=== PATIENT | male | born 1960 | race Caucasian/White ===

== ENCOUNTER 2016-07-20 13:49 | Inpatient (IN) ==
--- NOTE | 2016-07-20 15:31 | Emergency Department Note ---
Disposition Clinical Impression: Elevated INR, Bleeding from wound Surgical wound infection Qualifiers: Encounter type: initial encounter Qualified Code(s): T81.4XXA - Infection following a procedure, initial encounter Cellulitis Qualifiers: Site of cellulitis of trunk: abdominal wall Disposition: Admitted As Inpatient Condition: Fair Referrals: NO,PCP [Non-Partnered Physician] - Forms: ED Satisfaction Letter Time of Disposition: 20:09 Wound/Laceration HPI - General Chief Complaint: ED Wound/Laceration Stated Complaint: Wound bleeding Time Seen by Provider: 07/20/16 14:25 Source: patient Limitations: no limitations - History of Present Illness HPI Narrative: Patient is 55-year-old male with past medical history significant for CAD, CHF, renal disease, aortic valve replacement, mitral valve replacement who presents with bleeding from a surgical wound. Patient had bowel resection on 07/09/16 [facility] in [place]. He states that he sat down in his chair, leaning forward, and began bleeding from his midline abdominal surgical wound. He states that bleeding soaked one washcloth. Upon presentation to hospital, patient states the bleeding had resolved. Patient also admits to some erythema surrounding his midline surgical wound. He states that this is been present since he was discharged following his surgery. Patient admits to cough productive of white sputum. Patient denies fever, chills, chest pain, shortness of breath, abdominal pain. - Related Data Home Medications Medication Instructions Recorded Confirmed Doxercalciferol [Hectorol] 2.5 mcg PO 2XW 12/14/14 07/20/16 Sotalol HCl [Sotalol] 120 mg PO BID 12/14/14 07/20/16 Allopurinol [Zyloprim 100 MG] 100 mg PO DAILY 07/20/16 07/20/16 Ferrous Sulfate 325 mg PO TIDWM 07/20/16 07/20/16 Furosemide [Lasix] 40 mg PO BID 07/20/16 07/20/16 Guaifenesin [Mucinex] 600 mg PO BID 07/20/16 07/20/16 Magnesium Hydroxide [Milk of 2,400 mg PO DAILY 07/20/16 07/20/16 Magnesia] Magnesium Oxide [Mag-Ox] 400 mg PO DAILY 07/20/16 07/20/16 OxyCODONE Immed Rel [Roxicodone 5 5 mg PO Q4H PRN 07/20/16 07/20/16 MG] Sennosides/Docusate Sodium [Senna 1 each PO BID 07/20/16 07/20/16 Plus] Sodium Bicarbonate 1,300 mg PO DAILY 07/20/16 07/20/16 Warfarin Sodium [Coumadin] 6 mg PO QPM 07/20/16 07/20/16 Allergies Allergy/AdvReac Type Severity Reaction Status Date / Time No Known Allergies Allergy Verified 07/20/16 13:57 All systems ED: reviewed and negative except as stated. Constitutional: Reports: as per HPI Eyes: Reports: as per HPI ENT ED: Reports: as per HPI Cardiovascular: Reports: as per HPI Respiratory: Reports: as per HPI Gastrointestinal: Reports: as per HPI Genitourinary: Reports: as per HPI Musculoskeletal: Reports: as per HPI Integumentary: Reports: as per HPI Neurological: Reports: as per HPI Psychiatric: Reports: as per HPI Endocrine: Reports: as per HPI Hematological/Lymphatic: Reports: as per HPI Allergic/Immunologic: Reports: as per HPI Past Medical History - Past Medical History Medical history: Reports: CHF, coronary artery disease, renal disease, other Surgical history: Reports: other (s/p mechanical aortic and mechanical mitral valve replacement - on coumadin) Psychiatric history: Reports: no psych history - Social History Smoking Status: Never smoker Smokeless Tobacco Status: Yes Alcohol use: Reports: none Drug use: Reports: none Physical Exam - General Limitations: no limitations General appearance: alert, in no apparent distress - Head Head exam: atraumatic, normocephalic - Eye Eye exam: Present: normal appearance, EOMI - ENT ENT exam: normal exam - Neck Neck exam: Present: normal inspection, full ROM, trachea midline - Chest Chest inspection: Present: normal inspection, symmetric chest wall rise. Absent : tenderness - Respiratory Respiratory exam: Present: wheezes (Diffuse wheezing to all lung osman). Absent: respiratory distress, stridor, accessory muscle use - Cardiovascular Cardiovascular exam: Present: regular rate, normal rhythm, systolic murmur ( Harsh click of aortic valve), diastolic murmur (Click of mitral valve) - Abdominal Exam Abdominal exam: Present: soft, normal bowel sounds, scar (Midline abdomen with jimmy in place. Erythema and warmth to approximately 6 cm on either side of the spine surgical wound.). Absent: tenderness, distention (Morbidly obese abdomen), guarding, rebound, rigidity - Extremities Exam Extremities exam: Present: normal inspection, full ROM, pedal edema (1+ pitting edema) - Back Exam Back exam: Present: normal inspection, full ROM - Neurological Exam Neurological exam: Present: alert, oriented X3 - Psychiatric Psychiatric exam: Present: normal affect, normal mood - Skin Skin exam: Present: rash, erythema (Erythema and warmth to midline abdomen surrounding surgical wound) Course - Reevaluation(s) Reevaluation #1: Patient's INR is elevated at 5.2. Patient takes Coumadin for mechanical aortic and mitral valves. Also, patient does have a hemoglobin of 9.6, which is decreased from 07/06/2016 when hemoglobin was 10.3. Patient's lactate is normal and he does not have leukocytosis. However, we will treat the abdominal cellulitis with Unasyn 3g IV. I discussed admission with the patient. Patient is in agreement given that we will need to closely monitor his INR and treat the abdominal wall cellulitis. Time: 18:00 Vital Signs Temperature 98.2 F 07/20/16 13:58 Pulse Rate 103 07/20/16 13:58 Respiratory Rate 18 07/20/16 13:58 Blood Pressure 118/74 07/20/16 13:58 O2 Sat by Pulse Oximetry 97 07/20/16 13:58 Temperature 98.2 F 07/20/16 13:58 Pulse Rate 103 07/20/16 18:22 Respiratory Rate 16 07/20/16 18:22 Blood Pressure 101/83 07/20/16 18:22 O2 Sat by Pulse Oximetry 97 07/20/16 18:22 Oxygen Delivery Oxygen Delivery Room Air Wound/Laceration - [facility] Narrative Medical decision making narrative: She presents with acute onset bleeding from his midline surgical wound. Also, I am concerned for erythema and warmth surrounding the surgical wound which appears to be cellulitis. I will obtain a CBC, lactate, INR/PTT. These studies are pending at this time. - Lab Data Result diagrams: 07/20/16 16:23 Lab Results 07/20/16 07/20/16 07/20/16 Range/Units 16:23 16:25 16:25 WBC 8.0 (4.3-11.1) K/mcL RBC 3.46 L (4.19-5.50) M/mcL Hgb 9.6 L (12.9-16.9) g/dL Hct 30.9 L (37.5-50.1) % MCV 89.3 (83.0-100.0) fL MCH 27.7 L (28.0-33.3) pg MCHC 31.1 L (31.6-35.5) g/dL RDW 16.0 H (11.5-14.5) % Plt Count 167 (140-400) K/mcL MPV 11.4 (9.4-12.4) fL PT 59.5 H* (9.4-12.1) Seconds INR 5.2 H* Lactic Acid 1.1 (0.5-2.2) mmol/L
--- NOTE | 2016-07-20 16:24 | Emergency Department Note ---
START Narrative - START START: I examined this patient and my medical decision-making was reviewed with the MACHINE ADJUSTER LEADER CASE TRIM/PA/Advanced Practice Nurse/Resident Physician. I agree with the documented findings, disposition and treatment plan as described except to the extent set forth below. The patient did have surgery 10 days ago for what was diagnosed on his discharge papers as a: Twisted bowel and he presents today with erythema around his surgical incision with jimmy intact and a lot of blood seeping between the wound. The patient does have labs ordered pending including CBC, lactate and INR. He is nontoxic in appearance. Care will be coordinated with his surgeon and [place] [id number]
[2016-07-20 16:36] LABS: Hematocrit 30.9 % (37.5-50.1); Hemoglobin 9.6 g/dL (12.9-16.9); Mean Corpuscular HGB Conc 31.1 g/dL (31.6-35.5); Mean Corpuscular Hemoglobin 27.7 pg (28.0-33.3); Mean Corpuscular Volume 89.3 fL (83.0-100.0); Mean Platelet Volume 11.4 fL (9.4-12.4); Platelet Count 167 K/mcL (140-400); Red Blood Count 3.46 M/mcL (4.19-5.50)
[2016-07-20 16:45] LABS: Prothrombin Time 59.5 Seconds (9.4-12.1)
[2016-07-20 16:46] LABS: INR 5.2
[2016-07-20] MEDS ORDERED: Ampicillin/Sulbactam 3,000 MG in 0.9 % Sodium Chloride Mini Bag 100 ML IVPB ONE (17:33)
[2016-07-20] MEDS ORDERED: Naloxone 0.4 MG/ML INJ IVP PRN (22:52)
[2016-07-20] MEDS ORDERED: Ondansetron 4 MG/2 ML VIAL IVP PRN (22:52)
[2016-07-20 23:22] LABS: Basophils % 0.3 %; Eosinophils # 0.2 K/mcL (0.0-0.6); Eosinophils % 2.7 %; Hematocrit 27.6 % (37.5-50.1); Hemoglobin 8.7 g/dL (12.9-16.9); Immature Granulocytes % 0.6 % (0-4); Lymphocytes # 0.7 K/mcL (0.6-4.6); Lymphocytes % 10.6 %; Mean Corpuscular HGB Conc 31.5 g/dL (31.6-35.5); Mean Corpuscular Hemoglobin 28.2 pg (28.0-33.3); Mean Corpuscular Volume 89.6 fL (83.0-100.0); Mean Platelet Volume 11.7 fL (9.4-12.4); Monocytes # 0.7 K/mcL (0.0-1.3); Monocytes % 10.9 %; Neutrophils # 4.7 K/mcL (1.6-8.9); Platelet Count 162 K/mcL (140-400); Red Blood Count 3.08 M/mcL (4.19-5.50); Red Cell Distribution Width 15.9 % (11.5-14.5); Segmented Neutrophils % 74.9 %
[2016-07-20 23:29] LABS: INR 5.4
[2016-07-20 23:35] LABS: Calcium 8.3 mg/dL (8.6-10.8); Magnesium 2.1 mg/dL (1.6-2.6); Potassium 4.2 mEq/L (3.5-4.5)
--- NOTE | 2016-07-21 00:05 | Internal Med History&Physical ---
<Jerson Galindo Maura - Last Filed: 07/21/16 00:00> Date of Encounter: 07/21/16 Time of Encounter: 00:00 Assessment and Plan (1) Bleeding from wound Current visit: Yes Status: Acute Patient reports bleeding from the surgical site wound. None observed on exam but the nursing staff did state that the patient did have an episode of spurting blood. Hemoglobin 9.6 on presentation, recheck is 8.7. Hemodynamically stable and asymptomatic. We will continue to monitor. (2) Elevated INR Current visit: Yes Status: Acute INR 5.2 on presentation. Patient has 2 mechanical valves so his goal is 2.5- 3.5. Patient does have some bleeding as discussed above but is otherwise stable. Given the high risk nature of the mechanical valves will not attempt to reverse the patient's elevated INR at this time. If he continues to have significant bleeding or becomes hemodynamically unstable due to acute blood loss we will treat with FFP. In the meantime we will hold Coumadin and monitor the patient's INR (3) Acute renal failure (ARF) Current visit: No Status: Acute On chronic. Likely the setting of hypovolemia. Since baseline creatinine appears to be 2.8-3, creatinine 4.99 today. We will gently hydrate and monitor serum creatinine and urine output. Qualifiers: Acute renal failure type: unspecified Qualified Code(s): N17.9 - Acute kidney failure, unspecified (4) H/O mechanical aortic valve replacement Current visit: No Status: Acute Click present. INR target should be 2.5-3.5 as discussed above. Patient is high risk so we will not reverse Coumadin with vitamin K, if bleeding becomes severe we may use FFP but we will just clinically monitor at this time. (5) History of mitral valve replacement with mechanical valve Current visit: No Status: Acute (6) Gout Current visit: No Status: Acute Stable. No evidence of acute flare. Continue allopurinol. Qualifiers: Gout site: foot Gout etiology: unspecified cause Laterality: left Chronicity: acute Qualified Code(s): M10.9 - Gout, unspecified (7) DVT prophylaxis Current visit: Yes Status: Acute Patient is supratherapeutic on INR as discussed above is no indication for DVT prophylaxis at this time. Internal Medicine - H&P: HPI Chief complaint: Wound bleeding Admitted From: Emergency Dept Plans for Post Hospital Care: Home History of present illness: Mr. Driscoll is a 55 year old male with history of aortic valve and mitral valve replacement with mechanical valve presents with surgical site bleeding. Patient had surgery on 07/09/2016 at [place] to fix what he calls a "twist in his bowel." Patient then states that today he went to sit up and noticed bleeding from his surgical site. He started shortly thereafter he noticed spurting blood from her surgical site. Patient then presented to the emergency department. Patient was also noted by the nursing staff to have an episode of spurting blood from his surgical site once arriving on the floor after getting up and walking to the bathroom. Patient denies dizziness, syncope, fever, chills, chest pain, shortness of breath, nausea, vomiting, diarrhea, lower extremity swelling. Patient takes Coumadin for mechanical aortic and mitral valves. He states he had his INR checked 2 days prior to this admission but does not remember what it was. Past Med Surg Social Fam HX - Past Medical History Medical history: CHF, coronary artery disease, renal disease, other Psychiatric history: no psych history - Past Surgical History Surgical History: other - Social History Smoking Status: Former smoker Smokeless Tobacco Status: Yes Alcohol use: none Drug use: none - Family History Father Living Status: Internal Medicine - H&P: Meds Allopurinol [Zyloprim 100 MG] 100 mg PO DAILY 07/20/16 [History] Ferrous Sulfate 325 mg PO QAM 07/20/16 [History] Furosemide [Lasix] 40 mg PO BID 07/20/16 [History] Guaifenesin [Mucinex] 600 mg PO BID 07/20/16 [History] Magnesium Hydroxide [Milk of Magnesia] 2,400 mg PO DAILY 07/20/16 [History] OxyCODONE Immed Rel [Roxicodone 5 MG] 5 mg PO Q4H PRN 07/20/16 [History] Sennosides/Docusate Sodium [Senna Plus] 1 each PO BID 07/20/16 [History] Sodium Bicarbonate 1,300 mg PO DAILY 07/20/16 [History] Allergies No Known Allergies Allergy (Verified 07/20/16 13:57) All Systems PM: A 10-system review of systems was performed and is negative for pertinent findings except as documented above in the HPI. - Constitutional Vitals: Temp Pulse Resp BP Pulse Ox 97.9 F 95 18 116/74 94 07/20/16 23:03 07/20/16 23:03 07/20/16 23:03 07/20/16 23:03 07/20/16 23:03 General appearance: Present: A&O X 3, pleasant, no acute distress - Head Head exam: Present: atraumatic, normal inspection, normocephalic - Eye Eye exam: Present: EOMI, PERRL - ENT ENT exam: Present: mucous membranes moist - Respiratory Respiratory exam: Present: CTAB (Coarse breath sounds throughout). Absent: rales, rhonchi, wheezes - Cardiovascular Cardiovascular exam: Present: clicks, RRR, systolic murmur (2/6). Absent: gallop, rubs, tachycardia - GI/Abdominal GI/Abdominal exam: Present: normal bowel sounds, soft. Absent: distended, tenderness - Extremities Exam Extremities exam: Present: warm. Absent: pedal edema, tenderness - Incison Incision: Present: clean and dry, intact, erythema (Mild) Comments: No bleeding or drainage noted at the time my exam. Tyler are present. Mild erythema surrounding the surgical site but no induration, tenderness. - Neurological Exam Neurological exam: Present: alert, CN II-XII intact, oriented X3, no focal deficits - Skin Skin exam: Present: dry, intact, warm Internal Med - H&P Results - Labs CBC & Chem 7: 07/20/16 23:11 07/20/16 23:11 Labs: Short CBC 07/20/16 Range/Units 23:11 WBC 6.3 (4.3-11.1) K/mcL Hgb 8.7 L (12.9-16.9) g/dL Hct 27.6 L (37.5-50.1) % Plt Count 162 (140-400) K/mcL Neutrophils # 4.7 (1.6-8.9) K/mcL BMP 07/20/16 23:11 Sodium 137 Potassium 4.2 Chloride 97 L Carbon Dioxide 29 BUN 63 H Creatinine 4.99 H Glucose 100 H Calcium 8.3 L - VTE Reasons for not Prescribing Prophylaxis: Not indicated-Anticoagulated or INR therapeutic <Narendra Sue - Last Filed: 07/21/16 11:17> Date of Encounter: 07/21/16 Internal Medicine - H&P: HPI History of present illness: Mr. Driscoll is a 55 year old male All Systems PM: A 10-system review of systems was performed and is negative for pertinent findings except as documented above in the HPI. - Constitutional Vitals: Temp Pulse Resp BP Pulse Ox 98.2 F 89 18 122/41 99 07/21/16 10:25 07/21/16 10:25 07/21/16 10:25 07/21/16 10:25 07/21/16 09:17 Internal Med - H&P Results - Labs CBC & Chem 7: 07/21/16 04:12 07/21/16 04:12 - Attending Attestation I performed history and physical examination of the patient and discussed management with the Resident. I reviewed the Residents note and agree with documented findings and plan of care 55 Y/M with h/o AVR and MVR and is on warfarin for anticoagulation. He had laparotomy was done on 07/09/16 at [facility]. Pt presented to the ER at [facility], with h/o spurting blood from the laparotomy incision site. He was evaluated in the ER and was noted to have INR of 5.4, Hgb : 9.6. ER physician thought that the pt has abdominal wall cellulitis and given unasyn to the pt and admitted to the hospitalist service for further management. O/E: Pt lying comfortable. Midline abdominal incision with jimmy in place. No clinical signs of cellulitis noted. No obvious bleeding hematoma noted. Bowel sound present. No abdominal tenderness present. Prosthetic 1st and 2nd heart sounds present. Labs reviewed. A/P: Suspected cellulitis of the anterior abdominal wall: On my personal evaluation, no obvious e/o cellulitis no antibiotics at this time. Bleeding from the abdominal wall incision site: Likely related to elevated INR. No active signs of bleeding at my evaluation and residents evaluation. Monitor INR and H&H. Ideally pt should have been transferred to [facility], for post surgical complications. If the pt has any signs of further bleeding from the incision site will discuss with local surgeon or transfer to [facility].
[2016-07-21] MEDS ORDERED: *HR* OxyCODONE Immed Rel 5 MG TABLET PO PRN (00:09)
[2016-07-21] MEDS ORDERED: 0.9 % Sodium Chloride 1,000 ML IVC SCH (00:15)
[2016-07-21 04:28] LABS: Basophils % 0.4 %; Eosinophils # 0.2 K/mcL (0.0-0.6); Eosinophils % 4.1 %; Hemoglobin 8.2 g/dL (12.9-16.9); Immature Granulocytes % 0.6 % (0-4); Lymphocytes # 0.8 K/mcL (0.6-4.6); Lymphocytes % 13.8 %; Mean Corpuscular HGB Conc 31.5 g/dL (31.6-35.5); Mean Corpuscular Hemoglobin 28.3 pg (28.0-33.3); Mean Corpuscular Volume 89.7 fL (83.0-100.0); Mean Platelet Volume 11.4 fL (9.4-12.4); Monocytes # 0.6 K/mcL (0.0-1.3); Monocytes % 11.8 %; Neutrophils # 3.8 K/mcL (1.6-8.9); Platelet Count 160 K/mcL (140-400); Red Cell Distribution Width 15.9 % (11.5-14.5); Segmented Neutrophils % 69.3 %
[2016-07-21 04:34] LABS: INR 5.3; Prothrombin Time 60.2 Seconds (9.4-12.1)
[2016-07-21 04:39] LABS: Calcium 8.1 mg/dL (8.6-10.8)
[2016-07-21] MEDS ORDERED: Pantoprazole 40 MG VIAL IVP SCH (06:30)
[2016-07-21] MEDS ORDERED: Furosemide 40 MG TABLET PO SCH (08:00)
--- NOTE | 2016-07-21 08:28 | Internal Med Progress Note ---
Date of Encounter: 07/21/16 Time of Encounter: 07:45 - Assessment and plan (1) H/O colectomy Current Visit: Yes Status: Acute Assessment and plan: I have reviewed the patient's records from [facility]. On 07/07/16, patient presented to the emergency department with a chief complaint right flank pain 2 days. A retroperitoneal spontaneous bleed was found and thought to be secondary to polycystic kidney disease with retroperitoneal hemorrhage from right kidney noted on CTA he was transfused with 3 units of packed red blood cells at that time and remained anemic with a hemoglobin 7.7 after transfusion. He was also noted to be in acute renal failure with an initial creatinine clearance of 14. He had an right renal artery embolization on 07/07/16. After this procedure, patient began to experience increasing abdominal pain and distention. 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 His cecum at that time was severely dilated measuring 17.5 cm. GI was initially brought on board for colonoscopic decompression however patient began having bright red bloody stools and the decision was made to proceed with surgical management. Surgery then proceeded with exploratory laparotomy with right colectomy for volvulus on 07/09/16 with postoperative diagnosis of the cecal bascule- surgery per Dr Murdock. An HD catheter was placed but it does not appear as if the patient was started on HD. Patient's admission was complicated with encephalopathy, CO2 retention, AKA on CKD, respiratory acidosis and he was transferred to the ICU at that time. He was stabilized and later discharged on 07/19/16. Patient has been transferred to the ICU, sign out has been given to Dr. Ochoa. Spoke to [facility] transfer center, and they are attempting to secure transfer at this time. Spoke to transfer center at 0820. Patient is currently alert and oriented 3 and currently denies pain. Abdomen is distended but soft and nontender. Hypoactive bowel sounds. Per nursing report, whenever the patient moves, blood "squirts out of his incision". Also viewed bedside commode which contained a large amount of dark red blood with clots noted. (2) Bleeding from wound Current Visit: Yes Status: Acute Assessment and plan: FFP and packed red blood cells ordered. Spoke to [facility], plan is to transfer soon as possible. Transferring to the intensive care unit in the meantime. Abdominal CT without contrast pending. Sign out to Dr. Ochoa. (3) Acute renal failure (ARF) Current Visit: No Status: Acute Assessment and plan: In review of his chart, he has chronic kidney disease stage IV however current renal functioning is lower than his baseline. Current creatinine 4.9, GFR 12. When he was admitted to [facility], he had an HD catheter placed but it does not appear as if he received dialysis. Transferring to the ICU Qualifiers: Acute renal failure type: unspecified Qualified Code(s): N17.9 - Acute kidney failure, unspecified (4) Cellulitis Current Visit: Yes Status: Acute Assessment and plan: On examination, I am not overly convinced that the patient's incision is infected. No leukocytosis. On examination, mild erythema noted around incision site. Abdominal CT pending, main concern at this time is his active bleeding. Transferring down to the intensive care unit. (5) Surgical wound infection Current Visit: Yes Status: Acute Assessment and plan: See prior note for cellulitis (6) H/O mechanical aortic valve replacement Current Visit: No Status: Chronic Assessment and plan: Holding Coumadin. INR supratherapeutic with active bleeding. Getting FFP at this time, 6 units. Transferred to [facility] as soon as possible. (7) History of mitral valve replacement with mechanical valve Current Visit: No Status: Chronic (8) Elevated INR Current Visit: Yes Status: Acute Assessment and plan: Transfusing FFP (9) DVT prophylaxis Current Visit: Yes Status: Acute Assessment and plan: Contraindicated, active bleeding. INR supratherapeutic (10) Acute blood loss anemia Current Visit: Yes Status: Acute - Time Spent With Patient Greater than 35 minutes - Subjective Interval history: Patient seen and examined. On examination, patient resting supine in bed. Patient is alert and oriented 3 but appears groggy. He denies pain at this time. He states that his incision to his abdomen continues to "squirt blood" when he stands up. He also states that he is still passing dark red blood with clots in his stool. - Constitutional Vitals: Temp Pulse Resp BP Pulse Ox 97.9 F 94 18 106/70 96 07/21/16 03:00 07/21/16 03:00 07/21/16 03:00 07/21/16 03:00 07/21/16 03:00 General appearance: Present: A&O X 3, pleasant, no acute distress, obese, answers questions appropriately - Head Head exam: Present: atraumatic, normocephalic - Eye Eye exam: Present: PERRL, conjuntiva pink, sclera anicteric Pupils: Present: PERRL - Neck Neck exam general surgery: Present: supple, trachea midline. Absent: lymphadenopathy - Respiratory Respiratory exam: Present: decreased breath sounds, rhonchi. Absent: accessory muscle use, CTAB, rales, respiratory distress, wheezes - Cardiovascular Cardiovascular exam: Present: irregular rhythm, +S1, +S2, systolic murmur. Absent: diastolic murmur, gallop, rubs - GI/Abdominal GI/Abdominal exam: Present: distended, hypoactive bowel sounds, soft. Absent: tenderness - Extremities Exam Extremities exam: Present: warm, radial pulses palpable and symetrical. Absent : calf tenderness, cyanotic, pedal edema - Neurological Exam Neurological exam: Present: alert, CN II-XII intact, oriented X3, no focal deficits, strengths equal and symetr throughout. Absent: pronater drift, facial droop, speech deficit - Skin Skin exam: Present: dry, intact, pallor, warm Internal Medicine: Result - Labs CBC & Chem 7: 07/21/16 04:12 07/21/16 04:12 Labs: Short CBC 07/20/16 07/21/16 Range/Units 23:11 04:12 WBC 6.3 5.4 (4.3-11.1) K/mcL Hgb 8.7 L 8.2 L (12.9-16.9) g/dL Hct 27.6 L 26.0 L (37.5-50.1) % Plt Count 162 160 (140-400) K/mcL Neutrophils # 4.7 3.8 (1.6-8.9) K/mcL BMP 07/20/16 07/21/16 23:11 04:12 Sodium 137 139 Potassium 4.2 4.0 Chloride 97 L 99 Carbon Dioxide 29 29 BUN 63 H 64 H Creatinine 4.99 H 4.91 H Glucose 100 H 131 H Calcium 8.3 L 8.1 L - ABG Interpretation ABG results: PT/INR, D-dimer PT 60.2 Seconds (9.4-12.1) H* 07/21/16 04:12 - VTE Reasons for not Prescribing Prophylaxis: Not indicated-Anticoagulated or INR therapeutic Consult Discharge Plan - Plan Referrals: Dieter Herrera DO [Primary Care Provider] -
--- NOTE | 2016-07-21 09:49 | Pulmonology Consult Note ---
<PatrickhuyBarb godoy M - Last Filed: 07/21/16 12:54> Date of Encounter: 07/21/16 Medications and Allergies Allopurinol [Zyloprim 100 MG] 100 mg PO DAILY 07/20/16 [History] Ferrous Sulfate 325 mg PO QAM 07/20/16 [History] Furosemide [Lasix] 40 mg PO BID 07/20/16 [History] Guaifenesin [Mucinex] 600 mg PO BID 07/20/16 [History] Magnesium Hydroxide [Milk of Magnesia] 2,400 mg PO DAILY 07/20/16 [History] OxyCODONE Immed Rel [Roxicodone 5 MG] 5 mg PO Q4H PRN 07/20/16 [History] Sennosides/Docusate Sodium [Senna Plus] 1 each PO BID 07/20/16 [History] Sodium Bicarbonate 1,300 mg PO DAILY 07/20/16 [History] Allergies No Known Allergies Allergy (Verified 07/20/16 13:57) All Systems: A 10-system review of systems was performed and is negative for pertinent findings except as documented above in the HPI. Physical Examination Vital Signs: Vital Signs, Last 4 Hours Temp Pulse Resp BP 07/21/16 10:25 98.2 F 89 18 122/41 07/21/16 10:10 98.3 F 87 15 118/73 Results - Laboratory Findings CBC and BMP: 07/21/16 04:12 07/21/16 04:12 PT/INR, D-dimer PT 60.2 Seconds (9.4-12.1) H* 07/21/16 04:12 Abnormal lab findings: Abnormal lab results RBC 2.90 M/mcL (4.19-5.50) L 07/21/16 04:12 Hgb 8.2 g/dL (12.9-16.9) L 07/21/16 04:12 Hct 26.0 % (37.5-50.1) L 07/21/16 04:12 MCHC 31.5 g/dL (31.6-35.5) L 07/21/16 04:12 RDW 15.9 % (11.5-14.5) H 07/21/16 04:12 PT 60.2 Seconds (9.4-12.1) H* 07/21/16 04:12 INR 5.3 H* 07/21/16 04:12 BUN 64 mg/dL (8-26) H 07/21/16 04:12 Creatinine 4.91 mg/dL (0.72-1.25) H 07/21/16 04:12 Est GFR ( Amer) 15 (> 60) L 07/21/16 04:12 Est GFR (Non-Af Amer) 12 (> 60) L 07/21/16 04:12 Glucose 131 mg/dL (70-99) H 07/21/16 04:12 POC Glucose 102 (58-89) H 07/21/16 09:07 Calculated Osmolality 308 (280-300) H 07/21/16 04:12 Calcium 8.1 mg/dL (8.6-10.8) L 07/21/16 04:12 - Clinical Findings Intake & Output: Intake & Output 07/20/16 07/21/16 07/21/16 23:59 07:59 15:59 Intake Total 600 / 600 Balance 600 / 600 Consult Discharge Plan - Plan Instructions: Anemia (GEN) Additional Instructions: sent to [facility] Referrals: Dieter Herrera DO [Primary Care Provider] - - Attending Attestation I examined this patient and my medical decision-making was reviewed with the INSTANT POTATO PROCESSOR/PA/Advanced Practice Nurse/Resident Physician. I agree with the documented findings, disposition and treatment plan as described except to the extent set forth below. Patient seen and examined with the resident after nurse practitioner called for a consult and transfer patient to ICU because of the bleeding and coagulopathy. ICU team including myself and residents when to 3B to assess patient and then he was assessed when he was in ICU. Labs, radiology, chart personally reviewed. Agree with resident's history and physical, assessment, plan with following comments: AGRICULTURAL TECHNICAL OFFICER: Patient follows commands, Pulmonary: Acceptable oxygenation and ventilation Cardiovascular: stable GI: Patient had recent surgery at [facility] and His midline incision which is erythematous but no evidence of active bleeding. Heme: DVT prophylaxis per routine. Patient is coagulopathic and blood and blood product transfusion recommended Renal; urine out put and renal funtion reviewed Endorcine: blood glucose is monitored Lines: all lines checked and no evidence of infections Skin: skin care to prevent pressure ulcers per nursing routine care Since patient had his surgery at [facility] and due to his complicated cardiac history with need of anticoagulation, was recommended to be transferred to [facility] to be taking care of all surgery team contacted surgery originally. This was discussed with primary team and thank you very much for consultation. <Paras Mi - Last Filed: 07/21/16 13:37> Date of Encounter: 07/21/16 Time of Encounter: 09:47 Assessment and Plan (1) Bleeding from wound Status: Acute Patient had noticeable bleeding from his surgical site scar while in the ICU he received 2 units of FFP and was transferred to [facility] with 2 units of blood. Goal INR will be between 2.5 to 3.5 because he does have a history of aortic and mitral mechanical valve replacement. Continue to monitor. (2) H/O colectomy Status: Acute (3) Elevated INR Status: Acute plan as #1 above. (4) Acute kidney injury superimposed on chronic kidney disease Status: Acute Patients creatinine today was 4.91 baseline creatinine is about 3.1 patient received IV fluids continue to monitor (5) H/O mechanical aortic valve replacement Status: Chronic (6) History of mitral valve replacement with mechanical valve Status: Chronic (7) Gout Status: Acute no signs of acute flare-up. continue with allopurinol. Qualifiers: Gout site: foot Gout etiology: unspecified cause Laterality: left Chronicity: acute Qualified Code(s): M10.9 - Gout, unspecified (8) DVT prophylaxis Status: Acute will hold DVT prophylaxis at this time in setting of supratherapeutic INR. History of Present Illness Consult date: 07/21/16 Requesting physician: Jess Sen Chief complaint: bleeding from surgical site History of present illness: Mr. Driscoll is a 55-year-old male with past medical history of CHF, CAD, CKD, aortic and mitral valve replacement (on Coumadin). He presented to the ED on 07/21/16 with chief complaint of bleeding from his midline abdominal surgical site. Patient is a very poor historian and records from [facility] had to be obtained for more information regarding his recent surgery. On 07/07/16, patient presented to the emergency department at [facility] with chief complaint of right flank pain for 2 days. A retroperitoneal spontaneous bleeding was found and thought to be secondary to polycystic kidney disease with retroperitoneal hemorrhage from the right kidney. Patient had right renal artery embolization done at [facility]. After this procedure, he began to have increasing abdominal pain with distention. 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 The surgery was done by Dr. Yan at [facility]. He was stabilized and discharged from [facility] on 07/19/16. After admission to observation at [facility] on 07/21/16, patient continued to have bleeding from his abdominal surgical sight. His INR was 5.3 during admission. Patient was subsequently transferred to ICU for closer monitoring. He received packed red blood cells and FFP in the ICU and then was transferred to [facility] shortly afterwards since that was where he had his initial surgery. Past Med Surg Social Fam HX - Past Medical History Medical history: CHF, coronary artery disease, renal disease, other Psychiatric history: no psych history - Past Surgical History Surgical History: other - Social History Smoking Status: Former smoker Smokeless Tobacco Status: Yes Alcohol use: none Drug use: none - Family History Father Living Status: All Systems: A 10-system review of systems was performed and is negative for pertinent findings except as documented above in the HPI. - Constitutional Constitutional: no anorexia, no chills, no fatigue, no fever(s), no headache(s) - EENT Nose, mouth and throat: no abnormal hearing, no headache(s) - Cardiovascular Cardiovascular: no chest pain, no diaphoresis Physical Examination Vital Signs: Vital Signs, Last 4 Hours Temp Pulse Resp BP Pulse Ox 07/21/16 09:17 98.2 F 88 12 121/93 99 07/21/16 08:10 97.8 F 90 16 102/69 95 General appearance: no acute distress, alert Eyes: nonicteric ENT: oropharynx moist Neck: supple, no lymphadenopathy Effort: normal Auscultation: bilateral: diminished breath sounds Cardiovascular: irregular rhythm, murmur noted Gastrointestinal: hypoactive bowel sounds, soft, other (surgical jimmy present on midline of abdomen that occasionally ooze with blood. ) Integumentary: normal Extremities: no cyanosis, no edema mood appropriate Results - Laboratory Findings CBC and BMP: 07/21/16 04:12 07/21/16 04:12 PT/INR, D-dimer PT 60.2 Seconds (9.4-12.1) H* 07/21/16 04:12 Abnormal lab findings: Abnormal lab results RBC 2.90 M/mcL (4.19-5.50) L 07/21/16 04:12 Hgb 8.2 g/dL (12.9-16.9) L 07/21/16 04:12 Hct 26.0 % (37.5-50.1) L 07/21/16 04:12 MCHC 31.5 g/dL (31.6-35.5) L 07/21/16 04:12 RDW 15.9 % (11.5-14.5) H 07/21/16 04:12 PT 60.2 Seconds (9.4-12.1) H* 07/21/16 04:12 INR 5.3 H* 07/21/16 04:12 BUN 64 mg/dL (8-26) H 07/21/16 04:12 Creatinine 4.91 mg/dL (0.72-1.25) H 07/21/16 04:12 Est GFR ( Amer) 15 (> 60) L 07/21/16 04:12 Est GFR (Non-Af Amer) 12 (> 60) L 07/21/16 04:12 Glucose 131 mg/dL (70-99) H 07/21/16 04:12 POC Glucose 102 (58-89) H 07/21/16 09:07 Calculated Osmolality 308 (280-300) H 07/21/16 04:12 Calcium 8.1 mg/dL (8.6-10.8) L 07/21/16 04:12 - Clinical Findings Intake & Output: Intake & Output 07/20/16 07/21/16 07/21/16 23:59 07:59 15:59 Weight 116.029 kg 117.1 kg 119 kg
[2016-07-21] MEDS ORDERED: 0.9 % Sodium Chloride 500 ML ONE (09:52)
[2016-07-21] MEDS ORDERED: 0.9 % Sodium Chloride 250 ML ONE (10:20)
[2016-07-21 10:32] VITALS: BP 122/41
--- NOTE | 2016-07-21 10:51 | Discharge Summary ---
Date of Encounter: 07/21/16 Time of Encounter: 08:15 (and 0830) - Discharge Diagnosis (1) H/O colectomy Priority: Primary Status: Acute Comments: Patient transferred to ICU. Blood and FFP infusing. Sending to [facility] now. I have reviewed the patient's records from [facility]. On 07/07/16, patient presented to the emergency department with a chief complaint right flank pain 2 days. A retroperitoneal spontaneous bleed was found and thought to be secondary to polycystic kidney disease with retroperitoneal hemorrhage from right kidney noted on CTA he was transfused with 3 units of packed red blood cells at that time and remained anemic with a hemoglobin 7.7 after transfusion. He was also noted to be in acute renal failure with an initial creatinine clearance of 14. He had an right renal artery embolization on 07/07/16. After this procedure, patient began to experience increasing abdominal pain and distention. 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 His cecum at that time was severely dilated measuring 17.5 cm. GI was initially brought on board for colonoscopic decompression however patient began having bright red bloody stools and the decision was made to proceed with surgical management. Surgery then proceeded with exploratory laparotomy with right colectomy for volvulus on 07/09/16 with postoperative diagnosis of the cecal bascule- surgery per Dr Murdock. An HD catheter was placed but it does not appear as if the patient was started on HD. Patient's admission was complicated with encephalopathy, CO2 retention, AKA on CKD, respiratory acidosis and he was transferred to the ICU at that time. He was stabilized and later discharged on 07/19/16. Patient has been transferred to the ICU, sign out has been given to Dr. Ochoa. Spoke to [facility] transfer center, and they are attempting to secure transfer at this time. Spoke to transfer center at 0820. Patient is currently alert and oriented 3 and currently denies pain. Abdomen is distended but soft and nontender. Hypoactive bowel sounds. Per nursing report, whenever the patient moves, blood "squirts out of his incision". Also viewed bedside commode which contained a large amount of dark red blood with clots noted. (2) Bleeding from wound Priority: Primary Status: Acute (3) Acute renal failure (ARF) Priority: Primary Status: Acute Qualifiers: Acute renal failure type: unspecified Qualified Code(s): N17.9 - Acute kidney failure, unspecified (4) Cellulitis Priority: Primary Status: Inactive Comments: On examination, I am not overly convinced that the patient's incision is infected. No leukocytosis. On examination, mild erythema noted around incision site but no fluctuance or induration. Abdominal CT pending, main concern at this time is his active bleeding. Transferring down to the intensive care unit then [facility]. Qualifiers: Site of cellulitis: unspecified site Qualified Code(s): L03.90 - Cellulitis , unspecified (5) Surgical wound infection Priority: Primary Status: Inactive Qualifiers: Encounter type: initial encounter Qualified Code(s): T81.4XXA - Infection following a procedure, initial encounter (6) H/O mechanical aortic valve replacement Priority: Secondary Status: Chronic Comments: Holding Coumadin. INR supratherapeutic with active bleeding. Getting FFP at this time, 6 units. Transferring to [facility] (7) History of mitral valve replacement with mechanical valve Priority: Secondary Status: Chronic (8) Elevated INR Priority: Primary Status: Acute (9) DVT prophylaxis Priority: Primary Status: Acute Comments: contraindicated (10) Acute blood loss anemia Priority: Primary Status: Acute (11) Diastolic heart failure Priority: Secondary Status: Chronic Comments: Does not appear to be in acute exacerbation. Per report from [facility], ejection fraction 60-65%. He is on furosemide at home. Holding furosemide at this time secondary to RITA on chronic kidney disease stage IV. - Discharge Medications Home Medications: Allopurinol [Zyloprim 100 MG] 100 mg PO DAILY 07/20/16 [History] Ferrous Sulfate 325 mg PO QAM 07/20/16 [History] Furosemide [Lasix] 40 mg PO BID 07/20/16 [History] Guaifenesin [Mucinex] 600 mg PO BID 07/20/16 [History] Magnesium Hydroxide [Milk of Magnesia] 2,400 mg PO DAILY 07/20/16 [History] OxyCODONE Immed Rel [Roxicodone 5 MG] 5 mg PO Q4H PRN 07/20/16 [History] Sennosides/Docusate Sodium [Senna Plus] 1 each PO BID 07/20/16 [History] Sodium Bicarbonate 1,300 mg PO DAILY 07/20/16 [History] Allergies/Adverse Reactions: Allergies No Known Allergies Allergy (Verified 07/20/16 13:57) Date of admission: 07/21/16 09:23 Primary care physician: Dieter Herrera Consults: 07/21/16 08:08 Consult to Invasive Line Access Team [CONS] Stat Reason for Consult: actively bleeding; needs transfused amanda Line Type: Midline 07/21/16 10:49 Consult to Critical Care [CONS] Stat Consulting Provider: [facility] Reason for Consult: unstable; elevated INR, recent colectomy at [facility] . bleeding from jimmy and rectum Time Notified: 08:00 Call Completed: Yes Discharging clinician: Jess Sen Anticipated date of discharge: 07/21/16 (sending to [facility]) - Patient Status Disposition: Transfer Short-Term Hosp Condition: Critical Functional capacity at discharge: bed bound Overall status at discharge: patient is not back to baseline - Discharge Instructions Follow Up With: Dieter Herrera, [Primary Care Provider] - Additional Instructions: sent to [facility] - Diet and Activity Activity: return to work once cleared by your PCP/specialist Diet: other (npo; sent to [facility]) Hospital course: Mr. Driscoll is a 55 year old male with past medical history of diastolic heart failure, CAD, chronic kidney disease stage IV, aortic and mitral mechanical valve replacement on Coumadin, recent colectomy. Patient was just discharged from [facility] on 07/19/16. He presented to [facility] on 07/07/16 with a chief complaint of right flank pain 2 days. He was noted to have a retroperitoneal spontaneous bleed that was unresponsive to blood transfusion and at that time renal artery embolization was completed on 07/07/16. After this procedure, patient began to experience increasing abdominal pain and distention. 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 His cecum at that time was severely dilated measuring 17.5 cm. GI was initially brought on board for colonoscopic decompression however patient began having bright red bloody stools and the decision was made to proceed with surgical management. Surgery then proceeded with exploratory laparotomy with right colectomy for volvulus on 07/09/16 with postoperative diagnosis of the cecal bascule- surgery per Dr Murdock. An HD catheter was placed but it does not appear as if the patient was started on HD. Patient's admission was complicated with encephalopathy, CO2 retention, RITA on CKD, respiratory acidosis and he was transferred to the ICU at that time. He was discharged on 07/19/16. This visit, he presented to [facility] emergency Department the following day on 07/20/16 with a chief complaint of bleeding from his surgical wound. He was at home and when he went to sit up, he noticed bleeding from his surgical site and shortly thereafter he noticed spurting blood from his surgical site. Chest x-ray was performed in the emergency department which was unremarkable for acute processes. Patient was then admitted to the hospitalist service for further evaluation and management. Immediately after transfer to the observation unit, patient was appropriately transferred to the intensive care unit. Acute renal failure noted with creat of 4.9 and gfr 12. His INR supratherapeutic over 5 and he still had active bleeding from his surgical site with movement and he also had large amounts of dark blood with clots noted from his rectum. Hemoglobin was trending down and the patient was given FFP and packed red blood cells and immediately transferred. Abdominal CT unremarkable for acute processes however given his instability, he was transferred to the ICU, then to [facility]. There was initial a concern for cellulitis around his surgical site, however there was no leukocytosis, induration or signs of infection around his jimmy. He was transferred to [facility] in critical but stable condition with FFP and PRBC's infusing. ITS Impressions Chest X-Ray 07/20/16 15:31 IMPRESSION: Cardiomegaly without overt pulmonary edema. No acute focal process. D/ / Brandyn Bolaños MD / Brandyn Bolaños MD Interpreting Provider: Brandyn Bolaños MD Abdomen/Pelvis CT 07/21/16 08:04 IMPRESSION: Very small amount of perihepatic ascites compatible with recent surgery. No evident acute intra-abdominal hematoma or hemorrhage. Normal appearance of the anterior midline surgical incision with expected amount of postoperative fluid in the incision. Resolving large right renal hematoma. Gallstones and bilateral adrenal myelolipomas again noted. Moderate sigmoid diverticulosis D/ / Olu Hernández MD / Olu Hernández MD Interpreting Provider: Olu Hernández MD - Time Spent with Patient Total time spent providing and/or coordinating discharge services: - Constitutional Vitals: Temp Pulse Resp BP Pulse Ox 98.2 F 89 18 122/41 99 07/21/16 10:07/21/16 10:07/21/16 10:07/21/16 10:07/21/16 09:17 General appearance: Present: A&O X 3, pleasant, no acute distress, obese, answers questions appropriately - Head Head exam: Present: atraumatic, normocephalic - Eye Eye exam: Present: EOMI, PERRL, conjuntiva pink, sclera anicteric Pupils: Present: PERRL - Neck Neck exam general surgery: Present: supple, trachea midline. Absent: lymphadenopathy - Respiratory Respiratory exam: Present: decreased breath sounds, rhonchi. Absent: accessory muscle use, rales, respiratory distress, wheezes - Cardiovascular Cardiovascular exam: Present: irregular rhythm, +S1, +S2, systolic murmur. Absent: diastolic murmur, gallop, rubs - GI/Abdominal GI/Abdominal exam: Present: distended, hypoactive bowel sounds, soft. Absent: tenderness Additional comments: surgical incision with jimmy - Extremities Exam Extremities exam: Present: warm, radial pulses palpable and symetrical. Absent : calf tenderness, cyanotic - Neurological Exam Neurological exam: Present: alert, CN II-XII intact, oriented X3, no focal deficits, strengths equal and symetr throughout. Absent: pronater drift, facial droop, speech deficit - Skin Skin exam: Present: cyanosis, dry, intact, pallor, warm - VTE Reasons for not Prescribing Prophylaxis: Not indicated-Anticoagulated or INR therapeutic
== END 2016-07-21 10:59 | disposition short-term general hospital (02) | DRG 813 ==
LOC: 3BNU 13:49 → EMEROO 13:49 → 3BNU 20:56 → ICNU 07-21 09:22
PROVIDERS: ADMIT Nurse Practitioner Family; ATTEND Nurse Practitioner Family

== ENCOUNTER 2016-12-26 15:09 | Inpatient (IN) ==
[2016-12-26] MEDS ORDERED: 0.9 % Sodium Chloride 1,000 ML IV SCH (15:30)
--- NOTE | 2016-12-26 15:38 | Emergency Department Note ---
Disposition Clinical Impression: Hematochezia, Supratherapeutic INR, GI bleed, Diverticulitis, Hypotension, CKD (chronic kidney disease), Hypokalemia, C. difficile colitis Disposition: Admitted As Inpatient Condition: Fair Referrals: Dieter Herrera DO [Primary Care Provider] - Forms: ED Satisfaction Letter Time of Disposition: 17:56 GI Bleed HPI - General Chief complaint: ED GI Bleed Stated complaint: blood in stool/c-diff Time Seen by Provider: 12/26/16 15:36 Source: patient, EMS Mode of arrival: EMS Limitations: no limitations Nursing Notes Reviewed: Yes Vital Signs Reviewed: Yes - History of Present Illness HPI Narrative: This is a 56-year-old male who presents with complaints of abdominal cramping and bloody stools per rectum. Patient states he has had 3 rounds of C. difficile and just finished Flagyl last week. Patient states he is still having diarrhea and the diarrhea shows grossly bloody stools. Patient states his only cramping occurs with bowel movements. Patient states some nausea but not vomiting. Patient denies any fevers. Patient states he had one previous surgery for his bowels being twisted. Patient states he has seen a GI doctor regarding this. Pt Subjective Complaint: gross bloody stools - Related Data Home Medications Medication Instructions Recorded Confirmed Ferrous Sulfate 325 mg PO QAM 07/20/16 10/07/16 Sodium Bicarbonate 650 mg PO BID 07/20/16 10/07/16 Oxycodone HCl/Acetaminophen 1 tab PO BID PRN 10/07/16 10/07/16 [Percocet 5-325 mg Tablet] Previous Rx's Medication Instructions Recorded metroNIDAZOLE [Metronidazole] 500 mg PO TID #52 tablet 11/28/16 Allergies Allergy/AdvReac Type Severity Reaction Status Date / Time aspirin AdvReac See Verified 11/28/16 17:29 Comments All systems ED: reviewed and negative except as stated. Constitutional: Denies: fever, chills, weakness, weight change Eyes: Denies: eye pain, eye discharge, vision change ENT ED: Denies: ear pain, throat pain, dental pain, hearing loss, epistaxis, congestion, dysphagia Cardiovascular: Denies: chest pain, palpitations, dyspnea on exertion, edema, syncope Respiratory: Denies: cough, dyspnea, wheezes, hemoptysis, stridor Gastrointestinal: Reports: nausea, diarrhea, hematochezia, other (cramping with bowel movements). Denies: abdominal pain, vomiting, constipation, hematemesis, melena Genitourinary: Denies: urgency, dysuria, frequency, hematuria Musculoskeletal: Denies: back pain, neck pain, arthralgia, myalgia Integumentary: Denies: rash, abrasion, lesions Neurological: Denies: headache, weakness, numbness, paresthesias, confusion, abnormal gait, vertigo Psychiatric: Denies: anxiety, depression, suicidal thoughts, homicidal thoughts , auditory hallucinations, visual hallucinations Endocrine: Denies: fatigue Hematological/Lymphatic: Denies: easy bleeding, easy bruising Allergic/Immunologic: Denies: facial swelling, urticaria Past Medical History - Past Medical History Attestation: Yes The following information was validated with the patient. Source: patient Medical history: Reports: CHF, coronary artery disease, renal disease, other Surgical history: Reports: other Psychiatric history: Reports: no psych history - Social History Smoking Status: Former smoker Smokeless Tobacco Status: Yes Alcohol use: Reports: none Drug use: Reports: none Physical Exam - General Limitations: no limitations General appearance: alert, in no apparent distress - Head Head exam: atraumatic, normocephalic, normal inspection - Eye Eye exam: Present: normal appearance, PERRL, EOMI - ENT ENT exam: normal exam, normal oropharynx, mucous membranes moist - Expanded ENT Exam External ear exam: Present: normal external inspection Mouth exam: Present: normal external inspection Teeth exam: Present: normal inspection Throat exam: Present: normal inspection - Neck Neck exam: Present: normal inspection, full ROM, trachea midline - Chest Chest inspection: Present: normal inspection, symmetric chest wall rise - Respiratory Respiratory exam: Present: normal lung sounds bilaterally - Cardiovascular Cardiovascular exam: Present: normal rhythm, tachycardia, normal heart sounds - Abdominal Exam Abdominal exam: Present: soft, Non-Tender, scar (midline previous sx scar). Absent: tenderness, distention, guarding, rebound, rigidity - Extremities Exam Extremities exam: Present: normal inspection, full ROM. Absent: tenderness, pedal edema - Expanded Upper Extremity Exam Shoulder exam: Present: normal inspection, full ROM Arm exam: Present: normal inspection, full ROM Elbow exam: Present: normal inspection, full ROM Forearm/Wrist exam: Present: normal inspection, full ROM Hand exam: Present: normal inspection, full ROM Vascular exam: Normal: capillary refill, radial pulse - Expanded Lower Extremity Exam Hip/Pelvis exam: Present: normal inspection, full ROM Upper leg exam: Present: normal inspection, full ROM Knee exam: Present: normal inspection, full ROM Lower leg exam: Present: normal inspection, full ROM Ankle exam: Present: normal inspection, full ROM Foot/toe exam: Present: normal inspection, full ROM Neurovascular/Tendon exam: Absent: motor deficit, sensory deficit, tendon deficit - Back Exam Back exam: Present: normal inspection, full ROM. Absent: tenderness - Neurological Exam Neurological exam: Present: alert, oriented X3 - Expanded Neurological Exam Patient oriented to: Present: person, place, time Speech: Present: fluid speech Coma Scale Eye Opening: Spontaneous Coma Scale Motor Response: Obeys Commands Coma Scale Verbal Response: Oriented Coma Scale Total: 15 - Psychiatric Psychiatric exam: Present: normal affect, normal mood - Skin Skin exam: Present: warm, dry, intact, pallor Course - Consultations Consultation #1: I spoke with Dr. Abdulkadir boyd to consult. 17:20 Consultation #2: I spoke with Dr. Nicole boyd to admit to ICU. 17:53. Vital Signs Temperature 98.4 F 12/26/16 15:12 Pulse Rate 80 12/26/16 15:12 Respiratory Rate 18 12/26/16 15:12 Blood Pressure 95/63 12/26/16 15:12 O2 Sat by Pulse Oximetry 99 12/26/16 15:12 Temperature 98.4 F 12/26/16 15:12 Pulse Rate 80 12/26/16 15:12 Respiratory Rate 18 12/26/16 15:12 Blood Pressure 95/63 12/26/16 15:12 O2 Sat by Pulse Oximetry 99 12/26/16 15:12 Oxygen Delivery Oxygen Delivery Room Air GI Bleed - Medical Records Medical records reviewed: Yes I reviewed the patient's medical records. - Lab Data Lab results reviewed: Yes I reviewed the patient's lab results. Result diagrams: 12/26/16 15:36 12/26/16 15:36 Lab Results 12/26/16 12/26/16 12/26/16 Range/Units 15:36 15:36 15:36 WBC 11.0 (4.3-11.1) K/mcL RBC 4.51 (4.19-5.50) M/mcL Hgb 12.0 L (12.9-16.9) g/dL Hct 38.2 (37.5-50.1) % MCV 84.7 (83.0-100.0) fL MCH 26.6 L (28.0-33.3) pg MCHC 31.4 L (31.6-35.5) g/dL RDW 15.3 H (11.5-14.5) % Plt Count 287 (140-400) K/mcL MPV 12.3 (9.4-12.4) fL Immature Gran % 0.5 (0-4) % Seg Neutrophils % 85.8 % Lymphocytes % 6.8 % Monocytes % 6.3 % Eosinophils % 0.2 % Basophils % 0.4 % Neutrophils # 9.4 H (1.6-8.9) K/mcL Lymphocytes # 0.8 (0.6-4.6) K/mcL Monocytes # 0.7 (0.0-1.3) K/mcL Eosinophils # 0.0 (0.0-0.6) K/mcL Basophils # 0.0 (0.0-0.2) K/mcL PT (9.4-12.1) Seconds INR APTT (26.0-36.0) Seconds Sodium 140 (136-145) mEq/L Potassium 2.7 L (3.5-4.5) mEq/L Chloride 104 (98-109) mEq/L Carbon Dioxide 22 (19-29) mEq/L BUN 52 H (8-26) mg/dL Creatinine 4.70 H (0.72-1.25) mg/dL Est GFR ( Amer) 16 L (> 60) Est GFR (Non-Af Amer) 13 L (> 60) BUN/Creatinine Ratio 11 (6-26) Glucose 128 H (70-99) mg/dL Calculated Osmolality 306 H (280-300) Lactic Acid (0.5-2.2) mmol/L Calcium 8.2 L (8.6-10.8) mg/dL Total Bilirubin 0.4 (0.2-1.2) mg/dL AST 10 (5-34) Units/L ALT 6 (0-55) Units/L Alkaline Phosphatase 64 (38-126) Units/L Troponin I 0.02 (0-0.03) ng/mL Serum Total Protein 6.1 (6.0-8.3) g/dL Albumin 2.3 L (3.5-5.0) g/dL Globulin 3.8 H (2.4-3.5) g/dL Albumin/Globulin Ratio 0.6 L (1.1-2.2) Lipase 12 (8-78) Units/L 12/26/16 12/26/16 Range/Units 15:36 15:36 WBC (4.3-11.1) K/mcL RBC (4.19-5.50) M/mcL Hgb (12.9-16.9) g/dL Hct (37.5-50.1) % MCV (83.0-100.0) fL MCH (28.0-33.3) pg MCHC (31.6-35.5) g/dL RDW (11.5-14.5) % Plt Count (140-400) K/mcL MPV (9.4-12.4) fL Immature Gran % (0-4) % Seg Neutrophils % % Lymphocytes % % Monocytes % % Eosinophils % % Basophils % % Neutrophils # (1.6-8.9) K/mcL Lymphocytes # (0.6-4.6) K/mcL Monocytes # (0.0-1.3) K/mcL Eosinophils # (0.0-0.6) K/mcL Basophils # (0.0-0.2) K/mcL PT 87.8 H* (9.4-12.1) Seconds INR 7.8 H* APTT 56.0 H (26.0-36.0) Seconds Sodium (136-145) mEq/L Potassium (3.5-4.5) mEq/L Chloride (98-109) mEq/L Carbon Dioxide (19-29) mEq/L BUN (8-26) mg/dL Creatinine (0.72-1.25) mg/dL Est GFR ( Amer) (> 60) Est GFR (Non-Af Amer) (> 60) BUN/Creatinine Ratio (6-26) Glucose (70-99) mg/dL Calculated Osmolality (280-300) Lactic Acid 1.8 (0.5-2.2) mmol/L Calcium (8.6-10.8) mg/dL Total Bilirubin (0.2-1.2) mg/dL AST (5-34) Units/L ALT (0-55) Units/L Alkaline Phosphatase (38-126) Units/L Troponin I (0-0.03) ng/mL Serum Total Protein (6.0-8.3) g/dL Albumin (3.5-5.0) g/dL Globulin (2.4-3.5) g/dL Albumin/Globulin Ratio (1.1-2.2) Lipase (8-78) Units/L - Radiology Data Radiology results reviewed: Yes I reviewed the patient's radiology results. - EKG Data EKG attestation: Yes I reviewed and interpreted this EKG. EKG shows normal: sinus rhythm Rate: tachycardia Rhythm: NSR Kitz[place]/QRS: left axis deviation, RBBB Heart block present: 1st Degree Interpretation: nonspecific ST-T wave changes
[2016-12-26 15:42] LABS: Basophils % 0.4 %; Eosinophils % 0.2 %; Hematocrit 38.2 % (37.5-50.1); Immature Granulocytes % 0.5 % (0-4); Lymphocytes # 0.8 K/mcL (0.6-4.6); Lymphocytes % 6.8 %; Mean Corpuscular HGB Conc 31.4 g/dL (31.6-35.5); Mean Corpuscular Hemoglobin 26.6 pg (28.0-33.3); Mean Corpuscular Volume 84.7 fL (83.0-100.0); Mean Platelet Volume 12.3 fL (9.4-12.4); Monocytes # 0.7 K/mcL (0.0-1.3); Monocytes % 6.3 %; Neutrophils # 9.4 K/mcL (1.6-8.9); Platelet Count 287 K/mcL (140-400); Red Blood Count 4.51 M/mcL (4.19-5.50); Red Cell Distribution Width 15.3 % (11.5-14.5); Segmented Neutrophils % 85.8 %
[2016-12-26 16:01] LABS: Albumin 2.3 g/dL (3.5-5.0); Albumin/Globulin Ratio 0.6 (1.1-2.2); Bilirubin,Total 0.4 mg/dL (0.2-1.2); Calcium 8.2 mg/dL (8.6-10.8); Globulin 3.8 g/dL (2.4-3.5); Potassium 2.7 mEq/L (3.5-4.5); Total Protein 6.1 g/dL (6.0-8.3)
[2016-12-26] MEDS ORDERED: Pantoprazole 80 MG in Water for inj. (sterile) 10 ML IVP ONE ×2 (17:21→21:00)
[2016-12-26 17:23] LABS: INR 7.8; Prothrombin Time 87.8 Seconds (9.4-12.1)
[2016-12-26] MEDS ORDERED: Pantoprazole 40 MG in 0.9 % Sodium Chloride Mini Bag 100 ML IVC SCH (17:30)
[2016-12-26] MEDS ORDERED: 0.9 % Sodium Chloride 1,000 ML IVC ONE (19:26)
[2016-12-26] MEDS ORDERED: *HR* Phytonadione 5 MG TABLET PO ONE (20:49)
[2016-12-26] MEDS: 0.9 % Sodium Chloride 1,000 ML IVC SCH (20:59)
[2016-12-26] MEDS: 0.9 % Sodium Chloride 500 ML IVC ONE (20:59)
--- NOTE | 2016-12-26 22:25 | Internal Med History&Physical ---
Date of Encounter: 12/26/16 Time of Encounter: 22:00 Assessment and Plan (1) GI bleed Current visit: Yes Status: Acute -Patient hypotensive with a hemoglobin of 12; management of hypotension as below. -Will continue IV Protonix -Continue to monitor H&H. -GI consulted and appreciate recommendations Qualifiers: GI bleed type/associated pathology: unspecified gastrointestinal hemorrhage type Qualified Code(s): K92.2 - Gastrointestinal hemorrhage, unspecified (2) Supratherapeutic INR Current visit: Yes Status: Acute -INR of 7.8. -Fresh frozen plasma was given in the ER and will give oral vitamin K -Will recheck INR in the morning (3) Hypotension Current visit: Yes Status: Acute -Secondary to GI bleeding above; hemoglobin 12 -Monitoring H&H as above -Will give fluid bolus and continue maintenance IV fluids Qualifiers: Hypotension type: other hypotension type Qualified Code(s): I95.89 - Other hypotension (4) Hypokalemia Current visit: Yes Status: Acute -Potassium of 2.7 on admission. -K rider given; continue to monitor (5) Diverticulitis Current visit: Yes Status: Acute -CT of the abdomen showed acute uncomplicated mild sigmoid diverticulitis. -Continue IV Cipro/Flagyl started in the ER (6) C. difficile colitis Current visit: Yes Status: Acute -We will continue oral Flagyl (7) CKD (chronic kidney disease) Current visit: Yes Status: Acute -Creatinine at baseline; continue to monitor Qualifiers: Chronic kidney disease stage: stage 3 (moderate) Qualified Code(s): N18.3 - Chronic kidney disease, stage 3 (moderate) (8) H/O mechanical aortic valve replacement Current visit: No Status: Chronic -Patient with supratherapeutic INR as above. -Will hold Coumadin to reverse INR to therapeutic levels (9) DVT prophylaxis Current visit: Yes Status: Acute SCDs Internal Medicine - H&P: HPI Chief complaint: Bloody diarrhea Admitted From: Home Plans for Post Hospital Care: Home History of present illness: Patient is a 56-year-old male with past medical history significant for aortic valve and mitral valve replacements (on Coumadin) and polycystic kidney disease (left nephrectomy), who presented to the ER on 12/26/16 with bloody diarrhea. Patient reports of having diarrhea for the last 3 days prior to this admission with bloody stools the day of admission; he denied any abdominal pain except with bowel movements. Patient reports recently finishing a course of antibiotics for C. difficile. He called EMS for transport to the hospital. In the ER, patient was found to have acute on chronic anemia with a hemoglobin of 12 (baseline), supratherapeutic INR (7.8) and hypokalemic (K+ 2.7). In addition patient was also found to be hypotensive. CT of the abdomen showed acute uncomplicated mild sigmoid diverticulitis. Patient will be admitted to the ICU for acute on chronic anemia secondary to lower GI bleed with hypotension and supratherapeutic INR. Past Med Surg Social Fam HX - Past Medical History Medical history: CHF, coronary artery disease, renal disease, other Psychiatric history: no psych history - Past Surgical History Surgical History: other - Social History Smoking Status: Former smoker Smokeless Tobacco Status: Yes Alcohol use: none Drug use: none - Family History Mother Living Status: Still Living Hx Family Cardiac Disorders: No Hx Family Respiratory Disorders: No Hx Family Cancer: Yes Hx Family GI Disorders: No Hx Family Endocrine Disorder: Yes (DM) Hx Family Neuromuscular Disorders: No Hx Family Neurologic Disorders: No Hx Family HEENT Disorders: No Hx Family Autoimmune Disorders: No Father Living Status: Hx Family Cardiac Disorders: Yes (Heart problem) Hx Family Respiratory Disorders: No Hx Family Cancer: Yes Hx Family GI Disorders: No Hx Family Endocrine Disorder: Yes Hx Family Neuromuscular Disorders: No Hx Family Neurologic Disorders: No Hx Family HEENT Disorders: No Hx Family Autoimmune Disorders: No Internal Medicine - H&P: Meds Ferrous Sulfate 325 mg PO QAM 07/20/16 [History] Sodium Bicarbonate 650 mg PO BID 07/20/16 [History] Oxycodone HCl/Acetaminophen [Percocet 5-325 mg Tablet] 1 tab PO BID PRN [History] Allopurinol [Zyloprim 100 MG] 200 mg PO DAILY 12/26/16 [History] Furosemide [Lasix] 20 mg PO BID 12/26/16 [History] Warfarin [Coumadin] 3.5 mg PO DAILY 12/26/16 [History] 3 Allergy/AdvReac Type Severity Reaction Status Date / Time aspirin AdvReac See Verified 11/28/16 17:29 Comments All Systems PM: A 10-system review of systems was performed and is negative for pertinent findings except as documented above in the HPI. - Constitutional Vitals: Temp Pulse Resp BP Pulse Ox 97.8 F 98 20 82/48 99 12/26/16 19:43 12/26/16 21:00 12/26/16 21:00 12/26/16 21:00 12/26/16 21:00 - Head Head exam: Present: normocephalic - Eye Eye exam: Present: normal appearance - ENT ENT exam: Present: mucous membranes dry - Respiratory Respiratory exam: Present: CTAB. Absent: accessory muscle use, rales, rhonchi, wheezes - Cardiovascular Cardiovascular exam: Present: clicks, RRR - GI/Abdominal GI/Abdominal exam: Present: normal bowel sounds, soft, no peritoneal signs. Absent: distended, tenderness - Extremities Exam Extremities exam: Present: warm. Absent: cyanotic, pedal edema - Neurological Exam Neurological exam: Present: oriented X3, no focal deficits - Psychiatric Psychiatric exam: Present: normal mood - Skin Skin exam: Present: dry, intact, pallor Internal Med - H&P Results - Labs CBC & Chem 7: 12/26/16 15:36 12/26/16 15:36
[2016-12-26] MEDS ORDERED: Naloxone 0.4 MG/ML INJ IVP PRN ×2 (23:07→23:24)
[2016-12-26] MEDS ORDERED: Acetaminophen 325 MG TABLET PO PRN (23:24)
[2016-12-27] MEDS ORDERED: 0.9 % Sodium Chloride 500 ML ONE ×3 (00:27→09:24)
[2016-12-27 01:04] LABS: Basophils # 0.1 K/mcL (0.0-0.2); Basophils % 0.5 %; Eosinophils % 0.1 %; Hematocrit 25.8 % (37.5-50.1); Immature Granulocytes % 0.6 % (0-4); Lymphocytes # 1.4 K/mcL (0.6-4.6); Lymphocytes % 11.1 %; Mean Corpuscular Hemoglobin 27.2 pg (28.0-33.3); Mean Corpuscular Volume 87.8 fL (83.0-100.0); Mean Platelet Volume 12.3 fL (9.4-12.4); Monocytes # 0.8 K/mcL (0.0-1.3); Monocytes % 6.4 %; Neutrophils # 10.1 K/mcL (1.6-8.9); Platelet Count 270 K/mcL (140-400); Red Blood Count 2.94 M/mcL (4.19-5.50); Red Cell Distribution Width 15.5 % (11.5-14.5); Segmented Neutrophils % 81.3 %
[2016-12-27] MEDS: MetroNIDAZOLE 500 MG/100 ML 500 MG/100 ML BAG IVPB SCH ×4 (02:31→23:33)
[2016-12-27] MEDS ORDERED: Octreotide 400 MCG in 0.9 % Sodium Chloride 100 ML IVC SCH (02:45)
--- NOTE | 2016-12-27 02:58 | Event Note ---
Date of Encounter: 12/27/16 Time of Encounter: 01:00 -Notified by nursing staff that patient has been persistently hypotensive and not responding to IV fluids. -In addition, patient has become more malaise and weak. -CBC was ordered and hemoglobin found to be 8 from 12 on admission. -A femoral central line was placed by hospitalist colleague. -Patient will be started on IV Levophed in addition to transfusion of 2 units of packed red blood cells. -Continue to monitor in the ICU A total of greater than 35 minutes of critical care time was spent with patient , excluding procedures, due to hemorrhagic shock secondary to acute on chronic anemia from GI bleed
[2016-12-27] MEDS: Norepinephrine 4 MG in D5% in Water 250 ML IVC SCH (03:34)
[2016-12-27] MEDS: 0.9 % Sodium Chloride 1,000 ML IVC SCH (03:42)
[2016-12-27 04:55] LABS: INR 3.3; Prothrombin Time 36.9 Seconds (9.4-12.1)
[2016-12-27 05:00] LABS: Potassium 3.3 mEq/L (3.5-4.5)
[2016-12-27 05:04] LABS: Calcium 6.3 mg/dL (8.6-10.8)
[2016-12-27 05:10] LABS: Basophils % 0.1 %; Eosinophils % 0.1 %; Red Cell Distribution Width 15.6 % (11.5-14.5)
[2016-12-27 05:11] LABS: Hematocrit 16.9 % (37.5-50.1); Immature Granulocytes % 0.7 % (0-4); Lymphocytes # 1.1 K/mcL (0.6-4.6); Lymphocytes % 12.1 %; Mean Corpuscular HGB Conc 30.8 g/dL (31.6-35.5); Mean Corpuscular Hemoglobin 26.9 pg (28.0-33.3); Mean Corpuscular Volume 87.6 fL (83.0-100.0); Mean Platelet Volume 12.2 fL (9.4-12.4); Monocytes # 0.8 K/mcL (0.0-1.3); Monocytes % 9.1 %; Neutrophils # 6.9 K/mcL (1.6-8.9); Platelet Count 191 K/mcL (140-400); Red Blood Count 1.93 M/mcL (4.19-5.50); Segmented Neutrophils % 77.9 %
[2016-12-27 05:16] LABS: Hemoglobin 5.2 g/dL (12.9-16.9)
[2016-12-27 06:02] LABS: Anisocytosis 1+ (Not Present)
[2016-12-27] MEDS: Pantoprazole 40 MG VIAL IVP SCH ×2 (06:17→16:13)
--- NOTE | 2016-12-27 06:48 | General Surgery Consult Note ---
Date of Encounter: 12/27/16 Time of Encounter: 06:44 Assessment and Plan (1) C. difficile colitis Current Visit: Yes Status: Acute I explained to the patient that I personally reviewed the CT scan images and his previous history. I think that the CT scan findings concerning for sigmoid diverticulitis is in reality related to the patient's C. difficile colitis. I think he is having was related to cysts C. difficile colitis from the rectum up towards the sigmoid colon. I think it will be prudent to add vancomycin (oral an enema) to his regimen to help combat the inflammation/infection and to help decrease his rectal bleeding. (2) Hematochezia Current Visit: Yes Status: Acute Rectal bleeding with the INR of 3.3 and a hemoglobin level of 5.2. INR upon presentation was 7.8. I think that his elevated INR related to his treatment of C. difficile colitis with metronidazole and interaction with Coumadin. Agree with FFP and vitamin K to help decrease the level of INR and I think that would be appropriate to bring down his INR even further to the 2-2.5 range to help decrease to rectal bleeding so that he can recover and be further resuscitated. Additionally agree with continue blood transfusion. Would not recommend a colonoscopy or endoscopy procedure at this time due to the rectal wall thickening and sigmoid inflammation all likely related to C. difficile colitis. Will follow closely with you. History of Present Illness Consult date: 12/27/16 Reason for consult: other (rectal bleeding) Requesting physician: Evaristo Angel History of present illness: The is a 56-year-old male with a past medical history significant for polycystic kidney disease, end-stage renal disease, history of valvular disease status post aortic valve and mitral valve replacement, and recent history of C. difficile colitis presents to [facility] secondary to multiple episodes of rectal bleeding. He states that he has been treated twice with oral antibiotics for seedless the cecal colitis. He states that he had been treated for over 3 weeks with oral antibiotics (metronidazole) and has never had any abdominal pain symptoms with relation to his C. difficile colitis. His main symptoms had been diarrhea that started in the early part of November. He denies having any previous episodes of rectal bleeding. He states that 2-3 days ago started having rectal bleeding and because of his persistent symptoms he presents to the [facility] for further evaluation. He denies any abdominal pain and denies any nausea or vomiting. Past Med Surg Social Fam HX - Past Medical History Medical history: CHF, coronary artery disease, renal disease, other Psychiatric history: no psych history - Past Surgical History Surgical History: heart valve replacement, other (Nephrectomy, Exploration with bowel resection (2 months ago-[place]), Aortic and mitral valve replacement) - Social History Smoking Status: Former smoker Smokeless Tobacco Status: Yes Alcohol use: none Drug use: none - Family History Mother Living Status: Still Living Hx Family Cardiac Disorders: No Hx Family Respiratory Disorders: No Hx Family Cancer: Yes Hx Family GI Disorders: No Hx Family Endocrine Disorder: Yes (DM) Hx Family Neuromuscular Disorders: No Hx Family Neurologic Disorders: No Hx Family HEENT Disorders: No Hx Family Autoimmune Disorders: No Father Living Status: Hx Family Cardiac Disorders: Yes (Heart problem) Hx Family Respiratory Disorders: No Hx Family Cancer: Yes Hx Family GI Disorders: No Hx Family Endocrine Disorder: Yes Hx Family Neuromuscular Disorders: No Hx Family Neurologic Disorders: No Hx Family HEENT Disorders: No Hx Family Autoimmune Disorders: No Medications and Allergies Ferrous Sulfate 325 mg PO QAM 07/20/16 [History] Sodium Bicarbonate 650 mg PO BID 07/20/16 [History] Oxycodone HCl/Acetaminophen [Percocet 5-325 mg Tablet] 1 tab PO BID PRN [History] Allopurinol [Zyloprim 100 MG] 200 mg PO DAILY 12/26/16 [History] Furosemide [Lasix] 20 mg PO BID 12/26/16 [History] Warfarin [Coumadin] 3.5 mg PO DAILY 12/26/16 [History] 3 Allergy/AdvReac Type Severity Reaction Status Date / Time aspirin AdvReac See Verified 11/28/16 17:29 Comments Review of Systems All systems PM: reviewed and no additional remarkable complaints except as stated All systems PM: A 10-system review of systems was performed and is negative for pertinent findings except as documented above in the HPI. General Surgery Exam Initial Vital Signs Temp Pulse Resp BP Pulse Ox 98.4 F 80 18 95/63 99 12/26/16 15:12 12/26/16 15:12 12/26/16 15:12 12/26/16 15:12 12/26/16 15:12 - General physical appearance well developed, well nourished, no distress - Eyes PERRL, normal ocular movement - Respiratory normal expansion, normal respiratory effort, clear to auscultation - Cardiovascular Cardiovascular exam: Present: RRR, clicks - Abdomen Abdomen general surgery: Present: bowel sounds present, soft (obese, mild RUQ pain to palpation. No masses. Noted midline incision well healed. No hernias noted.) - Integumentary Integumentary general surgery: Present: warm and dry - Neurologic Present: CN 2-12 grossly intact - Musculoskeletal Present: other (No clubbing cyanosis, or edema) Exam Initial Vital Signs Temp Pulse Resp BP Pulse Ox 98.4 F 80 18 95/63 99 12/26/16 15:12 12/26/16 15:12 12/26/16 15:12 12/26/16 15:12 12/26/16 15:12 Results - Labs 12/28/16 03:30 12/28/16 03:30 Abnormal lab results RBC 1.93 M/mcL (4.19-5.50) L 12/27/16 04:30 Hgb 5.2 g/dL (12.9-16.9) L* D 12/27/16 04:30 Hct 16.9 % (37.5-50.1) L 12/27/16 04:30 MCH 26.9 pg (28.0-33.3) L 12/27/16 04:30 MCHC 30.8 g/dL (31.6-35.5) L 12/27/16 04:30 RDW 15.6 % (11.5-14.5) H 12/27/16 04:30 Anisocytosis 1+ (Not Present) A 12/27/16 04:30 PT 36.9 Seconds (9.4-12.1) H D 12/27/16 04:30 APTT 56.0 Seconds (26.0-36.0) H 12/26/16 15:36 Potassium 3.3 mEq/L (3.5-4.5) L 12/27/16 04:30 Chloride 114 mEq/L (98-109) H 12/27/16 04:30 Carbon Dioxide 18 mEq/L (19-29) L 12/27/16 04:30 BUN 46 mg/dL (8-26) H 12/27/16 04:30 Creatinine 4.19 mg/dL (0.72-1.25) H 12/27/16 04:30 Est GFR ( Amer) 18 (> 60) L 12/27/16 04:30 Est GFR (Non-Af Amer) 15 (> 60) L 12/27/16 04:30 Glucose 115 mg/dL (70-99) H 12/27/16 04:30 POC Glucose 149 (58-89) H 12/27/16 00:10 Calculated Osmolality 303 (280-300) H 12/27/16 04:30 Calcium 6.3 mg/dL (8.6-10.8) L D 12/27/16 04:30 Albumin 2.3 g/dL (3.5-5.0) L 12/26/16 15:36 Globulin 3.8 g/dL (2.4-3.5) H 12/26/16 15:36 Albumin/Globulin Ratio 0.6 (1.1-2.2) L 12/26/16 15:36 Diabetes panel 12/27/16 Range/Units 04:30 Sodium 140 (136-145) mEq/L Potassium 3.3 L (3.5-4.5) mEq/L Chloride 114 H (98-109) mEq/L Carbon Dioxide 18 L (19-29) mEq/L BUN 46 H (8-26) mg/dL Creatinine 4.19 H (0.72-1.25) mg/dL Glucose 115 H (70-99) mg/dL Calcium 6.3 L D (8.6-10.8) mg/dL Calcium panel 12/27/16 Range/Units 04:30 Calcium 6.3 L D (8.6-10.8) mg/dL Pituitary panel 12/27/16 Range/Units 04:30 Sodium 140 (136-145) mEq/L Potassium 3.3 L (3.5-4.5) mEq/L Chloride 114 H (98-109) mEq/L Carbon Dioxide 18 L (19-29) mEq/L BUN 46 H (8-26) mg/dL Creatinine 4.19 H (0.72-1.25) mg/dL Glucose 115 H (70-99) mg/dL Calcium 6.3 L D (8.6-10.8) mg/dL Adrenal panel 12/27/16 Range/Units 04:30 Sodium 140 (136-145) mEq/L Potassium 3.3 L (3.5-4.5) mEq/L Chloride 114 H (98-109) mEq/L Carbon Dioxide 18 L (19-29) mEq/L BUN 46 H (8-26) mg/dL Creatinine 4.19 H (0.72-1.25) mg/dL Glucose 115 H (70-99) mg/dL Calcium 6.3 L D (8.6-10.8) mg/dL All other labs normal. - Imaging CT scan - abdomen: report reviewed, image reviewed (CT scan shows evidence of possible moderate sigmoid diverticular colitis. Visualization shows possible significant rectal thickening likely related to proctitis related to the patient 's C. difficile colitis.) Consult Discharge Plan - Plan Referrals: Dieter Herrera DO [Primary Care Provider] -
[2016-12-27] MEDS ORDERED: Potassium Phosphate 44 MEQ in 0.9 % Sodium Chloride 250 ML IVPB PRN (06:52)
[2016-12-27] MEDS: 0.9 % Sodium Chloride 500 ML IVC ONE (08:00)
[2016-12-27] MEDS: Ringers Solution, Lactated 1,000 ML IVC ONE ×2 (08:01→10:23)
[2016-12-27 08:53] LABS: Magnesium 1.1 mg/dL (1.6-2.6); Phosphorous 4.2 mg/dL (2.3-4.7)
--- NOTE | 2016-12-27 08:55 | Procedure Note ---
<Jerson Galindo - Last Filed: 12/27/16 08:49> Date of procedure: 12/27/16 Pre-op diagnosis: Hemorrhagic shock Post-op diagnosis: same Procedure: Introducer catheter placement: Verbal consent was obtained from the patient, the procedure was considered emergent. Timeout was performed prior to the procedure. The left neck was surveyed using ultrasound and deemed to be a suitable target. The patient was cleaned and draped in usual sterile fashion. Under ultrasound guidance the needle was advanced into the left internal jugular vein. Dark red, nonpulsatile blood flow was returned, the guidewire was advanced through the needle into the vein without resistance. The guidewire placement was confirmed to be within the vein using ultrasound. The dilator within the catheter was advanced over the guidewire and the skin and soft tissues were dilated and the catheter was advanced over the dilator into the vein. At that point I attempted to aspirate blood from the catheter and no blood was able to be aspirated. Using ultrasound catheter was visualized within the vein. After another attempt to aspirate was unsuccessful the catheter was withdrawn and pressure was held for 10 minutes. A another attempt was then made. Under ultrasound guidance the needle was advanced into the left internal jugular vein. Dark red, nonpulsatile blood flow was returned. The guidewire advanced through the needle without resistance. The guidewire was visualized within the vein using ultrasound. The dilator within the catheter was then advanced over the guidewire, the skin and soft tissues were dilated, and the catheter was advanced over the dilator and into the vein. The catheter was then tested and shown to draw blood and flushed easily. The catheter was then sutured in place. Biopatch and sterile dressing were applied by nursing staff. Post procedure chest x-ray has been ordered. The patient tolerated the procedure well, there are no immediate complications. The attending physician, Dr. Gurrola, was present for the entire procedure. Anesthesia: local (1% lidocaine - 10cc) Surgeon: Jerson Galindo Estimated blood loss (cc): 20 IV fluids (cc): 10 Pathology: none sent Condition: critical Disposition: ICU <Abrahan Gurrola - Last Filed: 12/27/16 17:22> - Attending Attestation I am attending physician I was present for the entire procedure as documented by Dr. Coffey
--- NOTE | 2016-12-27 08:59 | Pulmonology Consult Note ---
<Abrahan Gurrola W - Last Filed: 12/27/16 15:11> Date of Encounter: 12/27/16 Medications and Allergies Ferrous Sulfate 325 mg PO QAM 07/20/16 [History] Sodium Bicarbonate 650 mg PO BID 07/20/16 [History] Oxycodone HCl/Acetaminophen [Percocet 5-325 mg Tablet] 1 tab PO BID PRN [History] Allopurinol [Zyloprim 100 MG] 200 mg PO DAILY 12/26/16 [History] Furosemide [Lasix] 20 mg PO BID 12/26/16 [History] Warfarin [Coumadin] 3.5 mg PO DAILY 12/26/16 [History] 3 Allergy/AdvReac Type Severity Reaction Status Date / Time aspirin AdvReac See Verified 11/28/16 17:29 Comments All Systems: A 10-system review of systems was performed and is negative for pertinent findings except as documented above in the HPI. Physical Examination Vital Signs: Vital Signs, Last 4 Hours Temp Pulse Resp BP Pulse Ox 12/27/16 13:00 75 18 89/56 97 12/27/16 12:00 81 16 100/64 97 12/27/16 11:46 97.9 F Results - Laboratory Findings CBC and BMP: 12/27/16 14:15 12/27/16 04:30 PT/INR, D-dimer PT 29.2 Seconds (9.4-12.1) H 12/27/16 11:18 Abnormal lab findings: Abnormal lab results RBC 1.93 M/mcL (4.19-5.50) L 12/27/16 04:30 Hgb 9.8 g/dL (12.9-16.9) L D 12/27/16 14:15 Hct 29.4 % (37.5-50.1) L 12/27/16 14:15 MCH 26.9 pg (28.0-33.3) L 12/27/16 04:30 MCHC 30.8 g/dL (31.6-35.5) L 12/27/16 04:30 RDW 15.6 % (11.5-14.5) H 12/27/16 04:30 Anisocytosis 1+ (Not Present) A 12/27/16 04:30 PT 29.2 Seconds (9.4-12.1) H 12/27/16 11:18 APTT 39.5 Seconds (26.0-36.0) H 12/27/16 11:18 Potassium 3.3 mEq/L (3.5-4.5) L 12/27/16 04:30 Chloride 114 mEq/L (98-109) H 12/27/16 04:30 Carbon Dioxide 18 mEq/L (19-29) L 12/27/16 04:30 BUN 46 mg/dL (8-26) H 12/27/16 04:30 Creatinine 4.19 mg/dL (0.72-1.25) H 12/27/16 04:30 Est GFR ( Amer) 18 (> 60) L 12/27/16 04:30 Est GFR (Non-Af Amer) 15 (> 60) L 12/27/16 04:30 Glucose 115 mg/dL (70-99) H 12/27/16 04:30 POC Glucose 149 (58-89) H 12/27/16 00:10 Calculated Osmolality 303 (280-300) H 12/27/16 04:30 Calcium 6.3 mg/dL (8.6-10.8) L D 12/27/16 04:30 Magnesium 1.1 mg/dL (1.6-2.6) L 12/27/16 04:30 Albumin 2.3 g/dL (3.5-5.0) L 12/26/16 15:36 Globulin 3.8 g/dL (2.4-3.5) H 12/26/16 15:36 Albumin/Globulin Ratio 0.6 (1.1-2.2) L 12/26/16 15:36 PTH Intact 284.2 pg/ml (8.5-72.5) H 12/27/16 14:15 Urine Bilirubin Small (Negative) H 12/27/16 10:25 Urine Microscopic RBC 3-5 per hpf (0-3) H 12/27/16 10:25 Ur Squamous Epith Cells Many per lpf (None-Few) H 12/27/16 10:25 - Clinical Findings Intake & Output: Intake & Output 12/26/16 12/27/16 12/27/16 23:59 07:59 15:59 Intake Total 2900 / 2900 3352 / 3352 3140 / 3140 Output Total 200 / 200 300 / 300 150 / 150 Balance 2700 / 2700 3052 / 3052 2990 / 2990 Weight 87.9 kg 88.5 kg Consult Discharge Plan - Plan Referrals: Dieter Herrera DO [Primary Care Provider] - - Attending Attestation I examined this patient and my medical decision-making was reviewed with the Resident Physician. I agree with the documented findings, disposition and treatment plan as described except to the extent set forth below. We independently had [id number] contact with the patient I spent 40min of Critical Care time with this patient. It involved decision making of high complexity to assess, manipulate, and support vital organ system failure and/or to prevent further life threatening deterioration of the patient' s condition. The time involved in the performance of separately reportable procedures was not counted toward critical care time. Patient seen and examined at bedside Labs, radiology, chart personally reviewed. Management was reviewed during multidisciplinary critical care rounds. 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 No evidence of myocardial ischemia at this time. Patient does have a history of diastolic dysfunction however despite significant volume administration respiratory status remains stable we will continue to monitor this closely FEN-GI: Lower gastrointestinal hemorrhage which is acute this is secondary to diverticulitis/colitis from Clostridium difficile he evaluated by surgery no plan for acute surgical intervention we will continue to monitor closely. Renal: Acute on chronic kidney injury with decreased urine output history of polycystic kidney disease Howe catheter placed continue to monitor serum creatinine twice daily and electrolytes replaced per protocol nephrology consulted ID: Acute colitis secondary to Clostridium difficile he likely diverticulitis on appropriate antimicrobials lactate within normal limits cultures pending Heme/Onc: Acute gastrointestinal hemorrhage complicated by supratherapeutic INR related to long-term anticoagulation with warfarin patient has been reversed with FFP and vitamin K. Continue to monitor H&H every 6 hours and appears clinically that bleeding has subsided and patient has been adequately volume resuscitated at this time Endo: Glucose Monitored Integ/MSK: Skin Care per routine ICU Nursing Protocol to prevent ulcers. Lines: All lines examined without evidence of infection : Dispo: Remains in the ICU for critical illness CODE: Code <Jerson Galindo - Last Filed: 12/27/16 15:59> Date of Encounter: 12/27/16 Time of Encounter: 08:57 Assessment and Plan (1) Hemorrhagic shock Current Visit: Yes Status: Acute Patient had massive lower GI bleed was an acute drop in his hemoglobin from 12 on admission to 5.7 within 8 hours. Patient was hypotensive and placed on vasopressors overnight. Patient was adequately fluid resuscitated with crystalloid fluid as well as blood products and we have been able to discontinue pressors. Bleeding appears to have stopped. (2) GI bleed Current Visit: Yes Status: Acute Likely lower GI bleed in the setting of C. difficile colitis and diverticulitis with a supratherapeutic INR. Patient was adequately fluid resuscitated and his bowel movements have returned from mora blood to brown. Active bleeding appears to stop. Hemoglobin was 12 on admission, overnight dropped as low as 5.7, after 6 units of packed red blood cells his hemoglobin stabilized at 9.8. Patient was seen by surgery and they do not recommend intervention at this time. Qualifiers: GI bleed type/associated pathology: unspecified gastrointestinal hemorrhage type Qualified Code(s): K92.2 - Gastrointestinal hemorrhage, unspecified (3) C. difficile colitis Current Visit: Yes Status: Acute Recently diagnosed with C. difficile colitis, likely contributing to his GI bleed as discussed above. Patient is on IV Flagyl 500 mg every 8 hours, we have instituted oral vancomycin as well as vancomycin enemas. We will continue to monitor. (4) History of mitral valve replacement with mechanical valve Current Visit: Yes Status: Chronic Patient has a mechanical mitral valve that was placed as a child. He is on Coumadin at home. Patient presented with an acutely elevated INR with massive GI bleed. Given the life threatening bleed the patient was given 5 mg of by mouth vitamin K as well as 2 units of FFP. This recent INR is down to 2.7. Patient is extremely high-risk for stroke or bowel thrombosis given his mechanical valve so we will hold Coumadin and start the patient on therapeutic heparin infusion with close monitoring of active bleeding. Echocardiogram is pending. Cardiology has been consulted and we appreciate their recommendations. (5) Acute kidney injury superimposed on chronic kidney disease Current Visit: No Status: Acute Patient appears to be at chronic kidney disease stage V as he states his kidney doctor told him his kidney function is at "15." Patient has had minimal urine output. Electrolytes are currently within normal limits. No indication for acute dialysis at this time but we will closely monitor the patient. Nephrology has been consulted (6) Elevated INR Current Visit: No Status: Acute Patient presented with an INR of 7.8, likely related to antibiotic use on Coumadin. Patient had a life-threatening bleed therefore is given 5 mg of by mouth vitamin K as well as 2 units of fresh frozen plasma. INR has returned at 2.7. We will hold off on any further reversal at this time given the patient's high risk mechanical mitral valve as discussed above. Hold Coumadin and continue heparin infusion. (7) Diastolic heart failure Current Visit: No Status: Chronic Patient was adequately fluid resuscitated. Records reveal a reported history of diastolic dysfunction however we do not have an echocardiogram in our system. Echo pending. Qualifiers: Heart failure chronicity: chronic Qualified Code(s): I50.32 - Chronic diastolic (congestive) heart failure History of Present Illness Consult date: 12/27/16 Requesting physician: Evaristo Angel Reason for consult: other (GI bleed) Chief complaint: GI bleed History of present illness: Patient is a 56-year-old male with history of mechanical mitral valve, porcine aortic valve presents with bright red blood per rectum. Patient reports having diarrhea for the last 3 days and today his stools became bloody. He does report mild abdominal pain with bowel movements. He was recently treated for C. difficile. He reports being on Coumadin for mechanical valve. Patient had a hemoglobin of 12 on admission, recheck this morning shows a hemoglobin of 5. Patient at this time is awake and alert and in no acute distress. He has no complaints at this time. He is continuing to have bloody bowel movements approximately every hour. Past Med Surg Social Fam HX - Past Medical History Medical history: CHF, coronary artery disease, renal disease, other Psychiatric history: no psych history - Past Surgical History Surgical History: heart valve replacement, other (Nephrectomy, Exploration with bowel resection (2 months ago-[place]), Aortic and mitral valve replacement) - Social History Smoking Status: Former smoker Smokeless Tobacco Status: Yes Alcohol use: none Drug use: none - Family History Mother Living Status: Still Living Hx Family Cardiac Disorders: No Hx Family Respiratory Disorders: No Hx Family Cancer: Yes Hx Family GI Disorders: No Hx Family Endocrine Disorder: Yes (DM) Hx Family Neuromuscular Disorders: No Hx Family Neurologic Disorders: No Hx Family HEENT Disorders: No Hx Family Autoimmune Disorders: No Father Living Status: Hx Family Cardiac Disorders: Yes (Heart problem) Hx Family Respiratory Disorders: No Hx Family Cancer: Yes Hx Family GI Disorders: No Hx Family Endocrine Disorder: Yes Hx Family Neuromuscular Disorders: No Hx Family Neurologic Disorders: No Hx Family HEENT Disorders: No Hx Family Autoimmune Disorders: No All Systems: A 10-system review of systems was performed and is negative for pertinent findings except as documented above in the HPI. - Constitutional Constitutional: no chills, no fever(s) - EENT Nose, mouth and throat: no sore throat, no throat swelling - Cardiovascular Cardiovascular: dyspnea, no chest pain - Respiratory Respiratory: no cough, no dyspnea - Gastrointestinal Gastrointestinal: abdominal pain, diarrhea, hematochezia, nausea, no vomiting Physical Examination Vital Signs: Vital Signs, Last 4 Hours Temp Pulse Resp BP Pulse Ox 12/27/16 08:00 88 16 85/50 97 12/27/16 07:43 89 12/27/16 07:00 97.6 F 89 16 101/66 98 12/27/16 06:43 98.0 F 90 14 117/76 98 12/27/16 06:00 89 12 88/53 98 12/27/16 05:45 98.0 F 96 15 52 97 12/27/16 05:39 98.0 F 96 15 52 97 12/27/16 05:38 98.0 F 96 15 52 97 12/27/16 05:00 96 15 52 97 General appearance: no acute distress ENT: oropharynx moist Effort: normal Inspection: normal Auscultation: bilateral: clear Cardiovascular: regular rate and rhythm Gastrointestinal: normoactive bowel sounds, soft, tender (Mild, diffuse), non- distended Extremities: no cyanosis, no edema, no clubbing normal mental status, non-focal exam Results - Laboratory Findings CBC and BMP: 12/27/16 14:15 12/27/16 04:30 PT/INR, D-dimer PT 36.9 Seconds (9.4-12.1) H D 12/27/16 04:30 Abnormal lab findings: Abnormal lab results RBC 1.93 M/mcL (4.19-5.50) L 12/27/16 04:30 Hgb 5.2 g/dL (12.9-16.9) L* D 12/27/16 04:30 Hct 16.9 % (37.5-50.1) L 12/27/16 04:30 MCH 26.9 pg (28.0-33.3) L 12/27/16 04:30 MCHC 30.8 g/dL (31.6-35.5) L 12/27/16 04:30 RDW 15.6 % (11.5-14.5) H 12/27/16 04:30 Anisocytosis 1+ (Not Present) A 12/27/16 04:30 PT 36.9 Seconds (9.4-12.1) H D 12/27/16 04:30 APTT 56.0 Seconds (26.0-36.0) H 12/26/16 15:36 Potassium 3.3 mEq/L (3.5-4.5) L 12/27/16 04:30 Chloride 114 mEq/L (98-109) H 12/27/16 04:30 Carbon Dioxide 18 mEq/L (19-29) L 12/27/16 04:30 BUN 46 mg/dL (8-26) H 12/27/16 04:30 Creatinine 4.19 mg/dL (0.72-1.25) H 12/27/16 04:30 Est GFR ( Amer) 18 (> 60) L 12/27/16 04:30 Est GFR (Non-Af Amer) 15 (> 60) L 12/27/16 04:30 Glucose 115 mg/dL (70-99) H 12/27/16 04:30 POC Glucose 149 (58-89) H 12/27/16 00:10 Calculated Osmolality 303 (280-300) H 12/27/16 04:30 Calcium 6.3 mg/dL (8.6-10.8) L D 12/27/16 04:30 Magnesium 1.1 mg/dL (1.6-2.6) L 12/27/16 04:30 Albumin 2.3 g/dL (3.5-5.0) L 12/26/16 15:36 Globulin 3.8 g/dL (2.4-3.5) H 12/26/16 15:36 Albumin/Globulin Ratio 0.6 (1.1-2.2) L 12/26/16 15:36 - Clinical Findings Intake & Output: Intake & Output 12/26/16 12/27/16 12/27/16 23:59 07:59 15:59 Intake Total 2900 / 2900 3152 / 3152 Output Total 200 / 200 300 / 300 Balance 2700 / 2700 2852 / 2852 Weight 87.9 kg
[2016-12-27] MEDS ORDERED: Ringers Solution, Lactated 1,000 ML ONE (09:30)
[2016-12-27] MEDS: Vancomycin Oral Soln 250 MG/5 ML UDC PO SCH ×4 (09:45→20:44)
[2016-12-27 10:37] LABS: Bilirubin,Urine Small (Negative); Blood,Urine Negative (Negative); Clarity,Urine Clear (Clear); Color,Urine Yellow (Yellow); Glucose,Urine (UA) Normal (Normal); Ketones,Urine Negative (Negative); Leukocyte Esterase,Urine Negative (Negative); Nitrite,Urine Negative (Negative); PH,Urine 5.5 pH Units (5.0-8.0); Protein,Urine Trace mg/dL (Neg-Trace); Specific Gravity,Urine 1.016 (1.010-1.025); Urobilinogen,Urine Normal (Normal)
[2016-12-27 10:39] LABS: Bacteria,Urine None Seen per hpf (None-Few); Hyaline Casts,Urine None Seen per lpf (None-Few); Squamous Epithelial Cell,Urine Many per lpf (None-Few); WBC,Urine 0-3 per hpf (0-3)
[2016-12-27 11:35] LABS: INR 2.7; Prothrombin Time 29.2 Seconds (9.4-12.1)
[2016-12-27] MEDS: Vancomycin 500 MG, Sodium Chloride IRRigation 250 ML RC SCH ×4 (12:49→20:44)
--- NOTE | 2016-12-27 12:54 | Cardiology Consult Note ---
Date of Encounter: 12/27/16 Time of Encounter: 12:49 Assessment and Plan (1) History of mitral valve replacement with mechanical valve Current Visit: Yes Status: Chronic Hx of mechanical mitral valve and porcine aortic secondary to rheumatic fever as a child. Per pt, he thinks aortic valve was replaced at age 19 and the mitral valve appoximately 10 years ago. Anticoagulated on Coumadin for mechanical mitral valve. INR on presentation 7.8 , GI bleed, HGB dropped from 12.0 to 5.2. Pt has been given blood, FFP, vitamin K. Most recent INR 2.7. Bloody bowel movements have improved over recent hours. Audible click still noted on exam. Pt unsure of last EF. Reports last echo at least a year ago. Check echo to evaluate EF and valves. Recommend resuming Coumadin to prevent valve thrombosis. Dosing per pharmacy. Goal INR is 2.5-3.5. If INR falls <2.5, recommend bridging with heparin gtt. Will continue to follow. (2) Hx of aortic valve replacement Current Visit: Yes Status: Acute As above. Porcine aortic valve. (3) GI bleed Current Visit: Yes Status: Acute General surgery following. No plan for invasive evaluation at this time. Bloody bowel movements have reportedly improved. HGB dropped from 12.0 to 5.2-- transfusions ordered. Management per primary/surgery teams. Need to resume Coumadin as above. Qualifiers: GI bleed type/associated pathology: unspecified gastrointestinal hemorrhage type Qualified Code(s): K92.2 - Gastrointestinal hemorrhage, unspecified (4) Hypotension Current Visit: Yes Status: Acute BP 80s systolic in setting of GI bleed. Avoid antihypertensives. Pt appears stable at current time. Qualifiers: Hypotension type: other hypotension type Qualified Code(s): I95.89 - Other hypotension (5) Supratherapeutic INR Current Visit: Yes Status: Acute INR 7.2 on presentation with GI bleed. Elevated INR likely due to medications for treatment of CDiff--reversed with vitamin K and FFP--INR now 2.7. Bleeding improved. Discussion w patient/family: The assessment and plan as outlined above was discussed with the patient and/or family members who expressed understanding and agreement. All questions were answered. Thank you for involving us in the care of your patient. Please call with any questions. I will discuss all the above with Dr. Lu and make changes as necessary. History of Present Illness Consult date: 12/27/16 Requesting physician: Jerson Galindo Consult reason: GI bleed, mechanical mitral valve Chief complaint: bloody stool History of present illness: Mr. Driscoll is a 56 year old male with hx of rheumatic fever as a child and subsequently mechanical mitral valve replacement and porcine aortic valve replacement, CKD (uncertain stage) with polycystic kidney disease s/p left nephrectomy, s/p colon resection and recurrent CDiff that presented with bright red blood per rectum. Patient reports having diarrhea for the last 3 days and today his stools became bloody. He does report mild abdominal pain with bowel movements. He was recently treated for C. difficile. He reports being on Coumadin for mechanical valve. Patient had a hemoglobin of 12 on admission, recheck this morning shows a hemoglobin of 5. Patient at this time is awake and alert and in no acute distress. He has no complaints at this time. Pt was having bloody bowel movements approximately every hour, now improved. FFP and Vitamin K were given, as INR was 7.8, now improved to 2.7. Cardiology consulted for further recommendations. Pt denies hx of coronary disease. He is unsure of his EF. 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 No prior cardiac testing in our system. Pelvic/ABD CT shows Acute uncomplicated mild sigmoid diverticulitis. Follow-up recommended as malignancy can have a similar appearance. Past Med Surg Social Fam HX - Past Medical History Medical history: renal disease, valvular heart disease, other Psychiatric history: no psych history - Past Surgical History Surgical History: heart valve replacement, other (Nephrectomy, Exploration with bowel resection (2 months ago-[place]), Aortic and mitral valve replacement) - Social History Smoking Status: Former smoker Smokeless Tobacco Status: Yes Alcohol use: none Drug use: none - Family History Mother Living Status: Still Living Hx Family Cardiac Disorders: No Hx Family Respiratory Disorders: No Hx Family Cancer: Yes Hx Family GI Disorders: No Hx Family Endocrine Disorder: Yes (DM) Hx Family Neuromuscular Disorders: No Hx Family Neurologic Disorders: No Hx Family HEENT Disorders: No Hx Family Autoimmune Disorders: No Father Living Status: Hx Family Cardiac Disorders: Yes (Heart problem) Hx Family Respiratory Disorders: No Hx Family Cancer: Yes Hx Family GI Disorders: No Hx Family Endocrine Disorder: Yes Hx Family Neuromuscular Disorders: No Hx Family Neurologic Disorders: No Hx Family HEENT Disorders: No Hx Family Autoimmune Disorders: No Medications and Allergies Ferrous Sulfate 325 mg PO QAM 07/20/16 [History] Sodium Bicarbonate 650 mg PO BID 07/20/16 [History] Oxycodone HCl/Acetaminophen [Percocet 5-325 mg Tablet] 1 tab PO BID PRN [History] Allopurinol [Zyloprim 100 MG] 200 mg PO DAILY 12/26/16 [History] Furosemide [Lasix] 20 mg PO BID 12/26/16 [History] Warfarin [Coumadin] 3.5 mg PO DAILY 12/26/16 [History] 3 Allergy/AdvReac Type Severity Reaction Status Date / Time aspirin AdvReac See Verified 11/28/16 17:29 Comments All Systems Review: A 10-system review of systems was performed and is negative for pertinent findings except as documented above in the HPI. - Gastrointestinal Gastrointestinal: abdominal pain, hematochezia Physical Examination Vital Signs, Last 4 Hours Temp Pulse Resp BP Pulse Ox 12/27/16 12:00 81 16 100/64 97 12/27/16 11:46 97.9 F 12/27/16 11:02 80 12/27/16 11:00 80 16 89/55 96 12/27/16 10:00 81 18 90/54 97 12/27/16 09:00 89 18 95/64 97 Vital Signs Temp Pulse Resp BP Pulse Ox 12/27/16 12:00 81 16 100/64 97 12/27/16 11:46 97.9 F 12/27/16 11:02 80 12/27/16 11:00 80 16 89/55 96 12/27/16 10:00 81 18 90/54 97 12/27/16 09:00 89 18 95/64 97 12/27/16 08:00 88 16 85/50 97 12/27/16 07:43 89 12/27/16 07:00 97.6 F 89 16 101/66 98 12/27/16 06:43 98.0 F 90 14 117/76 98 12/27/16 06:00 89 12 88/53 98 12/27/16 05:45 98.0 F 96 15 87/52 97 12/27/16 05:39 98.0 F 96 15 87/52 97 12/27/16 05:38 98.0 F 96 15 87/52 97 12/27/16 05:00 96 15 87/52 97 12/27/16 04:45 98.0 F 92 18 82/50 98 12/27/16 04:30 98.0 F 93 16 82/50 99 12/27/16 04:08 98.2 F 12/27/16 04:00 93 18 83/48 97 12/27/16 03:59 111 12/27/16 03:54 97.9 F 93 13 87/52 97 12/27/16 03:00 98 F 107 14 78/56 100 12/27/16 02:45 98 F 99 16 84/46 12/27/16 02:00 93 18 77/47 99 12/27/16 01:30 98 F 101 18 87/59 99 12/27/16 01:00 97 18 67/50 98 12/27/16 00:45 98 F 95 17 73/38 98 12/27/16 00:30 97.9 F 97 16 65/42 97 12/27/16 00:00 97.9 F 111 17 98/60 98 12/26/16 23:00 100 16 78/51 97 12/26/16 22:00 100 20 63/47 98 12/26/16 21:00 98 20 82/48 99 12/26/16 20:00 96 20 86/56 100 12/26/16 19:43 97.8 F 119 20 77/63 100 12/26/16 19:30 18 95/45 12/26/16 18:36 102 18 86/70 100 12/26/16 17:30 102 18 75/50 95 12/26/16 15:12 98.4 F 80 18 95/63 99 Intake and Output 12/26/16 12/27/16 12/27/16 23:59 07:59 15:59 Intake Total 2900 / 2900 3352 / 3352 3140 / 3140 Output Total 200 / 200 300 / 300 150 / 150 Balance 2700 / 2700 3052 / 3052 2990 / 2990 Intake: IV Fluids 2900 / 2900 1551 / 1551 2238 / 2238 0.9 % Sodium Chloride 1,000 ML 1000 / 1000 @ As Directed IV CONT [facility] Rx#: [id number] 0.9 % Sodium Chloride 1,000 ML 1000 / 1000 1000 / 1000 1000 / 1000 @ 100 mls/hr IVC .Q10H [facility] Rx#: [id number] 0.9 % Sodium Chloride 500 ML @ 500 / 500 1875 mls/hr IVC .Q16M ONE Rx#: [id number] Levophed 4 MG In Dextrose 5% 51 / 51 88 / 88 250 ML @ 0.5 MCG/MIN 1.9 mls/hr IVC CONT [facility] Rx#:[id number] Lactated Ringers 1,000 ML @ 1000 / 1000 3750 mls/hr IVC .Q16M ONE Rx#: [id number] Cipro Premix 400 MG/200 ML 400 200 / 200 200 / 200 mg In 200 ml @ 200 mls/hr IVPB Q12HR [facility] Rx#:[id number] Magnesium Sulfate Premix 2gm/ 50 / 50 50mL 2 gm In 50 ml @ 50 mls/hr IVPB Q6H PRN Rx#:[id number] Flagyl Premix 500 MG/100 ML 500 100 / 100 100 / 100 mg In 100 ml @ 100 mls/hr IVPB Q8HR [facility] Rx#:[id number] Potassium Chloride 10 mEq/100mL 200 / 200 200 / 200 10 meq In 100 ml @ 100 mls/hr IVPB Q1H [facility] Rx#:[id number] Blood Product 1801 / 1801 902 / 902 Plasma Unit [id number] 301 / 301 Plasma Unit [id number] 597 / 597 Rbcs Leuko Poor As-1 Unit 301 / 301 [id number] Rbcs Leuko Poor As-1 Unit 301 / 301 [id number] Rbcs Leuko Poor As-1 Unit / 300 / 300 [id number] Rbcs Leuko Poor As-1 Unit 300 / 300 [id number] Rbcs Leuko Poor As-3 2nd Unit 301 / 301 [id number] Rbcs Leuko Poor As-3 Ph Unit 301 / 301 [id number] Output: Urine 0 / 0 Stool 200 / 200 300 / 300 Catheter 150 / 150 Other: Stool Size Large Small Stool Consistency liquid liquid Stool Characteristics Mucoid Stool Color Bright Red Blood Dark Red Blood Brown Blood Tinged # Bowel Movements 1 2 # Bowel Movement Diapers 1 Weight 87.9 kg 88.5 kg Blood Glucose* 113 149 Patient Weight 12/27/16 23:59 Weight 88.5 kg General: Conversant, No Apparent Distress HEENT: Atraumatic, Normocephaly, Mucus Membranes Moist Neck: No JVD, Normal carotid pulses Cardiac: Reg Rate and Rhythm, Normal S1 and S2, Other (click from valve noted) Lungs: Normal Breath Sounds, No Wheeze, Rales, Rhonchi Neuro: Alert and responsive, No focal deficits noted Abdomen: Soft Skin: No rashes noted on visualized skin Musculoskeletal: No Chest Wall Tenderness Extremities: No Clubbing, No Cyanosis, No Edema, Normal Pulses Results 12/27/16 04:30 12/27/16 04:30 Lab Results 12/27/16 12/27/16 12/27/16 00:27 04:30 04:30 WBC 12.4 H 8.8 Hgb 8.0 L D 5.2 L* D Hct 25.8 L 16.9 L Plt Count 270 191 INR 3.3 D APTT Sodium Potassium Chloride Carbon Dioxide BUN Creatinine Glucose Calcium Magnesium Troponin I 12/27/16 12/27/16 12/27/16 04:30 09:26 11:18 WBC Hgb Hct Plt Count INR 2.7 APTT Sodium 140 Potassium 3.3 L Chloride 114 H Carbon Dioxide 18 L BUN 46 H Creatinine 4.19 H Glucose 115 H Calcium 6.3 L D Magnesium 1.1 L Troponin I 0.02 12/27/16 11:18 WBC Hgb Hct Plt Count INR APTT 39.5 H Sodium Potassium Chloride Carbon Dioxide BUN Creatinine Glucose Calcium Magnesium Troponin I Short CBC 12/27/16 12/27/16 12/26/16 Range/Units 04:30 00:27 15:36 WBC 8.8 12.4 H 11.0 (4.3-11.1) K/mcL Hgb 5.2 L* D 8.0 L D 12.0 L (12.9-16.9) g/dL Hct 16.9 L 25.8 L 38.2 (37.5-50.1) % Plt Count 191 270 287 (140-400) K/mcL Neutrophils # 6.9 10.1 H 9.4 H (1.6-8.9) K/mcL BMP 12/27/16 12/26/16 Range/Units 04:30 15:36 Sodium 140 140 (136-145) mEq/L Potassium 3.3 L 2.7 L (3.5-4.5) mEq/L Chloride 114 H 104 (98-109) mEq/L Carbon Dioxide 18 L 22 (19-29) mEq/L BUN 46 H 52 H (8-26) mg/dL Creatinine 4.19 H 4.70 H (0.72-1.25) mg/dL Glucose 115 H 128 H (70-99) mg/dL Calcium 6.3 L D 8.2 L (8.6-10.8) mg/dL Cardiac Enzymes 12/27/16 12/26/16 Range/Units 09:26 15:36 Troponin I 0.02 0.02 (0-0.03) ng/mL Liver Function 12/26/16 Range/Units 15:36 Total Bilirubin 0.4 (0.2-1.2) mg/dL AST 10 (5-34) Units/L ALT 6 (0-55) Units/L Alkaline Phosphatase 64 (38-126) Units/L Albumin 2.3 L (3.5-5.0) g/dL Urine 12/27/16 Range/Units 10:25 Urine Color Yellow (Yellow) Urine Clarity Clear (Clear) Urine pH 5.5 (5.0-8.0) pH Units Ur Specific [place] 1.016 (1.010-1.025) Urine Protein Trace (Neg-Trace) mg/dL Urine Glucose (UA) Normal (Normal) mg/dL Impressions Abdomen/Pelvis CT 12/26/16 15:22 IMPRESSION: Acute uncomplicated mild sigmoid diverticulitis. Follow-up recommended as malignancy can have a similar appearance. Severe polycystic kidney disease is again seen. The previously seen large right renal hematoma in perinephric hemorrhage has resolved. D/ / Erlinda Crane MD / Erlinda Crane MD Interpreting Provider: Erlinda Crane MD Chest X-Ray 12/27/16 08:34 IMPRESSION: 1. The left IJ central line distal tip is in the central left internal jugular vein. Consider advancement. 2. No acute cardiopulmonary disease. No pneumothorax. D/ / Rod Hood MD / Rod Hood MD Interpreting Provider: Rod Hood MD Active Medications Acetaminophen (Tylenol) 650 mg PO Q6HR PRN PRN Reason: fever GREATER than 101.2 F Stop: 06/27/17 23:25 Vancomycin HCl 500 mg/ Sodium (Chloride 250 ml) 0 mg RC QID [facility] Stop: 06/28/17 09:01 Last Admin: 12/27/16 12:49 Dose: Not Given Ciprofloxacin Lactate (Cipro Premix 400 Mg/200 Ml) 400 mg in 200 mls @ 200 mls/ hr IVPB Q12HR [facility] Stop: 06/27/17 18:01 Last Infusion: 12/27/16 07:15 Dose: Infused Metronidazole (Flagyl Premix 500 Mg/100 Ml) 500 mg in 100 mls @ 100 mls/hr IVPB Q8HR [facility] Stop: 06/28/17 00:01 Last Infusion: 12/27/16 10:20 Dose: Infused Norepinephrine Bitartrate 4 mg (/ Dextrose) 254 mls @ 1.9 mls/hr IVC CONT [facility]; 0.5 MCG/MIN PRN Reason: Protocol Stop: 06/28/17 02:31 Last Titration: 12/27/16 10:24 Dose: 1 mcg/min, 3.81 mls/hr Calcium Gluconate 1,000 mg/ (Sodium Chloride) 60 mls @ 111 mls/hr IVPB Q6HR PRN PRN Reason: Hypocalcemia Stop: 06/28/17 06:53 Magnesium Sulfate (Magnesium Sulfate Premix 2gm/50ml) 2 gm in 50 mls @ 50 mls/ hr IVPB Q6H PRN PRN Reason: Hypomagnesemia Stop: 06/28/17 06:53 Last Infusion: 12/27/16 09:20 Dose: Infused Potassium Chloride (Potassium Chloride 20 Meq/100 Ml) 40 meq in 200 mls @ 100 mls/hr IVPB Q1H PRN PRN Reason: Potassium less than 4 Stop: 06/28/17 06:53 Potassium Phosphate 44 meq/ (Sodium Chloride) 260 mls @ 40 mls/hr IVPB Q10H PRN PRN Reason: Phosphate less than 3 Stop: 06/28/17 06:53 Naloxone HCl (Narcan) 0.4 mg IVP Q2MIN PRN PRN Reason: Opioid Reversal Stop: 06/27/17 23:25 Ondansetron HCl (Zofran) 4 mg IVP Q6HR PRN; Protocol PRN Reason: Nausea And Vomiting Stop: 06/27/17 23:25 Pantoprazole Sodium (Protonix) 40 mg IVP Q12HR [facility] Stop: 06/28/17 06:01 Last Admin: 12/27/16 06:17 Dose: 40 mg Vancomycin HCl (Vancocin) 250 mg PO QID [facility] Stop: 06/28/17 09:01 Last Admin: 12/27/16 09:45 Dose: 250 mg - EKG Interpretation EKG results cardiology: personally reviewed (Sinus tach rate 125, unchanged appearance from prior) Consult Discharge Plan - Plan Referrals: Dieter Herrera DO [Primary Care Provider] -
--- NOTE | 2016-12-27 13:27 | Nephrology Consult Note ---
Date of Encounter: 12/27/16 Time of Encounter: 13:22 Assessment and Plan (1) CKD (chronic kidney disease) stage 4, GFR 15-29 ml/min Current Visit: Yes Status: Acute Patient is currently at baseline GFR of 15 (was 13) Scr improved to 4.19 (was 4.70) Continue current I/Os Will need renal diet when diet advanced Phos 6.3-will watch closely; no binder listed on home meds; should improve with renal diet Avoid nephrotoxins if possible No urgent need for [employer] at this time (2) GI bleed Current Visit: Yes Status: Acute per primary team Qualifiers: GI bleed type/associated pathology: unspecified gastrointestinal hemorrhage type Qualified Code(s): K92.2 - Gastrointestinal hemorrhage, unspecified (3) Hypokalemia Current Visit: Yes Status: Acute Improving-now 3.3 (4) Hypotension Current Visit: Yes Status: Acute B/P better-100/64 per primary team Qualifiers: Hypotension type: other hypotension type Qualified Code(s): I95.89 - Other hypotension History of Present Illness - Reason for Consult Consult date: 12/27/16 - Chief Complaint GI bleed, CKD stage 5 - History of Present Illness Mr Driscoll is a 56-year-old male with PMH significant for aortic valve and mitral valve replacements (on Coumadin), polycystic kidney disease (left nephrectomy), and CKD stage 4 who presented to the ER on 12/26/16 with bloody diarrhea. Patient reports recently finishing a course of antibiotics for C. difficile. In the ER, patient was found to have acute on chronic anemia with a hemoglobin of 12 (baseline), supratherapeutic INR (7.8) and hypokalemic (K+ 2.7) . In addition patient was also found to be hypotensive. Patient follows with Dr Reyna, city supervisor in [place], and states he had a left nephrectomy approximately 4 months ago. Patient states at that time Dr Reyna told him his kidney function was at "15" and if it went down to 10 he would need to start dialysis. Nephrology has been consulted to manage his CKD stage 5 while hospitalized. Past Med Surg Social Fam HX - Past Medical History Medical history: renal disease, valvular heart disease, other Psychiatric history: no psych history - Past Surgical History Surgical History: heart valve replacement, other (Nephrectomy, Exploration with bowel resection (2 months ago-[place]), Aortic and mitral valve replacement) - Social History Smoking Status: Former smoker Smokeless Tobacco Status: Yes Alcohol use: none Drug use: none - Family History Mother Living Status: Still Living Hx Family Cardiac Disorders: No Hx Family Respiratory Disorders: No Hx Family Cancer: Yes Hx Family GI Disorders: No Hx Family Endocrine Disorder: Yes (DM) Hx Family Neuromuscular Disorders: No Hx Family Neurologic Disorders: No Hx Family HEENT Disorders: No Hx Family Autoimmune Disorders: No Father Living Status: Hx Family Cardiac Disorders: Yes (Heart problem) Hx Family Respiratory Disorders: No Hx Family Cancer: Yes Hx Family GI Disorders: No Hx Family Endocrine Disorder: Yes Hx Family Neuromuscular Disorders: No Hx Family Neurologic Disorders: No Hx Family HEENT Disorders: No Hx Family Autoimmune Disorders: No Medications and Allergies Ferrous Sulfate 325 mg PO QAM 07/20/16 [History] Sodium Bicarbonate 650 mg PO BID 07/20/16 [History] Oxycodone HCl/Acetaminophen [Percocet 5-325 mg Tablet] 1 tab PO BID PRN [History] Allopurinol [Zyloprim 100 MG] 200 mg PO DAILY 12/26/16 [History] Furosemide [Lasix] 20 mg PO BID 12/26/16 [History] Warfarin [Coumadin] 3.5 mg PO DAILY 12/26/16 [History] 3 Allergy/AdvReac Type Severity Reaction Status Date / Time aspirin AdvReac See Verified 11/28/16 17:29 Comments Review of Systems All Systems: reviewed and no additional remarkable complaints except as stated Constitutional: no chills, no fever(s) Cardiovascular: no chest pain, no dyspnea Gastrointestinal: diarrhea, hematochezia Neurological: no behavioral changes Exam - Vital Signs Vital signs: Initial Vital Signs Temp Pulse Resp BP Pulse Ox 98.4 F 80 18 95/63 99 12/26/16 15:12 12/26/16 15:12 12/26/16 15:12 12/26/16 15:12 12/26/16 15:12 Vital Signs - Last 8 Hours Temp Pulse Resp BP Pulse Ox 12/27/16 12:00 81 16 100/64 97 12/27/16 11:46 97.9 F 12/27/16 11:02 80 12/27/16 11:00 80 16 89/55 96 12/27/16 10:00 81 18 90/54 97 12/27/16 09:00 89 18 95/64 97 12/27/16 08:00 88 16 85/50 97 12/27/16 07:43 89 12/27/16 07:00 97.6 F 89 16 101/66 98 12/27/16 06:43 98.0 F 90 14 117/76 98 12/27/16 06:00 89 12 88/53 98 12/27/16 05:45 98.0 F 96 15 87/52 97 12/27/16 05:39 98.0 F 96 15 87/52 97 12/27/16 05:38 98.0 F 96 15 8752 97 Intake and Output 12/26/16 12/27/16 12/27/16 23:59 07:59 15:59 Intake Total 2900 / 2900 3352 / 3352 3140 / 3140 Output Total 200 / 200 300 / 300 150 / 150 Balance 2700 / 2700 3052 / 3052 2990 / 2990 Intake: IV Fluids 2900 / 2900 1551 / 1551 2238 / 2238 0.9 % Sodium Chloride 1,000 ML 1000 / 1000 @ As Directed IV CONT [facility] Rx#: [id number] 0.9 % Sodium Chloride 1,000 ML 1000 / 1000 1000 / 1000 1000 / 1000 @ 100 mls/hr IVC .Q10H [facility] Rx#: [id number] 0.9 % Sodium Chloride 500 ML @ 500 / 500 1875 mls/hr IVC .Q16M [facility] Rx#: [id number] Levophed 4 MG In Dextrose 5% 51 / 51 88 / 88 250 ML @ 0.5 MCG/MIN 1.9 mls/hr IVC CONT [facility] Rx#:[id number] Lactated Ringers 1,000 ML @ 1000 / 1000 3750 mls/hr IVC .Q16M [facility] Rx#: [id number] Cipro Premix 400 MG/200 ML 400 200 / 200 200 / 200 mg In 200 ml @ 200 mls/hr IVPB Q12HR [facility] Rx#:[id number] Magnesium Sulfate Premix 2gm/ 50 / 50 50mL 2 gm In 50 ml @ 50 mls/hr IVPB Q6H PRN Rx#:[id number] Flagyl Premix 500 MG/100 ML 500 100 / 100 100 / 100 mg In 100 ml @ 100 mls/hr IVPB Q8HR [facility] Rx#:[id number] Potassium Chloride 10 mEq/100mL 200 / 200 200 / 200 10 meq In 100 ml @ 100 mls/hr IVPB Q1H [facility] Rx#:[id number] Blood Product 1801 / 1801 902 / 902 Plasma Unit [id number] 301 / 301 Plasma Unit [id number] 597 / 597 Rbcs Leuko Poor As-1 Unit 301 / 301 [id number] Rbcs Leuko Poor As-1 Unit 301 / 301 [id number] Rbcs Leuko Poor As-1 Unit 1 / 1 300 / 300 [id number] Rbcs Leuko Poor As-1 Unit 300 / 300 [id number] Rbcs Leuko Poor As-3 2nd Unit 301 / 301 [id number] Rbcs Leuko Poor As-3 Ph Unit 301 / 301 [id number] Output: Urine 0 / 0 Stool 200 / 200 300 / 300 Catheter 150 / 150 Other: Stool Size Large Small Stool Consistency liquid liquid Stool Characteristics Mucoid Stool Color Bright Red Blood Dark Red Blood Brown Blood Tinged # Bowel Movements 1 2 # Bowel Movement Diapers 1 Weight 87.9 kg 88.5 kg Blood Glucose* 113 149 Patient Weight 12/27/16 23:59 Weight 88.5 kg - General Appearance General appearance: well-developed, well-nourished EENT: ATNC, mucous membranes moist, hearing intact, vision intact Neck: supple Respiratory: clear Cardiology: no edema, normal S1, normal S2 Gastrointestinal: no tenderness, no guarding Integumentary: warm and dry Neurologic: alert and oriented x3 Psychiatric: mood/affect appropriate, cooperative Results - Lab Results 12/27/16 04:30 12/27/16 04:30 Most recent lab results Calcium 6.3 mg/dL (8.6-10.8) L D 12/27/16 04:30 Phosphorus 4.2 mg/dL (2.3-4.7) 12/27/16 04:30 Magnesium 1.1 mg/dL (1.6-2.6) L 12/27/16 04:30 Consult Discharge Plan - Plan Referrals: Dieter Herrera DO [Primary Care Provider] -
[2016-12-27] MEDS ORDERED: *HR* Heparin 5,000 UNIT/ML VIAL IVP PRN ×2 (14:16)
[2016-12-27] MEDS ORDERED: Heparin 25,000 UNIT/500 ML D5W 25,000 UNIT/500 ML MLS IVC SCH (14:30)
[2016-12-27 14:41] LABS: Hematocrit 29.4 % (37.5-50.1)
[2016-12-27 14:48] LABS: Hemoglobin 9.8 g/dL (12.9-16.9)
[2016-12-27] MEDS: Potassium Chloride 40 MEQ/200 ML BAG IVPB PRN (16:37)
[2016-12-27] MEDS ORDERED: Warfarin perPT PO PRN (18:00)
[2016-12-27] MEDS ORDERED: *HR* Warfarin 2 MG TABLET PO ONE (18:00)
[2016-12-27] MEDS ORDERED: Ringers Solution, Lactated 1,000 ML IVC ONE (18:20)
[2016-12-27 21:11] LABS: Hematocrit 27.8 % (37.5-50.1); Hemoglobin 9.2 g/dL (12.9-16.9); Mean Corpuscular HGB Conc 33.1 g/dL (31.6-35.5); Mean Corpuscular Hemoglobin 28.8 pg (28.0-33.3); Mean Corpuscular Volume 86.9 fL (83.0-100.0); Mean Platelet Volume 11.4 fL (9.4-12.4); Platelet Count 114 K/mcL (140-400); Red Cell Distribution Width 15.6 % (11.5-14.5)
[2016-12-27 23:15] LABS: INR 3.3; Prothrombin Time 36.4 Seconds (9.4-12.1)
[2016-12-28] MEDS: Norepinephrine 4 MG in D5% in Water 250 ML IVC SCH (04:18)
[2016-12-28 04:20] LABS: Basophils % 0.2 %; Eosinophils # 0.1 K/mcL (0.0-0.6); Eosinophils % 1.3 %; Hematocrit 26.5 % (37.5-50.1); Hemoglobin 8.8 g/dL (12.9-16.9); Lymphocytes % 19.5 %; Mean Corpuscular HGB Conc 33.2 g/dL (31.6-35.5); Mean Corpuscular Hemoglobin 28.8 pg (28.0-33.3); Mean Corpuscular Volume 86.6 fL (83.0-100.0); Mean Platelet Volume 11.5 fL (9.4-12.4); Monocytes # 0.4 K/mcL (0.0-1.3); Monocytes % 8.5 %; Neutrophils # 3.6 K/mcL (1.6-8.9); Platelet Count 111 K/mcL (140-400); Red Blood Count 3.06 M/mcL (4.19-5.50); Red Cell Distribution Width 15.9 % (11.5-14.5); Segmented Neutrophils % 69.5 %
[2016-12-28 04:26] LABS: INR 3.5; Prothrombin Time 38.4 Seconds (9.4-12.1)
[2016-12-28 04:34] LABS: Albumin/Globulin Ratio 0.8 (1.1-2.2); Alkaline Phosphatase 39 Units/L (38-126); Aspartate Amino Transferase 7 Units/L (5-34); BUN/Creatinine Ratio 10 (6-26); Bilirubin,Direct 0.2 mg/dL (0.0-0.5); Bilirubin,Indirect 0.1 mg/dL (0.0-1.2); Bilirubin,Total 0.3 mg/dL (0.2-1.2); Blood Urea Nitrogen 40 mg/dL (8-26); Calcium 6.5 mg/dL (8.6-10.8); Carbon Dioxide 18 mEq/L (19-29); Chloride 116 mEq/L (98-109); Glucose 84 mg/dL (70-99); Magnesium 1.8 mg/dL (1.6-2.6); Osmolality,Calculated 301 (280-300); Potassium 3.4 mEq/L (3.5-4.5); Sodium 141 mEq/L (136-145); eGFR For African Americans 18 (> 60); eGFR For Non-African Americans 15 (> 60)
[2016-12-28 04:35] LABS: Alanine Aminotransferase < 6 Units/L (0-55); Albumin 1.5 g/dL (3.5-5.0); Total Protein 3.5 g/dL (6.0-8.3)
[2016-12-28] MEDS: Pantoprazole 40 MG VIAL IVP SCH ×2 (06:25→17:38)
[2016-12-28] MEDS: Potassium Chloride 40 MEQ/200 ML BAG IVPB PRN ×3 (06:25→19:16)
[2016-12-28] MEDS: MetroNIDAZOLE 500 MG/100 ML 500 MG/100 ML BAG IVPB SCH ×2 (09:03→17:37)
[2016-12-28] MEDS: Vancomycin Oral Soln 250 MG/5 ML UDC PO SCH ×4 (09:04→20:34)
--- NOTE | 2016-12-28 09:06 | Pulmonology Progress Note ---
Addendum entered and electronically signed by Jerson Galindo DO 12/28/16 11:43: Patient is noted to have severe protein calorie malnutrition. Nutrition is consulted and we will supplement with ensure clear at this time. Original Note: <Jerson Galindo - Last Filed: 12/28/16 09:01> Date of Encounter: 12/28/16 Time of Encounter: 09:01 Assessment and Plan (1) Hemorrhagic shock Current Visit: Yes Status: Resolved Resolved. Secondary to lower GI bleed. Vital signs have been stable overnight. Hemoglobin is also stable, no indications for further transfusions (2) GI bleed Current Visit: Yes Status: Acute Secondary to C. difficile colitis and diverticulitis in the setting of elevated INR. Bleeding appears to have stopped. Surgery was consulted and recommended no intervention at this time. Qualifiers: GI bleed type/associated pathology: unspecified gastrointestinal hemorrhage type Qualified Code(s): K92.2 - Gastrointestinal hemorrhage, unspecified (3) C. difficile colitis Current Visit: Yes Status: Acute Amount of bowel movements of decreased. No leukocytosis, or fever. Continue metronidazole IV and oral vancomycin. (4) History of mitral valve replacement with mechanical valve Current Visit: Yes Status: Chronic Given the patient's life-threatening GI hemorrhage as discussed above patient was given vitamin K and FFP to bring down his INR. INR was 7.8 on admission, 3.5 today. We will hold off on any further reversal of anticoagulation given that his bleeding has appeared to stop. We will continue to hold Coumadin at this time and will start heparin if INR drops below 2.5. Echo is pending. Cardiology is following. (5) Acute kidney injury superimposed on chronic kidney disease Current Visit: No Status: Acute Renal function stable today. Urine output has been minimal. Electrodes are stable, no indication for acute dialysis at this time but will continue to monitor. Nephrology is following. (6) Elevated INR Current Visit: No Status: Acute Likely related to Coumadin toxicity in the setting of antibiotic use. INR is down to 3.5 which is at goal given his mechanical mitral valve. Given his high risk for valve thrombosis and stroke we will not reverse his INR any further as the bleeding is appeared to stop. Monitor. Check PT/INR at 3 PM today. (7) Diastolic heart failure Current Visit: No Status: Chronic Patient takes Lasix at home for fluid overload. Patient received a large amount of fluid given his hemorrhagic shock yesterday however he does not appear edematous at this time. We will continue to monitor. If patient's other signs of fluid overload will diuresis. Echo pending. Qualifiers: Heart failure chronicity: chronic Qualified Code(s): I50.32 - Chronic diastolic (congestive) heart failure Subjective Principal diagnosis: GI bleed Interval history: Patient seen and examined at bedside. Patient has no complaints at this time. He states he has had a couple bowel movements overnight with some flecks of blood but no large bloody bowel movements. Denies chest pain, shortness of breath, abdominal pain, nausea, vomiting, diarrhea. Objective PUL Vital signs: Last Vital Signs Temp 97.8 F 12/28/16 08:07 Pulse 71 12/28/16 08:00 Resp 16 12/28/16 08:00 BP 91/56 12/28/16 08:00 Pulse Ox 97 12/28/16 08:00 General appearance: no acute distress ENT: oropharynx moist Auscultation: bilateral: clear Cardiovascular: regular rate and rhythm Gastrointestinal: hypoactive bowel sounds, soft, non-tender, non-distended Extremities: no cyanosis, no edema, no clubbing normal mental status, non-focal exam Results - Laboratory Findings CBC and BMP: 12/28/16 03:30 12/28/16 03:30 PT/INR, D-dimer PT 38.4 Seconds (9.4-12.1) H 12/28/16 03:30 Abnormal lab findings: Abnormal lab results RBC 3.06 M/mcL (4.19-5.50) L 12/28/16 03:30 Hgb 8.8 g/dL (12.9-16.9) L 12/28/16 03:30 Hct 26.5 % (37.5-50.1) L 12/28/16 03:30 RDW 15.9 % (11.5-14.5) H 12/28/16 03:30 Plt Count 111 K/mcL (140-400) L 12/28/16 03:30 Anisocytosis 1+ (Not Present) A 12/27/16 04:30 PT 38.4 Seconds (9.4-12.1) H 12/28/16 03:30 APTT 39.5 Seconds (26.0-36.0) H 12/27/16 11:18 Potassium 3.4 mEq/L (3.5-4.5) L 12/28/16 03:30 Chloride 116 mEq/L (98-109) H 12/28/16 03:30 Carbon Dioxide 18 mEq/L (19-29) L 12/28/16 03:30 BUN 40 mg/dL (8-26) H 12/28/16 03:30 Creatinine 4.19 mg/dL (0.72-1.25) H 12/28/16 03:30 Est GFR ( Amer) 18 (> 60) L 12/28/16 03:30 Est GFR (Non-Af Amer) 15 (> 60) L 12/28/16 03:30 POC Glucose 149 (58-89) H 12/27/16 00:10 Calculated Osmolality 301 (280-300) H 12/28/16 03:30 Calcium 6.5 mg/dL (8.6-10.8) L 12/28/16 03:30 Ionized Calcium 1.06 mmol/L (1.15-1.35) L 12/28/16 06:55 Serum Total Protein 3.5 g/dL (6.0-8.3) L D 12/28/16 03:30 Albumin 1.5 g/dL (3.5-5.0) L D 12/28/16 03:30 Globulin 2.0 g/dL (2.4-3.5) L 12/28/16 03:30 Albumin/Globulin Ratio 0.8 (1.1-2.2) L 12/28/16 03:30 PTH Intact 284.2 pg/ml (8.5-72.5) H 12/27/16 14:15 Urine Bilirubin Small (Negative) H 12/27/16 10:25 Urine Microscopic RBC 3-5 per hpf (0-3) H 12/27/16 10:25 Ur Squamous Epith Cells Many per lpf (None-Few) H 12/27/16 10:25 - Clinical Findings Intake & Output: Intake & Output 12/27/16 12/28/16 12/28/16 23:59 07:59 15:59 Intake Total 350 / 350 150 / 150 Output Total 50 / 50 120 / 120 0 / 0 Balance 300 / 300 30 / 30 0 / 0 Weight 97.9 kg 98.4 kg Consult Discharge Plan - Plan Referrals: Dieter Herrera DO [Primary Care Provider] - <Santiago Rashid - Last Filed: 12/28/16 22:29> Date of Encounter: 12/28/16 Objective PUL Vital signs: Last Vital Signs Temp 97.7 F 12/28/16 12:45 Pulse 70 12/28/16 17:00 Resp 16 12/28/16 17:00 BP 88/57 12/28/16 17:00 Pulse Ox 95 12/28/16 17:00 Results - Laboratory Findings CBC and BMP: 12/28/16 15:25 12/28/16 15:25 PT/INR, D-dimer PT 38.4 Seconds (9.4-12.1) H 12/28/16 03:30 Abnormal lab findings: Abnormal lab results WBC 4.0 K/mcL (4.3-11.1) L 12/28/16 15:25 RBC 2.89 M/mcL (4.19-5.50) L 12/28/16 15:25 Hgb 8.3 g/dL (12.9-16.9) L 12/28/16 15:25 Hct 25.3 % (37.5-50.1) L 12/28/16 15:25 RDW 16.0 % (11.5-14.5) H 12/28/16 15:25 Plt Count 105 K/mcL (140-400) L 12/28/16 15:25 Anisocytosis 1+ (Not Present) A 12/27/16 04:30 PT 38.4 Seconds (9.4-12.1) H 12/28/16 03:30 APTT 39.5 Seconds (26.0-36.0) H 12/27/16 11:18 Potassium 3.3 mEq/L (3.5-4.5) L 12/28/16 15:25 Chloride 116 mEq/L (98-109) H 12/28/16 03:30 Carbon Dioxide 18 mEq/L (19-29) L 12/28/16 03:30 BUN 40 mg/dL (8-26) H 12/28/16 03:30 Creatinine 4.19 mg/dL (0.72-1.25) H 12/28/16 03:30 Est GFR ( Amer) 18 (> 60) L 12/28/16 03:30 Est GFR (Non-Af Amer) 15 (> 60) L 12/28/16 03:30 POC Glucose 149 (58-89) H 12/27/16 00:10 Calculated Osmolality 301 (280-300) H 12/28/16 03:30 Calcium 6.5 mg/dL (8.6-10.8) L 12/28/16 03:30 Ionized Calcium 1.02 mmol/L (1.15-1.35) L 12/28/16 15:25 Serum Total Protein 3.5 g/dL (6.0-8.3) L D 12/28/16 03:30 Albumin 1.5 g/dL (3.5-5.0) L D 12/28/16 03:30 Globulin 2.0 g/dL (2.4-3.5) L 12/28/16 03:30 Albumin/Globulin Ratio 0.8 (1.1-2.2) L 12/28/16 03:30 PTH Intact 284.2 pg/ml (8.5-72.5) H 12/27/16 14:15 Urine Bilirubin Small (Negative) H 12/27/16 10:25 Urine Microscopic RBC 3-5 per hpf (0-3) H 12/27/16 10:25 Ur Squamous Epith Cells Many per lpf (None-Few) H 12/27/16 10:25 - Clinical Findings Intake & Output: Intake & Output 12/28/16 12/28/16 12/28/16 07:59 15:59 23:59 Intake Total 150 / 150 750 / 750 Output Total 120 / 120 0 / 0 Balance 30 750 / 750 Weight 97.9 kg 99.6 kg - Attending Attestation I saw the patient with the resident agree with History and Physical exam findings. Labs and Radiology were reviewed Ventilator data were reviewed NURSERY WORKER: Patient is conscious oriented x3 following commands NECK : No JVD appreciated Pulmonary : Patient had adequate gas exchange Cardiac : Hemodynamically stable , patient has mechanical Mitral Valve and Porcine Aortic Valve will need to start Heparin if INR is below 3 Nutrition/GI: Patient GI bleed is due to cdiff colitis and diverticular bleed , decreased bowel movements with some blood tinged stools will trend HB Renal : RITA on Chronic Kidney disease renal following he is back to baseline UOP according to Nephrlology Heme onc : Patient has thrombocytopenia , Hb stable , most likely the thrombocytopenia due to massive transfusion will closely follow it ID ; Treating diverticulits and C diff colitis Musculo skeletal / skin issues : No acute issues Disposition : Remain Critical still high chance of bleeding Code status: Full Code
[2016-12-28] MEDS: Vancomycin 500 MG, Sodium Chloride IRRigation 250 ML RC SCH (09:13)
--- NOTE | 2016-12-28 09:53 | Cardiology Progress Note ---
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 Per pt, he thinks aortic valve was replaced at age 19 and the mitral valve appoximately 10 years ago. Anticoagulated on Coumadin for mechanical mitral valve. INR on presentation 7.8 , GI bleed, HGB dropped from 12.0 to 5.2. Pt has been given blood, FFP, vitamin K. HGB today 8.8, INR 3.5. Echo resulted--LVEF 60-65%, Mechanical mitral valve is well seated with normal function. Biologic aortic valve is suboptimally visualized. By Doppler, there may be prosthetic stenosis (PV 3.1m/s, MG 21 mmHg, DVI 0.3). Discussed with Dr. Lu, no DARYL or further work-up warranted at this time as inpt. Since INR is 3.5, will continue to hold Coumadin. Goal INR is 2.5-3.5. When INR falls <2.5, will challenge with heparin gtt and if he tolerates heparin gtt, will then resume Coumadin. Will continue to follow. (2) Hx of aortic valve replacement Current Visit: Yes Status: Acute As above. Porcine aortic valve. On echo biologic aortic valve is suboptimally visualized. By Doppler, there may be prosthetic stenosis (PV 3.1m/s, MG 21 mmHg , DVI 0.3). No further work-up warranted as inpt. (3) GI bleed Current Visit: Yes Status: Acute General surgery following. No plan for invasive evaluation at this time. Bloody bowel movements have reportedly improved. HGB dropped from 12.0 to 5.2-- transfusions ordered. HGB today 8.8. Management per primary/surgery teams. Qualifiers: GI bleed type/associated pathology: unspecified gastrointestinal hemorrhage type Qualified Code(s): K92.2 - Gastrointestinal hemorrhage, unspecified (4) Hypotension Current Visit: Yes Status: Acute BP 90s systolic in setting of GI bleed. Avoid antihypertensives. Pt appears stable at current time. Qualifiers: Hypotension type: other hypotension type Qualified Code(s): I95.89 - Other hypotension (5) Supratherapeutic INR Current Visit: Yes Status: Acute INR 7.2 on presentation with GI bleed. Elevated INR likely due to medications for treatment of CDiff--reversed with vitamin K and FFP--INR 3.5 today. Discussion w patient/family: The assessment and plan as outlined above was discussed with the patient and/or family members who expressed understanding and agreement. All questions were answered. Thank you for involving us in the care of your patient. Please call with any questions. I will discuss all the above with Dr. Lu and make changes as necessary. Subjective Principal diagnosis: GI bleed Interval history: INR 3.5 today. Coumadin remains on hold and heparin did not have to be started. Pt denies any acute cardiac complaints this AM. HGB 8.8 today after multiple transfusions yesterday. Echo resulted--LVEF 60-65%, Mechanical mitral valve is well seated with normal function. Biologic aortic valve is suboptimally visualized. By Doppler, there may be prosthetic stenosis (PV 3.1m/s, MG 21 mmHg , DVI 0.3). Recommend correlating clinically and considering DARYL if appropriate. Dilated ascending aorta, 3.6cm. Objective Vital Signs, Last 4 Hours Temp Pulse Resp BP Pulse Ox 12/28/16 09:00 77 18 94/53 99 12/28/16 08:07 97.8 F 12/28 08:00 71 16 91/56 97 12/28/16 07:49 75 12/28/16 07:00 75 16 93/55 98 12/28/16 06:00 77 15 85/55 96 General: Conversant, No Apparent Distress HEENT: Atraumatic, Normocephaly, Mucus Membranes Moist Neck: No JVD, Normal carotid pulses Cardiac: Reg Rate and Rhythm, Normal S1 and S2, Other (valve click noted) Lungs: Normal Breath Sounds Neuro: Alert and responsive, No focal deficits noted Abdomen: Soft, Non-Tender Skin: No rashes noted on visualized skin Musculoskeletal: No Chest Wall Tenderness Extremities: No Clubbing, No Cyanosis, No Edema, Normal Pulses Results 12/28/16 03:30 12/28/16 03:30 Lab Results 12/27/16 12/27/16 12/27/16 09:26 11:18 11:18 WBC Hgb Hct Plt Count INR 2.7 APTT 39.5 H Sodium Potassium Chloride Carbon Dioxide BUN Creatinine Glucose Calcium Magnesium Total Bilirubin AST ALT Alkaline Phosphatase Troponin I 0.02 12/27/16 12/27/16 12/27/16 14:15 21:08 23:00 WBC 6.2 Hgb 9.8 L D 9.2 L Hct 29.4 L 27.8 L Plt Count 114 L INR 3.3 APTT Sodium Potassium Chloride Carbon Dioxide BUN Creatinine Glucose Calcium Magnesium Total Bilirubin AST ALT Alkaline Phosphatase Troponin I 12/28/16 12/28/16 12/28/16 03:30 03:30 03:30 WBC 5.2 Hgb 8.8 L Hct 26.5 L Plt Count 111 L INR 3.5 APTT Sodium 141 Potassium 3.4 L Chloride 116 H Carbon Dioxide 18 L BUN 40 H Creatinine 4.19 H Glucose 84 Calcium 6.5 L Magnesium 1.8 Total Bilirubin 0.3 AST 7 ALT < 6 Alkaline Phosphatase 39 Troponin I Short CBC 12/28/16 12/27/16 12/27/16 Range/Units 03:30 21:08 14:15 WBC 5.2 6.2 (4.3-11.1) K/mcL Hgb 8.8 L 9.2 L 9.8 L D (12.9-16.9) g/dL Hct 26.5 L 27.8 L 29.4 L (37.5-50.1) % Plt Count 111 L 114 L (140-400) K/mcL Neutrophils # 3.6 (1.6-8.9) K/mcL BMP 12/28/16 Range/Units 03:30 Sodium 141 (136-145) mEq/L Potassium 3.4 L (3.5-4.5) mEq/L Chloride 116 H (98-109) mEq/L Carbon Dioxide 18 L (19-29) mEq/L BUN 40 H (8-26) mg/dL Creatinine 4.19 H (0.72-1.25) mg/dL Glucose 84 (70-99) mg/dL Calcium 6.5 L (8.6-10.8) mg/dL Cardiac Enzymes 12/27/16 Range/Units 09:26 Troponin I 0.02 (0-0.03) ng/mL Liver Function 12/28/16 Range/Units 03:30 Total Bilirubin 0.3 (0.2-1.2) mg/dL Direct Bilirubin 0.2 (0.0-0.5) mg/dL AST 7 (5-34) Units/L ALT < 6 (0-55) Units/L Alkaline Phosphatase 39 (38-126) Units/L Albumin 1.5 L D (3.5-5.0) g/dL Urine 12/27/16 Range/Units 10:25 Urine Color Yellow (Yellow) Urine Clarity Clear (Clear) Urine pH 5.5 (5.0-8.0) pH Units Ur Specific [place] 1.016 (1.010-1.025) Urine Protein Trace (Neg-Trace) mg/dL Urine Glucose (UA) Normal (Normal) mg/dL Impressions Echocardiogram 12/27/16 13:10 Impressions: LVEF 60-65%. Atypical septal motion consistent with post-operative status. Indeterminate diastolic function. Normal right ventricular structure and function. Mechanical mitral valve is well seated with normal function. Biologic aortic valve is suboptimally visualized. By Doppler, there may be prosthetic stenosis (PV 3.1m/s, MG 21 mmHg, DVI 0.3). Recommend correlating clinically and considering DARYL if appropriate. No pulmonary hypertension. Dilated ascending aorta, 3.6cm. Left Ventricular Wall Motion: Rest Echo Findings All wall segments showed normal motion. Findings: Study Quality * Technically adequate exam. ECG Findings * Normal sinus rhythm. Left Ventricle * LVEF 60-65%. * Normal LV chamber size, wall thickness and function. * Atypical septal motion consistent with post-operative status. * Indeterminate diastolic function. Right Ventricle * Normal right ventricular structure and function. Left Atrium * Left atrium is not well visualized. Right Atrium * Normal right atrial size. Aortic Valve * No aortic regurgitation. * Biologic aortic valve not well visualized. * There may be prosthetic stenosis by Doppler interrogation. Mitral Valve * No mitral regurgitation. * No mitral stenosis. *Mechanical prosthesis appears well seated with normal function. Tricuspid Valve * Trace tricuspid regurgitation. * Normal tricuspid valve structure. * Estimated RA pressure is 3 mmHg. * Estimated RVSP is 23 mmHg. * No pulmonary hypertension. Pulmonic Valve * Pulmonic valve is not well visualized. * No pulmonic stenosis. * No pulmonic regurgitation. Pulmonary Artery * Pulmonary artery not well visualized. Aorta * Normally sized aortic root. * Dilated ascending aorta, 3.6cm Interatrial Septum * Interatrial septum not well evaluated. Pericardium * There is no pericardial effusion present. IVC * The IVC is not dilated. Active Medications Vancomycin HCl 500 mg/ Sodium (Chloride 250 ml) 0 mg RC QID LARISSA Stop: 06/28/17 09:01 Last Admin: 12/28/16 09:13 Dose: Not Given Metronidazole (Flagyl Premix 500 Mg/100 Ml) 500 mg in 100 mls @ 100 mls/hr IVPB Q8HR LARISSA Stop: 06/28/17 00:01 Last Admin: 12/28/16 09:03 Dose: 100 mls/hr Norepinephrine Bitartrate 4 mg (/ Dextrose) 254 mls @ 1.9 mls/hr IVC CONT LARISSA; 0.5 MCG/MIN PRN Reason: Protocol Stop: 06/28/17 02:31 Last Admin: 12/28/16 04:18 Dose: Not Given Calcium Gluconate 1,000 mg/ (Sodium Chloride) 60 mls @ 111 mls/hr IVPB Q6HR PRN PRN Reason: Hypocalcemia Stop: 06/28/17 06:53 Magnesium Sulfate (Magnesium Sulfate Premix 2gm/50ml) 2 gm in 50 mls @ 50 mls/ hr IVPB Q6H PRN PRN Reason: Hypomagnesemia Stop: 06/28/17 06:53 Last Infusion: 12/28/16 07:45 Dose: Infused Potassium Chloride (Potassium Chloride 20 Meq/100 Ml) 40 meq in 200 mls @ 100 mls/hr IVPB Q1H PRN PRN Reason: Potassium less than 4 Stop: 06/28/17 06:53 Last Admin: 12/28/16 06:25 Dose: 100 mls/hr Potassium Phosphate 44 meq/ (Sodium Chloride) 260 mls @ 40 mls/hr IVPB Q10H PRN PRN Reason: Phosphate less than 3 Stop: 06/28/17 06:53 Ciprofloxacin Lactate (Cipro Premix 400 Mg/200 Ml) 400 mg in 200 mls @ 200 mls/ hr IVPB Q24H LARISSA Stop: 06/27/17 18:01 Last Admin: 12/28/16 09:04 Dose: 200 mls/hr Naloxone HCl (Narcan) 0.4 mg IVP Q2MIN PRN PRN Reason: Opioid Reversal Stop: 06/27/17 23:25 Ondansetron HCl (Zofran) 4 mg IVP Q6HR PRN; Protocol PRN Reason: Nausea And Vomiting Stop: 06/27/17 23:25 Oxycodone/Acetaminophen (Percocet 5/325) 1 each PO Q8HR PRN PRN Reason: Pain Stop: 06/29/17 09:08 Pantoprazole Sodium (Protonix) 40 mg IVP Q12HR LARISSA Stop: 06/28/17 06:01 Last Admin: 12/28/16 06:25 Dose: 40 mg Vancomycin HCl (Vancocin) 250 mg PO QID LARISSA Stop: 06/28/17 09:01 Last Admin: 12/28/16 09:04 Dose: 250 mg - Imaging and Cardiology Echo: report reviewed - EKG Interpretation EKG results cardiology: other (12 hr tele AVG HR 76, SR, 10 beat idioventricular run) Consult Discharge Plan - Plan Referrals: Dieter Herrera DO [Primary Care Provider] -
--- NOTE | 2016-12-28 10:41 | Nephrology Progress Note ---
Date of Encounter: 12/28/16 Time of Encounter: 10:38 - Assessment and Plan (1) CKD (chronic kidney disease) stage 4, GFR 15-29 ml/min Current Visit: Yes Status: Acute Kidney function stable-remains at his baseline Avoid nephrotoxins if possible Will continue to watch closely for any need of [employer] UOP slowly improving-225 ml yesterday; already has close to 200ml out today (2) GI bleed Current Visit: Yes Status: Acute per primary team Qualifiers: GI bleed type/associated pathology: gastrointestinal hemorrhage with hematemesis Qualified Code(s): K92.0 - Hematemesis (3) Hypokalemia Current Visit: Yes Status: Acute K+ 3.4 improving (4) Hypotension Current Visit: Yes Status: Acute B/P remains low 91/56 per primary team Qualifiers: Hypotension type: other hypotension type Qualified Code(s): I95.89 - Other hypotension Subjective Principal diagnosis: GI bleed Interval history: Patient seen and examined. States he is feeling better and has started to take fluids by mouth. Objective - Vital Signs Vital signs: Vital Signs Temp Pulse Resp BP Pulse Ox 12/28/16 10:00 77 20 91/56 98 12/28/16 09:00 77 18 94/53 99 12/28/16 08:07 97.8 F 12/28/16 08:00 71 16 91/56 97 12/28/16 07:49 75 12/28/16 07:00 75 16 93/55 98 12/28/16 06:00 77 15 85/55 96 12/28/16 05:00 72 11 82/52 97 12/28/16 04:10 98.0 F 12/28/16 04:00 76 12 86/50 97 12/28/16 03:00 74 16 91/55 96 12/28/16 02:00 78 13 92/59 96 12/28/16 01:00 75 17 88/50 96 12/28/16 00:48 98.1 F 12/28/16 00:00 75 15 86/50 96 12/27/16 23:00 75 15 83/52 96 12/27/16 22:00 82 14 85/54 96 12/27/16 21:00 73 12 92/59 96 12/27/16 20:00 72 12 83/46 96 12/27/16 19:55 97.7 F 12/27/16 19:00 78 16 89/49 97 12/27/16 18:00 80 16 93/47 95 12/27/16 17:00 79 16 85/47 92 12/27/16 16:00 84 16 90/53 96 12/27/16 15:54 98.6 F 12/27/16 15:46 76 12/27/16 15:00 82 18 85/53 98 12/27/16 14:00 86 18 119/68 96 12/27/16 13:00 75 18 89/56 97 12/27/16 12:00 81 16 100/64 97 12/27/16 11:46 97.9 F 12/27/16 11:02 80 12/27/16 11:00 80 16 89/55 96 Intake and Output 12/27/16 12/28/16 12/28/16 23:59 07:59 15:59 Intake Total 350 / 350 150 / 150 500 / 500 Output Total 50 / 50 120 / 120 0 / 0 Balance 300 / 300 30 / 30 500 / 500 Intake: IV Fluids 350 / 350 150 / 150 500 / 500 Cipro Premix 400 MG/200 ML 400 200 / 200 mg In 200 ml @ 200 mls/hr IVPB Q24H LARISSA Rx#:[id number] Magnesium Sulfate Premix 2gm/ 50 / 50 50 / 50 50mL 2 gm In 50 ml @ 50 mls/hr IVPB Q6H PRN Rx#:[id number] Flagyl Premix 500 MG/100 ML 500 100 / 100 100 / 100 100 / 100 mg In 100 ml @ 100 mls/hr IVPB Q8HR LARISSA Rx#:[id number] Potassium Chloride 20 mEq/100 200 / 200 200 / 200 mL 40 meq In 200 ml @ 100 mls/ hr IVPB Q1H PRN Rx#:[id number] Output: Catheter 50 / 50 120 / 120 0 / 0 Other: Stool Size Small Small Stool Consistency loose liquid Stool Characteristics Foamy Mucoid Mucoid Stool Color Brown Blood Tinged Bright Red Blood # Bowel Movements 1 Weight 97.9 kg 99.6 kg Patient Weight 12/28/16 23:59 Weight 99.6 kg - General Appearance General appearance: Present: well-developed, well-nourished EENT: Present: ATNC, mucous membranes moist, hearing intact, vision intact Neck: Present: supple Respiratory: Present: clear Cardiology: Present: no edema, normal S1, normal S2 Gastrointestinal: Present: no tenderness, no guarding Integumentary: Present: warm and dry Neurologic: Present: alert and oriented x3 Psychiatric: Present: mood/affect appropriate, cooperative - Lab 12/28/16 03:30 12/28/16 03:30 Most recent lab results Calcium 6.5 mg/dL (8.6-10.8) L 12/28/16 03:30 Phosphorus 4.2 mg/dL (2.3-4.7) 12/27/16 04:30 Magnesium 1.8 mg/dL (1.6-2.6) 12/28/16 03:30 Consult Discharge Plan - Plan Referrals: Dieter Herrera DO [Primary Care Provider] -
--- NOTE | 2016-12-28 12:54 | General Surgery Progress Note ---
Date of Encounter: 12/28/16 Time of Encounter: 12:52 - Assessment and Plan (1) C. difficile colitis Current Visit: Yes Status: Acute Patient is no longer on IV pressors. Hemoglobin level is 8.8. He is been having bowel its proximal every 70-80 minutes and is more mucus and quality. Significant improvement in the amount of diarrhea and the volume of blood within the stool. Abdominal pain. Continue with oral Glenda (Vanco enemas have been held vianey and watery stools). Continue to follow. (2) Hematochezia Current Visit: Yes Status: Acute The amount of rectal bleeding has significantly decreased. Continue with oral vancomycin. Continue to watch frequency of bowel movements and amount of blood within the stool. Continue to follow CBC. Subjective Patient reports: feels better (Still having diarrhea. Blood tinged mucous stool. No abdominal pain.) Objective Vital Signs - Last 8 Hours Temp Pulse Resp BP Pulse Ox 12/28/16 12:45 97.7 F 12/28/16 12:00 71 18 89/55 98 12/28/16 11:13 71 12/28/16 11:10 71 18 80/51 97 12/28/16 10:00 77 20 91/56 98 12/28/16 09:00 77 18 94/53 99 12/28/16 08:07 97.8 F 12/28/16 08:00 71 16 91/56 97 12/28/16 07:49 75 12/28/16 07:00 75 16 93/55 98 12/28/16 06:00 77 15 85/55 96 12/28/16 05:00 72 11 82/52 97 Intake and Output 12/27/16 12/28/16 12/28/16 23:59 07:59 15:59 Intake Total 350 / 350 150 / 150 750 / 750 Output Total 50 / 50 120 / 120 0 / 0 Balance 300 / 300 30 / 30 750 / 750 Intake: IV Fluids 350 / 350 150 / 150 500 / 500 Cipro Premix 400 MG/200 ML 400 200 / 200 mg In 200 ml @ 200 mls/hr IVPB Q24H LARISSA Rx#:[id number] Magnesium Sulfate Premix 2gm/ 50 / 50 50 / 50 50mL 2 gm In 50 ml @ 50 mls/hr IVPB Q6H PRN Rx#:[id number] Flagyl Premix 500 MG/100 ML 500 100 / 100 100 / 100 100 / 100 mg In 100 ml @ 100 mls/hr IVPB Q8HR LARISSA Rx#:[id number] Potassium Chloride 20 mEq/100 200 / 200 200 / 200 mL 40 meq In 200 ml @ 100 mls/ hr IVPB Q1H PRN Rx#:[id number] Oral 250 / 250 Output: Catheter 50 / 50 120 / 120 0 / 0 Other: Stool Size Small Small Stool Consistency loose liquid Stool Characteristics Foamy Mucoid Mucoid Stool Color Brown Blood Tinged Bright Red Blood # Bowel Movements 1 Weight 97.9 kg 99.6 kg Patient Weight 12/28/16 23:59 Weight 99.6 kg - General physical appearance well nourished, no distress - Abdomen Abdomen: Present: soft, non tender - Labs 12/28/16 03:30 12/28/16 03:30 Diabetes panel 12/28/16 Range/Units 03:30 Sodium 141 (136-145) mEq/L Potassium 3.4 L (3.5-4.5) mEq/L Chloride 116 H (98-109) mEq/L Carbon Dioxide 18 L (19-29) mEq/L BUN 40 H (8-26) mg/dL Creatinine 4.19 H (0.72-1.25) mg/dL Glucose 84 (70-99) mg/dL Calcium 6.5 L (8.6-10.8) mg/dL AST 7 (5-34) Units/L ALT < 6 (0-55) Units/L Alkaline Phosphatase 39 (38-126) Units/L Albumin 1.5 L D (3.5-5.0) g/dL Calcium panel 12/28/16 Range/Units 03:30 Calcium 6.5 L (8.6-10.8) mg/dL Albumin 1.5 L D (3.5-5.0) g/dL Pituitary panel 12/28/16 Range/Units 03:30 Sodium 141 (136-145) mEq/L Potassium 3.4 L (3.5-4.5) mEq/L Chloride 116 H (98-109) mEq/L Carbon Dioxide 18 L (19-29) mEq/L BUN 40 H (8-26) mg/dL Creatinine 4.19 H (0.72-1.25) mg/dL Glucose 84 (70-99) mg/dL Calcium 6.5 L (8.6-10.8) mg/dL Adrenal panel 12/28/16 Range/Units 03:30 Sodium 141 (136-145) mEq/L Potassium 3.4 L (3.5-4.5) mEq/L Chloride 116 H (98-109) mEq/L Carbon Dioxide 18 L (19-29) mEq/L BUN 40 H (8-26) mg/dL Creatinine 4.19 H (0.72-1.25) mg/dL Glucose 84 (70-99) mg/dL Calcium 6.5 L (8.6-10.8) mg/dL Total Bilirubin 0.3 (0.2-1.2) mg/dL AST 7 (5-34) Units/L ALT < 6 (0-55) Units/L Alkaline Phosphatase 39 (38-126) Units/L Albumin 1.5 L D (3.5-5.0) g/dL Consult Discharge Plan - Plan Referrals: Dieter Herrera DO [Primary Care Provider] -
[2016-12-28 15:46] LABS: Hematocrit 25.3 % (37.5-50.1); Hemoglobin 8.3 g/dL (12.9-16.9); Mean Corpuscular HGB Conc 32.8 g/dL (31.6-35.5); Mean Corpuscular Hemoglobin 28.7 pg (28.0-33.3); Mean Corpuscular Volume 87.5 fL (83.0-100.0); Mean Platelet Volume 11.9 fL (9.4-12.4); Platelet Count 105 K/mcL (140-400); Red Blood Count 2.89 M/mcL (4.19-5.50)
[2016-12-28 16:03] LABS: Ionized Calcium 1.02 mmol/L (1.15-1.35)
--- NOTE | 2016-12-28 16:03 | Event Note ---
Date of Encounter: 12/28/16 Time of Encounter: 16:00 - Cardiology Event Note Discussed with Dr. Lu, will sign off, re-consult PRN-- see previous Cardiology recs for anticoagulation. Briefly: Hx of mechanical mitral valve and porcine aortic secondary to rheumatic fever as a child. Per pt, he thinks aortic valve was replaced at age 19 and the mitral valve appoximately 10 years ago. S/p GI Bleed and supratherapeutic INR. Patient will need to continue anticoagulation d/t mechanical mitral valve-- cannot be stopped from a cardiology standpoint.
[2016-12-28 16:25] LABS: Potassium 3.3 mEq/L (3.5-4.5)
--- NOTE | 2016-12-28 18:21 | Electrocardiograph Report ---
[address] [place] [address] Test Date: 2016-12-26 Pat Name: Man Driscoll Department: 102 Room: 10 Gender: Delivery Consultant: Stew : 1960 Requested By: Rajiv Romano Order Number: [id number] Reading MD: Laina Mccoy Measurements Intervals Gallina Rate: 125 P: 10 AK: 228 QRS: -71 QRSD: 141 T: 19 QT: 356 QTc: 430 Interpretive Statements SINUS TACHYCARDIA WITH FIRST DEGREE AV BLOCK WITH OCCASIONAL SUPRAVENTRICULAR PREMATURE COMPLEXES MARKED LEFT AXIS DEVIATION [QRS AXIS < -30] RIGHT BUNDLE BRANCH BLOCK [120+ ms QRS DURATION, UPRIGHT V1, 40+ ms S IN I/aVL/V4/V5/V6] ANTEROLATERAL MYOCARDIAL INFARCTION [40+ ms Q WAVE IN I/aVL/V3-V6], OF INDETERMINATE AGE V2 not suitable for interpretation Electronically Signed On 12-28-2016 18:19:53 EST by Laina Mccoy
[2016-12-28 18:36] LABS: INR 4.8
[2016-12-28 18:37] LABS: Prothrombin Time 53.6 Seconds (9.4-12.1)
[2016-12-28] MEDS ORDERED: 0.9 % Sodium Chloride 250 ML ONE (20:19)
[2016-12-29] MEDS: MetroNIDAZOLE 500 MG/100 ML 500 MG/100 ML BAG IVPB SCH ×3 (00:14→15:25)
[2016-12-29 00:29] LABS: Ionized Calcium 1.06 mmol/L (1.15-1.35)
[2016-12-29 00:31] LABS: Potassium 3.7 mEq/L (3.5-4.5)
[2016-12-29] MEDS: Potassium Chloride 40 MEQ/200 ML BAG IVPB PRN (02:02)
[2016-12-29] MEDS: Norepinephrine 4 MG in D5% in Water 250 ML IVC SCH (04:11)
[2016-12-29 06:06] LABS: Lymphocytes % 24.9 %; Red Cell Distribution Width 15.9 % (11.5-14.5)
[2016-12-29 06:09] LABS: Eosinophils # 0.1 K/mcL (0.0-0.6); Eosinophils % 3.2 %; Hematocrit 25.5 % (37.5-50.1); Hemoglobin 8.5 g/dL (12.9-16.9); Immature Granulocytes % 1.6 % (0-4); Immature Platelets 2.9 % (1.1-6.1); Lymphocytes # 0.6 K/mcL (0.6-4.6); Mean Corpuscular HGB Conc 33.3 g/dL (31.6-35.5); Mean Corpuscular Hemoglobin 28.9 pg (28.0-33.3); Mean Corpuscular Volume 86.7 fL (83.0-100.0); Mean Platelet Volume 11.3 fL (9.4-12.4); Monocytes # 0.3 K/mcL (0.0-1.3); Monocytes % 10.4 %; Neutrophils # 1.5 K/mcL (1.6-8.9); Red Blood Count 2.94 M/mcL (4.19-5.50); Segmented Neutrophils % 59.9 %
[2016-12-29 06:11] LABS: Platelet Count 92 K/mcL (140-400)
[2016-12-29] MEDS: Pantoprazole 40 MG VIAL IVP SCH ×2 (06:13→16:48)
[2016-12-29 06:15] LABS: Prothrombin Time 33.5 Seconds (9.4-12.1)
[2016-12-29 06:31] LABS: Albumin/Globulin Ratio 0.9 (1.1-2.2); Alkaline Phosphatase 41 Units/L (38-126); Aspartate Amino Transferase 9 Units/L (5-34); BUN/Creatinine Ratio 9 (6-26); Bilirubin,Direct 0.2 mg/dL (0.0-0.5); Bilirubin,Indirect 0.1 mg/dL (0.0-1.2); Bilirubin,Total 0.3 mg/dL (0.2-1.2); Blood Urea Nitrogen 36 mg/dL (8-26); Carbon Dioxide 18 mEq/L (19-29); Chloride 115 mEq/L (98-109); Glucose 85 mg/dL (70-99); Magnesium 2.1 mg/dL (1.6-2.6); Osmolality,Calculated 298 (280-300); Sodium 140 mEq/L (136-145); Total Protein 3.8 g/dL (6.0-8.3); eGFR For African Americans 18 (> 60); eGFR For Non-African Americans 15 (> 60)
[2016-12-29 06:32] LABS: Alanine Aminotransferase < 6 Units/L (0-55); Albumin 1.8 g/dL (3.5-5.0)
[2016-12-29] MEDS: Vancomycin Oral Soln 250 MG/5 ML UDC PO SCH ×4 (08:06→22:06)
[2016-12-29] MEDS: *HR* OxyCODONE/APAP 5/325 TABLET PO PRN ×2 (08:33→16:57)
--- NOTE | 2016-12-29 08:41 | Nephrology Progress Note ---
Date of Encounter: 12/29/16 Time of Encounter: 08:40 - Assessment and Plan (1) CKD (chronic kidney disease) stage 4, GFR 15-29 ml/min Current Visit: Yes Status: Acute RITA on CKD stage 4. sees outside voucher clerk Dr. Reyna. Etiology likely pre renal secondary to hemorrhagic shock. Currently, his kidney function appears to be back to baseline. Urine output remains poor: 245ml yesterday. this may improve once he is re started on his home lasix, as he is not on lasix currently. Plan: no need for dialysis at this time. his kidney function appears back to baseline. re started patient's home dose of sodium bicarb. will consider re starting his home dose of lasix tomorrow depending on how his blood pressure is. continue to monitor kidney function. BREANA, complement, vitamin D levels pending. (2) Hemorrhagic shock Current Visit: Yes Status: Resolved per primary (3) GI bleed Current Visit: Yes Status: Acute per primary and surgery Qualifiers: GI bleed type/associated pathology: gastrointestinal hemorrhage with hematemesis Qualified Code(s): K92.0 - Hematemesis (4) Hypokalemia Current Visit: Yes Status: Acute resolved. continue to monitor. (5) Hypotension Current Visit: Yes Status: Acute resolved. patient is currently off vasopressors. Plan: will consider starting home dose of lasix tomorrow. Qualifiers: Hypotension type: other hypotension type Qualified Code(s): I95.89 - Other hypotension Subjective Principal diagnosis: GI bleed Interval history: 56 year old male evalated at bedside. patient was sitting up in bed and watching TV. he denies nausea, vomiting, diarrhea, fever, chills, chest pain, shortness of breath. he denies any further problems today. Objective - Vital Signs Vital signs: Vital Signs Temp Pulse Resp BP Pulse Ox 12/29/16 07:37 97.8 F 12/29/16 06:00 80 16 95/58 99 12/29/16 05:11 97.9 F 12/29/16 04:08 97.7 F 68 14 94/63 97 12/29/16 04:00 67 14 94/63 97 12/29/16 03:00 68 14 92/60 96 12/29/16 02:42 97.7 F 72 14 92/58 96 12/29/16 02:00 71 14 94/59 96 12/29/16 01:00 71 14 94/61 96 12/29/16 00:52 97.7 F 73 14 95/62 97 12/29/16 00:21 98.8 F 12/29/16 00:00 71 14 96/55 96 12/28/16 23:00 73 14 89/55 96 12/28/16 22:47 97.7 F 73 14 89/55 96 12/28/16 22:00 76 14 90/59 97 12/28/16 21:46 97.8 F 74 14 93/57 12/28/16 21:00 77 14 105/77 97 12/28/16 20:53 97.6 F 75 14 105/77 97 12/28/16 20:01 98.2 F 12/28/16 20:00 73 14 91/64 97 12/28/16 19:00 73 14 95/60 99 12/28/16 18:00 75 14 96/65 97 12/28/16 17:00 70 16 88/57 95 12/28/16 16:00 68 18 81/50 96 12/28/16 15:15 75 12/28/16 15:00 70 18 82/54 98 12/28/16 14:00 78 16 97/38 96 12/28/16 13:00 70 16 79/50 97 12/28/16 12:45 97.7 F 12/28/16 12:00 71 18 89/55 98 12/28/16 11:13 71 12/28/16 11:10 71 18 80/51 97 12/28/16 10:00 77 20 91/56 98 12/28/16 09:00 77 18 94/53 99 Intake and Output 12/28/16 12/29/16 12/29/16 23:59 07:59 15:59 Intake Total 610 / 610 960 / 960 Output Total 125 / 125 270 / 270 Balance 485 / 485 690 / 690 Intake: IV Fluids 360 / 360 360 / 360 Calcium Gluconate 1,000 MG In 0 60 / 60 60 / 60 .9 % Sodium Chloride 50 ML @ 111 mls/hr IVPB Q6HR PRN Rx#: [id number] Flagyl Premix 500 MG/100 ML 500 100 / 100 100 / 100 mg In 100 ml @ 100 mls/hr IVPB Q8HR LARISSA Rx#:[id number] Potassium Chloride 20 mEq/100 200 / 200 200 / 200 mL 40 meq In 200 ml @ 100 mls/ hr IVPB Q1H PRN Rx#:[id number] Blood Product 250 / 250 600 / 600 Plasma Unit [id number] 250 / 250 Plasma Unit [id number] 250 / 250 Rbcs Leuko Poor As-1 Unit 0 / 0 350 / 350 [id number] Output: Catheter 125 / 125 270 / 270 Other: # Bowel Movement Diapers 1 Weight 100.1 kg Patient Weight 12/29/16 23:59 Weight 100.1 kg - General Appearance General appearance: Present: well-developed, well-nourished, appears started age , obese Neck: Present: no JVD Cardiology: Present: no edema Additional Comments: occasional premature beats, systolic click noted. Gastrointestinal: Present: normoactive bowel sounds, no tenderness, no guarding , no organomegaly, no masses Integumentary: Present: no rash, warm and dry Neurologic: Present: alert and oriented x3, strength 5/5, CN 3-12 intact Musculoskeletal: Present: no deformities, no erythema, no cyanosis Psychiatric: Present: mood/affect appropriate - Lab 12/29/16 05:56 12/29/16 05:56 Most recent lab results Calcium 7.0 mg/dL (8.6-10.8) L 12/29/16 05:56 Phosphorus 3.0 mg/dL (2.3-4.7) 12/28/16 15:25 Magnesium 2.1 mg/dL (1.6-2.6) 12/29/16 05:56 Consult Discharge Plan - Plan Referrals: Dieter Herrera DO [Primary Care Provider] -
--- NOTE | 2016-12-29 08:51 | Pulmonology Progress Note ---
<Jerson Galindo - Last Filed: 12/29/16 08:45> Date of Encounter: 12/29/16 Time of Encounter: 08:46 Assessment and Plan (1) Hemorrhagic shock Current Visit: Yes Status: Resolved Resolved. Secondary to lower GI bleed. Vital signs have been stable overnight. Hemoglobin is also stable, no indications for further transfusions (2) GI bleed Current Visit: Yes Status: Acute Secondary to C. difficile colitis and diverticulitis in the setting of elevated INR. Bleeding appears to have stopped. Surgery was consulted and recommended no intervention at this time. Qualifiers: GI bleed type/associated pathology: gastrointestinal hemorrhage with hematemesis Qualified Code(s): K92.0 - Hematemesis (3) C. difficile colitis Current Visit: Yes Status: Acute Amount of bowel movements of decreased. No leukocytosis, or fever. Continue metronidazole IV and oral vancomycin. (4) History of mitral valve replacement with mechanical valve Current Visit: Yes Status: Chronic Given the patient's life-threatening GI hemorrhage as discussed above patient was given vitamin K and FFP to bring down his INR. INR was 7.8 on admission, 3.5 today. We will hold off on any further reversal of anticoagulation given that his bleeding has appeared to stop. We will continue to hold Coumadin at this time and will start heparin if INR drops below 2.5. Echo is pending. Cardiology is following. (5) Acute kidney injury superimposed on chronic kidney disease Current Visit: No Status: Acute Renal function stable today. Urine output has been minimal. Electrodes are stable, no indication for acute dialysis at this time but will continue to monitor. Nephrology is following. (6) Elevated INR Current Visit: No Status: Acute Likely related to Coumadin toxicity in the setting of antibiotic use. INR is down to 3.5 which is at goal given his mechanical mitral valve. Given his high risk for valve thrombosis and stroke we will not reverse his INR any further as the bleeding is appeared to stop. Monitor. Check PT/INR at 3 PM today. (7) Diastolic heart failure Current Visit: No Status: Chronic Patient takes Lasix at home for fluid overload. Patient received a large amount of fluid given his hemorrhagic shock yesterday however he does not appear edematous at this time. We will continue to monitor. If patient's other signs of fluid overload will diuresis. Echo pending. Qualifiers: Heart failure chronicity: chronic Qualified Code(s): I50.32 - Chronic diastolic (congestive) heart failure Subjective Principal diagnosis: GI bleed Interval history: Patient seen and examined at bedside. Patient has no complaints at this time. He states he has had a couple bowel movements overnight with some streaks of blood but no large bloody bowel movements. Denies chest pain, shortness of breath, abdominal pain, nausea, vomiting, diarrhea. Objective PUL Vital signs: Last Vital Signs Temp 97.8 F 12/29/16 07:37 Pulse 80 12/29/16 06:00 Resp 16 12/29/16 06:00 BP 95/58 12/29/16 06:00 Pulse Ox 99 12/29/16 06:00 General appearance: no acute distress Results - Laboratory Findings CBC and BMP: 12/29/16 05:56 12/29/16 05:56 PT/INR, D-dimer PT 33.5 Seconds (9.4-12.1) H 12/29/16 05:56 Abnormal lab findings: Abnormal lab results WBC 2.5 K/mcL (4.3-11.1) L 12/29/16 05:56 RBC 2.94 M/mcL (4.19-5.50) L 12/29/16 05:56 Hgb 8.5 g/dL (12.9-16.9) L 12/29/16 05:56 Hct 25.5 % (37.5-50.1) L 12/29/16 05:56 RDW 15.9 % (11.5-14.5) H 12/29/16 05:56 Plt Count 92 K/mcL (140-400) L 12/29/16 05:56 Neutrophils # 1.5 K/mcL (1.6-8.9) L 12/29/16 05:56 Anisocytosis 1+ (Not Present) A 12/27/16 04:30 PT 33.5 Seconds (9.4-12.1) H 12/29/16 05:56 APTT 39.5 Seconds (26.0-36.0) H 12/27/16 11:18 Chloride 115 mEq/L (98-109) H 12/29/16 05:56 Carbon Dioxide 18 mEq/L (19-29) L 12/29/16 05:56 BUN 36 mg/dL (8-26) H 12/29/16 05:56 Creatinine 4.18 mg/dL (0.72-1.25) H 12/29/16 05:56 Est GFR ( Amer) 18 (> 60) L 12/29/16 05:56 Est GFR (Non-Af Amer) 15 (> 60) L 12/29/16 05:56 POC Glucose 149 (58-89) H 12/27/16 00:10 Calcium 7.0 mg/dL (8.6-10.8) L 12/29/16 05:56 Ionized Calcium 1.10 mmol/L (1.15-1.35) L 12/29/16 05:56 Serum Total Protein 3.8 g/dL (6.0-8.3) L 12/29/16 05:56 Albumin 1.8 g/dL (3.5-5.0) L 12/29/16 05:56 Globulin 2.0 g/dL (2.4-3.5) L 12/29/16 05:56 Albumin/Globulin Ratio 0.9 (1.1-2.2) L 12/29/16 05:56 PTH Intact 284.2 pg/ml (8.5-72.5) H 12/27/16 14:15 Urine Bilirubin Small (Negative) H 12/27/16 10:25 Urine Microscopic RBC 3-5 per hpf (0-3) H 12/27/16 10:25 Ur Squamous Epith Cells Many per lpf (None-Few) H 12/27/16 10:25 - Clinical Findings Intake & Output: Intake & Output 12/28/16 12/29/16 12/29/16 23:59 07:59 15:59 Intake Total 610 / 610 960 / 960 Output Total 125 / 125 270 / 270 Balance 485 / 485 690 / 690 Weight 100.1 kg Consult Discharge Plan - Plan Referrals: Dieter Herrera DO [Primary Care Provider] - <Santiago Rashid - Last Filed: 01/01/17 11:17> Date of Encounter: 01/01/17 Objective PUL Vital signs: Last Vital Signs Temp 98.1 F 01/01/17 08:00 Pulse 87 01/01/17 10:00 Resp 16 01/01/17 10:00 BP 90/65 01/01/17 10:00 Pulse Ox 95 01/01/17 10:00 Results - Laboratory Findings CBC and BMP: 01/01/17 04:55 01/01/17 04:55 PT/INR, D-dimer PT 21.5 Seconds (9.4-12.1) H 01/01/17 04:55 D-Dimer 864 ng/mLFEU (0-500) H 12/29/16 08:10 Abnormal lab findings: Abnormal lab results WBC 3.5 K/mcL (4.3-11.1) L D 01/01/17 04:55 RBC 3.18 M/mcL (4.19-5.50) L 01/01/17 04:55 Hgb 9.2 g/dL (12.9-16.9) L 01/01/17 04:55 Hct 28.2 % (37.5-50.1) L 01/01/17 04:55 RDW 16.5 % (11.5-14.5) H 01/01/17 04:55 Plt Count 115 K/mcL (140-400) L 01/01/17 04:55 Lymphocytes # 0.5 K/mcL (0.6-4.6) L 01/01/17 04:55 Anisocytosis 1+ (Not Present) A 12/27/16 04:30 PT 21.5 Seconds (9.4-12.1) H 01/01/17 04:55 APTT 43.6 Seconds (26.0-36.0) H D 01/01/17 04:55 D-Dimer 864 ng/mLFEU (0-500) H 12/29/16 08:10 Chloride 113 mEq/L (98-109) H 01/01/17 04:55 Carbon Dioxide 18 mEq/L (19-29) L 01/01/17 04:55 BUN 30 mg/dL (8-26) H 01/01/17 04:55 Creatinine 4.00 mg/dL (0.72-1.25) H 01/01/17 04:55 Est GFR ( Amer) 19 (> 60) L 01/01/17 04:55 Est GFR (Non-Af Amer) 16 (> 60) L 01/01/17 04:55 POC Glucose 149 (58-89) H 12/27/16 00:10 Calcium 7.1 mg/dL (8.6-10.8) L 01/01/17 04:55 Ionized Calcium 1.08 mmol/L (1.15-1.35) L 01/01/17 04:55 Total Bilirubin < 0.2 mg/dL (0.2-1.2) L 01/01/17 04:55 Lactate Dehydrogenase 157 Units/L (159-327) L 12/29/16 08:10 Serum Total Protein 4.2 g/dL (6.0-8.3) L 01/01/17 04:55 Albumin 1.9 g/dL (3.5-5.0) L 01/01/17 04:55 Globulin 2.3 g/dL (2.4-3.5) L 01/01/17 04:55 Albumin/Globulin Ratio 0.8 (1.1-2.2) L 01/01/17 04:55 25-OH Vitamin D Total 18 ng/mL (30-80) L 12/27/16 14:15 PTH Intact 284.2 pg/ml (8.5-72.5) H 12/27/16 14:15 Urine Bilirubin Small (Negative) H 12/27/16 10:25 Urine Microscopic RBC 3-5 per hpf (0-3) H 12/27/16 10:25 Ur Squamous Epith Cells Many per lpf (None-Few) H 12/27/16 10:25 U Free Lorton Light Ch 35.10 mg/dL (0.14-2.42) H 12/27/16 14:15 U Free Lambda Light Ch 1.71 mg/dL (0.02-0.67) H 12/27/16 14:15 U Free Lorton/Lambda 20.53 ratio (2.04-10.37) H 12/27/16 14:15 Complement C3 53 mg/dL (88-201) L 12/27/16 14:15 - Clinical Findings Intake & Output: Intake & Output 12/31/16 01/01/17 01/01/17 23:59 07:59 15:59 Intake Total 130 / 130 540 / 540 Output Total 545 / 545 200 / 200 300 / 300 Balance -545 / -545 -70 / -70 240 / 240 - Attending Attestation I saw the patient with the resident agree with History and Physical exam findings. Labs and Radiology were reviewed Ventilator data were reviewed SADDLE LINING STITCHER: Patient is conscious oriented x3 following commands NECK : No JVD appreciated Pulmonary : Patient had adequate gas exchange will closely monitor. Cardiac : Hemodynamically stable , patient has mechanical Mitral Valve and Porcine Aortic Valve will need to start Heparin if INR is below 3 , today INR is high wondering he has baseline vitamin K deficiency due to chronic diarrhea with malabsorption of fat soluble vitamins patient anticoagulation is managed by his family doctor as he is high risk candidate he needs to gets established Kathy anticoagulation . Nutrition/GI: Patient GI bleed is due to cdiff colitis and diverticular bleed , decreased bowel movements with some blood tinged stools will trend HB , patient has recurrent C diff needs Prolonged vanc taper will need home health to help him to be compliant with the medication so he wont come back to the hospital. Renal : RITA on Chronic Kidney disease renal following he is back to baseline UOP according to Nephrlology Heme onc : Patient has thrombocytopenia , Hb stable , most likely the thrombocytopenia due to massive transfusion will closely follow it send hemolysis lab no active evidence of hemolysis ID ; Treating diverticulits and C diff colitis will stop ciprofloxacin Musculo skeletal / skin issues : No acute issues Disposition : Remain Critical still high chance of bleeding Code status: Full Code
[2016-12-29 09:05] LABS: Fibrinogen 218 mg/dL (169-393)
[2016-12-29 09:10] LABS: D-Dimer 864 ng/mLFEU (0-500)
--- NOTE | 2016-12-29 10:32 | General Surgery Progress Note ---
<Laina Long Mishel - Last Filed: 12/29/16 10:33> Date of Encounter: 12/29/16 Time of Encounter: 10:00 - Assessment and Plan (1) C. difficile colitis Current Visit: Yes Status: Acute Patient advanced to a regular diet per the critical care team and is tolerating well Continue antibiotics- Flagyl and oral vancomycin Supportive care Serial abdominal exams Repeat am labs The patient has significantly improved with conservative measures No indication for surgical intervention at this time Surgery will continue to follow and assess progress (2) Hematochezia Current Visit: Yes Status: Acute No evidence of any recurrent or ongoing hematochezia Hemoglobin is stable 8.3>8.5 Continue to monitor (3) Supratherapeutic INR Current Visit: Yes Status: Acute INR 7.8 on admission and is now 3.0 Management per critical care team (4) History of mitral valve replacement with mechanical valve Current Visit: Yes Status: Chronic (5) Acute kidney injury superimposed on chronic kidney disease Current Visit: No Status: Acute Stable Cr- 4.19>4.18 IV fluids Avoid nephrotoxic medications Management per critical care team Subjective Patient reports: no new complaints, feels better, pain is less, tolerating a regular diet, flatus, bowel movement, diarrhea (improved and no obvious blood in stool at this time), afebrile Objective Vital Signs - Last 8 Hours Temp Pulse Resp BP Pulse Ox 12/29/16 10:00 74 16 76/51 97 12/29/16 09:00 73 16 96/62 98 12/29/16 08:15 69 12/29/16 08:00 67 14 92/63 99 12/29/16 07:37 97.8 F 12/29/16 07:00 69 14 84/56 99 12/29/16 06:00 80 16 95/58 99 12/29/16 05:11 97.9 F 12/29/16 04:08 97.7 F 68 14 94/63 97 12/29/16 04:00 67 14 94/63 97 12/29/16 03:00 68 14 92/60 96 12/29/16 02:42 97.7 F 72 14 92/58 96 Intake and Output 12/28/16 12/29/16 12/29/16 23:59 07:59 15:59 Intake Total 610 / 610 960 / 960 300 / 300 Output Total 125 / 125 270 / 270 Balance 485 / 485 690 / 690 300 / 300 Intake: IV Fluids 360 / 360 360 / 360 300 / 300 Calcium Gluconate 1,000 MG In 0 60 / 60 60 / 60 .9 % Sodium Chloride 50 ML @ 111 mls/hr IVPB Q6HR PRN Rx#: [id number] Cipro Premix 400 MG/200 ML 400 200 / 200 mg In 200 ml @ 200 mls/hr IVPB Q24H [facility] Rx#:[id number] Flagyl Premix 500 MG/100 ML 500 100 / 100 100 / 100 100 / 100 mg In 100 ml @ 100 mls/hr IVPB Q8HR [facility] Rx#:[id number] Potassium Chloride 20 mEq/100 200 / 200 200 / 200 mL 40 meq In 200 ml @ 100 mls/ hr IVPB Q1H PRN Rx#:[id number] Blood Product 250 / 250 600 / 600 Plasma Unit [id number] 250 / 250 Plasma Unit [id number] 250 / 250 Rbcs Leuko Poor As-1 Unit 0 / 0 350 / 350 [id number] Output: Catheter 125 / 125 270 / 270 Other: Stool Consistency liquid soft Stool Characteristics Mucoid Stool Color Brown Green # Bowel Movement Diapers 1 Weight 100.1 kg Patient Weight 12/29/16 23:59 Weight 100.1 kg - General physical appearance well developed, well nourished, no distress, chronically ill - Eyes normal ocular movement - ENT normal mucosa, atraumatic, normocephalic - Neck Neck exam: trachea midline - Respiratory normal respiratory effort, clear to auscultation - Cardiovascular Cardiovascular exam: Present: RRR - Abdomen Abdomen: Present: bowel sounds present, soft, non tender - Genitourinary other (Howe catheter to straight drain with clear, yellow urine) - Neurologic CN 2-12 grossly intact - Psychiatric oriented to time, oriented to person, oriented to place, speech is normal, memory intact - Labs 12/29/16 05:56 12/29/16 05:56 Diabetes panel 12/28/16 12/29/16 12/29/16 Range/Units 15:25 00:16 05:56 Sodium 140 (136-145) mEq/L Potassium 3.3 L 3.7 4.0 (3.5-4.5) mEq/L Chloride 115 H (98-109) mEq/L Carbon Dioxide 18 L (19-29) mEq/L BUN 36 H (8-26) mg/dL Creatinine 4.18 H (0.72-1.25) mg/dL Glucose 85 (70-99) mg/dL Calcium 7.0 L (8.6-10.8) mg/dL AST 9 (5-34) Units/L ALT < 6 (0-55) Units/L Alkaline Phosphatase 41 (38-126) Units/L Albumin 1.8 L (3.5-5.0) g/dL Calcium panel 12/27/16 12/28/16 12/29/16 Range/Units 14:15 15:25 05:56 Calcium 7.0 L (8.6-10.8) mg/dL Phosphorus 3.0 (2.3-4.7) mg/dL Albumin 1.8 L (3.5-5.0) g/dL 25-OH Vitamin D Total 18 L (30-80) ng/mL Pituitary panel 12/28/16 12/29/16 12/29/16 Range/Units 15:25 00:16 05:56 Sodium 140 (136-145) mEq/L Potassium 3.3 L 3.7 4.0 (3.5-4.5) mEq/L Chloride 115 H (98-109) mEq/L Carbon Dioxide 18 L (19-29) mEq/L BUN 36 H (8-26) mg/dL Creatinine 4.18 H (0.72-1.25) mg/dL Glucose 85 (70-99) mg/dL Calcium 7.0 L (8.6-10.8) mg/dL Adrenal panel 12/28/16 12/29/16 12/29/16 Range/Units 15:25 00:16 05:56 Sodium 140 (136-145) mEq/L Potassium 3.3 L 3.7 4.0 (3.5-4.5) mEq/L Chloride 115 H (98-109) mEq/L Carbon Dioxide 18 L (19-29) mEq/L BUN 36 H (8-26) mg/dL Creatinine 4.18 H (0.72-1.25) mg/dL Glucose 85 (70-99) mg/dL Calcium 7.0 L (8.6-10.8) mg/dL Total Bilirubin 0.3 (0.2-1.2) mg/dL AST 9 (5-34) Units/L ALT < 6 (0-55) Units/L Alkaline Phosphatase 41 (38-126) Units/L Albumin 1.8 L (3.5-5.0) g/dL Consult Discharge Plan - Plan Referrals: Dieter Herrera DO [Primary Care Provider] - - Attending Attestation For this encounter, I have reviewed the [employer]PERVISOR or PA documentation, treatment plan, and medical decision making; and I have had face to face time with this patient. <Yunior Panchal - Last Filed: 12/29/16 18:35> Date of Encounter: 12/29/16 - Assessment and Plan (1) C. difficile colitis Current Visit: Yes Status: Acute (2) Hematochezia Current Visit: Yes Status: Acute Objective Vital Signs - Last 8 Hours Temp Pulse Resp BP Pulse Ox 12/29/16 18:00 85 16 95/83 100 12/29/16 17:00 75 14 90/60 100 12/29/16 16:00 72 16 89/62 100 12/29/16 15:00 77 14 79/52 97 12/29/16 14:00 82 14 91/65 99 12/29/16 13:00 85 16 80/46 99 12/29/16 12:00 97.7 F 79 16 87/49 98 12/29/16 11:53 85 12/29/16 11:00 77 16 86/58 96 Intake and Output 12/29/16 12/29/16 12/29/16 07:59 15:59 23:59 Intake Total 960 / 960 300 / 300 600 / 600 Output Total 270 / 270 175 / 175 Balance 690 / 690 125 / 125 600 / 600 Intake: IV Fluids 360 / 360 300 / 300 600 / 600 Lactated Ringers 500 ML @ 1000 500 / 500 mls/hr IVC .Q30M ONE Rx#: [id number] Calcium Gluconate 1,000 MG In 0 60 / 60 .9 % Sodium Chloride 50 ML @ 111 mls/hr IVPB Q6HR PRN Rx#: [id number] Cipro Premix 400 MG/200 ML 400 200 / 200 mg In 200 ml @ 200 mls/hr IVPB Q24H [facility] Rx#:[id number] Flagyl Premix 500 MG/100 ML 500 100 / 100 100 / 100 100 / 100 mg In 100 ml @ 100 mls/hr IVPB Q8HR [facility] Rx#:[id number] Potassium Chloride 20 mEq/100 200 / 200 mL 40 meq In 200 ml @ 100 mls/ hr IVPB Q1H PRN Rx#:[id number] Blood Product 600 / 600 Plasma Unit [id number] 250 / 250 Rbcs Leuko Poor As-1 Unit 350 / 350 [id number] Output: Catheter 270 / 270 175 / 175 Other: Stool Size Large Stool Consistency liquid liquid Stool Characteristics Mucoid Stool Color Brown Brown Green # Bowel Movements 2 1 Weight 100.1 kg Patient Weight 12/29/16 23:59 Weight 100.1 kg - Labs 12/29/16 12:15 12/29/16 12:15 Diabetes panel 12/29/16 12/29/16 12/29/16 Range/Units 00:16 05:56 12:15 Sodium 140 139 (136-145) mEq/L Potassium 3.7 4.0 3.9 (3.5-4.5) mEq/L Chloride 115 H 115 H (98-109) mEq/L Carbon Dioxide 18 L 19 (19-29) mEq/L BUN 36 H 35 H (8-26) mg/dL Creatinine 4.18 H 4.17 H (0.72-1.25) mg/dL Glucose 85 121 H (70-99) mg/dL Calcium 7.0 L 6.9 L (8.6-10.8) mg/dL AST 9 (5-34) Units/L ALT < 6 (0-55) Units/L Alkaline Phosphatase 41 (38-126) Units/L Albumin 1.8 L (3.5-5.0) g/dL Calcium panel 12/27/16 12/29/16 12/29/16 Range/Units 14:15 05:56 12:15 Calcium 7.0 L 6.9 L (8.6-10.8) mg/dL Albumin 1.8 L (3.5-5.0) g/dL 25-OH Vitamin D Total 18 L (30-80) ng/mL Pituitary panel 12/29/16 12/29/16 12/29/16 Range/Units 00:16 05:56 12:15 Sodium 140 139 (136-145) mEq/L Potassium 3.7 4.0 3.9 (3.5-4.5) mEq/L Chloride 115 H 115 H (98-109) mEq/L Carbon Dioxide 18 L 19 (19-29) mEq/L BUN 36 H 35 H (8-26) mg/dL Creatinine 4.18 H 4.17 H (0.72-1.25) mg/dL Glucose 85 121 H (70-99) mg/dL Calcium 7.0 L 6.9 L (8.6-10.8) mg/dL Adrenal panel 12/29/16 12/29/16 12/29/16 Range/Units 00:16 05:56 12:15 Sodium 140 139 (136-145) mEq/L Potassium 3.7 4.0 3.9 (3.5-4.5) mEq/L Chloride 115 H 115 H (98-109) mEq/L Carbon Dioxide 18 L 19 (19-29) mEq/L BUN 36 H 35 H (8-26) mg/dL Creatinine 4.18 H 4.17 H (0.72-1.25) mg/dL Glucose 85 121 H (70-99) mg/dL Calcium 7.0 L 6.9 L (8.6-10.8) mg/dL Total Bilirubin 0.3 (0.2-1.2) mg/dL AST 9 (5-34) Units/L ALT < 6 (0-55) Units/L Alkaline Phosphatase 41 (38-126) Units/L Albumin 1.8 L (3.5-5.0) g/dL - Attending Attestation Review the above assessment and evaluation and agree with the above plan. Patient's hemoglobin has slowly started to increase. No evidence of rectal bleeding during his current bowel movements. Vancomycin enemas have been started today in addition to oral vancomycin. No abdominal pain symptoms and patient tolerating regular diet. Continue to follow.
[2016-12-29] MEDS ORDERED: Ringers Solution, Lactated 500 ML IVC ONE (12:04)
[2016-12-29 12:27] LABS: Basophils % 0.3 %; Eosinophils # 0.1 K/mcL (0.0-0.6); Eosinophils % 3.2 %; Hematocrit 27.6 % (37.5-50.1); Hemoglobin 9.2 g/dL (12.9-16.9); Lymphocytes # 0.7 K/mcL (0.6-4.6); Lymphocytes % 21.7 %; Mean Corpuscular HGB Conc 33.3 g/dL (31.6-35.5); Mean Corpuscular Hemoglobin 28.8 pg (28.0-33.3); Mean Corpuscular Volume 86.3 fL (83.0-100.0); Mean Platelet Volume 10.4 fL (9.4-12.4); Monocytes # 0.3 K/mcL (0.0-1.3); Monocytes % 9.1 %; Platelet Count 108 K/mcL (140-400); Red Cell Distribution Width 15.9 % (11.5-14.5); Segmented Neutrophils % 64.7 %
[2016-12-29 12:33] LABS: INR 3.3; Prothrombin Time 36.8 Seconds (9.4-12.1)
[2016-12-29 12:38] LABS: Calcium 6.9 mg/dL (8.6-10.8); Potassium 3.9 mEq/L (3.5-4.5)
--- NOTE | 2016-12-29 12:55 | Pulmonology Progress Note ---
<Jerson Galindo - Last Filed: 12/29/16 12:53> Date of Encounter: 12/29/16 Time of Encounter: 12:53 Assessment and Plan (1) Hemorrhagic shock Current Visit: Yes Status: Resolved Resolved. Secondary to lower GI bleed. Vital signs have been stable overnight. Patient's hemoglobin slowly trended down overnight and given his increase in INR we did transfuse one unit and the patient responded properly. No evidence of active bleeding. (2) GI bleed Current Visit: Yes Status: Acute Secondary to C. difficile colitis and diverticulitis in the setting of elevated INR. Bleeding appears to have stopped. Surgery was consulted and recommended no intervention at this time. Qualifiers: GI bleed type/associated pathology: gastrointestinal hemorrhage with hematemesis Qualified Code(s): K92.0 - Hematemesis (3) C. difficile colitis Current Visit: Yes Status: Acute Amount of bowel movements of decreased. No leukocytosis, or fever. Continue metronidazole IV and oral vancomycin. Now that the patient's diarrhea has resolved we will institute rectal vancomycin as well. (4) History of mitral valve replacement with mechanical valve Current Visit: Yes Status: Chronic Given the patient's life-threatening GI hemorrhage as discussed above patient was given vitamin K and FFP to bring down his INR. INR was 7.8 on admission, 3.0 today. We will hold off on any further reversal of anticoagulation given that his bleeding has appeared to stop. We will continue to hold Coumadin at this time and will start heparin if INR drops below 2.5. Echo is unremarkable. Cardiology has signed off. (5) Acute kidney injury superimposed on chronic kidney disease Current Visit: No Status: Acute Renal function stable today. Urine output has been minimal. Electrolytes are stable, no indication for acute dialysis at this time but will continue to monitor. Nephrology is following. (6) Elevated INR Current Visit: No Status: Acute Likely related to Coumadin toxicity in the setting of antibiotic use. INR is down to 3.0 which is at goal given his mechanical mitral valve. Last night the patient's INR did trend up to 4.8, 2 units of FFP were given and his INR had returned to goal. Check PT/INR at twice a day, and if any indication of bleeding or instability. (7) Diastolic heart failure Current Visit: No Status: Chronic Patient takes Lasix at home for fluid overload. Patient received a large amount of fluid given his hemorrhagic shock yesterday however he does not appear edematous at this time. We will continue to monitor. If patient's other signs of fluid overload will diuresis. Echo pending. Qualifiers: Heart failure chronicity: chronic Qualified Code(s): I50.32 - Chronic diastolic (congestive) heart failure Subjective Principal diagnosis: GI bleed Interval history: Patient seen and examined at bedside. Patient has no complaints at this time. He states he has had a couple bowel movements overnight with some streaks of blood but no large bloody bowel movements. Denies chest pain, shortness of breath, abdominal pain, nausea, vomiting, diarrhea. Objective PUL Vital signs: Last Vital Signs Temp 97.7 F 12/29/16 12:00 Pulse 85 12/29/16 11:53 Resp 16 12/29/16 12:00 BP 87/49 12/29/16 12:00 Pulse Ox 98 12/29/16 12:00 General appearance: no acute distress ENT: oropharynx moist Effort: normal Auscultation: bilateral: clear Cardiovascular: regular rate and rhythm Gastrointestinal: normoactive bowel sounds, soft, non-tender Extremities: no cyanosis, no edema, no clubbing normal mental status, non-focal exam Results - Laboratory Findings CBC and BMP: 12/29/16 12:15 12/29/16 12:15 PT/INR, D-dimer PT 36.8 Seconds (9.4-12.1) H 12/29/16 12:15 D-Dimer 864 ng/mLFEU (0-500) H 12/29/16 08:10 Abnormal lab findings: Abnormal lab results WBC 3.1 K/mcL (4.3-11.1) L 12/29/16 12:15 RBC 3.20 M/mcL (4.19-5.50) L 12/29/16 12:15 Hgb 9.2 g/dL (12.9-16.9) L 12/29/16 12:15 Hct 27.6 % (37.5-50.1) L 12/29/16 12:15 RDW 15.9 % (11.5-14.5) H 12/29/16 12:15 Plt Count 108 K/mcL (140-400) L 12/29/16 12:15 Anisocytosis 1+ (Not Present) A 12/27/16 04:30 PT 36.8 Seconds (9.4-12.1) H 12/29/16 12:15 APTT 39.5 Seconds (26.0-36.0) H 12/27/16 11:18 D-Dimer 864 ng/mLFEU (0-500) H 12/29/16 08:10 Chloride 115 mEq/L (98-109) H 12/29/16 12:15 BUN 35 mg/dL (8-26) H 12/29/16 12:15 Creatinine 4.17 mg/dL (0.72-1.25) H 12/29/16 12:15 Est GFR ( Amer) 18 (> 60) L 12/29/16 12:15 Est GFR (Non-Af Amer) 15 (> 60) L 12/29/16 12:15 Glucose 121 mg/dL (70-99) H 12/29/16 12:15 POC Glucose 149 (58-89) H 12/27/16 00:10 Calcium 6.9 mg/dL (8.6-10.8) L 12/29/16 12:15 Ionized Calcium 1.10 mmol/L (1.15-1.35) L 12/29/16 05:56 Lactate Dehydrogenase 157 Units/L (159-327) L 12/29/16 08:10 Serum Total Protein 3.8 g/dL (6.0-8.3) L 12/29/16 05:56 Albumin 1.8 g/dL (3.5-5.0) L 12/29/16 05:56 Globulin 2.0 g/dL (2.4-3.5) L 12/29/16 05:56 Albumin/Globulin Ratio 0.9 (1.1-2.2) L 12/29/16 05:56 25-OH Vitamin D Total 18 ng/mL (30-80) L 12/27/16 14:15 PTH Intact 284.2 pg/ml (8.5-72.5) H 12/27/16 14:15 Urine Bilirubin Small (Negative) H 12/27/16 10:25 Urine Microscopic RBC 3-5 per hpf (0-3) H 12/27/16 10:25 Ur Squamous Epith Cells Many per lpf (None-Few) H 12/27/16 10:25 - Clinical Findings Intake & Output: Intake & Output 12/28/16 12/29/16 12/29/16 23:59 07:59 15:59 Intake Total 610 / 610 960 / 960 300 / 300 Output Total 125 / 125 270 / 270 175 / 175 Balance 485 / 485 690 / 690 125 / 125 Weight 100.1 kg Consult Discharge Plan - Plan Referrals: Dieter Herrera DO [Primary Care Provider] - <Santiago Rashid - Last Filed: 12/29/16 21:20> Date of Encounter: 12/29/16 Objective PUL Vital signs: Last Vital Signs Temp 98.1 F 12/29/16 20:54 Pulse 85 12/29/16 18:00 Resp 16 12/29/16 18:00 BP 95/83 12/29/16 18:00 Pulse Ox 100 12/29/16 18:00 Results - Laboratory Findings CBC and BMP: 12/29/16 12:15 12/29/16 12:15 PT/INR, D-dimer PT 36.8 Seconds (9.4-12.1) H 12/29/16 12:15 D-Dimer 864 ng/mLFEU (0-500) H 12/29/16 08:10 Abnormal lab findings: Abnormal lab results WBC 3.1 K/mcL (4.3-11.1) L 12/29/16 12:15 RBC 3.20 M/mcL (4.19-5.50) L 12/29/16 12:15 Hgb 9.2 g/dL (12.9-16.9) L 12/29/16 12:15 Hct 27.6 % (37.5-50.1) L 12/29/16 12:15 RDW 15.9 % (11.5-14.5) H 12/29/16 12:15 Plt Count 108 K/mcL (140-400) L 12/29/16 12:15 Anisocytosis 1+ (Not Present) A 12/27/16 04:30 PT 36.8 Seconds (9.4-12.1) H 12/29/16 12:15 APTT 39.5 Seconds (26.0-36.0) H 12/27/16 11:18 D-Dimer 864 ng/mLFEU (0-500) H 12/29/16 08:10 Chloride 115 mEq/L (98-109) H 12/29/16 12:15 BUN 35 mg/dL (8-26) H 12/29/16 12:15 Creatinine 4.17 mg/dL (0.72-1.25) H 12/29/16 12:15 Est GFR ( Amer) 18 (> 60) L 12/29/16 12:15 Est GFR (Non-Af Amer) 15 (> 60) L 12/29/16 12:15 Glucose 121 mg/dL (70-99) H 12/29/16 12:15 POC Glucose 149 (58-89) H 12/27/16 00:10 Calcium 6.9 mg/dL (8.6-10.8) L 12/29/16 12:15 Ionized Calcium 1.10 mmol/L (1.15-1.35) L 12/29/16 05:56 Lactate Dehydrogenase 157 Units/L (159-327) L 12/29/16 08:10 Serum Total Protein 3.8 g/dL (6.0-8.3) L 12/29/16 05:56 Albumin 1.8 g/dL (3.5-5.0) L 12/29/16 05:56 Globulin 2.0 g/dL (2.4-3.5) L 12/29/16 05:56 Albumin/Globulin Ratio 0.9 (1.1-2.2) L 12/29/16 05:56 25-OH Vitamin D Total 18 ng/mL (30-80) L 12/27/16 14:15 PTH Intact 284.2 pg/ml (8.5-72.5) H 12/27/16 14:15 Urine Bilirubin Small (Negative) H 12/27/16 10:25 Urine Microscopic RBC 3-5 per hpf (0-3) H 12/27/16 10:25 Ur Squamous Epith Cells Many per lpf (None-Few) H 12/27/16 10:25 - Clinical Findings Intake & Output: Intake & Output 12/29/16 12/29/16 12/29/16 07:59 15:59 23:59 Intake Total 960 / 960 300 / 300 600 / 600 Output Total 270 / 270 175 / 175 300 / 300 Balance 690 / 690 125 / 125 300 / 300 Weight 100.1 kg - Attending Attestation I saw the patient with the resident agree with History and Physical exam findings. Labs and Radiology were reviewed Ventilator data were reviewed CAN STACKER: Patient is conscious oriented x3 following commands NECK : No JVD appreciated Pulmonary : Patient had adequate gas exchange will closely monitor. Cardiac : Hemodynamically stable , patient has mechanical Mitral Valve and Porcine Aortic Valve will need to start Heparin if INR is below 3 , today INR is high wondering he has baseline vitamin K deficiency due to chronic diarrhea with malabsorption of fat soluble vitamins patient anticoagulation is managed by his family doctor as he is high risk candidate he needs to gets established [place] anticoagulation . Nutrition/GI: Patient GI bleed is due to cdiff colitis and diverticular bleed , decreased bowel movements with some blood tinged stools will trend HB , patient has recurrent C diff needs Prolonged vanc taper will need home health to help him to be compliant with the medication so he wont come back to the hospital. Renal : RITA on Chronic Kidney disease renal following he is back to baseline UOP according to Nephrlology Heme onc : Patient has thrombocytopenia , Hb stable , most likely the thrombocytopenia due to massive transfusion will closely follow it send hemolysis lab no active evidence of hemolysis ID ; Treating diverticulits and C diff colitis will stop ciprofloxacin Musculo skeletal / skin issues : No acute issues Disposition : Remain Critical still high chance of bleeding Code status: Full Code
[2016-12-29] MEDS: Vancomycin 500 MG, Sodium Chloride IRRigation 250 ML RC SCH ×3 (13:41→22:21)
[2016-12-30] MEDS: MetroNIDAZOLE 500 MG/100 ML 500 MG/100 ML BAG IVPB SCH ×3 (01:07→16:03)
[2016-12-30] MEDS: Norepinephrine 4 MG in D5% in Water 250 ML IVC SCH (02:09)
[2016-12-30 03:53] LABS: Ionized Calcium 1.07 mmol/L (1.15-1.35)
[2016-12-30 03:53] LABS: Basophils % 0.4 %; Eosinophils # 0.1 K/mcL (0.0-0.6); Eosinophils % 3.7 %; Hematocrit 26.6 % (37.5-50.1); Hemoglobin 8.8 g/dL (12.9-16.9); INR 2.1; Immature Granulocytes % 1.2 % (0-4); Lymphocytes # 0.7 K/mcL (0.6-4.6); Lymphocytes % 27.9 %; Mean Corpuscular HGB Conc 33.1 g/dL (31.6-35.5); Mean Corpuscular Volume 87.8 fL (83.0-100.0); Mean Platelet Volume 10.9 fL (9.4-12.4); Monocytes # 0.3 K/mcL (0.0-1.3); Monocytes % 10.2 %; Neutrophils # 1.4 K/mcL (1.6-8.9); Platelet Count 111 K/mcL (140-400); Prothrombin Time 23.2 Seconds (9.4-12.1); Red Blood Count 3.03 M/mcL (4.19-5.50); Red Cell Distribution Width 15.9 % (11.5-14.5); Segmented Neutrophils % 56.6 %
[2016-12-30 03:59] LABS: Albumin/Globulin Ratio 0.9 (1.1-2.2); Alkaline Phosphatase 40 Units/L (38-126); Aspartate Amino Transferase 8 Units/L (5-34); BUN/Creatinine Ratio 8 (6-26); Bilirubin,Direct 0.2 mg/dL (0.0-0.5); Bilirubin,Indirect 0.2 mg/dL (0.0-1.2); Bilirubin,Total 0.4 mg/dL (0.2-1.2); Blood Urea Nitrogen 33 mg/dL (8-26); Calcium 6.7 mg/dL (8.6-10.8); Carbon Dioxide 17 mEq/L (19-29); Chloride 117 mEq/L (98-109); Glucose 86 mg/dL (70-99); Magnesium 1.7 mg/dL (1.6-2.6); Osmolality,Calculated 297 (280-300); Potassium 4.2 mEq/L (3.5-4.5); Sodium 140 mEq/L (136-145); Total Protein 3.8 g/dL (6.0-8.3); eGFR For African Americans 19 (> 60); eGFR For Non-African Americans 16 (> 60)
[2016-12-30 04:00] LABS: Alanine Aminotransferase < 6 Units/L (0-55); Albumin 1.8 g/dL (3.5-5.0)
[2016-12-30 04:03] LABS: Phosphorous 2.8 mg/dL (2.3-4.7)
[2016-12-30] MEDS: Pantoprazole 40 MG VIAL IVP SCH ×2 (05:49→16:02)
[2016-12-30] MEDS ORDERED: Heparin 25,000 UNIT/500 ML D5W 25,000 UNIT/500 ML MLS IVC SCH (07:30)
[2016-12-30] MEDS ORDERED: *HR* Heparin 5,000 UNIT/ML VIAL IVP PRN ×2 (07:38)
[2016-12-30] MEDS ORDERED: *HR* Heparin 5,000 UNIT/ML VIAL IVP ONE (07:38)
[2016-12-30] MEDS: Vancomycin Oral Soln 250 MG/5 ML UDC PO SCH ×4 (08:23→21:42)
[2016-12-30] MEDS: Furosemide 20 MG TABLET PO SCH ×2 (09:29→21:42)
[2016-12-30] MEDS: *HR* OxyCODONE/APAP 5/325 TABLET PO PRN ×2 (09:31→18:18)
[2016-12-30] MEDS: Heparin 25,000 UNIT/500 ML D5W 25,000 UNIT/500 ML MLS IVC SCH (09:45)
--- NOTE | 2016-12-30 10:18 | Pulmonology Progress Note ---
<Madai Robertson - Last Filed: 12/30/16 13:36> Date of Encounter: 12/30/16 Time of Encounter: 10:18 Assessment and Plan (1) Hemorrhagic shock Current Visit: Yes Status: Resolved -Resolved; patient has been hemodynamically stable -Hgb 8.8 and Hct 26.6% -BMs no longer bloody (2) GI bleed Current Visit: Yes Status: Acute -GIB d/t C. difficile colitis and diverticulitis in the setting of elevated INR -no continued bleeding observed -no need for intervention at this time -continue to monitor BMs Qualifiers: GI bleed type/associated pathology: gastrointestinal hemorrhage with hematemesis Qualified Code(s): K92.0 - Hematemesis (3) C. difficile colitis Current Visit: Yes Status: Acute -overall number of BMs decreased, afebrile, no leukocytosis -IV metronidazole, oral vancomycin, and rectal vancomycin (4) History of mitral valve replacement with mechanical valve Current Visit: Yes Status: Chronic -INR 2.1 today, subtherapeutic for mechanical heart valve, heparin drip started with next PTT check @ 16:00 -goal for 24 to 48 hours without bleeds before bridging to coumadin -continue to monitor for bleeds -cardiology signed off (5) Acute kidney injury superimposed on chronic kidney disease Current Visit: Yes Status: Acute -nephrology following, recommendations appreciated -renal function stable, Cr 4.05 -continues to have poor UOP -electrolytes are stable, on electrolyte protocol -HD not indicated at this time per nephrology (6) Diastolic heart failure Current Visit: Yes Status: Chronic -started home dose lasix (20mg PO BID), as per nephrology, for management of his fluid overload -BUN 33 and Cr 4.05 today; eGFR 16 -cumulative I's/O's: 1.59 L in, 1.9 L out, +13.9 L balance Qualifiers: Heart failure chronicity: chronic Qualified Code(s): I50.32 - Chronic diastolic (congestive) heart failure (7) Elevated INR Current Visit: Yes Status: Acute -INR 2.1 today, subtherapeutic for a mechanical heart valve, heparin drip ordered -continue carefully monitoring for signs of active bleeding Subjective Principal diagnosis: GI bleed Interval history: Patient seen and examined at bedside today. Patient sitting up in bed watching TV, he is feeling well today. He denies chest pain, difficulty breathing, coughing, wheezing, fever, chills; reports he doesn't have "much of an appetite " and didn't finish his lunch. Patient has no complaints at this time. Objective PUL Vital signs: Last Vital Signs Temp 97.9 F 12/30/16 08:01 Pulse 78 12/30/16 10:00 Resp 18 12/30/16 10:00 BP 88/56 12/30/16 10:00 Pulse Ox 98 12/30/16 10:00 General appearance: no acute distress, alert Eyes: nonicteric ENT: oropharynx moist Neck: supple Effort: normal Auscultation: bilateral: clear Cardiovascular: regular rate and rhythm Gastrointestinal: normoactive bowel sounds, soft, non-tender Extremities: pulses normal, edema (+3 pitting edema b/l lower extremities) normal mental status, non-focal exam Results - Laboratory Findings CBC and BMP: 12/30/16 03:37 12/30/16 03:37 PT/INR, D-dimer PT 23.2 Seconds (9.4-12.1) H 12/30/16 03:37 D-Dimer 864 ng/mLFEU (0-500) H 12/29/16 08:10 Abnormal lab findings: Abnormal lab results WBC 2.4 K/mcL (4.3-11.1) L 12/30/16 03:37 RBC 3.03 M/mcL (4.19-5.50) L 12/30/16 03:37 Hgb 8.8 g/dL (12.9-16.9) L 12/30/16 03:37 Hct 26.6 % (37.5-50.1) L 12/30/16 03:37 RDW 15.9 % (11.5-14.5) H 12/30/16 03:37 Plt Count 111 K/mcL (140-400) L 12/30/16 03:37 Neutrophils # 1.4 K/mcL (1.6-8.9) L 12/30/16 03:37 Anisocytosis 1+ (Not Present) A 12/27/16 04:30 PT 23.2 Seconds (9.4-12.1) H 12/30/16 03:37 APTT 39.5 Seconds (26.0-36.0) H 12/27/16 11:18 D-Dimer 864 ng/mLFEU (0-500) H 12/29/16 08:10 Chloride 117 mEq/L (98-109) H 12/30/16 03:37 Carbon Dioxide 17 mEq/L (19-29) L 12/30/16 03:37 BUN 33 mg/dL (8-26) H 12/30/16 03:37 Creatinine 4.05 mg/dL (0.72-1.25) H 12/30/16 03:37 Est GFR ( Amer) 19 (> 60) L 12/30/16 03:37 Est GFR (Non-Af Amer) 16 (> 60) L 12/30/16 03:37 POC Glucose 149 (58-89) H 12/27/16 00:10 Calcium 6.7 mg/dL (8.6-10.8) L 12/30/16 03:37 Ionized Calcium 1.07 mmol/L (1.15-1.35) L 12/30/16 03:18 Lactate Dehydrogenase 157 Units/L (159-327) L 12/29/16 08:10 Serum Total Protein 3.8 g/dL (6.0-8.3) L 12/30/16 03:37 Albumin 1.8 g/dL (3.5-5.0) L 12/30/16 03:37 Globulin 2.0 g/dL (2.4-3.5) L 12/30/16 03:37 Albumin/Globulin Ratio 0.9 (1.1-2.2) L 12/30/16 03:37 25-OH Vitamin D Total 18 ng/mL (30-80) L 12/27/16 14:15 PTH Intact 284.2 pg/ml (8.5-72.5) H 12/27/16 14:15 Urine Bilirubin Small (Negative) H 12/27/16 10:25 Urine Microscopic RBC 3-5 per hpf (0-3) H 12/27/16 10:25 Ur Squamous Epith Cells Many per lpf (None-Few) H 12/27/16 10:25 - Clinical Findings Intake & Output: Intake & Output 12/29/16 12/30/16 12/30/16 23:59 07:59 15:59 Intake Total 600 / 600 160 / 160 540 / 540 Output Total 300 / 300 250 / 250 Balance 300 / 300 -90 / -90 540 / 540 Weight 101.9 kg Consult Discharge Plan - Plan Referrals: Dieter Herrera DO [Primary Care Provider] - <Santiago Rashid - Last Filed: 12/30/16 23:43> Date of Encounter: 12/30/16 Objective PUL Vital signs: Last Vital Signs Temp 97.5 F L 12/30/16 20:16 Pulse 77 12/30/16 22:00 Resp 20 12/30/16 22:00 BP 85/59 12/30/16 22:00 Pulse Ox 98 12/30/16 22:00 Results - Laboratory Findings CBC and BMP: 12/30/16 03:37 12/30/16 14:30 PT/INR, D-dimer PT 22.0 Seconds (9.4-12.1) H 12/30/16 15:35 D-Dimer 864 ng/mLFEU (0-500) H 12/29/16 08:10 Abnormal lab findings: Abnormal lab results WBC 2.4 K/mcL (4.3-11.1) L 12/30/16 03:37 RBC 3.03 M/mcL (4.19-5.50) L 12/30/16 03:37 Hgb 8.8 g/dL (12.9-16.9) L 12/30/16 03:37 Hct 26.6 % (37.5-50.1) L 12/30/16 03:37 RDW 15.9 % (11.5-14.5) H 12/30/16 03:37 Plt Count 111 K/mcL (140-400) L 12/30/16 03:37 Neutrophils # 1.4 K/mcL (1.6-8.9) L 12/30/16 03:37 Anisocytosis 1+ (Not Present) A 12/27/16 04:30 PT 22.0 Seconds (9.4-12.1) H 12/30/16 15:35 APTT 36.7 Seconds (26.0-36.0) H D 12/30/16 22:40 D-Dimer 864 ng/mLFEU (0-500) H 12/29/16 08:10 Chloride 117 mEq/L (98-109) H 12/30/16 03:37 Carbon Dioxide 17 mEq/L (19-29) L 12/30/16 03:37 BUN 33 mg/dL (8-26) H 12/30/16 03:37 Creatinine 4.05 mg/dL (0.72-1.25) H 12/30/16 03:37 Est GFR ( Amer) 19 (> 60) L 12/30/16 03:37 Est GFR (Non-Af Amer) 16 (> 60) L 12/30/16 03:37 POC Glucose 149 (58-89) H 12/27/16 00:10 Calcium 6.7 mg/dL (8.6-10.8) L 12/30/16 03:37 Ionized Calcium 1.07 mmol/L (1.15-1.35) L 12/30/16 03:18 Lactate Dehydrogenase 157 Units/L (159-327) L 12/29/16 08:10 Serum Total Protein 3.8 g/dL (6.0-8.3) L 12/30/16 03:37 Albumin 1.8 g/dL (3.5-5.0) L 12/30/16 03:37 Globulin 2.0 g/dL (2.4-3.5) L 12/30/16 03:37 Albumin/Globulin Ratio 0.9 (1.1-2.2) L 12/30/16 03:37 25-OH Vitamin D Total 18 ng/mL (30-80) L 12/27/16 14:15 PTH Intact 284.2 pg/ml (8.5-72.5) H 12/27/16 14:15 Urine Bilirubin Small (Negative) H 12/27/16 10:25 Urine Microscopic RBC 3-5 per hpf (0-3) H 12/27/16 10:25 Ur Squamous Epith Cells Many per lpf (None-Few) H 12/27/16 10:25 - Clinical Findings Intake & Output: Intake & Output 12/30/16 12/30/16 12/30/16 07:59 15:59 23:59 Intake Total 210 / 210 940 / 940 428 / 428 Output Total 250 / 250 400 / 400 Balance -40 / -40 940 / 940 28 / 28 Weight 101.9 kg - Attending Attestation I saw the patient with the resident agree with History and Physical exam findings. Labs and Radiology were reviewed MEDICAL DIRECTOR OF HOSPICE: Patient is conscious oriented x3 following commands NECK : No JVD appreciated Pulmonary : Patient had adequate gas exchange will closely monitor. Cardiac : Hemodynamically stable , patient has mechanical Mitral Valve and Porcine Aortic Valve will need to start Heparin as INR is subtherapeutic started on heparin drip high intensity Nutrition/GI: Patient GI bleed is due to cdiff colitis and diverticular bleed , decreased bowel movements with some blood tinged stools will trend HB , patient has recurrent C diff needs Prolonged vanc taper will need home health to help him to be compliant with the medication so he wont come back to the hospital. Renal : RITA on Chronic Kidney disease renal following he is back to baseline UOP according to Nephrlology , Non gap acidosis home bicarb tablets started Heme onc : Patient has thrombocytopenia stable , Hb Stable ID ; Treating diverticulits and C diff colitis to continue oral vanc and flagyl Musculo skeletal / skin issues : No acute issues Disposition : Remain Critical still high chance of bleeding Code status: Full Code
--- NOTE | 2016-12-30 10:20 | Nephrology Progress Note ---
Date of Encounter: 12/30/16 Time of Encounter: 08:45 - Assessment and Plan (1) CKD (chronic kidney disease) stage 4, GFR 15-29 ml/min Current Visit: Yes Status: Chronic Chronic CKD stage IV. He is nearly at stage V, but without overt uremic symptoms or acute indications (AEIOU) for starting HD at this time. Volume status/HTN: I recommend restarting his routine oral Lasix today at 20mg po bid. BPs are lower limits of normal, so would not be able to tolerate an MANUEL or ARB at this time Hx of chronic NAGMA: restarted NaBicarb yesterday, and would recommend titrating in the next several days to achieve a goal serum CO2 of > 21 Dialysis access/planning: would recommend as an outpatient that he have a [facility]; will defer to his outside [employer] CKD-MBD: consistent with SHPT, see below. Continue to follow a renal protective and conservative strategy: dose Rx by GFR and avoid nephrotoxins as able. Will follow with you. Thank you. (2) Metabolic acidosis Current Visit: Yes Status: Chronic (3) Secondary hyperparathyroidism (of renal origin) Current Visit: Yes Status: Chronic The pt reported that he was previously treated with Ergocalciferol. I see that his iPTH is in the upper 200s and 25-OH vit D was low. I concur with Ergo 50k po weekly. Once his 25-OH Vit is replete, if the iPTH were not to goal for CKD stage IV, then he may need an activated vit D agent. Plus starting Ergo may help raise his mild hypocalcemia; consistent with SHPT. (4) Anemia in chronic kidney disease Current Visit: Yes Status: Chronic Goal Hgb in CKD is 10-11. Will monitor for now, but he may need IV iron and/or SUSHMA at some point. Qualifiers: Chronic kidney disease stage: stage 4 (severe) Qualified Code(s): N18.4 - Chronic kidney disease, stage 4 (severe); D63.1 - Anemia in chronic kidney disease; D63.1 - Anemia in chronic kidney disease (5) C. difficile colitis Current Visit: Yes Status: Acute As per primary. (6) Hx of aortic valve replacement Current Visit: Yes Status: Chronic As per primary Subjective Principal diagnosis: GI bleed Interval history: Pt was s/e earlier today. He did not affirm diminished appetite, persistent N/V , confusion or any other uremic symptom. We discussed restarting Lasix. 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 Objective - Vital Signs Vital signs: Vital Signs Temp Pulse Resp BP Pulse Ox 12/30/16 10:00 78 18 88/56 98 12/30/16 09:00 79 16 91/57 98 12/30/16 08:01 97.9 F 12/30/16 08:00 82 12/30/16 06:00 77 14 96/66 96 12/30/16 05:00 80 12 96/63 96 12/30/16 04:30 80 16 98/62 95 12/30/16 03:00 98.3 F 83 14 92/62 97 12/30/16 02:00 81 20 93/58 97 12/30/16 01:00 86 18 85/56 97 12/30/16 00:22 98 F 12/30/16 00:00 80 16 96/64 97 12/29/16 23:00 80 14 94/66 96 12/29/16 22:30 78 16 104/93 98 12/29/16 21:00 77 18 91/61 98 12/29/16 20:54 98.1 F 12/29/16 20:30 77 20 90/60 98 12/29/16 19:00 61 20 122/56 100 12/29/16 18:00 85 16 95/83 100 12/29/16 17:00 75 14 90/60 100 12/29/16 16:00 97.7 F 72 16 89/62 100 12/29/16 15:00 77 14 79/52 97 12/29/16 14:00 82 14 91/65 99 12/29/16 13:00 85 16 80/46 99 12/29/16 12:00 97.7 F 79 16 87/49 98 12/29/16 11:53 85 12/29/16 11:00 77 16 86/58 96 Intake and Output 12/29/16 12/30/16 12/30/16 23:59 07:59 15:59 Intake Total 600 / 600 160 / 160 540 / 540 Output Total 300 / 300 250 / 250 Balance 300 / 300 -90 / -90 540 / 540 Intake: IV Fluids 600 / 600 160 / 160 300 / 300 Levophed 4 MG In Dextrose 5% 0 / 0 250 ML @ 0.5 MCG/MIN 1.9 mls/hr IVC CONT [facility] Rx#:[id number] Lactated Ringers 500 ML @ 1000 500 / 500 mls/hr IVC .Q30M ONE Rx#: [id number] Calcium Gluconate 1,000 MG In 0 60 / 60 .9 % Sodium Chloride 50 ML @ 111 mls/hr IVPB Q6HR PRN Rx#: [id number] Cipro Premix 400 MG/200 ML 400 200 / 200 mg In 200 ml @ 200 mls/hr IVPB Q24H [facility] Rx#:[id number] Flagyl Premix 500 MG/100 ML 500 100 / 100 100 / 100 100 / 100 mg In 100 ml @ 100 mls/hr IVPB Q8HR [facility] Rx#:[id number] Oral 240 / 240 Output: Catheter 300 / 300 250 / 250 Other: Meal Breakfast Percent of Meal Consumed 85% Stool Size Moderate Small Moderate Stool Consistency liquid loose loose Stool Color Green Brown # Bowel Movements 1 1 Weight 101.9 kg Patient Weight 12/30/16 23:59 Weight 101.9 kg - General Appearance General appearance: Present: well-developed, well-nourished, appears started age EENT: Present: ATNC, PERRL, mucous membranes moist Neck: Present: supple Respiratory: Present: clear Cardiology: Present: edema (trace hand edema and barely any trace pretibial nonpitting edema b/l), regular rate, regular rhythm, normal S1, normal S2 Additional Comments: Mechanical click Gastrointestinal: Present: normoactive bowel sounds, no tenderness, no guarding Integumentary: Present: warm and dry Neurologic: Present: no focal deficit, no asterixis, alert and oriented x3 Musculoskeletal: Present: no deformities, no erythema, no cyanosis Psychiatric: Present: mood/affect appropriate, cooperative - Lab 12/30/16 03:37 12/30/16 03:37 Most recent lab results Calcium 6.7 mg/dL (8.6-10.8) L 12/30/16 03:37 Phosphorus 2.8 mg/dL (2.3-4.7) 12/30/16 03:18 Magnesium 1.7 mg/dL (1.6-2.6) 12/30/16 03:37 Consult Discharge Plan - Plan Referrals: Dieter Herrera DO [Primary Care Provider] -
[2016-12-30] MEDS: Vancomycin 500 MG, Sodium Chloride IRRigation 250 ML RC SCH ×4 (10:24→22:27)
--- NOTE | 2016-12-30 12:24 | General Surgery Progress Note ---
Date of Encounter: 12/30/16 Time of Encounter: 12:22 - Assessment and Plan (1) C. difficile colitis Current Visit: Yes Status: Acute Hgb stable and rising. No rectal bleeding. On IV flagyl and PO vanco (and Vanco enemas). Recommend at least 2-3 more days of vanco enema and continue with oral vanco. Follow BMs. Patient may require GI consultation if diarrhea persists despite flagyl and oral vanco treatment. Will follow from a distance. Subjective Patient reports: no new complaints, feels better, other (Noted decrease in bowel movements. Patient states he has had two today. No abdominal pain.) Objective Vital Signs - Last 8 Hours Temp Pulse Resp BP Pulse Ox 12/30/16 11:00 75 16 99/68 98 12/30/16 10:00 78 18 88/56 98 12/30/16 09:00 79 16 91/57 98 12/30/16 08:01 97.9 F 12/30/16 08:00 82 12/30/16 06:00 77 14 96/66 96 12/30/16 05:00 80 12 96/63 96 12/30/16 04:30 80 16 98/62 95 Intake and Output 12/29/16 12/30/16 12/30/16 23:59 07:59 15:59 Intake Total 600 / 600 160 / 160 540 / 540 Output Total 300 / 300 250 / 250 Balance 300 / 300 -90 / -90 540 / 540 Intake: IV Fluids 600 / 600 160 / 160 300 / 300 Levophed 4 MG In Dextrose 5% 0 / 0 250 ML @ 0.5 MCG/MIN 1.9 mls/hr IVC CONT [facility] Rx#:[id number] Lactated Ringers 500 ML @ 1000 500 / 500 mls/hr IVC .Q30M ONE Rx#: [id number] Calcium Gluconate 1,000 MG In 0 60 / 60 .9 % Sodium Chloride 50 ML @ 111 mls/hr IVPB Q6HR PRN Rx#: [id number] Cipro Premix 400 MG/200 ML 400 200 / 200 mg In 200 ml @ 200 mls/hr IVPB Q24H [facility] Rx#:[id number] Flagyl Premix 500 MG/100 ML 500 100 / 100 100 / 100 100 / 100 mg In 100 ml @ 100 mls/hr IVPB Q8HR [facility] Rx#:[id number] Oral 240 / 240 Output: Catheter 300 / 300 250 / 250 Other: Meal Breakfast Percent of Meal Consumed 85% Stool Size Moderate Small Moderate Stool Consistency liquid loose liquid Stool Color Green Brown # Bowel Movements 1 1 Weight 101.9 kg Patient Weight 12/30/16 23:59 Weight 101.9 kg - General physical appearance well nourished, no distress - Abdomen Abdomen: Present: bowel sounds present, soft, non tender - Labs 12/30/16 03:37 12/30/16 03:37 Diabetes panel 12/29/16 12/30/16 Range/Units 12:15 03:37 Sodium 139 140 (136-145) mEq/L Potassium 3.9 4.2 (3.5-4.5) mEq/L Chloride 115 H 117 H (98-109) mEq/L Carbon Dioxide 19 17 L (19-29) mEq/L BUN 35 H 33 H (8-26) mg/dL Creatinine 4.17 H 4.05 H (0.72-1.25) mg/dL Glucose 121 H 86 (70-99) mg/dL Calcium 6.9 L 6.7 L (8.6-10.8) mg/dL AST 8 (5-34) Units/L ALT < 6 (0-55) Units/L Alkaline Phosphatase 40 (38-126) Units/L Albumin 1.8 L (3.5-5.0) g/dL Calcium panel 12/29/16 12/30/16 12/30/16 Range/Units 12:15 03:18 03:37 Calcium 6.9 L 6.7 L (8.6-10.8) mg/dL Phosphorus 2.8 (2.3-4.7) mg/dL Albumin 1.8 L (3.5-5.0) g/dL Pituitary panel 12/29/16 12/30/16 Range/Units 12:15 03:37 Sodium 139 140 (136-145) mEq/L Potassium 3.9 4.2 (3.5-4.5) mEq/L Chloride 115 H 117 H (98-109) mEq/L Carbon Dioxide 19 17 L (19-29) mEq/L BUN 35 H 33 H (8-26) mg/dL Creatinine 4.17 H 4.05 H (0.72-1.25) mg/dL Glucose 121 H 86 (70-99) mg/dL Calcium 6.9 L 6.7 L (8.6-10.8) mg/dL Adrenal panel 12/29/16 12/30/16 Range/Units 12:15 03:37 Sodium 139 140 (136-145) mEq/L Potassium 3.9 4.2 (3.5-4.5) mEq/L Chloride 115 H 117 H (98-109) mEq/L Carbon Dioxide 19 17 L (19-29) mEq/L BUN 35 H 33 H (8-26) mg/dL Creatinine 4.17 H 4.05 H (0.72-1.25) mg/dL Glucose 121 H 86 (70-99) mg/dL Calcium 6.9 L 6.7 L (8.6-10.8) mg/dL Total Bilirubin 0.4 (0.2-1.2) mg/dL AST 8 (5-34) Units/L ALT < 6 (0-55) Units/L Alkaline Phosphatase 40 (38-126) Units/L Albumin 1.8 L (3.5-5.0) g/dL Consult Discharge Plan - Plan Referrals: Dieter Herrera DO [Primary Care Provider] -
[2016-12-30 15:00] LABS: Magnesium 2.2 mg/dL (1.6-2.6)
[2016-12-30 15:52] LABS: Urine Collection Duration RANDOM hr; Urine Collection Volume RANDOM mL
[2016-12-30 16:30] LABS: Activated Partial Thrombo Time 221.5 Seconds (26.0-36.0)
[2016-12-30 16:57] LABS: Heparin anti-factor XA UFH 0.65 IU/mL (0.30-0.70)
[2016-12-31] MEDS: MetroNIDAZOLE 500 MG/100 ML 500 MG/100 ML BAG IVPB SCH ×4 (00:01→23:58)
[2016-12-31] MEDS: Norepinephrine 4 MG in D5% in Water 250 ML IVC SCH (03:46)
[2016-12-31 04:39] LABS: Basophils % 0.4 %; Eosinophils # 0.1 K/mcL (0.0-0.6); Eosinophils % 4.7 %; Hematocrit 26.8 % (37.5-50.1); Hemoglobin 8.7 g/dL (12.9-16.9); Immature Granulocytes % 0.9 % (0-4); Lymphocytes # 0.6 K/mcL (0.6-4.6); Lymphocytes % 27.6 %; Mean Corpuscular HGB Conc 32.5 g/dL (31.6-35.5); Mean Corpuscular Hemoglobin 28.6 pg (28.0-33.3); Mean Corpuscular Volume 88.2 fL (83.0-100.0); Mean Platelet Volume 10.9 fL (9.4-12.4); Monocytes # 0.2 K/mcL (0.0-1.3); Monocytes % 9.1 %; Neutrophils # 1.3 K/mcL (1.6-8.9); Platelet Count 102 K/mcL (140-400); Red Blood Count 3.04 M/mcL (4.19-5.50); Red Cell Distribution Width 16.1 % (11.5-14.5); Segmented Neutrophils % 57.3 %
[2016-12-31 04:51] LABS: Albumin/Globulin Ratio 0.8 (1.1-2.2); Alkaline Phosphatase 41 Units/L (38-126); Aspartate Amino Transferase 9 Units/L (5-34); BUN/Creatinine Ratio 8 (6-26); Bilirubin,Direct 0.2 mg/dL (0.0-0.5); Bilirubin,Indirect 0.1 mg/dL (0.0-1.2); Bilirubin,Total 0.3 mg/dL (0.2-1.2); Blood Urea Nitrogen 33 mg/dL (8-26); Calcium 6.8 mg/dL (8.6-10.8); Carbon Dioxide 18 mEq/L (19-29); Chloride 116 mEq/L (98-109); Globulin 2.2 g/dL (2.4-3.5); Glucose 95 mg/dL (70-99); Magnesium 1.1 mg/dL (1.6-2.6); Osmolality,Calculated 297 (280-300); Sodium 140 mEq/L (136-145); Total Protein 3.9 g/dL (6.0-8.3); eGFR For African Americans 19 (> 60); eGFR For Non-African Americans 16 (> 60)
[2016-12-31 04:53] LABS: Alanine Aminotransferase < 6 Units/L (0-55); Albumin 1.7 g/dL (3.5-5.0)
[2016-12-31] MEDS: Pantoprazole 40 MG VIAL IVP SCH ×2 (05:38→16:08)
[2016-12-31 06:16] LABS: INR 1.9; Prothrombin Time 20.6 Seconds (9.4-12.1)
[2016-12-31 07:09] LABS: Activated Partial Thrombo Time > 360.0 Seconds (26.0-36.0)
--- NOTE | 2016-12-31 07:34 | Pulmonology Progress Note ---
Addendum entered and electronically signed by Monse Tavarez MD 12/31/16 11:15: - Severe protein calorie malnutrition. Nutrition has been consulted, continue to supplement with Ensure clear at this time. Original Note: <Monse Tavarez - Last Filed: 12/31/16 10:30> Date of Encounter: 12/31/16 Time of Encounter: 07:33 Assessment and Plan (1) Hemorrhagic shock Current Visit: Yes Status: Resolved Vital signs stable. Hemorrhagic shock likely 2/2 to GI bleed. Monitoring hemoglobin. (2) GI bleed Current Visit: Yes Status: Acute RN reported 1st bloody bowel Movement this AM. Will follow today. Initially planned to initiate renal dosing of lovenox given mechanical valve, but will need to hold for now. Pt made by attending aware and pt agreed with plan. Plan to discuss with attending Qualifiers: GI bleed type/associated pathology: gastrointestinal hemorrhage with hematemesis Qualified Code(s): K92.0 - Hematemesis (3) Acute kidney injury superimposed on chronic kidney disease Current Visit: Yes Status: Acute Chronic CKD stage IV, Hx of chronic NAGMA Continue oral Lasix today at 20mg po bid, however not be able to tolerate an MANUEL or ARB at this time with Nephrology on consult, greatly appreciate recs Hx of chronic NAGMA: continue NaBicarb with goal, per nephro, achieve a goal serum CO2 of > 21 Nephrology recommends outpatient care with [facility] Agree to Continue to follow a renal protective and conservative strategy: will renally dose medications and avoid nephrotoxins, if possible (4) C. difficile colitis Current Visit: Yes Status: Acute Hgb stable this AM. Bloody bowel movement this AM. Surgery on consult, appreciate recs. Will continue patient On IV flagyl and PO vanco (and Vanco enemas), for at least 2-3 more days of vanco enema and continue with oral vanco. (5) Diastolic heart failure Current Visit: Yes Status: Chronic Continue management. Qualifiers: Heart failure chronicity: chronic Qualified Code(s): I50.32 - Chronic diastolic (congestive) heart failure (6) History of mitral valve replacement with mechanical valve Current Visit: Yes Status: Chronic Hx of mechanical Mitral Valve and Porcine Aortic Valve. Anticoagulation proving difficulty, with patient's coag levels fluctuating (7) Partial thromboplastin time (PTT) > 40 seconds Current Visit: Yes Status: Acute PTT of 360s seconds. Discussed with pharmacy, recommend renal dose of lovenox and subequent re-initation of coumadin. However, RN reported bloody BM this morning. Will hold for now. (8) Cough Current Visit: Yes Status: Acute Pt began coughing this morning. STAT CXR ordered: No consolidation,pleural effusion or pneumothorax. Some hesitancy to prescribe antibiotics with no radiographic evidence of infection, given pt's concurrent C. difficile infection. Supportive care, throat lozenges ordered. (9) DVT prophylaxis Current Visit: Yes Status: Acute SCDS Subjective Principal diagnosis: GI bleed Interval history: RN reported 1st bloody bowel movement at approx 9 AM. Pt also coughing white- colored material, appears as if doing so forcefully. Patient states he feels like he has "sinus congestion", denies any mucus or difficulty swallowing. Objective PUL Vital signs: Last Vital Signs Temp 98.0 F 12/31/16 04:09 Pulse 73 12/31/16 06:00 Resp 16 12/31/16 06:00 BP 94/66 12/31/16 06:00 Pulse Ox 96 12/31/16 06:00 General appearance: no acute distress Eyes: nonicteric Effort: normal, other (open-mouthed breathing) Auscultation: bilateral: clear Cardiovascular: regular rate and rhythm Gastrointestinal: normoactive bowel sounds, soft, non-tender, other Extremities: edema (b/l pedal ) pupils equal and round depressed Results - Laboratory Findings CBC and BMP: 12/31/16 04:26 12/31/16 04:26 PT/INR, D-dimer PT 20.6 Seconds (9.4-12.1) H 12/31/16 06:00 D-Dimer 864 ng/mLFEU (0-500) H 12/29/16 08:10 Abnormal lab findings: Abnormal lab results WBC 2.3 K/mcL (4.3-11.1) L 12/31/16 04:26 RBC 3.04 M/mcL (4.19-5.50) L 12/31/16 04:26 Hgb 8.7 g/dL (12.9-16.9) L 12/31/16 04:26 Hct 26.8 % (37.5-50.1) L 12/31/16 04:26 RDW 16.1 % (11.5-14.5) H 12/31/16 04:26 Plt Count 102 K/mcL (140-400) L 12/31/16 04:26 Neutrophils # 1.3 K/mcL (1.6-8.9) L 12/31/16 04:26 Anisocytosis 1+ (Not Present) A 12/27/16 04:30 PT 20.6 Seconds (9.4-12.1) H 12/31/16 06:00 APTT > 360.0 Seconds (26.0-36.0) H* D 12/31/16 06:00 D-Dimer 864 ng/mLFEU (0-500) H 12/29/16 08:10 Chloride 116 mEq/L (98-109) H 12/31/16 04:26 Carbon Dioxide 18 mEq/L (19-29) L 12/31/16 04:26 BUN 33 mg/dL (8-26) H 12/31/16 04:26 Creatinine 3.95 mg/dL (0.72-1.25) H 12/31/16 04:26 Est GFR ( Amer) 19 (> 60) L 12/31/16 04:26 Est GFR (Non-Af Amer) 16 (> 60) L 12/31/16 04:26 POC Glucose 149 (58-89) H 12/27/16 00:10 Calcium 6.8 mg/dL (8.6-10.8) L 12/31/16 04:26 Ionized Calcium 1.04 mmol/L (1.15-1.35) L 12/31/16 06:00 Magnesium 1.1 mg/dL (1.6-2.6) L 12/31/16 04:26 Lactate Dehydrogenase 157 Units/L (159-327) L 12/29/16 08:10 Serum Total Protein 3.9 g/dL (6.0-8.3) L 12/31/16 04:26 Albumin 1.7 g/dL (3.5-5.0) L 12/31/16 04:26 Globulin 2.2 g/dL (2.4-3.5) L 12/31/16 04:26 Albumin/Globulin Ratio 0.8 (1.1-2.2) L 12/31/16 04:26 25-OH Vitamin D Total 18 ng/mL (30-80) L 12/27/16 14:15 PTH Intact 284.2 pg/ml (8.5-72.5) H 12/27/16 14:15 Urine Bilirubin Small (Negative) H 12/27/16 10:25 Urine Microscopic RBC 3-5 per hpf (0-3) H 12/27/16 10:25 Ur Squamous Epith Cells Many per lpf (None-Few) H 12/27/16 10:25 - Clinical Findings Intake & Output: Intake & Output 12/30/16 12/30/16 12/31/16 15:59 23:59 07:59 Intake Total 940 / 940 528 / 528 280 / 280 Output Total 700 / 700 750 / 750 Balance 940 / 940 -172 / -172 -470 / -470 Weight 101 kg Consult Discharge Plan - Plan Referrals: Dieter Herrera DO [Primary Care Provider] - <Santiago Rashid - Last Filed: 12/31/16 14:55> Date of Encounter: 12/31/16 Objective PUL Vital signs: Last Vital Signs Temp 97.5 F L 12/31/16 11:55 Pulse 85 12/31/16 14:00 Resp 18 12/31/16 14:00 BP 86/56 12/31/16 14:00 Pulse Ox 98 12/31/16 14:00 Results - Laboratory Findings CBC and BMP: 12/31/16 13:55 12/31/16 04:26 PT/INR, D-dimer PT 20.6 Seconds (9.4-12.1) H 12/31/16 06:00 D-Dimer 864 ng/mLFEU (0-500) H 12/29/16 08:10 Abnormal lab findings: Abnormal lab results WBC 2.3 K/mcL (4.3-11.1) L 12/31/16 04:26 RBC 3.04 M/mcL (4.19-5.50) L 12/31/16 04:26 Hgb 10.2 g/dL (12.9-16.9) L D 12/31/16 13:55 Hct 30.8 % (37.5-50.1) L 12/31/16 13:55 RDW 16.1 % (11.5-14.5) H 12/31/16 04:26 Plt Count 102 K/mcL (140-400) L 12/31/16 04:26 Neutrophils # 1.3 K/mcL (1.6-8.9) L 12/31/16 04:26 Anisocytosis 1+ (Not Present) A 12/27/16 04:30 PT 20.6 Seconds (9.4-12.1) H 12/31/16 06:00 APTT > 360.0 Seconds (26.0-36.0) H* D 12/31/16 06:00 D-Dimer 864 ng/mLFEU (0-500) H 12/29/16 08:10 Chloride 116 mEq/L (98-109) H 12/31/16 04:26 Carbon Dioxide 18 mEq/L (19-29) L 12/31/16 04:26 BUN 33 mg/dL (8-26) H 12/31/16 04:26 Creatinine 3.95 mg/dL (0.72-1.25) H 12/31/16 04:26 Est GFR ( Amer) 19 (> 60) L 12/31/16 04:26 Est GFR (Non-Af Amer) 16 (> 60) L 12/31/16 04:26 POC Glucose 149 (58-89) H 12/27/16 00:10 Calcium 6.8 mg/dL (8.6-10.8) L 12/31/16 04:26 Ionized Calcium 1.04 mmol/L (1.15-1.35) L 12/31/16 06:00 Magnesium 1.1 mg/dL (1.6-2.6) L 12/31/16 04:26 Lactate Dehydrogenase 157 Units/L (159-327) L 12/29/16 08:10 Serum Total Protein 3.9 g/dL (6.0-8.3) L 12/31/16 04:26 Albumin 1.7 g/dL (3.5-5.0) L 12/31/16 04:26 Globulin 2.2 g/dL (2.4-3.5) L 12/31/16 04:26 Albumin/Globulin Ratio 0.8 (1.1-2.2) L 12/31/16 04:26 25-OH Vitamin D Total 18 ng/mL (30-80) L 12/27/16 14:15 PTH Intact 284.2 pg/ml (8.5-72.5) H 12/27/16 14:15 Urine Bilirubin Small (Negative) H 12/27/16 10:25 Urine Microscopic RBC 3-5 per hpf (0-3) H 12/27/16 10:25 Ur Squamous Epith Cells Many per lpf (None-Few) H 12/27/16 10:25 - Clinical Findings Intake & Output: Intake & Output 12/30/16 12/31/16 12/31/16 23:59 07:59 15:59 Intake Total 528 / 528 330 / 330 340 / 340 Output Total 700 / 700 750 / 750 950 / 950 Balance -172 / -172 -420 / -420 -610 / -610 Weight 101 kg - Attending Attestation I saw the patient with the resident agree with History and Physical exam findings. Labs and Radiology were reviewed PORTABLE SAWYER: Patient is conscious oriented x3 following commands. NECK : No JVD appreciated Pulmonary : Patient had adequate gas exchange will closely monitor. Cardiac : Hemodynamically stable , patient has mechanical Mitral Valve and Porcine Aortic Valve will need to start Heparin as INR is subtherapeutic started on heparin drip high intensity had erratic aPTT with high values around 200-300 and patient started to bleed from IV insertion site we stopped the IV heparin , spoke with pharmacy will renally dose lovenox eventually will need to bridged to coumadin Nutrition/GI: Patient GI bleed is due to cdiff colitis and diverticular bleed , decreased bowel movements with some blood tinged stools will trend HB will hold off bridging for now , patient has recurrent C diff needs Prolonged vanc taper will need home health to help him to be compliant with the medication so he wont come back to the hospital. Renal : RITA on Chronic Kidney disease renal following he is back to baseline UOP according to Nephrlology , Non gap acidosis on home bicarb tablets Heme onc : Patient has thrombocytopenia stable , Hb Stable the latest was 10.2 ID ; Treating diverticulits and C diff colitis to continue oral vanc and flagyl Musculo skeletal / skin issues : No acute issues Disposition : Remain Critical still high chance of bleeding Code status: Full Code
[2016-12-31] MEDS: Vancomycin Oral Soln 250 MG/5 ML UDC PO SCH ×4 (07:53→20:48)
[2016-12-31] MEDS: Furosemide 20 MG TABLET PO SCH ×2 (07:53→20:49)
[2016-12-31] MEDS: Vancomycin 500 MG, Sodium Chloride IRRigation 250 ML RC SCH ×4 (08:41→20:49)
[2016-12-31] MEDS ORDERED: *HR* Enoxaparin 100 MG/ML SYRINGE SQ SCH (09:00)
[2016-12-31] MEDS: Heparin 25,000 UNIT/500 ML D5W 25,000 UNIT/500 ML MLS IVC SCH (09:13)
[2016-12-31] MEDS ORDERED: Menthol 9.1 MG LOZENGE PO PRN (10:11)
[2016-12-31] MEDS: Ondansetron 4 MG/2 ML VIAL IVP PRN ×2 (10:14→18:26)
[2016-12-31 14:01] LABS: Hematocrit 30.8 % (37.5-50.1); Hemoglobin 10.2 g/dL (12.9-16.9)
[2016-12-31] MEDS: *HR* Enoxaparin 100 MG/ML SYRINGE SQ SCH (14:58)
[2016-12-31] MEDS ORDERED: Warfarin perPT PO PRN (18:00)
[2016-12-31] MEDS ORDERED: *HR* Warfarin 3 MG TABLET PO SCH (18:00)
[2017-01-01] MEDS: Norepinephrine 4 MG in D5% in Water 250 ML IVC SCH (01:27)
[2017-01-01] MEDS: Pantoprazole 40 MG VIAL IVP SCH ×2 (04:37→17:29)
[2017-01-01 05:14] LABS: Basophils % 0.3 %; Eosinophils # 0.1 K/mcL (0.0-0.6); Eosinophils % 2.9 %; Hematocrit 28.2 % (37.5-50.1); Hemoglobin 9.2 g/dL (12.9-16.9); Immature Granulocytes % 1.2 % (0-4); Lymphocytes # 0.5 K/mcL (0.6-4.6); Mean Corpuscular HGB Conc 32.6 g/dL (31.6-35.5); Mean Corpuscular Hemoglobin 28.9 pg (28.0-33.3); Mean Corpuscular Volume 88.7 fL (83.0-100.0); Mean Platelet Volume 11.3 fL (9.4-12.4); Monocytes # 0.3 K/mcL (0.0-1.3); Monocytes % 8.6 %; Neutrophils # 2.5 K/mcL (1.6-8.9); Platelet Count 115 K/mcL (140-400); Red Blood Count 3.18 M/mcL (4.19-5.50); Red Cell Distribution Width 16.5 % (11.5-14.5)
[2017-01-01 05:20] LABS: Ionized Calcium 1.08 mmol/L (1.15-1.35)
[2017-01-01 05:23] LABS: Prothrombin Time 21.5 Seconds (9.4-12.1)
[2017-01-01 05:25] LABS: Activated Partial Thrombo Time 43.6 Seconds (26.0-36.0)
[2017-01-01 05:26] LABS: Phosphorous 3.3 mg/dL (2.3-4.7)
[2017-01-01 05:27] LABS: Albumin/Globulin Ratio 0.8 (1.1-2.2); Alkaline Phosphatase 42 Units/L (38-126); Aspartate Amino Transferase 10 Units/L (5-34); BUN/Creatinine Ratio 8 (6-26); Bilirubin,Direct 0.2 mg/dL (0.0-0.5); Blood Urea Nitrogen 30 mg/dL (8-26); Calcium 7.1 mg/dL (8.6-10.8); Carbon Dioxide 18 mEq/L (19-29); Chloride 113 mEq/L (98-109); Globulin 2.3 g/dL (2.4-3.5); Glucose 87 mg/dL (70-99); Magnesium 2.1 mg/dL (1.6-2.6); Osmolality,Calculated 292 (280-300); Potassium 4.3 mEq/L (3.5-4.5); Sodium 138 mEq/L (136-145); Total Protein 4.2 g/dL (6.0-8.3); eGFR For African Americans 19 (> 60); eGFR For Non-African Americans 16 (> 60)
[2017-01-01 05:29] LABS: Alanine Aminotransferase < 6 Units/L (0-55); Albumin 1.9 g/dL (3.5-5.0); Bilirubin,Total < 0.2 mg/dL (0.2-1.2)
[2017-01-01 08:32] LABS: ANA IgG by ELISA NONE DETECTED (None Detected); Complement Component 3 53 mg/dL (88-201); Complement Component 4 13 mg/dL (10-40)
[2017-01-01] MEDS: MetroNIDAZOLE 500 MG/100 ML 500 MG/100 ML BAG IVPB SCH (09:16)
[2017-01-01] MEDS: Vancomycin Oral Soln 250 MG/5 ML UDC PO SCH ×4 (09:18→21:22)
--- NOTE | 2017-01-01 09:22 | Pulmonology Progress Note ---
<GalileoAbrahan W - Last Filed: 01/01/17 13:26> Date of Encounter: 01/01/17 Objective PUL Vital signs: Last Vital Signs Temp 98.5 F 12/31/16 20:31 Pulse 88 01/01/17 06:00 Resp 16 01/01/17 06:00 BP 88/59 01/01/17 06:00 Pulse Ox 96 01/01/17 06:00 Results - Laboratory Findings CBC and BMP: 01/01/17 04:55 01/01/17 04:55 PT/INR, D-dimer PT 21.5 Seconds (9.4-12.1) H 01/01/17 04:55 D-Dimer 864 ng/mLFEU (0-500) H 12/29/16 08:10 Abnormal lab findings: Abnormal lab results WBC 3.5 K/mcL (4.3-11.1) L D 01/01/17 04:55 RBC 3.18 M/mcL (4.19-5.50) L 01/01/17 04:55 Hgb 9.2 g/dL (12.9-16.9) L 01/01/17 04:55 Hct 28.2 % (37.5-50.1) L 01/01/17 04:55 RDW 16.5 % (11.5-14.5) H 01/01/17 04:55 Plt Count 115 K/mcL (140-400) L 01/01/17 04:55 Lymphocytes # 0.5 K/mcL (0.6-4.6) L 01/01/17 04:55 Anisocytosis 1+ (Not Present) A 12/27/16 04:30 PT 21.5 Seconds (9.4-12.1) H 01/01/17 04:55 APTT 43.6 Seconds (26.0-36.0) H D 01/01/17 04:55 D-Dimer 864 ng/mLFEU (0-500) H 12/29/16 08:10 Chloride 113 mEq/L (98-109) H 01/01/17 04:55 Carbon Dioxide 18 mEq/L (19-29) L 01/01/17 04:55 BUN 30 mg/dL (8-26) H 01/01/17 04:55 Creatinine 4.00 mg/dL (0.72-1.25) H 01/01/17 04:55 Est GFR ( Amer) 19 (> 60) L 01/01/17 04:55 Est GFR (Non-Af Amer) 16 (> 60) L 01/01/17 04:55 POC Glucose 149 (58-89) H 12/27/16 00:10 Calcium 7.1 mg/dL (8.6-10.8) L 01/01/17 04:55 Ionized Calcium 1.08 mmol/L (1.15-1.35) L 01/01/17 04:55 Total Bilirubin < 0.2 mg/dL (0.2-1.2) L 01/01/17 04:55 Lactate Dehydrogenase 157 Units/L (159-327) L 12/29/16 08:10 Serum Total Protein 4.2 g/dL (6.0-8.3) L 01/01/17 04:55 Albumin 1.9 g/dL (3.5-5.0) L 01/01/17 04:55 Globulin 2.3 g/dL (2.4-3.5) L 01/01/17 04:55 Albumin/Globulin Ratio 0.8 (1.1-2.2) L 01/01/17 04:55 25-OH Vitamin D Total 18 ng/mL (30-80) L 12/27/16 14:15 PTH Intact 284.2 pg/ml (8.5-72.5) H 12/27/16 14:15 Urine Bilirubin Small (Negative) H 12/27/16 10:25 Urine Microscopic RBC 3-5 per hpf (0-3) H 12/27/16 10:25 Ur Squamous Epith Cells Many per lpf (None-Few) H 12/27/16 10:25 U Free [place] Light Ch 35.10 mg/dL (0.14-2.42) H 12/27/16 14:15 U Free Lambda Light Ch 1.71 mg/dL (0.02-0.67) H 12/27/16 14:15 U Free [place]/Lambda 20.53 ratio (2.04-10.37) H 12/27/16 14:15 Complement C3 53 mg/dL (88-201) L 12/27/16 14:15 - Clinical Findings Intake & Output: Intake & Output 12/31/16 01/01/17 01/01/17 23:59 07:59 15:59 Intake Total 130 / 130 180 / 180 Output Total 545 / 545 200 / 200 Balance -545 / -545 -70 / -70 180 / 180 Consult Discharge Plan - Plan Referrals: Dieter Herrera DO [Primary Care Provider] - - Attending Attestation I examined this patient and my medical decision-making was reviewed with the Resident Physician. I agree with the documented findings, disposition and treatment plan as described except to the extent set forth below. We independently had [id number] contact with the patient Patient seen and examined at bedside Labs, radiology, chart personally reviewed. Management was reviewed during multidisciplinary critical care rounds. BOARD LINING MACHINE OPERATOR: No Deficits cont to monitor Pulm: Acceptable Oxygenation Cards: History of HFpEF and Mechanical MItral Valve. Cont LTA. Plan for net negative volume status FEN-GI:Acute Diverticular Bleed complicated by C Diff. bleeding has resolved over last 24 hours Renal: CKD. with history of PCKD. Renal function stable. Nephro following ID: Cont ABx for C Diff. Stop IV Flagyl COnt Vancomycin. Heme/Onc: acute lifethreatening hemorrhag complicated by anticoagulation. Cont Lovenox (renally dosed) cont warfarin bridge INR 2.0 today suggest underlying coagulopathy. Hematology Consult. Endo: Glucose Monitored Integ/MSK: Skin Care per routine ICU Nursing Protocol to prevent ulcers. Lines: All lines examined without evidence of infection : Dispo: Remain in ICU for possible hemorrhage CODE: Full Code. <Monse Tavarez - Last Filed: 01/01/17 13:32> Date of Encounter: 01/01/17 Time of Encounter: 09:22 Assessment and Plan (1) Hemorrhagic shock Current Visit: Yes Status: Resolved Vital signs stable. Hemorrhagic shock likely 2/2 to GI bleed. Remain on tele. (2) GI bleed Current Visit: Yes Status: Acute Hgb 9.2, down from 10.2. RN reported 1st bloody bowel Movement yesterday. Pt had 1 regular BM today, per RN. Continue timed CBCs. Qualifiers: GI bleed type/associated pathology: gastrointestinal hemorrhage with hematemesis Qualified Code(s): K92.0 - Hematemesis (3) Acute kidney injury superimposed on chronic kidney disease Current Visit: Yes Status: Acute Chronic CKD stage IV, Hx of chronic NAGMA Nephrology on consult, greatly appreciate recs: IV Lasix 20mg IV BID Increase sodium bicarb to TID, titrate as needed to reach serum bicarb above 21. Recommend outpatient dialysis access setup with his outside concrete journeyman. Continue to monitor kidney function and follow renal protective strategy. Agree to Continue to follow a renal protective and conservative strategy: will renally dose medications and avoid nephrotoxins, if possible (4) C. difficile colitis Current Visit: Yes Status: Acute Hgb stable this AM. NON-Bloody bowel movement this AM. PO vanco and Vanco enemas. WBC no longer qualifies for severe C. difficile, will d/c Flagyl. (5) Diastolic heart failure Current Visit: Yes Status: Chronic Plan for net negative volume status, continue diuresis. Qualifiers: Heart failure chronicity: chronic Qualified Code(s): I50.32 - Chronic diastolic (congestive) heart failure (6) History of mitral valve replacement with mechanical valve Current Visit: Yes Status: Chronic Hx of mechanical Mitral Valve and Porcine Aortic Valve. Anticoagulation proving difficulty, with patient's coag levels fluctuating. Renally dosing lovenox at this time, per recommendation of pharm. Zhao on consult. (7) Partial thromboplastin time (PTT) > 40 seconds Current Visit: Yes Status: Acute PTT of 360s seconds yesterday. Today improved, however remains out of target range. LalitoOnc on consult, appreciate recs. (8) Cough Current Visit: Yes Status: Acute Pt's cough improved. No chest pain. 12/31/16 STAT CXR ordered: No consolidation,pleural effusion or pneumothorax. Continued hesitancy to prescribe antibiotics with no radiographic evidence of infection, given pt's concurrent C. difficile infection.Continue monitoring pt' s clinical status. Continue Supportive care. (9) DVT prophylaxis Current Visit: Yes Status: Acute SCDS Subjective Principal diagnosis: GI bleed Interval history: Pt's cough improved. No complaints. No chest pain. States BM this morning did NOT have water-like consistency. Objective PUL Vital signs: Last Vital Signs Temp 98.5 F 12/31/16 20:31 Pulse 88 01/01/17 06:00 Resp 16 01/01/17 06:00 BP 88/59 01/01/17 06:00 Pulse Ox 96 01/01/17 06:00 General appearance: no acute distress Neck: supple Effort: normal Auscultation: bilateral: clear (anterior lung osman ) Cardiovascular: regular rate and rhythm, other (valve click) Gastrointestinal: normoactive bowel sounds, soft, non-tender, non-distended Integumentary: other Extremities: edema normal mental status, pupils equal and round Results - Laboratory Findings CBC and BMP: 01/01/17 04:55 01/01/17 04:55 PT/INR, D-dimer PT 21.5 Seconds (9.4-12.1) H 01/01/17 04:55 D-Dimer 864 ng/mLFEU (0-500) H 12/29/16 08:10 Abnormal lab findings: Abnormal lab results WBC 3.5 K/mcL (4.3-11.1) L D 01/01/17 04:55 RBC 3.18 M/mcL (4.19-5.50) L 01/01/17 04:55 Hgb 9.2 g/dL (12.9-16.9) L 01/01/17 04:55 Hct 28.2 % (37.5-50.1) L 01/01/17 04:55 RDW 16.5 % (11.5-14.5) H 01/01/17 04:55 Plt Count 115 K/mcL (140-400) L 01/01/17 04:55 Lymphocytes # 0.5 K/mcL (0.6-4.6) L 01/01/17 04:55 Anisocytosis 1+ (Not Present) A 12/27/16 04:30 PT 21.5 Seconds (9.4-12.1) H 01/01/17 04:55 APTT 43.6 Seconds (26.0-36.0) H D 01/01/17 04:55 D-Dimer 864 ng/mLFEU (0-500) H 12/29/16 08:10 Chloride 113 mEq/L (98-109) H 01/01/17 04:55 Carbon Dioxide 18 mEq/L (19-29) L 01/01/17 04:55 BUN 30 mg/dL (8-26) H 01/01/17 04:55 Creatinine 4.00 mg/dL (0.72-1.25) H 01/01/17 04:55 Est GFR ( Amer) 19 (> 60) L 01/01/17 04:55 Est GFR (Non-Af Amer) 16 (> 60) L 01/01/17 04:55 POC Glucose 149 (58-89) H 12/27/16 00:10 Calcium 7.1 mg/dL (8.6-10.8) L 01/01/17 04:55 Ionized Calcium 1.08 mmol/L (1.15-1.35) L 01/01/17 04:55 Total Bilirubin < 0.2 mg/dL (0.2-1.2) L 01/01/17 04:55 Lactate Dehydrogenase 157 Units/L (159-327) L 12/29/16 08:10 Serum Total Protein 4.2 g/dL (6.0-8.3) L 01/01/17 04:55 Albumin 1.9 g/dL (3.5-5.0) L 01/01/17 04:55 Globulin 2.3 g/dL (2.4-3.5) L 01/01/17 04:55 Albumin/Globulin Ratio 0.8 (1.1-2.2) L 01/01/17 04:55 25-OH Vitamin D Total 18 ng/mL (30-80) L 12/27/16 14:15 PTH Intact 284.2 pg/ml (8.5-72.5) H 12/27/16 14:15 Urine Bilirubin Small (Negative) H 12/27/16 10:25 Urine Microscopic RBC 3-5 per hpf (0-3) H 12/27/16 10:25 Ur Squamous Epith Cells Many per lpf (None-Few) H 12/27/16 10:25 U Free [place] Ch 35.10 mg/dL (0.14-2.42) H 12/27/16 14:15 U Free Lambda Light Ch 1.71 mg/dL (0.02-0.67) H 12/27/16 14:15 U Free [place]/Lambda 20.53 ratio (2.04-10.37) H 12/27/16 14:15 Complement C3 53 mg/dL (88-201) L 12/27/16 14:15 - Clinical Findings Intake & Output: Intake & Output 1101/01/17 01/01/17 23:59 07:59 15:59 Intake Total 130 / 130 180 / 180 Output Total 545 / 545 200 / 200 Balance -545 / -545 -70 / -70 180 / 180
[2017-01-01] MEDS ORDERED: Furosemide 20 MG/2 ML VIAL IVP SCH (09:45)
--- NOTE | 2017-01-01 10:28 | Nephrology Progress Note ---
Date of Encounter: 01/01/17 Time of Encounter: 10:26 - Assessment and Plan (1) CKD (chronic kidney disease) stage 4, GFR 15-29 ml/min Current Visit: Yes Status: Chronic RITA on CKD stage 4. sees outside motor inspection mechanic Dr. Reyna. Etiology likely pre renal secondary to hemorrhagic shock. Currently, his kidney function appears to be back to baseline. urine output improved significantly. no uremic symptoms at this time. Plan: no need for dialysis at this time. his kidney function appears back to baseline. increase sodium bicarb to TID, titrate as needed to reach serum bicarb above 21. recommend outpatient dialysis access setup with his outside motor inspection mechanic. continue to monitor kidney function and follow renal protective strategy. changed lasix to 20mg IV BID to help with better absorption in setting of hypoalbuminemia. recommend cautious use of lovenox and discontinuing as soon as possible (2) Metabolic acidosis Current Visit: Yes Status: Chronic chronic non anion gap metabolic acidosis secondary to CKD Plan: increased sodium bicarb to TID (3) Secondary hyperparathyroidism (of renal origin) Current Visit: Yes Status: Chronic continue with ergocalciferol at current dose. vitamin D will need to be re checked outpatient, and dose adjustments will need to be made at that time. if PTH not at goal at that time, may need activated vitamin D. (4) Anemia in chronic kidney disease Current Visit: Yes Status: Chronic goal Hg 10-11. plan: continue to monitor for how, may need iron supplementing agent or erythropoetin stimulating agent in future. Qualifiers: Chronic kidney disease stage: stage 4 (severe) Qualified Code(s): N18.4 - Chronic kidney disease, stage 4 (severe); D63.1 - Anemia in chronic kidney disease; D63.1 - Anemia in chronic kidney disease (5) Hemorrhagic shock Current Visit: Yes Status: Resolved per primary (6) GI bleed Current Visit: Yes Status: Acute per primary and surgery Qualifiers: GI bleed type/associated pathology: gastrointestinal hemorrhage with hematemesis Qualified Code(s): K92.0 - Hematemesis (7) Hypokalemia Current Visit: Yes Status: Acute resolved. continue to monitor. (8) Hypotension Current Visit: Yes Status: Acute resolved. patient is currently off vasopressors. Plan: cautiously continue diuresis with lasix. Qualifiers: Hypotension type: other hypotension type Qualified Code(s): I95.89 - Other hypotension (9) C. difficile colitis Current Visit: Yes Status: Acute per primary (10) H/O mechanical aortic valve replacement Current Visit: No Status: Chronic per primary Subjective Principal diagnosis: GI bleed Interval history: 56 year old male evalated at bedside. patient was sitting up in bed and watching TV. he denies nausea, vomiting, diarrhea, fever, chills, chest pain, shortness of breath. he does report some cough Objective - Vital Signs Vital signs: Vital Signs Temp Pulse Resp BP Pulse Ox 01/01/17 10:00 87 16 90/65 95 01/01/17 09:00 92 16 94/59 99 01/01/17 08:00 98.1 F 88 16 96/70 96 01/01/17 07:00 86 16 98/65 96 01/01/17 06:00 88 16 88/59 96 01/01/17 05:00 86 18 100/62 97 01/01/17 04:00 89 14 104/63 91 01/01/17 03:00 86 14 95/40 92 01/01/17 02:00 86 16 107/73 96 01/01/17 01:00 86 18 100/72 95 01/01/17 00:00 88 22 98/55 94 12/31/16 23:00 90 20 99/67 94 12/31/16 22:00 88 18 95/68 91 12/31/16 21:30 93 22 85/59 96 12/31/16 20:59 93 18 93/59 97 12/31/16 20:31 98.5 F 12/31/16 19:53 84 20 94/65 96 12/31/16 19:45 86 12/31/16 18:00 84 18 94/70 98 12/31/16 17:00 82 20 86/58 98 12/31/16 15:24 98.0 F 12/31/16 15:00 84 18 99/68 100 12/31/16 14:00 85 18 86/56 98 12/31/16 13:00 87 18 85/44 98 12/31/16 12:00 84 18 103/67 95 12/31/16 11:55 97.5 F L 12/31/16 11:00 76 18 91/60 98 Intake and Output 12/31/16 01/01/17 01/01/17 23:59 07:59 15:59 Intake Total 130 / 130 540 / 540 Output Total 545 / 545 200 / 200 300 / 300 Balance -545 / -545 -70 / -70 240 / 240 Intake: IV Fluids 100 / 100 Flagyl Premix 500 MG/100 ML 500 100 / 100 mg In 100 ml @ 100 mls/hr IVPB Q8HR LARISSA Rx#:[id number] Oral 30 / 30 540 / 540 Output: Urine 545 / 545 200 / 200 300 / 300 Other: Meal Breakfast Percent of Meal Consumed 60% Stool Size Moderate Smear Small Stool Consistency loose loose soft Stool Characteristics Normal for Patient Normal for Patient Stool Color Brown Brown Brown Blood Tinged # Bowel Movements 1 1 1 - General Appearance General appearance: Present: well-developed, well-nourished, appears started age Neck: Present: no JVD Respiratory: Present: course breath sounds (more on right than left) Cardiology: Present: no murmurs, no rub, no gallops Additional Comments: +2 bilateral pitting edema going up to mid phillips. Gastrointestinal: Present: normoactive bowel sounds, no tenderness, no guarding , no organomegaly, no masses Integumentary: Present: no rash, warm and dry Neurologic: Present: alert and oriented x3, strength 5/5 Musculoskeletal: Present: no deformities - Lab 01/01/17 04:55 01/01/17 04:55 Most recent lab results Calcium 7.1 mg/dL (8.6-10.8) L 01/01/17 04:55 Phosphorus 3.3 mg/dL (2.3-4.7) 01/01/17 04:55 Magnesium 2.1 mg/dL (1.6-2.6) 01/01/17 04:55 Urine Total Protein SEE NOTE mg/d (10-140) 12/27/16 14:15 Consult Discharge Plan - Plan Referrals: Dieter Herrera DO [Primary Care Provider] -
[2017-01-01] MEDS: Vancomycin 500 MG, Sodium Chloride IRRigation 250 ML RC SCH ×4 (10:53→21:22)
[2017-01-01] MEDS: *HR* OxyCODONE/APAP 5/325 TABLET PO PRN ×2 (11:37→18:34)
[2017-01-01] MEDS: *HR* Enoxaparin 100 MG/ML SYRINGE SQ SCH (14:13)
--- NOTE | 2017-01-01 14:54 | Oncology Inp Consult Note ---
Date of Encounter: 01/01/17 Time of Encounter: 17:00 Assessment and Plan (1) Elevated INR Status: Acute Assessment and plan: Supratherapeutic INR, GI bleeding secondary to that, hx C. difficile colitis recently treated, flagyl (for last 3 months), increased INR bleeding a month ago seen at [facility]. On vancomycin for C diff currently Prolonged PTT and difficulty wit heparin use, hx CKD recommended lovenox be held PTT today around 40s, restart heparin and monitor with aPTT and factor Xa levels. Clinically no symptoms of coagulopathy with bleeding now and requires coumadin for mechanical heart valve. 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 Patient understands the risks of bleeding associated with restarting oral anticoagulation. - Data of Consult Requesting Physician: Evaristo Angel Primary Care Provider: Dieter Herrera - Consult Narrative Reason for consult: supratherapeutic INR bleeding, mechanical valve, question on anticoag?? History of present illness: Mr. Driscoll is a 56 year old male with medical history significant for history of rheumatic fever, mechanical mitral valve Osvaldo replacement and porcine aortic valve replacement, on anticoagulation with Coumadin, hospitalized with hemoglobin of 5, supratherapeutic INR. He also has history of chronic kidney disease with worsening due to hgic shock, and was noted to be hypotensive. He had received FFP, vitamin K, INR today is at 2 improved from 7.8. Hematology consulted for long-term anticoagulation in this patient with the mechanical mitral valve needing to be on Coumadin. with hx GI bleed, C diff colitis, mild cytopenia with anemia--stabilized. Patient reports that for the past 3 months he has been on treatment with Flagyl. He also follows up with his PCP for Coumadin and this reminded on the same dose with INR monitored monthly. He was hospitalized a month ago with GI bleed. He was transferred to [facility]. Patient reports that prior to that episode he has no problems with bleeding issues. Patient has been on Coumadin for about 30 years. He denies any active bleeding currently. He has dark formed stool. He denies any abdominal pain. Past Med Surg Social Fam HX - Past Medical History Medical history: CHF, coronary artery disease, renal disease, other Psychiatric history: no psych history - Past Surgical History Surgical History: heart valve replacement, other (Nephrectomy, Exploration with bowel resection (2 months ago-[place]), Aortic and mitral valve replacement) - Social History Smoking Status: Former smoker Smokeless Tobacco Status: Yes Alcohol use: none Drug use: none - Family History Mother Living Status: Still Living Hx Family Cardiac Disorders: No Hx Family Respiratory Disorders: No Hx Family Cancer: Yes Hx Family GI Disorders: No Hx Family Endocrine Disorder: Yes (DM) Hx Family Neuromuscular Disorders: No Hx Family Neurologic Disorders: No Hx Family HEENT Disorders: No Hx Family Autoimmune Disorders: No Father Living Status: Hx Family Cardiac Disorders: Yes (Heart problem) Hx Family Respiratory Disorders: No Hx Family Cancer: Yes Hx Family GI Disorders: No Hx Family Endocrine Disorder: Yes Hx Family Neuromuscular Disorders: No Hx Family Neurologic Disorders: No Hx Family HEENT Disorders: No Hx Family Autoimmune Disorders: No Medications and Allergies Ferrous Sulfate 325 mg PO QAM 07/20/16 [History] Sodium Bicarbonate 650 mg PO BID 07/20/16 [History] Oxycodone HCl/Acetaminophen [Percocet 5-325 mg Tablet] 1 tab PO BID PRN [History] Allopurinol [Zyloprim 100 MG] 200 mg PO DAILY 12/26/16 [History] Furosemide [Lasix] 20 mg PO BID 12/26/16 [History] Warfarin [Coumadin] 3.5 mg PO DAILY 12/26/16 [History] 3 Allergy/AdvReac Type Severity Reaction Status Date / Time aspirin AdvReac See Verified 11/28/16 17:29 Comments Review of systems: as in HPI Oncology - Exam - Constitutional Vitals: Temp Pulse Resp BP Pulse Ox 98.3 F 84 16 91/64 95 01/01/17 12:01 01/01/17 14:00 01/01/17 14:00 01/01/17 14:00 01/01/17 14:00 General appearance: average body habitus - Head Head exam: Present: atraumatic, normal inspection - Eye Eye exam: Present: sclera anicteric - ENT ENT exam: Present: mucous membranes moist - Neck Neck exam: Present: full ROM - Respiratory Respiratory exam: Present: CTAB - Cardiovascular Cardiovascular exam: Present: +S1, +S2 - GI/Abdominal GI/Abdominal exam: Present: normal bowel sounds, soft - Extremities Exam Extremities exam: Present: normal inspection - Neurological Exam Neurological exam: Present: alert, CN II-XII intact, oriented X3 - Psychiatric Psychiatric exam: Present: normal mood Oncology - Results Labs: Short CBC 01/01/17 Range/Units 04:55 WBC 3.5 L D (4.3-11.1) K/mcL Hgb 9.2 L (12.9-16.9) g/dL Hct 28.2 L (37.5-50.1) % Plt Count 115 L (140-400) K/mcL Neutrophils # 2.5 (1.6-8.9) K/mcL BMP 01/01/17 04:55 Sodium 138 Potassium 4.3 Chloride 113 H Carbon Dioxide 18 L BUN 30 H Creatinine 4.00 H Glucose 87 Calcium 7.1 L Liver Function 01/01/17 Range/Units 04:55 Total Bilirubin < 0.2 L (0.2-1.2) mg/dL Direct Bilirubin 0.2 (0.0-0.5) mg/dL AST 10 (5-34) Units/L ALT < 6 (0-55) Units/L Alkaline Phosphatase 42 (38-126) Units/L Albumin 1.9 L (3.5-5.0) g/dL Consult Discharge Plan - Plan Referrals: Dieter Herrera DO [Primary Care Provider] -
[2017-01-01] MEDS ORDERED: *HR* Warfarin 2 MG TABLET PO SCH (18:00)
[2017-01-01] MEDS ORDERED: Warfarin perPT PO PRN (18:00)
[2017-01-01] MEDS ORDERED: *HR* Warfarin 1 MG TABLET PO SCH (18:00)
[2017-01-02] MEDS: Norepinephrine 4 MG in D5% in Water 250 ML IVC SCH (03:41)
[2017-01-02 04:46] LABS: Basophils % 0.6 %; Hemoglobin 8.4 g/dL (12.9-16.9); Red Cell Distribution Width 16.9 % (11.5-14.5)
[2017-01-02 04:48] LABS: Eosinophils # 0.1 K/mcL (0.0-0.6); Hematocrit 25.9 % (37.5-50.1); Immature Granulocytes % 1.2 % (0-4); Ionized Calcium 1.09 mmol/L (1.15-1.35); Lymphocytes # 0.7 K/mcL (0.6-4.6); Lymphocytes % 39.2 %; Mean Corpuscular HGB Conc 32.4 g/dL (31.6-35.5); Mean Corpuscular Hemoglobin 28.9 pg (28.0-33.3); Mean Platelet Volume 11.2 fL (9.4-12.4); Monocytes # 0.2 K/mcL (0.0-1.3); Monocytes % 13.3 %; Neutrophils # 0.7 K/mcL (1.6-8.9); Nucleated Red Blood Cells 1.2 /100 WBC (0); Red Blood Count 2.91 M/mcL (4.19-5.50); Segmented Neutrophils % 39.7 %
[2017-01-02 04:55] LABS: INR 1.8; Prothrombin Time 19.6 Seconds (9.4-12.1)
[2017-01-02 04:56] LABS: Platelet Count 97 K/mcL (140-400)
[2017-01-02 04:58] LABS: Activated Partial Thrombo Time 44.1 Seconds (26.0-36.0)
[2017-01-02 05:02] LABS: Albumin/Globulin Ratio 0.8 (1.1-2.2); Alkaline Phosphatase 46 Units/L (38-126); Aspartate Amino Transferase 12 Units/L (5-34); BUN/Creatinine Ratio 8 (6-26); Bilirubin,Direct 0.1 mg/dL (0.0-0.5); Bilirubin,Indirect 0.1 mg/dL (0.0-1.2); Blood Urea Nitrogen 31 mg/dL (8-26); Calcium 6.8 mg/dL (8.6-10.8); Carbon Dioxide 21 mEq/L (19-29); Chloride 115 mEq/L (98-109); Globulin 2.2 g/dL (2.4-3.5); Glucose 79 mg/dL (70-99); Magnesium 1.7 mg/dL (1.6-2.6); Osmolality,Calculated 293 (280-300); Phosphorous 2.9 mg/dL (2.3-4.7); Potassium 4.3 mEq/L (3.5-4.5); Sodium 139 mEq/L (136-145); Total Protein 3.9 g/dL (6.0-8.3); eGFR For African Americans 21 (> 60); eGFR For Non-African Americans 17 (> 60)
[2017-01-02 05:03] LABS: Alanine Aminotransferase < 6 Units/L (0-55); Albumin 1.7 g/dL (3.5-5.0); Bilirubin,Total < 0.2 mg/dL (0.2-1.2)
[2017-01-02 05:21] LABS: Platelet Estimate Decreased (Normal); Reactive Lymphocytes Present (Not Present)
[2017-01-02] MEDS: Pantoprazole 40 MG VIAL IVP SCH (05:29)
[2017-01-02] MEDS: Vancomycin Oral Soln 250 MG/5 ML UDC PO SCH ×4 (08:22→21:56)
--- NOTE | 2017-01-02 08:56 | Pulmonology Progress Note ---
<GalileoAbrahan W - Last Filed: 01/02/17 10:42> Date of Encounter: 01/02/17 Objective PUL Vital signs: Last Vital Signs Temp 98.1 F 01/02/17 07:28 Pulse 98 01/02/17 08:36 Resp 20 01/02/17 06:00 BP 94/56 01/02/17 06:00 Pulse Ox 96 01/02/17 06:00 Results - Laboratory Findings CBC and BMP: 01/02/17 04:15 01/02/17 04:15 PT/INR, D-dimer PT 19.6 Seconds (9.4-12.1) H 01/02/17 04:15 D-Dimer 864 ng/mLFEU (0-500) H 12/29/16 08:10 Abnormal lab findings: Abnormal lab results WBC 1.7 K/mcL (4.3-11.1) L D 01/02/17 04:15 RBC 2.91 M/mcL (4.19-5.50) L 01/02/17 04:15 Hgb 8.4 g/dL (12.9-16.9) L 01/02/17 04:15 Hct 25.9 % (37.5-50.1) L 01/02/17 04:15 RDW 16.9 % (11.5-14.5) H 01/02/17 04:15 Plt Count 97 K/mcL (140-400) L 01/02/17 04:15 Neutrophils # 0.7 K/mcL (1.6-8.9) L 01/02/17 04:15 Nucleated RBCs/100 WBC 1.2 /100 WBC (0) H 01/02/17 04:15 Reactive Lymphocytes Present (Not Present) A 01/02/17 04:15 Platelet Estimate Decreased (Normal) L 01/02/17 04:15 Anisocytosis 1+ (Not Present) A 12/27/16 04:30 PT 19.6 Seconds (9.4-12.1) H 01/02/17 04:15 APTT 44.1 Seconds (26.0-36.0) H 01/02/17 04:15 D-Dimer 864 ng/mLFEU (0-500) H 12/29/16 08:10 Chloride 115 mEq/L (98-109) H 01/02/17 04:15 BUN 31 mg/dL (8-26) H 01/02/17 04:15 Creatinine 3.75 mg/dL (0.72-1.25) H 01/02/17 04:15 Est GFR ( Amer) 21 (> 60) L 01/02/17 04:15 Est GFR (Non-Af Amer) 17 (> 60) L 01/02/17 04:15 POC Glucose 149 (58-89) H 12/27/16 00:10 Calcium 6.8 mg/dL (8.6-10.8) L 01/02/17 04:15 Ionized Calcium 1.09 mmol/L (1.15-1.35) L 01/02/17 04:15 Total Bilirubin < 0.2 mg/dL (0.2-1.2) L 01/02/17 04:15 Lactate Dehydrogenase 157 Units/L (159-327) L 12/29/16 08:10 Serum Total Protein 3.9 g/dL (6.0-8.3) L 01/02/17 04:15 Albumin 1.7 g/dL (3.5-5.0) L 01/02/17 04:15 Globulin 2.2 g/dL (2.4-3.5) L 01/02/17 04:15 Albumin/Globulin Ratio 0.8 (1.1-2.2) L 01/02/17 04:15 25-OH Vitamin D Total 18 ng/mL (30-80) L 12/27/16 14:15 PTH Intact 284.2 pg/ml (8.5-72.5) H 12/27/16 14:15 Urine Bilirubin Small (Negative) H 12/27/16 10:25 Urine Microscopic RBC 3-5 per hpf (0-3) H 12/27/16 10:25 Ur Squamous Epith Cells Many per lpf (None-Few) H 12/27/16 10:25 U Free [place] Ch 35.10 mg/dL (0.14-2.42) H 12/27/16 14:15 U Free Lambda Light Ch 1.71 mg/dL (0.02-0.67) H 12/27/16 14:15 U Free [place]/Lambda 20.53 ratio (2.04-10.37) H 12/27/16 14:15 Complement C3 53 mg/dL (88-201) L 12/27/16 14:15 - Clinical Findings Intake & Output: Intake & Output 01/01/17 01/02/17 01/02/17 23:59 07:59 15:59 Intake Total 240 / 240 Output Total 600 / 600 200 / 200 Balance -600 / -600 40 / 40 Consult Discharge Plan - Plan Referrals: Dieter Herrera DO [Primary Care Provider] - - Attending Attestation I examined this patient and my medical decision-making was reviewed with the Resident Physician. I agree with the documented findings, disposition and treatment plan as described except to the extent set forth below. We independently had [id number] contact with the patient Patient seen and examined at bedside Labs, radiology, chart personally reviewed. Management was reviewed during multidisciplinary critical care rounds. 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 high risk for rebleed but no further bleeding in last 24hours Renal: History of CKD with PCKD stable (downtrending) Creatinine ID: Cont Treatment for C Diff Heme/Onc: New leukopenia ?medication related. Seen by Hematology plan to transition back to Heparin bridge while. Cont Warfarin Dosing. Endo: Glucose Monitored Integ/MSK: Skin Care per routine ICU Nursing Protocol to prevent ulcers. Lines: All lines examined without evidence of infection : Dispo: Stable for transfer to Med/Tele CODE:Full <Madai Robertson - Last Filed: 01/02/17 16:12> Date of Encounter: 01/02/17 Time of Encounter: 08:10 Assessment and Plan (1) Hemorrhagic shock Current Visit: Yes Status: Resolved -Resolved; patient has been hemodynamically stable -Hgb 8.4 and Hct 25.9% -no evidence of active bleeding (2) GI bleed Current Visit: Yes Status: Acute -GIB d/t C. difficile colitis and diverticulitis in the setting of elevated INR , no intervention at this time -no evidence active bleeding Qualifiers: GI bleed type/associated pathology: gastrointestinal hemorrhage with hematemesis Qualified Code(s): K92.0 - Hematemesis (3) C. difficile colitis Current Visit: Yes Status: Acute -oral vancomycin and rectal vancomycin (4) History of mitral valve replacement with mechanical valve Current Visit: Yes Status: Chronic -INR 1.8 today, subtherapeutic for mechanical heart valve, heparin gtt started with next PTT check @ 19:00 -no evidence of active bleeding, continue to monitor (5) Acute kidney injury superimposed on chronic kidney disease Current Visit: Yes Status: Acute -RITA on CKD stage IV -renal function stable, Cr 3.75 -UOP improved -lasix 20mg IV daily per nephrology -inpatient dialysis not indicated at this time -nephrology following, recommendations appreciated (6) Diastolic heart failure Current Visit: Yes Status: Chronic -lasix 20mg IV daily, as per nephrology -BUN 31 and Cr 3.75 today -LVEF 60-65% Qualifiers: Heart failure chronicity: chronic Qualified Code(s): I50.32 - Chronic diastolic (congestive) heart failure (7) Elevated INR Current Visit: Yes Status: Acute -INR 1.8 today, subtherapeutic for a mechanical heart valve, heparin drip ordered -on warfarin, being bridged with heparin Subjective Principal diagnosis: GI bleed Interval history: Patient seen and examined at bedside this morning. Patient sitting up in bed, appears comfortable. He denies chest pain, difficulty breathing, abdominal pain , nausea, vomiting, fever, chills. Patient has no complaints at this time. Objective PUL Vital signs: Last Vital Signs Temp 98.1 F 01/02/17 07:28 Pulse 98 01/02/17 08:36 Resp 20 01/02/17 06:00 BP 94/56 01/02/17 06:00 Pulse Ox 96 01/02/17 06:00 General appearance: no acute distress, alert Eyes: nonicteric ENT: oropharynx moist Neck: supple Effort: normal Auscultation: bilateral: rales (mild ) Cardiovascular: regular rate and rhythm Gastrointestinal: normoactive bowel sounds, soft, non-tender, non-distended Integumentary: normal Extremities: pulses normal, edema Musculoskeletal: no deformities normal mental status, non-focal exam mood appropriate, affect normal Results - Laboratory Findings CBC and BMP: 01/02/17 11:36 01/02/17 04:15 PT/INR, D-dimer PT 19.6 Seconds (9.4-12.1) H 01/02/17 04:15 D-Dimer 864 ng/mLFEU (0-500) H 12/29/16 08:10 Abnormal lab findings: Abnormal lab results WBC 1.7 K/mcL (4.3-11.1) L D 01/02/17 04:15 RBC 2.91 M/mcL (4.19-5.50) L 01/02/17 04:15 Hgb 8.4 g/dL (12.9-16.9) L 01/02/17 04:15 Hct 25.9 % (37.5-50.1) L 01/02/17 04:15 RDW 16.9 % (11.5-14.5) H 01/02/17 04:15 Plt Count 97 K/mcL (140-400) L 01/02/17 04:15 Neutrophils # 0.7 K/mcL (1.6-8.9) L 01/02/17 04:15 Nucleated RBCs/100 WBC 1.2 /100 WBC (0) H 01/02/17 04:15 Reactive Lymphocytes Present (Not Present) A 01/02/17 04:15 Platelet Estimate Decreased (Normal) L 01/02/17 04:15 Anisocytosis 1+ (Not Present) A 12/27/16 04:30 PT 19.6 Seconds (9.4-12.1) H 01/02/17 04:15 APTT 44.1 Seconds (26.0-36.0) H 01/02/17 04:15 D-Dimer 864 ng/mLFEU (0-500) H 12/29/16 08:10 Chloride 115 mEq/L (98-109) H 01/02/17 04:15 BUN 31 mg/dL (8-26) H 01/02/17 04:15 Creatinine 3.75 mg/dL (0.72-1.25) H 01/02/17 04:15 Est GFR ( Amer) 21 (> 60) L 01/02/17 04:15 Est GFR (Non-Af Amer) 17 (> 60) L 01/02/17 04:15 POC Glucose 149 (58-89) H 12/27/16 00:10 Calcium 6.8 mg/dL (8.6-10.8) L 01/02/17 04:15 Ionized Calcium 1.09 mmol/L (1.15-1.35) L 01/02/17 04:15 Total Bilirubin < 0.2 mg/dL (0.2-1.2) L 01/02/17 04:15 Lactate Dehydrogenase 157 Units/L (159-327) L 12/29/16 08:10 Serum Total Protein 3.9 g/dL (6.0-8.3) L 01/02/17 04:15 Albumin 1.7 g/dL (3.5-5.0) L 01/02/17 04:15 Globulin 2.2 g/dL (2.4-3.5) L 01/02/17 04:15 Albumin/Globulin Ratio 0.8 (1.1-2.2) L 01/02/17 04:15 25-OH Vitamin D Total 18 ng/mL (30-80) L 12/27/16 14:15 PTH Intact 284.2 pg/ml (8.5-72.5) H 12/27/16 14:15 Urine Bilirubin Small (Negative) H 12/27/16 10:25 Urine Microscopic RBC 3-5 per hpf (0-3) H 12/27/16 10:25 Ur Squamous Epith Cells Many per lpf (None-Few) H 12/27/16 10:25 U Free [place] Ch 35.10 mg/dL (0.14-2.42) H 12/27/16 14:15 U Free Lambda Light Ch 1.71 mg/dL (0.02-0.67) H 12/27/16 14:15 U Free [place]/Lambda 20.53 ratio (2.04-10.37) H 12/27/16 14:15 Complement C3 53 mg/dL (88-201) L 12/27/16 14:15 - Clinical Findings Intake & Output: Intake & Output 01/01/17 01/02/17 01/02/17 23:59 07:59 15:59 Intake Total 240 / 240 Output Total 600 / 600 200 / 200 Balance -600 / -600 40 / 40
--- NOTE | 2017-01-02 09:03 | Nephrology Progress Note ---
Date of Encounter: 01/02/17 Time of Encounter: 09:01 - Assessment and Plan (1) CKD (chronic kidney disease) stage 4, GFR 15-29 ml/min Current Visit: Yes Status: Chronic RITA on CKD stage 4. 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 Etiology likely pre renal secondary to hemorrhagic shock. Currently, his kidney function appears to be back to baseline. urine output improved significantly. no uremic symptoms at this time. Plan: no need for dialysis at this time. his kidney function appears back to baseline. continue sodium bicarb to TID, titrate as needed to reach serum bicarb above 21. recommend outpatient dialysis access setup with his outside meat team member. continue to monitor kidney function and follow renal protective strategy. contineu lasix to 20mg IV daily to help with better absorption in setting of hypoalbuminemia. follow renal protective strategy, avoid nephrotoxins. (2) Metabolic acidosis Current Visit: Yes Status: Chronic chronic non anion gap metabolic acidosis secondary to CKD Plan: sodium bicarb to TID (3) Secondary hyperparathyroidism (of renal origin) Current Visit: Yes Status: Chronic continue with ergocalciferol at current dose. vitamin D will need to be re checked outpatient, and dose adjustments will need to be made at that time. if PTH not at goal at that time, may need activated vitamin D. (4) Anemia in chronic kidney disease Current Visit: Yes Status: Chronic goal Hg 10-11. plan: continue to monitor for how, may need iron supplementing agent or erythropoetin stimulating agent in future. Qualifiers: Chronic kidney disease stage: stage 4 (severe) Qualified Code(s): N18.4 - Chronic kidney disease, stage 4 (severe); D63.1 - Anemia in chronic kidney disease; D63.1 - Anemia in chronic kidney disease (5) Hemorrhagic shock Current Visit: Yes Status: Resolved per primary (6) GI bleed Current Visit: Yes Status: Acute per primary and surgery Qualifiers: GI bleed type/associated pathology: gastrointestinal hemorrhage with hematemesis Qualified Code(s): K92.0 - Hematemesis (7) Hypokalemia Current Visit: Yes Status: Acute resolved. continue to monitor. (8) Hypotension Current Visit: Yes Status: Acute resolved. patient is currently off vasopressors. Plan: cautiously continue diuresis with lasix. Qualifiers: Hypotension type: other hypotension type Qualified Code(s): I95.89 - Other hypotension (9) C. difficile colitis Current Visit: Yes Status: Acute per primary (10) H/O mechanical aortic valve replacement Current Visit: No Status: Chronic per primary Subjective Principal diagnosis: GI bleed Interval history: 56 year old male evaluated at bedside. patient was sitting up in bed and watching TV. he denies nausea, vomiting, diarrhea, fever, chills, chest pain, shortness of breath. he denies any new problems today. Objective - Vital Signs Vital signs: Vital Signs Temp Pulse Resp BP Pulse Ox 01/02/17 08:36 98 01/02/17 07:28 98.1 F 01/02/17 06:00 79 20 94/56 96 01/02/17 05:00 78 20 95/73 93 01/02/17 04:00 82 20 115/73 95 01/02/17 03:40 83 01/02/17 03:00 83 18 96/62 96 01/02/17 02:00 81 18 109/79 94 01/02/17 01:00 81 18 113/70 94 01/02/17 00:00 82 18 103/69 97 01/01/17 23:28 81 01/01/17 23:00 80 18 109/81 100 01/01/17 22:00 81 17 99/56 97 01/01/17 21:00 80 18 85/54 96 01/01/17 20:00 87 18 91/57 97 01/01/17 19:58 98.7 F 01/01/17 19:43 83 01/01/17 19:00 84 18 93/62 97 01/01/17 18:00 84 16 98/62 95 01/01/17 17:00 92 16 90/60 95 01/01/17 16:00 97.8 F 84 16 89/52 95 01/01/17 15:00 86 16 97/64 95 01/01/17 14:00 84 16 91/64 95 01/01/17 13:00 94 16 110/68 95 01/01/17 12:01 98.3 F 01/01/17 12:00 98.3 F 80 16 93/63 95 01/01/17 11:00 85 16 98/64 95 01/01/17 10:00 87 16 90/65 95 Intake and Output 01/01/17 01/02/17 01/02/17 23:59 07:59 15:59 Intake Total 240 / 240 Output Total 600 / 600 200 / 200 Balance -600 / -600 40 / 40 Intake: Oral 240 / 240 Output: Urine 600 / 600 200 / 200 Other: Stool Size Moderate Small Stool Consistency liquid loose Stool Characteristics Normal for Patient Stool Color Brown Brown # Bowel Movements 1 1 - General Appearance General appearance: Present: well-developed, well-nourished, appears started age Neck: Present: no JVD Additional Comments: mild bilbasilar rales noted. Additional Comments: systolic click noted. Gastrointestinal: Present: normoactive bowel sounds, no tenderness, no guarding , no organomegaly, no masses Integumentary: Present: no rash Neurologic: Present: no focal deficit, alert and oriented x3 Additional Comments: bilateral lower extremity +2 pitting edema going up to below the knee area. also has dependent edema in his thighs. - Lab 01/02/17 04:15 01/02/17 04:15 Most recent lab results Calcium 6.8 mg/dL (8.6-10.8) L 01/02/17 04:15 Phosphorus 2.9 mg/dL (2.3-4.7) 01/02/17 04:15 Magnesium 1.7 mg/dL (1.6-2.6) 01/02/17 04:15 Urine Total Protein SEE NOTE mg/d (10-140) 12/27/16 14:15 Consult Discharge Plan - Plan Referrals: Dieter Herrera DO [Primary Care Provider] -
[2017-01-02] MEDS ORDERED: Furosemide 20 MG/2 ML VIAL IVP SCH ×2 (09:13→09:15)
[2017-01-02] MEDS: Vancomycin 500 MG, Sodium Chloride IRRigation 250 ML RC SCH ×4 (09:46→21:58)
[2017-01-02] MEDS ORDERED: *HR* Heparin 5,000 UNIT/ML VIAL IVP PRN ×4 (11:07→15:06)
[2017-01-02] MEDS ORDERED: Heparin 25,000 UNIT/500 ML D5W 25,000 UNIT/500 ML MLS IVC SCH (11:15)
[2017-01-02 11:45] LABS: Hematocrit 27.2 % (37.5-50.1); Hemoglobin 8.8 g/dL (12.9-16.9); Mean Corpuscular HGB Conc 32.4 g/dL (31.6-35.5); Mean Corpuscular Hemoglobin 28.8 pg (28.0-33.3); Mean Corpuscular Volume 88.9 fL (83.0-100.0); Platelet Count 109 K/mcL (140-400); Red Blood Count 3.06 M/mcL (4.19-5.50); Red Cell Distribution Width 16.9 % (11.5-14.5)
[2017-01-02 11:59] LABS: INR 1.7; Prothrombin Time 18.2 Seconds (9.4-12.1)
[2017-01-02 12:01] LABS: Activated Partial Thrombo Time 39.8 Seconds (26.0-36.0)
[2017-01-02] MEDS: *HR* OxyCODONE/APAP 5/325 TABLET PO PRN (13:20)
[2017-01-02] MEDS ORDERED: Menthol 9.1 MG LOZENGE PO PRN (15:06)
[2017-01-02] MEDS ORDERED: Ondansetron 4 MG/2 ML VIAL IVP PRN (15:06)
[2017-01-02] MEDS ORDERED: Warfarin perPT PO PRN (15:06)
[2017-01-02] MEDS ORDERED: *HR* Warfarin 2 MG TABLET PO SCH (18:00)
[2017-01-02] MEDS ORDERED: *HR* Warfarin 1 MG TABLET PO SCH (18:00)
[2017-01-02] MEDS: Heparin 25,000 UNIT/500 ML D5W 25,000 UNIT/500 ML MLS IVC SCH (19:39)
[2017-01-03 05:10] LABS: Basophils % 0.5 %; Eosinophils # 0.1 K/mcL (0.0-0.6); Eosinophils % 5.6 %; Hematocrit 26.6 % (37.5-50.1); Hemoglobin 8.6 g/dL (12.9-16.9); Immature Granulocytes % 0.5 % (0-4); Lymphocytes # 0.9 K/mcL (0.6-4.6); Lymphocytes % 40.9 %; Mean Corpuscular HGB Conc 32.3 g/dL (31.6-35.5); Mean Corpuscular Hemoglobin 28.7 pg (28.0-33.3); Mean Corpuscular Volume 88.7 fL (83.0-100.0); Mean Platelet Volume 11.5 fL (9.4-12.4); Monocytes # 0.3 K/mcL (0.0-1.3); Monocytes % 14.4 %; Neutrophils # 0.8 K/mcL (1.6-8.9); Platelet Count 115 K/mcL (140-400); Red Cell Distribution Width 17.1 % (11.5-14.5); Segmented Neutrophils % 38.1 %
[2017-01-03 05:12] LABS: INR 1.5; Prothrombin Time 16.5 Seconds (9.4-12.1)
[2017-01-03 05:15] LABS: Activated Partial Thrombo Time 87.5 Seconds (26.0-36.0); Calcium 7.3 mg/dL (8.6-10.8); Potassium 4.6 mEq/L (3.5-4.5)
[2017-01-03] MEDS ORDERED: Furosemide 20 MG/2 ML VIAL IVP SCH (09:00)
[2017-01-03] MEDS: Vancomycin 500 MG, Sodium Chloride IRRigation 250 ML RC SCH ×4 (09:35→21:19)
[2017-01-03] MEDS: Vancomycin Oral Soln 250 MG/5 ML UDC PO SCH ×4 (09:35→21:20)
[2017-01-03] MEDS: *HR* OxyCODONE/APAP 5/325 TABLET PO PRN ×2 (11:29→21:18)
--- NOTE | 2017-01-03 11:57 | Nephrology Progress Note ---
Date of Encounter: 01/03/17 Time of Encounter: 11:55 - Assessment and Plan (1) CKD (chronic kidney disease) stage 4, GFR 15-29 ml/min Current Visit: Yes Status: Chronic RITA on CKD stage 4. 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 Etiology likely pre renal secondary to hemorrhagic shock. Currently, his kidney function appears to be back to baseline. no uremic symptoms at this time. Plan: no need for dialysis at this time. his kidney function appears back to baseline. continue sodium bicarb to TID, titrate as needed to reach serum bicarb above 21. recommend outpatient dialysis access setup with his outside director of sales. continue to monitor kidney function and follow renal protective strategy. continue lasix IV 20mg BID follow renal protective strategy, avoid nephrotoxins. (2) Metabolic acidosis Current Visit: Yes Status: Chronic chronic non anion gap metabolic acidosis secondary to CKD Plan: sodium bicarb to TID (3) Secondary hyperparathyroidism (of renal origin) Current Visit: Yes Status: Chronic continue with ergocalciferol at current dose. vitamin D will need to be re checked outpatient, and dose adjustments will need to be made at that time. if PTH not at goal at that time, may need activated vitamin D. (4) Anemia in chronic kidney disease Current Visit: Yes Status: Chronic goal Hg 10-11. plan: continue to monitor for how, may need iron supplementing agent or erythropoetin stimulating agent in future. Qualifiers: Chronic kidney disease stage: stage 4 (severe) Qualified Code(s): N18.4 - Chronic kidney disease, stage 4 (severe); D63.1 - Anemia in chronic kidney disease; D63.1 - Anemia in chronic kidney disease (5) Hemorrhagic shock Current Visit: Yes Status: Resolved per primary (6) GI bleed Current Visit: Yes Status: Acute per primary and surgery Qualifiers: GI bleed type/associated pathology: gastrointestinal hemorrhage with hematemesis Qualified Code(s): K92.0 - Hematemesis (7) Hypokalemia Current Visit: Yes Status: Acute resolved. continue to monitor. (8) Hypotension Current Visit: Yes Status: Acute resolved. patient is currently off vasopressors. Plan: cautiously continue diuresis with lasix. Qualifiers: Hypotension type: other hypotension type Qualified Code(s): I95.89 - Other hypotension (9) C. difficile colitis Current Visit: Yes Status: Acute per primary (10) H/O mechanical aortic valve replacement Current Visit: No Status: Chronic per primary Subjective Principal diagnosis: GI bleed Interval history: 56 year old male evaluated at bedside. patient was sitting up in bed and watching TV. he denies nausea, vomiting, diarrhea, fever, chills, chest pain, shortness of breath. he denies any new problems today. Objective - Vital Signs Vital signs: Vital Signs Temp Pulse Resp BP Pulse Ox 01/03/17 08:19 97.6 F 82 15 111/77 99 01/03/17 04:05 98.1 F 77 16 109/71 96 01/02/17 23:06 97.8 F 87 18 100/69 97 01/02/17 19:31 98.5 F 60 18 119/76 98 01/02/17 16:10 98.0 F 79 16 88/45 93 01/02/17 14:00 100 18 104/87 96 01/02/17 13:22 79 17 140/110 89 01/02/17 12:30 77 90/64 98 Intake and Output 01/02/17 01/03/17 01/03/17 23:59 07:59 15:59 Intake Total 745 / 745 168.1 / 168.1 Output Total 350 / 350 Balance 395 / 395 168.1 / 168.1 Intake: IV Fluids 265 / 265 168.1 / 168.1 Heparin 25,000 UNIT/500 ML D5W 265 / 265 168.1 / 168.1 25,000 unit In 500 ml @ 14 UNIT /KG/HR 28.14 mls/hr IVC CONT LARISSA Rx#:[id number] Oral 480 / 480 Output: Urine 350 / 350 Other: Meal Lunch Percent of Meal Consumed 85% Stool Consistency loose Stool Color Brown # Bowel Movements 1 Weight 99.518 kg - General Appearance General appearance: Present: well-developed, well-nourished, appears started age Neck: Present: no JVD Respiratory: Present: kyphosis Additional Comments: bibasilar and left upper lobe rales Cardiology: Present: no murmurs, no rub, no gallops Additional Comments: systolic click noted. +2 bilateral pitting edema noted. Gastrointestinal: Present: normoactive bowel sounds, no tenderness, no guarding , no organomegaly, no masses Integumentary: Present: no rash Neurologic: Present: no focal deficit Musculoskeletal: Present: no deformities, no erythema, no cyanosis, no clubbing Psychiatric: Present: mood/affect appropriate - Lab 01/03/17 04:35 01/03/17 04:35 Most recent lab results Calcium 7.3 mg/dL (8.6-10.8) L 01/03/17 04:35 Phosphorus 2.9 mg/dL (2.3-4.7) 01/02/17 04:15 Magnesium 1.7 mg/dL (1.6-2.6) 01/02/17 04:15 Urine Total Protein SEE NOTE mg/d (10-140) 12/27/16 14:15 Consult Discharge Plan - Plan Referrals: Dieter Herrera DO [Primary Care Provider] -
[2017-01-03] MEDS: Heparin 25,000 UNIT/500 ML D5W 25,000 UNIT/500 ML MLS IVC SCH (14:20)
--- NOTE | 2017-01-03 15:56 | Internal Med Progress Note ---
Date of Encounter: 01/03/17 Time of Encounter: 15:50 - Assessment and plan (1) Acute blood loss anemia Current Visit: No Status: Acute Assessment and plan: Due to Lower GI bleed Improving s/p & U PRBC transfusion cont close monitoring (2) C. difficile colitis Current Visit: Yes Status: Acute Assessment and plan: Improving slowly cont PO Vanco (3) Hemorrhagic shock Current Visit: Yes Status: Resolved Assessment and plan: resolved (4) Acute kidney injury superimposed on chronic kidney disease Current Visit: Yes Status: Acute Assessment and plan: Due to hemorrhagic shock improving slowly..today Cr 3.81 baseline might be @ 3.0 (5) H/O mechanical aortic valve replacement Current Visit: No Status: Chronic Assessment and plan: Resumed Coumadin Bridging with Heparin cont close monitoring for Hb (6) History of mitral valve replacement with mechanical valve Current Visit: Yes Status: Chronic (7) CKD (chronic kidney disease) stage 4, GFR 15-29 ml/min Current Visit: Yes Status: Chronic (8) Secondary hyperparathyroidism (of renal origin) Current Visit: Yes Status: Chronic Assessment and plan: resumed home meds (9) Volume overload Current Visit: Yes Status: Acute Assessment and plan: No signs of HF His volume overload due to Excessive IV hydration Cont IV Lasix Strict I & O Qualifiers: Qualified Code(s): E87.71 - Transfusion associated circulatory overload - Subjective Interval history: Mr. Driscoll is a 56 y/o M with known PMH of Mechanical mitral valve on Coumadin for anticoagulation, CKD-4, who recently had C. Diff infection admitted here on 12/27/2016 with severe bright red blood per rectum, developed hemorrhagic shock with Hb dropped down to 5.2 from 12.0 in 8 hrs. Pt was transferred to ICU initially and placed him on Vasopressors, also recieved 7 U PRBC and 4 U FFP. Now his Hb is stable @ 8.6. He was also placed on Vanco PO for C. Diff colitis. His diarrhea also improving. Pt was transferred to Tele last night. Now he is alert, awake and O x 3. Denied any CP / SOB / Abd pain. Tolerating PO intake well - Constitutional Vitals: Temp Pulse Resp BP Pulse Ox 98.1 F 88 16 109/70 97 01/03/17 15:17 01/03/17 15:17 01/03/17 15:17 01/03/17 15:17 01/03/17 15:17 General appearance: Present: A&O X 3, no acute distress, answers questions appropriately - Head Head exam: Present: atraumatic, normal inspection - Neck Neck exam general surgery: Present: supple - Respiratory Respiratory exam: Present: decreased breath sounds. Absent: rales, respiratory distress, rhonchi, wheezes - Cardiovascular Cardiovascular exam: Present: RRR, +S1, +S2, systolic murmur. Absent: gallop, rubs - GI/Abdominal GI/Abdominal exam: Present: normal bowel sounds, soft. Absent: distended, rebound, rigid, tenderness - Extremities Exam Extremities exam: Present: pedal edema (2+ pitting edema). Absent: calf tenderness, tenderness - Back Exam Back exam: Absent: CVA tenderness (L), CVA tenderness (R) - Neurological Exam Neurological exam: Present: alert, oriented X3 - Psychiatric Psychiatric exam: Present: normal affect, normal mood Internal Medicine: Result - Labs CBC & Chem 7: 01/03/17 04:35 01/03/17 04:35 Labs: Short CBC 01/03/17 Range/Units 04:35 WBC 2.2 L (4.3-11.1) K/mcL Hgb 8.6 L (12.9-16.9) g/dL Hct 26.6 L (37.5-50.1) % Plt Count 115 L (140-400) K/mcL Neutrophils # 0.8 L (1.6-8.9) K/mcL BMP 01/03/17 04:35 Sodium 140 Potassium 4.6 H Chloride 113 H Carbon Dioxide 21 BUN 30 H Creatinine 3.81 H Glucose 87 Calcium 7.3 L - ABG Interpretation ABG results: PT/INR, D-dimer PT 16.5 Seconds (9.4-12.1) H 01/03/17 04:35 D-Dimer 864 ng/mLFEU (0-500) H 12/29/16 08:10 Consult Discharge Plan - Plan Referrals: Dieter Herrera DO [Primary Care Provider] -
[2017-01-03] MEDS: Furosemide 20 MG/2 ML VIAL IVP SCH (18:10)
[2017-01-04 06:57] LABS: Eosinophils # 0.1 K/mcL (0.0-0.6); Hematocrit 28.3 % (37.5-50.1); Hemoglobin 9.1 g/dL (12.9-16.9); Mean Corpuscular HGB Conc 32.2 g/dL (31.6-35.5); Mean Corpuscular Hemoglobin 28.8 pg (28.0-33.3); Mean Corpuscular Volume 89.6 fL (83.0-100.0); Mean Platelet Volume 11.5 fL (9.4-12.4); Monocytes # 0.2 K/mcL (0.0-1.3); Platelet Count 129 K/mcL (140-400); Red Blood Count 3.16 M/mcL (4.19-5.50); Red Cell Distribution Width 17.4 % (11.5-14.5)
[2017-01-04 07:04] LABS: Calcium 7.5 mg/dL (8.6-10.8); INR 1.6; Magnesium 1.5 mg/dL (1.6-2.6); Prothrombin Time 16.9 Seconds (9.4-12.1)
[2017-01-04 07:51] LABS: Lymphocytes # 0.8 K/mcL (0.6-4.6); Neutrophils # 1.1 K/mcL (1.6-8.9); Reactive Lymphocytes Present (Not Present)
[2017-01-04] MEDS: Vancomycin Oral Soln 250 MG/5 ML UDC PO SCH ×4 (08:22→20:16)
[2017-01-04] MEDS: Furosemide 20 MG/2 ML VIAL IVP SCH (08:22)
[2017-01-04] MEDS: *HR* OxyCODONE/APAP 5/325 TABLET PO PRN ×2 (10:38→18:42)
[2017-01-04] MEDS: Heparin 25,000 UNIT/500 ML D5W 25,000 UNIT/500 ML MLS IVC SCH (12:38)
--- NOTE | 2017-01-04 13:23 | Nephrology Progress Note ---
Date of Encounter: 01/04/17 Time of Encounter: 09:30 - Assessment and Plan (1) CKD (chronic kidney disease) stage 4, GFR 15-29 ml/min Current Visit: Yes Status: Chronic RITA on CKD stage 4. sees outside production team leader Dr. Reyna. Etiology likely pre renal secondary to hemorrhagic shock. fluid overload likely secondary to receiving multiple blood products. Currently, his kidney function appears to be back to baseline. no uremic symptoms at this time. Plan: no need for dialysis. continue sodium bicarb to TID, titrate as needed to reach serum bicarb above 21. recommend outpatient dialysis access setup with his outside production team leader. follow renal protective strategy, avoid nephrotoxins. changed lasix from IV to oral today. discharge instructions: please discharge on 40mg oral lasix BID BMP in 1 week, forward results to his production team leader Dr. Reyna, and his PCP (2) Metabolic acidosis Current Visit: Yes Status: Chronic chronic non anion gap metabolic acidosis secondary to CKD Plan: sodium bicarb to TID (3) Secondary hyperparathyroidism (of renal origin) Current Visit: Yes Status: Chronic continue with ergocalciferol at current dose. vitamin D will need to be re checked outpatient, and dose adjustments will need to be made at that time. if PTH not at goal at that time, may need activated vitamin D. (4) Anemia in chronic kidney disease Current Visit: Yes Status: Chronic goal Hg 10-11. plan: continue to monitor for how, may need iron supplementing agent or erythropoetin stimulating agent in future. Qualifiers: Chronic kidney disease stage: stage 4 (severe) Qualified Code(s): N18.4 - Chronic kidney disease, stage 4 (severe); D63.1 - Anemia in chronic kidney disease; D63.1 - Anemia in chronic kidney disease (5) Hemorrhagic shock Current Visit: Yes Status: Resolved per primary (6) GI bleed Current Visit: Yes Status: Acute per primary and surgery Qualifiers: GI bleed type/associated pathology: gastrointestinal hemorrhage with hematemesis Qualified Code(s): K92.0 - Hematemesis (7) Hypokalemia Current Visit: Yes Status: Acute resolved. continue to monitor. (8) Hypotension Current Visit: Yes Status: Acute resolved. patient is currently off vasopressors. Plan: continue lasix. Qualifiers: Hypotension type: other hypotension type Qualified Code(s): I95.89 - Other hypotension (9) C. difficile colitis Current Visit: Yes Status: Acute per primary (10) H/O mechanical aortic valve replacement Current Visit: No Status: Chronic per primary Subjective Principal diagnosis: GI bleed Interval history: 56 year old male evaluated at bedside. he denies any new complaints today Objective - Vital Signs Vital signs: Vital Signs Temp Pulse Resp BP Pulse Ox 01/04/17 11:10 98.3 F 86 18 96/65 98 01/04/17 10:45 98 01/04/17 07:04 97.7 F 79 17 107/71 99 01/04/17 03:44 97.8 F 67 16 92/53 97 01/03/17 23:45 97.6 F 70 16 99/62 98 01/03/17 19:11 98.2 F 86 16 111/76 98 01/03/17 15:17 98.1 F 88 16 109/70 97 Intake and Output 01/03/17 01/04/17 01/04/17 23:59 07:59 15:59 Intake Total 560 / 560 980 / 980 Output Total 0 / 0 Balance 560 / 560 980 / 980 Intake: IV Fluids 500 / 500 Heparin 25,000 UNIT/500 ML D5W 500 / 500 25,000 unit In 500 ml @ 14 UNIT /KG/HR 28.14 mls/hr IVC CONT LARISSA Rx#:[id number] Oral 560 / 560 480 / 480 Output: Urine 0 / 0 Other: Meal Dinner Breakfast Percent of Meal Consumed 95% 40% Weight 98.9 kg Patient Weight 01/04/17 23:59 Weight 98.9 kg - General Appearance General appearance: Present: well-developed, well-nourished, appears started age , obese Neck: Present: no JVD Respiratory: Present: wheezing Cardiology: Present: no murmurs, no rub, no gallops Additional Comments: systolic click noted. bilateral lower extremity +2 pitting edema noted. Gastrointestinal: Present: normoactive bowel sounds, no tenderness, no guarding , no organomegaly, no masses Integumentary: Present: no rash, warm and dry Neurologic: Present: no focal deficit, alert and oriented x3 Musculoskeletal: Present: no deformities, no erythema, no cyanosis, no clubbing - Lab 01/04/17 06:45 01/04/17 06:45 Most recent lab results Calcium 7.5 mg/dL (8.6-10.8) L 01/04/17 06:45 Phosphorus 2.9 mg/dL (2.3-4.7) 01/02/17 04:15 Magnesium 1.5 mg/dL (1.6-2.6) L 01/04/17 06:45 Urine Total Protein SEE NOTE mg/d (10-140) 12/27/16 14:15 Consult Discharge Plan - Plan Referrals: Dieter Herrera DO [Primary Care Provider] -
--- NOTE | 2017-01-04 14:16 | Internal Med Progress Note ---
Date of Encounter: 01/04/17 Time of Encounter: 14:14 - Assessment and plan (1) C. difficile colitis Current Visit: Yes Status: Acute Assessment and plan: Improving slowly no more diarrhea cont PO Vanco (2) Acute blood loss anemia Current Visit: No Status: Acute Assessment and plan: Due to Lower GI bleed Improved s/p 7 U PRBC transfusion stable Hb from last few days cont close monitoring (3) Hemorrhagic shock Current Visit: Yes Status: Resolved Assessment and plan: resolved (4) Acute kidney injury superimposed on chronic kidney disease Current Visit: Yes Status: Acute Assessment and plan: Due to hemorrhagic shock improving slowly..today Cr 3.5 baseline might be @ 3.0 (5) H/O mechanical aortic valve replacement Current Visit: No Status: Chronic Assessment and plan: Resumed Coumadin Bridging with Heparin cont close monitoring for Hb INR is still sub therapeutic, so will give more Coumadin today Pharmacy is following on Coumadin dose (6) History of mitral valve replacement with mechanical valve Current Visit: Yes Status: Chronic (7) CKD (chronic kidney disease) stage 4, GFR 15-29 ml/min Current Visit: Yes Status: Chronic (8) Secondary hyperparathyroidism (of renal origin) Current Visit: Yes Status: Chronic Assessment and plan: resumed home meds (9) Volume overload Current Visit: Yes Status: Acute Assessment and plan: No signs of HF His volume overload due to Excessive IV hydration Cont IV Lasix Strict I & O Qualifiers: Qualified Code(s): E87.71 - Transfusion associated circulatory overload - Subjective Interval history: Mr. Driscoll is a 56 y/o M with known PMH of Mechanical mitral valve on Coumadin for anticoagulation, CKD-4, who recently had C. Diff infection admitted here on 12/27/2016 with severe bright red blood per rectum, developed hemorrhagic shock with Hb dropped down to 5.2 from 12.0 in 8 hrs. Pt was transferred to ICU initially and placed him on Vasopressors, also received 7 U PRBC and 4 U FFP. Now his Hb is stable @ 8.6. He was also placed on Vanco PO for C. Diff colitis. His diarrhea also improving. Pt was transferred to [facility] last night. Now he is alert, awake and O x 3. Denied any CP / SOB / Abd pain. Tolerating PO intake well - Constitutional Vitals: Temp Pulse Resp BP Pulse Ox 98.3 F 86 18 96/65 98 01/04/17 11:10 01/04/17 11:10 01/04/17 11:10 01/04/17 11:10 01/04/17 11:10 General appearance: Present: A&O X 3, no acute distress, answers questions appropriately - Head Head exam: Present: atraumatic, normal inspection - Respiratory Respiratory exam: Present: decreased breath sounds. Absent: rales, respiratory distress, rhonchi, wheezes - Cardiovascular Cardiovascular exam: Present: RRR, +S1, +S2, systolic murmur. Absent: gallop, rubs - GI/Abdominal GI/Abdominal exam: Present: distended, normal bowel sounds, soft. Absent: rebound, rigid, tenderness - Extremities Exam Extremities exam: Present: pedal edema (2+). Absent: calf tenderness, tenderness - Back Exam Back exam: Absent: CVA tenderness (L), CVA tenderness (R) - Neurological Exam Neurological exam: Present: alert, oriented X3 Internal Medicine: Result - Labs CBC & Chem 7: 01/04/17 06:45 01/04/17 06:45 Labs: Short CBC 01/04/17 Range/Units 06:45 WBC 2.1 L (4.3-11.1) K/mcL Hgb 9.1 L (12.9-16.9) g/dL Hct 28.3 L (37.5-50.1) % Plt Count 129 L (140-400) K/mcL Neutrophils # 1.1 L (1.6-8.9) K/mcL BMP 01/04/17 06:45 Sodium 137 Potassium 4.0 Chloride 110 H Carbon Dioxide 20 BUN 28 H Creatinine 3.50 H Glucose 94 Calcium 7.5 L - ABG Interpretation ABG results: PT/INR, D-dimer PT 16.9 Seconds (9.4-12.1) H 01/04/17 06:45 D-Dimer 864 ng/mLFEU (0-500) H 12/29/16 08:10 Consult Discharge Plan - Plan Referrals: Dieter Herrera DO [Primary Care Provider] -
[2017-01-04] MEDS: Furosemide 40 MG TABLET PO SCH (16:58)
[2017-01-04] MEDS ORDERED: *HR* Warfarin 5 MG TABLET PO ONE (18:00)
--- NOTE | 2017-01-04 18:05 | Electrocardiograph Report ---
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
[2017-01-05 03:38] LABS: Basophils % 0.3 %; Eosinophils # 0.1 K/mcL (0.0-0.6); Eosinophils % 2.6 %; Hematocrit 29.8 % (37.5-50.1); Hemoglobin 9.6 g/dL (12.9-16.9); Immature Granulocytes % 0.6 % (0-4); Lymphocytes % 33.2 %; Mean Corpuscular HGB Conc 32.2 g/dL (31.6-35.5); Mean Corpuscular Hemoglobin 28.9 pg (28.0-33.3); Mean Corpuscular Volume 89.8 fL (83.0-100.0); Mean Platelet Volume 10.5 fL (9.4-12.4); Monocytes # 0.3 K/mcL (0.0-1.3); Monocytes % 8.6 %; Neutrophils # 1.7 K/mcL (1.6-8.9); Platelet Count 128 K/mcL (140-400); Red Blood Count 3.32 M/mcL (4.19-5.50); Red Cell Distribution Width 17.4 % (11.5-14.5); Segmented Neutrophils % 54.7 %
[2017-01-05 03:45] LABS: INR 1.6; Prothrombin Time 17.4 Seconds (9.4-12.1)
[2017-01-05 03:50] LABS: Calcium 7.8 mg/dL (8.6-10.8); Magnesium 1.4 mg/dL (1.6-2.6); Potassium 4.4 mEq/L (3.5-4.5)
[2017-01-05] MEDS: Vancomycin Oral Soln 250 MG/5 ML UDC PO SCH ×4 (08:24→21:30)
[2017-01-05] MEDS: Furosemide 40 MG TABLET PO SCH ×2 (08:24→16:38)
[2017-01-05] MEDS: Heparin 25,000 UNIT/500 ML D5W 25,000 UNIT/500 ML MLS IVC SCH ×2 (08:26→16:39)
--- NOTE | 2017-01-05 08:58 | Nephrology Progress Note ---
Date of Encounter: 01/05/17 Time of Encounter: 08:56 - Assessment and Plan (1) CKD (chronic kidney disease) stage 4, GFR 15-29 ml/min Current Visit: Yes Status: Chronic RITA on CKD stage 4. sees outside clinical research director Dr. Reyna. Etiology likely pre renal secondary to hemorrhagic shock. fluid overload likely secondary to receiving multiple blood products. his kidney function back to baseline. no uremic symptoms Plan: no need for dialysis. sodium bicarb to BID, titrate as needed to reach serum bicarb above 21. recommend outpatient dialysis access setup with his outside clinical research director. follow renal protective strategy, avoid nephrotoxins. continue oral lasix discharge instructions: please discharge on 40mg oral lasix BID, sodium bicarb 650 BID BMP in 1 week, forward results to his clinical research director Dr. Reyna, and his PCP (2) Metabolic acidosis Current Visit: Yes Status: Chronic chronic non anion gap metabolic acidosis secondary to CKD Plan: sodium bicarb to BID (3) Secondary hyperparathyroidism (of renal origin) Current Visit: Yes Status: Chronic continue with ergocalciferol at current dose. vitamin D will need to be re checked outpatient, and dose adjustments will need to be made at that time. if PTH not at goal at that time, may need activated vitamin D. (4) Anemia in chronic kidney disease Current Visit: Yes Status: Chronic goal Hg 10-11. plan: continue to monitor for how, may need iron supplementing agent or erythropoetin stimulating agent in future. Qualifiers: Chronic kidney disease stage: stage 4 (severe) Qualified Code(s): N18.4 - Chronic kidney disease, stage 4 (severe); D63.1 - Anemia in chronic kidney disease; D63.1 - Anemia in chronic kidney disease (5) Hemorrhagic shock Current Visit: Yes Status: Resolved per primary (6) GI bleed Current Visit: Yes Status: Acute per primary and surgery Qualifiers: GI bleed type/associated pathology: gastrointestinal hemorrhage with hematemesis Qualified Code(s): K92.0 - Hematemesis (7) Hypokalemia Current Visit: Yes Status: Acute resolved. continue to monitor. (8) Hypotension Current Visit: Yes Status: Resolved resolved. patient is currently off vasopressors. Qualifiers: Hypotension type: other hypotension type Qualified Code(s): I95.89 - Other hypotension (9) C. difficile colitis Current Visit: Yes Status: Acute per primary (10) H/O mechanical aortic valve replacement Current Visit: No Status: Chronic per primary Subjective Principal diagnosis: GI bleed Interval history: 56 year old male evaluated at bedside. he denies any new complaints today Objective - Vital Signs Vital signs: Vital Signs Temp Pulse Resp BP Pulse Ox 01/05/17 08:34 97 01/05/17 08:02 98.0 F 88 15 96/61 97 01/05/17 03:44 97.9 F 82 16 111/69 99 01/04/17 23:21 97.8 F 83 16 95/65 97 01/04/17 19:37 97.5 F L 84 18 102/67 98 01/04/17 15:38 97.7 F 81 18 108/64 99 01/04/17 11:10 98.3 F 86 18 96/65 98 01/04/17 10:45 98 Intake and Output 01/04/17 01/05/17 01/05/17 23:59 07:59 15:59 Intake Total 480 / 480 0 / 0 500 / 500 Output Total 0 / 0 Balance 480 / 480 0 / 0 500 / 500 Intake: IV Fluids 500 / 500 Heparin 25,000 UNIT/500 ML D5W 500 / 500 25,000 unit In 500 ml @ 14 UNIT /KG/HR 28.14 mls/hr IVC CONT LARISSA Rx#:[id number] Oral 480 / 480 0 / 0 0 / 0 Output: Urine 0 / 0 Other: Meal Dinner Percent of Meal Consumed 100% Weight 97.5 kg Patient Weight 01/05/17 23:59 Weight 97.5 kg - General Appearance General appearance: Present: well-developed, well-nourished, appears started age , obese Neck: Present: no JVD Respiratory: Present: wheezing Cardiology: Present: no murmurs, no rub, no gallops, regular rate, regular rhythm, normal S1, normal S2 Additional Comments: systolic click noted. +2 bilateral lower extremity pitting edema Gastrointestinal: Present: normoactive bowel sounds, no tenderness, no guarding , no organomegaly, no masses Integumentary: Present: no rash, warm and dry Neurologic: Present: no focal deficit, alert and oriented x3, reflexes 2+ and symmetric Musculoskeletal: Present: no deformities, no erythema, no cyanosis, no clubbing - Lab 01/05/17 03:30 01/05/17 03:30 Most recent lab results Calcium 7.8 mg/dL (8.6-10.8) L 01/05/17 03:30 Phosphorus 2.9 mg/dL (2.3-4.7) 01/02/17 04:15 Magnesium 1.4 mg/dL (1.6-2.6) L 01/05/17 03:30 Urine Total Protein SEE NOTE mg/d (10-140) 12/27/16 14:15 Consult Discharge Plan - Plan Referrals: Dieter Herrera DO [Primary Care Provider] - 01/15/17 2:30 pm
--- NOTE | 2017-01-05 11:40 | Internal Med Progress Note ---
Date of Encounter: 01/05/17 Time of Encounter: 11:37 - Assessment and plan (1) C. difficile colitis Current Visit: Yes Status: Acute Assessment and plan: Improving slowly no more diarrhea cont PO Vanco (2) Acute blood loss anemia Current Visit: No Status: Acute Assessment and plan: Due to Lower GI bleed Improved s/p 7 U PRBC transfusion stable Hb from last few days cont close monitoring (3) Hemorrhagic shock Current Visit: Yes Status: Resolved Assessment and plan: resolved (4) Acute kidney injury superimposed on chronic kidney disease Current Visit: Yes Status: Acute Assessment and plan: Due to hemorrhagic shock improving slowly..today Cr 3.4.. this could be new baseline for him baseline might be @ 3.0 (5) H/O mechanical aortic valve replacement Current Visit: No Status: Chronic Assessment and plan: Resumed Coumadin Bridging with Heparin cont close monitoring for Hb INR is still sub therapeutic, so will give more Coumadin today Pharmacy is following on Coumadin dose (6) History of mitral valve replacement with mechanical valve Current Visit: Yes Status: Chronic (7) CKD (chronic kidney disease) stage 4, GFR 15-29 ml/min Current Visit: Yes Status: Chronic (8) Secondary hyperparathyroidism (of renal origin) Current Visit: Yes Status: Chronic Assessment and plan: resumed home meds (9) Volume overload Current Visit: Yes Status: Acute Assessment and plan: No signs of HF His volume overload due to Excessive IV hydration improving Switched to PO Lasix Strict I & O Qualifiers: Qualified Code(s): E87.71 - Transfusion associated circulatory overload - Subjective Interval history: Mr. Driscoll is a 56 y/o M with known PMH of Mechanical mitral valve on Coumadin for anticoagulation, CKD-4, who recently had C. Diff infection admitted here on 12/27/2016 with severe bright red blood per rectum, developed hemorrhagic shock with Hb dropped down to 5.2 from 12.0 in 8 hrs. Pt was transferred to ICU initially and placed him on Vasopressors, also received 7 U PRBC and 4 U FFP. Now his Hb is stable @ 8.6. He was also placed on Vanco PO for C. Diff colitis. His diarrhea also improving. Pt was transferred to Tele. Now he is alert, awake and O x 3. Denied any CP / SOB / Abd pain. Tolerating PO intake well.. Diarrhea improved. No more active bleeding. - Constitutional Vitals: Temp Pulse Resp BP Pulse Ox 98.0 F 82 18 103/54 99 01/05/17 11:05 01/05/17 11:05 01/05/17 11:05 01/05/17 11:05 01/05/17 11:05 General appearance: Present: A&O X 3, no acute distress, answers questions appropriately - Head Head exam: Present: atraumatic, normal inspection - Respiratory Respiratory exam: Present: decreased breath sounds. Absent: rales, respiratory distress, rhonchi, wheezes - Cardiovascular Cardiovascular exam: Present: RRR, +S1, +S2, systolic murmur - GI/Abdominal GI/Abdominal exam: Present: normal bowel sounds, soft. Absent: rebound, rigid, tenderness - Extremities Exam Extremities exam: Present: pedal edema. Absent: calf tenderness, tenderness - Back Exam Back exam: Absent: CVA tenderness (L), CVA tenderness (R) - Neurological Exam Neurological exam: Present: alert, oriented X3 - Psychiatric Psychiatric exam: Present: normal affect, normal mood Internal Medicine: Result - Labs CBC & Chem 7: 01/05/17 03:30 01/05/17 03:30 Labs: Short CBC 01/05/17 Range/Units 03:30 WBC 3.1 L (4.3-11.1) K/mcL Hgb 9.6 L (12.9-16.9) g/dL Hct 29.8 L (37.5-50.1) % Plt Count 128 L (140-400) K/mcL Neutrophils # 1.7 (1.6-8.9) K/mcL BMP 01/05/17 03:30 Sodium 139 Potassium 4.4 Chloride 110 H Carbon Dioxide 24 BUN 30 H Creatinine 3.49 H Glucose 92 Calcium 7.8 L - ABG Interpretation ABG results: PT/INR, D-dimer PT 17.4 Seconds (9.4-12.1) H 01/05/17 03:30 D-Dimer 864 ng/mLFEU (0-500) H 12/29/16 08:10 Consult Discharge Plan - Plan Referrals: Dieter Herrera DO [Primary Care Provider] - 01/15/17 2:30 pm
[2017-01-05] MEDS: *HR* OxyCODONE/APAP 5/325 TABLET PO PRN ×2 (12:20→21:29)
[2017-01-05] MEDS ORDERED: *HR* Warfarin 5 MG TABLET PO ONE (18:00)
--- NOTE | 2017-01-05 18:29 | Electrocardiograph Report ---
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
[2017-01-06 05:11] LABS: INR 1.7; Prothrombin Time 18.9 Seconds (9.4-12.1)
[2017-01-06 05:28] LABS: Calcium 8.1 mg/dL (8.6-10.8); Magnesium 1.4 mg/dL (1.6-2.6); Potassium 4.2 mEq/L (3.5-4.5)
[2017-01-06] MEDS: Heparin 25,000 UNIT/500 ML D5W 25,000 UNIT/500 ML MLS IVC SCH (06:02)
--- NOTE | 2017-01-06 08:22 | Nephrology Progress Note ---
Date of Encounter: 01/06/17 Time of Encounter: 08:21 - Assessment and Plan (1) Acute kidney injury superimposed on chronic kidney disease Current Visit: Yes Status: Acute Renal function at baseline. No new changes. See nephrology progress note from 01/05/2017. Subjective Principal diagnosis: GI bleed Interval history: Patient seen. No new complaint. Objective - Vital Signs Vital signs: Vital Signs Temp Pulse Resp BP Pulse Ox 01/06/17 07:26 97.4 F L 90 16 135/87 96 01/06/17 04:57 97.8 F 90 18 108/65 96 01/06/17 00:36 97.7 F 86 18 120/76 97 01/05/17 20:18 98.0 F 68 18 95/61 95 01/05/17 15:29 97.6 F 58 14 100/66 97 01/05/17 11:05 98.0 F 82 18 103/54 99 01/05/17 08:34 97 Intake and Output 01/05/17 01/06/17 01/06/17 23:59 07:59 15:59 Intake Total 600 / 600 350 / 350 Output Total 0 / 0 Balance 600 / 600 350 / 350 Intake: IV Fluids 350 / 350 Heparin 25,000 UNIT/500 ML D5W 350 / 350 25,000 unit In 500 ml @ 14 UNIT /KG/HR 28.14 mls/hr IVC CONT LARISSA Rx#:[id number] Oral 600 / 600 0 / 0 Output: Urine 0 / 0 Other: Meal Dinner Percent of Meal Consumed 100% # Voids 0 2 # Bowel Movements 1 Weight 98.4 kg Patient Weight 01/06/17 23:59 Weight 98.4 kg - General Appearance General appearance: Present: well-developed, well-nourished EENT: Present: ATNC Cardiology: Present: regular rate Neurologic: Present: alert and oriented x3 Psychiatric: Present: mood/affect appropriate - Lab 01/05/17 03:30 01/06/17 04:40 Most recent lab results Calcium 8.1 mg/dL (8.6-10.8) L 01/06/17 04:40 Phosphorus 2.9 mg/dL (2.3-4.7) 01/02/17 04:15 Magnesium 1.4 mg/dL (1.6-2.6) L 01/06/17 04:40 Urine Total Protein SEE NOTE mg/d (10-140) 12/27/16 14:15 Consult Discharge Plan - Plan Referrals: Dieter Herrera DO [Primary Care Provider] - 01/15/17 2:30 pm
[2017-01-06] MEDS: Furosemide 40 MG TABLET PO SCH ×2 (08:59→16:54)
[2017-01-06] MEDS: Vancomycin Oral Soln 250 MG/5 ML UDC PO SCH ×4 (09:00→21:31)
[2017-01-06] MEDS: *HR* OxyCODONE/APAP 5/325 TABLET PO PRN ×2 (09:04→17:00)
--- NOTE | 2017-01-06 14:36 | Internal Med Progress Note ---
Date of Encounter: 01/06/17 Time of Encounter: 14:34 - Assessment and plan (1) H/O mechanical aortic valve replacement Current Visit: No Status: Chronic Assessment and plan: on Coumadin INR is still sub therapeutic today @ 1.7 so will give more Coumadin today Bridging with Heparin cont close monitoring for Hb Pharmacy is following on Coumadin dose Dispo: Waiting on therapeutic INR to d/c him home.. Unable to bridge with Lovenox due to CKD-3. does need heparin gtt. He is still at moderate risk, for GI bleed and other comorbidities, so need close monitoring (2) C. difficile colitis Current Visit: Yes Status: Acute Assessment and plan: Improving slowly no more diarrhea cont PO Vanco (3) Acute blood loss anemia Current Visit: No Status: Acute Assessment and plan: Due to Lower GI bleed Improved s/p 7 U PRBC transfusion stable Hb from last few days cont close monitoring (4) Hemorrhagic shock Current Visit: Yes Status: Resolved Assessment and plan: resolved (5) Acute kidney injury superimposed on chronic kidney disease Current Visit: Yes Status: Acute Assessment and plan: Due to hemorrhagic shock improving slowly..today Cr 3.38.. this could be new baseline for him baseline might be @ 3.0 (6) History of mitral valve replacement with mechanical valve Current Visit: Yes Status: Chronic (7) CKD (chronic kidney disease) stage 4, GFR 15-29 ml/min Current Visit: Yes Status: Chronic (8) Secondary hyperparathyroidism (of renal origin) Current Visit: Yes Status: Chronic Assessment and plan: resumed home meds (9) Volume overload Current Visit: Yes Status: Acute Assessment and plan: No signs of HF His volume overload due to Excessive IV hydration improving cont PO Lasix Strict I & O Qualifiers: Qualified Code(s): E87.71 - Transfusion associated circulatory overload - Subjective Interval history: Mr. Driscoll is a 56 y/o M with known PMH of Mechanical mitral valve on Coumadin for anticoagulation, CKD-4, who recently had C. Diff infection admitted here on 12/27/2016 with severe bright red blood per rectum, developed hemorrhagic shock with Hb dropped down to 5.2 from 12.0 in 8 hrs. Pt was transferred to ICU initially and placed him on Vasopressors, also received 7 U PRBC and 4 U FFP. Now his Hb is stable @ 8.6. He was also placed on Vanco PO for C. Diff colitis. His diarrhea also improving. Pt was transferred to [facility]. Now he is alert, awake and O x 3. Denied any CP / SOB / Abd pain. Tolerating PO intake well.. Diarrhea improved. No more active bleeding. - Constitutional Vitals: Temp Pulse Resp BP Pulse Ox 97.8 F 78 16 104/67 92 01/06/17 11:45 01/06/17 11:45 01/06/17 11:45 01/06/17 11:45 01/06/17 11:45 General appearance: Present: A&O X 3, no acute distress, answers questions appropriately - Head Head exam: Present: atraumatic, normal inspection - Neck Neck exam general surgery: Present: supple. Absent: lymphadenopathy - Respiratory Respiratory exam: Present: decreased breath sounds. Absent: rales, respiratory distress, rhonchi, wheezes - Cardiovascular Cardiovascular exam: Present: RRR, +S1, +S2. Absent: systolic murmur - GI/Abdominal GI/Abdominal exam: Present: normal bowel sounds, soft. Absent: rebound, rigid, tenderness - Extremities Exam Extremities exam: Present: pedal edema (improving edema). Absent: calf tenderness, tenderness - Back Exam Back exam: Absent: CVA tenderness (L), CVA tenderness (R) - Neurological Exam Neurological exam: Present: alert, oriented X3 - Psychiatric Psychiatric exam: Present: normal affect, normal mood Internal Medicine: Result - Labs CBC & Chem 7: 01/05/17 03:30 01/06/17 04:40 Labs: BMP 01/06/17 04:40 Sodium 140 Potassium 4.2 Chloride 108 Carbon Dioxide 22 BUN 30 H Creatinine 3.38 H Glucose 84 Calcium 8.1 L - ABG Interpretation ABG results: PT/INR, D-dimer PT 18.9 Seconds (9.4-12.1) H 01/06/17 04:40 D-Dimer 864 ng/mLFEU (0-500) H 12/29/16 08:10 Consult Discharge Plan - Plan Referrals: Dieter Herrera DO [Primary Care Provider] - 01/15/17 2:30 pm
[2017-01-06] MEDS ORDERED: *HR* Warfarin 5 MG TABLET PO ONE (18:00)
[2017-01-07 05:40] LABS: Basophils % 0.6 %; Eosinophils # 0.1 K/mcL (0.0-0.6); Eosinophils % 2.2 %; Hematocrit 30.2 % (37.5-50.1); Hemoglobin 9.7 g/dL (12.9-16.9); Immature Granulocytes % 0.3 % (0-4); Lymphocytes # 1.2 K/mcL (0.6-4.6); Lymphocytes % 38.1 %; Mean Corpuscular HGB Conc 32.1 g/dL (31.6-35.5); Mean Corpuscular Hemoglobin 28.8 pg (28.0-33.3); Mean Corpuscular Volume 89.6 fL (83.0-100.0); Mean Platelet Volume 12.2 fL (9.4-12.4); Monocytes # 0.3 K/mcL (0.0-1.3); Monocytes % 8.8 %; Neutrophils # 1.6 K/mcL (1.6-8.9); Platelet Count 147 K/mcL (140-400); Red Blood Count 3.37 M/mcL (4.19-5.50); Red Cell Distribution Width 17.6 % (11.5-14.5)
[2017-01-07 06:07] LABS: Prothrombin Time 21.3 Seconds (9.4-12.1)
[2017-01-07 06:08] LABS: Calcium 8.2 mg/dL (8.6-10.8); Magnesium 1.3 mg/dL (1.6-2.6); Potassium 4.1 mEq/L (3.5-4.5)
[2017-01-07 07:41] VITALS: BP 113/76
[2017-01-07] MEDS: *HR* OxyCODONE/APAP 5/325 TABLET PO PRN (08:51)
[2017-01-07] MEDS: Furosemide 40 MG TABLET PO SCH (08:51)
[2017-01-07] MEDS: Vancomycin Oral Soln 250 MG/5 ML UDC PO SCH (08:52)
--- NOTE | 2017-01-07 09:22 | Discharge Summary ---
Date of Encounter: 01/07/17 Time of Encounter: 09:15 - Discharge Diagnosis (1) H/O mechanical aortic valve replacement Priority: Primary Status: Chronic (2) C. difficile colitis Priority: Primary Status: Acute (3) Acute blood loss anemia Priority: Primary Status: Acute (4) Hemorrhagic shock Priority: Primary Status: Resolved (5) Acute kidney injury superimposed on chronic kidney disease Priority: Secondary Status: Acute (6) History of mitral valve replacement with mechanical valve Priority: Secondary Status: Chronic (7) CKD (chronic kidney disease) stage 4, GFR 15-29 ml/min Priority: Secondary Status: Chronic (8) Secondary hyperparathyroidism (of renal origin) Priority: Secondary Status: Chronic (9) Volume overload Priority: Secondary Status: Acute Qualifiers: Qualified Code(s): E87.71 - Transfusion associated circulatory overload - Discharge Medications Prescriptions: Ergocalciferol (VITAMIN D2) [Drisdol (50,000 Unit)] 50,000 unit PO Sa@0900 #4 capsule Furosemide [Lasix] 40 mg PO BIDDIURETIC #60 tablet Saccharomyces Boulardii [Florastor] 250 mg PO BID #14 capsule Vancomycin Oral Soln [Vancocin] 250 mg PO QID 2 Days udc Warfarin [Coumadin] 5 mg PO 1800 #10 tablet Home Medications: Ferrous Sulfate 325 mg PO QAM 07/20/16 [History] Sodium Bicarbonate 650 mg PO BID 07/20/16 [History] Oxycodone HCl/Acetaminophen [Percocet 5-325 mg Tablet] 1 tab PO BID PRN [History] Allopurinol [Zyloprim 100 MG] 200 mg PO DAILY 12/26/16 [History] Ergocalciferol (VITAMIN D2) [Drisdol (50,000 Unit)] 50,000 unit PO Sa@0900 #4 capsule 01/07/17 [Rx] Furosemide [Lasix] 40 mg PO BIDDIURETIC #60 tablet 01/07/17 [Rx] Saccharomyces Boulardii [Florastor] 250 mg PO BID #14 capsule 01/07/17 [Rx] Vancomycin Oral Soln [Vancocin] 250 mg PO QID 2 Days udc 01/07/17 [Rx] Warfarin [Coumadin] 5 mg PO 1800 #10 tablet 01/07/17 [Rx] Allergies/Adverse Reactions: 3 Allergy/AdvReac Type Severity Reaction Status Date / Time aspirin AdvReac See Verified 11/28/16 17:29 Comments Procedures/tests Complete & Pending: Procedures Performed prior 72 hours Category Date Time Status ECG 12 lead ECG [ECG] Routine Y 01/05/17 04:09 Completed Date of admission: 12/26/16 18:16 Primary care physician: Dieter Herrera Consults: 12/26/16 20:47 Consult to Nutrition [CONS] Routine Comment: Consulting Provider: NUTRITION Reason for Dietary Consult: Diet Education 12/26/16 23:24 Consult to Pulmonology [CONS] Routine Consulting Provider: [facility] Kathy Reason for Consult: Hypotension secondary to acute lower GI bleed Call Completed: No 12/27/16 11:34 Consult to Cardiology [CONS] Routine Comment: Consulting Provider: Cardiology Kathy Reason for Consult: Mechanical mitral valve with severe GI bleed Call Completed: Yes Consult to Nephrology [CONS] Routine Consulting Provider: [facility]/CARLOZ/CHERYL/ANTHONY Reason for Consult: GI bleed, CKD, poor UOP Call Completed: Yes 12/29/16 10:39 Consult to Sales Service Coordinator [CONS] Routine Reason for SW Consult: Will likely need home health for medication help 01/01/17 10:53 Consult to Oncology [CONS] Routine Consulting Provider: [facility] Reason for Consult: Hx of Mechanical Heart Valve, with labile PTT on standard anticoagulation Time Notified: 11:00 Call Completed: Yes 01/04/17 10:59 Consult to Occupational Therapy [CONS] Routine Comment: Evaluate, develop and implement POC Reason for Consult: discharge planning Consult to Physical Therapy [CONS] Routine Comment: Evaluate, develop and implement POC Reason for Consult: discharge planning - Patient Status Disposition: Home, Self-Care Condition: Good Overall status at discharge: patient is back to baseline - Discharge Instructions Follow Up With: Dieter Herrera DO [Primary Care Provider] - 01/15/17 2:30 pm Additional Instructions: Please go to Dr. Herrera'natan tomorrow for PT / INR check Also follow up with Dr. Rene in 2-3 days - Diet and Activity Activity: increase activity as tolerated Diet: low salt diet Hospital course: Mr. Driscoll is a 56 y/o M with known PMH of Mechanical mitral valve on Coumadin for anticoagulation, CKD-4, who recently had C. Diff infection admitted here on 12/27/2016 with severe bright red blood per rectum, developed hemorrhagic shock with Hb dropped down to 5.2 from 12.0 in 8 hrs. Pt was transferred to ICU initially and placed him on Vasopressors, also received 7 U PRBC and 4 U FFP. His Stool C. Diff came back as positive and his CT of abd showed sigmoid diverticulitis mostly due to C. Diff. He was placed on Vanco enemas and PO Vanco initially. His diarrhea and GI bleed resolved. he happened to have supra therpautiec INR initially, so had give 4 U FFP and held Coumadin. Since lats few days his GI bleed improved and his Hb stayed stable aroung 9.7, so resumed his Coumadin to bridge with Heparin gtt. His INR today at 2.0, so recommend to continue Coumadin at 5mg daily and go for daily PT / INR to f/u with PCP for further dosing. Spoke to PCP and updated him about current care. For his C. Diff collitis, recommend him to continue Vanco PO for another 2 days. He also happened to have volume overload and RITA with CKD-4. He was started on diuresis few days ago, his b/l le edema started improving and his Cr stayed stable around 3.4, which might be his new baseline. Pt does aware of this and recommend to f/u with his regular Department Supervisor Dr. Stephenson from [place]. - Time Spent with Patient Total time spent providing and/or coordinating discharge services: Greater than 30 minutes (spent 40 minutes on this pt's discharge summary due to prolonged length of hosptal stay and have talk to PCP about his Coumadin) - Constitutional Vitals: Temp Pulse Resp BP Pulse Ox 98.2 F 86 16 113/76 98 01/07/17 07:36 01/07/17 07:36 01/07/17 07:36 01/07/17 07:36 01/07/17 07:36 General appearance: Present: A&O X 3, no acute distress, answers questions appropriately - Head Head exam: Present: atraumatic, normal inspection - Neck Neck exam general surgery: Present: supple - Respiratory Respiratory exam: Present: decreased breath sounds. Absent: rales, respiratory distress, rhonchi, wheezes - Cardiovascular Cardiovascular exam: Present: +S1, +S2, systolic murmur. Absent: tachycardia - GI/Abdominal GI/Abdominal exam: Present: distended, normal bowel sounds, soft. Absent: rebound, rigid, tenderness - Extremities Exam Extremities exam: Present: pedal edema (improving..still has 1-2 +). Absent: calf tenderness, tenderness - Back Exam Back exam: Absent: CVA tenderness (L), CVA tenderness (R)
== END 2017-01-07 11:07 | disposition home or self-care (01) | DRG 248 ==
LOC: EMEROO 15:09 → ICNU 18:16 → SUATTDRO 18:16 → ICNU 19:37 → 2ANU 01-02 18:27
PROVIDERS: ADMIT Family Medicine; ATTEND Family Medicine

== ENCOUNTER 2017-09-13 22:25 | Inpatient (IN) ==
--- NOTE | 2017-09-13 22:58 | Emergency Department Note ---
Disposition Clinical Impression: Elevated troponin, Generalized weakness Hypotension Qualifiers: Hypotension type: unspecified hypotension type Qualified Code(s): I95.9 - Hypotension, unspecified Disposition: Admitted As Inpatient Condition: Fair General Adult HPI - General Chief complaint: ED Weakness Stated complaint: weakness Time Seen by Provider: 09/13/17 22:49 Source: family Mode of arrival: private vehicle Limitations: no limitations Nursing Notes Reviewed: Yes Vital Signs Reviewed: Yes - History of Present Illness HPI Narrative: 57-year-old male with a history of polycystic kidney disease which is leading to end-stage renal , open-heart surgeries, disease gout, "intestinal twist surgery", a mechanical aortic valve, diastolic CHF who is on renal dialysis on Sunday, Sunday, Sunday to also takes Coumadin presents to the emergency department with his family for generalized weakness, intermittent confusion, a temperature since 2 AM yesterday morning that peaked at 101.8, 2 episodes of vomiting, and hallucinating. patient has been admitted frequently within the last 6 months for hemorrhaging of kidneys, fistula rupturing, grafts. Patient has been seen at [facility]. Patient has a permacath into his right chest as placed a couple months ago at [facility] for hemodialysis, patient had a fistula that went bad about a month ago, he had a graft on last Sunday up at [place]. patient denies feeling ill, he denies fevers, he denies shortness of breath, chest pain, abdominal pain, diarrhea. Patient also denies missing any dialysis sessions or noncompliance with medications. He does state that he has been more tired. Family states that he has not complained of chest pain at all. She has been noted to touch his stomach and moan. Family states the patient has had intermittent confusion, he is weak bilaterally, they have not noticed any change in speech other than the confusion, they have not noticed any facial droop. Onset (ago): hour(s) Consistency: constant, Worsening Associated symptoms: Reports: confusion, fever/chills, nausea/vomiting. Denies : chest pain, cough, diaphoresis, headaches, loss of appetite, malaise, rash, seizure, shortness of breath, syncope, weakness Treatments Prior to Arrival: none - Related Data Home Medications Medication Instructions Recorded Confirmed Ferrous Sulfate 325 mg PO QAM 07/20/16 12/26/16 Sodium Bicarbonate 650 mg PO BID 07/20/16 12/26/16 Oxycodone HCl/Acetaminophen 1 tab PO BID PRN 10/07/16 12/26/16 [Percocet 5-325 mg Tablet] Allopurinol [Zyloprim 100 MG] 200 mg PO DAILY 12/26/16 12/26/16 Previous Rx's Medication Instructions Recorded Ergocalciferol (VITAMIN D2) 50,000 unit PO Sa@0900 #4 capsule 01/07/17 [Drisdol (50,000 Unit)] Furosemide [Lasix] 40 mg PO BIDDIURETIC #60 tablet 01/07/17 Saccharomyces Boulardii [Florastor] 250 mg PO BID #14 capsule 01/07/17 Vancomycin Oral Soln [Firvanq] 250 mg PO QID 2 Days udc 01/07/17 Warfarin [Coumadin] 5 mg PO 1800 #10 tablet 01/07/17 Colchicine [Colcrys] 0.6 mg PO DAILY #30 tablet 02/15/17 MethylPREDNISolone 4 mg PO DAILY #21 tab 02/15/17 [MethylPREDNISolone Dose Pack] Pregabalin [Lyrica] 150 mg PO DAILY #14 capsule 02/15/17 Allergies Allergy/AdvReac Type Severity Reaction Status Date / Time No Known Allergies Allergy Verified 09/14/17 07:16 All systems ED: reviewed and negative except as stated. Review of Systems: As Per HPI Past Medical History - Past Medical History Attestation: Yes The following information was validated with the patient. Source: patient Medical history: Reports: CHF, coronary artery disease, renal disease, other Surgical history: Reports: heart valve replacement, other (Nephrectomy, Exploration with bowel resection (2 months ago-[facility]), Aortic and mitral valve replacement) Psychiatric history: Reports: no psych history - Social History Smoking Status: Former smoker Smokeless Tobacco Status: Yes Alcohol use: Reports: none Drug use: Reports: none Physical Exam - General Limitations: no limitations General appearance: alert, in no apparent distress - Head Head exam: atraumatic, normocephalic, normal inspection - Eye Eye exam: Present: normal appearance, PERRL, EOMI - ENT ENT exam: mucous membranes dry - Neck Neck exam: Present: normal inspection, full ROM, trachea midline - Chest Chest inspection: Present: normal inspection, symmetric chest wall rise - Respiratory Respiratory exam: Present: normal lung sounds bilaterally - Cardiovascular Cardiovascular exam: Present: regular rate, normal rhythm, normal heart sounds, clicks - Abdominal Exam Abdominal exam: Present: soft, Non-Tender, normal bowel sounds. Absent: tenderness, distention, guarding, rebound, rigidity - Extremities Exam Extremities exam: Present: normal inspection, full ROM, normal capillary refill - Expanded Lower Extremity Exam Neurovascular/Tendon exam: Present: normal capillary refill. Absent: pulse deficit Gait: observed and normal - Back Exam Back exam: Present: normal inspection, full ROM. Absent: tenderness - Neurological Exam Neurological exam: Present: alert, oriented X3 - Expanded Neurological Exam Patient oriented to: Present: person, place, time Speech: Present: fluid speech Cranial nerves: EOM function (II, III, IV, ): Normal, facial sensation (V): Normal, facial palsy (VII): Normal, spinal accessory function (XI): Normal, tongue deviation (XII): Normal Cerebellar function: heel to phillips: Normal Motor strength - LUE: 4/5 Motor strength - RUE: 4/5 Motor strength - LLE: 4/5 Motor strength - RLE: 4/5 - Psychiatric Psychiatric exam: Present: normal affect, normal mood - Skin Skin exam: Present: warm, dry, intact, normal color Course Course Narrative: Lethargic appearing male who appears in mild amount of distress. Patient appears to be working hard, he is not tachypneic though he is breathing very shallow. He is alert and oriented to person and place but not time. He answers questions appropriately but then he seems to be disoriented. He is neurologically intact, he does follow commands. Patient is noted with generalized weakness but it is equal. Lungs are clear to auscultate, heart rate regular rhythm noted with a mechanical aortic valve clicks. No notable edema, capillary refill is brisk. Patient does have a permacath to his right chest discomfort with dry gauze, it does have slightly circumferential edema, no drainage; he has dry dressings to his left antecubital, there are stitches cane and she will area for the graft, no erythema or drainage. Abdomen with normal bowel sounds, nontender with palpation. He is noted with open-heart scars as well as abdominal surgery scars. Patient blood pressure upon arrival 70/45, immediate initiation of sepsis protocol, we will obtain labs, CT head for altered mental status, CT abdomen due to the vomiting and history of bleeding, we will attempt to get a UA, patient states he has not urinated in a while. EKG reveals right bundle branch block at 101 bpm, his EKG is without any sign of ST elevation or depression, unchanged from previous. - Reevaluation(s) Reevaluation #1: Patient has been resting comfortably, his blood pressure is rebounding into the 100 systolic, he appears more alert, color is more vibrant. Labs have returned without leukocytosis, anemia of chronic disease that is at baseline. DVT shows alkalosis with a pH is 7.51, PCO2 29, PO2 142, metabolic panel shows a sodium of 133, potassium normal at 4.9, creatinine 8.16 with a GFR 7 which is his baseline. Lactic acid 0.9. BNP 1262 His troponin was elevated at 4.06, his EKG is unremarkable, he is not had any complaints of chest pain and abdominal pain, his telemetry is unchanged; troponin is most likely related to demand ischemia related to the end-stage renal disease, heart failure, hypotension, and illness. Patient had a chest x-ray which was negative, head CT which was negative, his abdomen and pelvis CT shows no acute abnormalities, there is no sign of any bleeding. He did show cholelithiasis. No concern for PE as patient is adequately anticoagulated on Coumadin, he is not hypoxic, he is active prior to yesterday. Patient with obvious illness due to the febrile state at home, lethargy, weakness. Pt has been afebrile here, no leukocytosis, lactic within normal limits, no overt signs of sepsis. Patient will need to be admitted to the hospital for further management and treatment. Patient has been seen by attending Dr. Temple who agrees with plan of care and has had one-on-one face time with patient. Time: 02:12 Reevaluation #2: Spoke with hospitalist, they are agreeable to admit patient. Patient noted to be hypotensive to systolic of 87, we will give another 500 mL bolus has responded nicely to this one previously. He continues to be afebrile, he is perfusing well. Speak with hospitalist he would like another troponin drawn to recheck follow today. She continues to deny chest pain or any cardiac symptoms. Family remains at bedside. Time: 02:38 Reevaluation #3: Patient responded well to fluid bolus, IV access was lost and pressure started to trend downward with systolics in the 80s while attempting to gain another line, IV access obtain and IV fluids restarted with another bolus. Patient is resting quietly in bed, he awakens easily. Blood pressure 88/62 with IV bolus and vancomycin running. Recheck of blood pressure with fluids instilled the reading of 90/63. Troponin trending downward with repeat level been 3.91. Since 0200 as pressure has become again hypotensive MAP has been between 70-75, patient non-tachycardic, non-hypoxemic, afebrile. Time: 04:52 Vital Signs Temperature 98.7 F 09/13/17 22:26 Pulse Rate 102 09/13/17 22:26 Respiratory Rate 20 09/13/17 22:26 Blood Pressure 70/45 09/13/17 22:26 O2 Sat by Pulse Oximetry 96 09/13/17 22:26 Temperature 98.5 F 09/14/17 03:36 Pulse Rate 80 09/14/17 08:50 Respiratory Rate 18 09/14/17 08:50 Blood Pressure 91/60 09/14/17 08:50 O2 Sat by Pulse Oximetry 99 09/14/17 08:50 Oxygen Delivery Oxygen Delivery Nasal Cannula Medical Decision Making - Medical Records Medical records reviewed: Yes I reviewed the patient's medical records. - Lab Data Lab results reviewed: Yes I reviewed the patient's lab results. Result diagrams: 09/14/17 08:41 09/14/17 08:41 Lab Results 09/13/17 09/13/17 09/13/17 Range/Units 23:14 23:15 23:15 WBC 4.3 (4.3-11.1) K/mcL RBC 3.45 L (4.19-5.50) M/mcL Hgb 10.9 L (12.9-16.9) g/dL Hct 32.0 L (37.5-50.1) % MCV 92.8 (83.0-100.0) fL MCH 31.6 (28.0-33.3) pg MCHC 34.1 (31.6-35.5) g/dL RDW 15.1 H (11.5-14.5) % Plt Count 95 L (140-400) K/mcL MPV 12.5 H (9.4-12.4) fL Immature Gran % 0.7 (0-4) % Seg Neutrophils % 77.2 % Lymphocytes % 10.6 % Monocytes % 11.1 % Eosinophils % 0.2 % Basophils % 0.2 % Neutrophils # 3.3 (1.6-8.9) K/mcL Lymphocytes # 0.5 L (0.6-4.6) K/mcL Monocytes # 0.5 (0.0-1.3) K/mcL Eosinophils # 0.0 (0.0-0.6) K/mcL Basophils # 0.0 (0.0-0.2) K/mcL Immature Plt Fraction 5.9 (1.1-6.1) % PT 32.6 H (9.4-12.1) Seconds INR 2.9 APTT 40.8 H (26.0-36.0) Seconds VBG pH (7.32-7.42) pH Units VBG pCO2 (41-51) mmHg VBG pO2 (25-50) mmHg VBG HCO3 (21-27) mEq/L Sodium (136-145) mEq/L Potassium (3.5-5.1) mEq/L Chloride (98-107) mEq/L Carbon Dioxide (23-29) mEq/L BUN (6-20) mg/dL Creatinine (0.70-1.30) mg/dL Est GFR ( Amer) (> 60) Est GFR (Non-Af Amer) (> 60) BUN/Creatinine Ratio (6-26) Glucose (70-105) mg/dL Calculated Osmolality (280-300) Lactic Acid 0.9 (0.5-2.2) mmol/L Calcium (8.6-10.3) mg/dL Phosphorus (2.7-4.5) mg/dL Magnesium (1.6-2.6) mg/dL Total Bilirubin (0.3-1.0) mg/dL Direct Bilirubin (0.0-0.2) mg/dL Indirect Bilirubin (0.0-1.2) mg/dL AST (13-39) Units/L ALT (7-52) Units/L Alkaline Phosphatase (34-104) Units/L Troponin I (< 0.04) ng/mL B-Natriuretic Peptide (Less than 100) pg/mL Serum Total Protein (6.4-8.9) g/dL Albumin (3.5-5.7) g/dL Globulin (2.4-3.5) g/dL Albumin/Globulin Ratio (1.1-2.2) Lipase (11-82) Units/L Blood Type Antibody Screen 09/13/17 09/13/17 09/13/17 Range/Units 23:15 23:15 23:15 WBC (4.3-11.1) K/mcL RBC (4.19-5.50) M/mcL Hgb (12.9-16.9) g/dL Hct (37.5-50.1) % MCV (83.0-100.0) fL MCH (28.0-33.3) pg MCHC (31.6-35.5) g/dL RDW (11.5-14.5) % Plt Count (140-400) K/mcL MPV (9.4-12.4) fL Immature Gran % (0-4) % Seg Neutrophils % % Lymphocytes % % Monocytes % % Eosinophils % % Basophils % % Neutrophils # (1.6-8.9) K/mcL Lymphocytes # (0.6-4.6) K/mcL Monocytes # (0.0-1.3) K/mcL Eosinophils # (0.0-0.6) K/mcL Basophils # (0.0-0.2) K/mcL Immature Plt Fraction (1.1-6.1) % PT (9.4-12.1) Seconds INR APTT (26.0-36.0) Seconds VBG pH (7.32-7.42) pH Units VBG pCO2 (41-51) mmHg VBG pO2 (25-50) mmHg VBG HCO3 (21-27) mEq/L Sodium 133 L (136-145) mEq/L Potassium 4.9 (3.5-5.1) mEq/L Chloride 94 L (98-107) mEq/L Carbon Dioxide 24 (23-29) mEq/L BUN 68 H (6-20) mg/dL Creatinine 8.16 H (0.70-1.30) mg/dL Est GFR ( Amer) 8 L (> 60) Est GFR (Non-Af Amer) 7 L (> 60) BUN/Creatinine Ratio 8 (6-26) Glucose 108 H (70-105) mg/dL Calculated Osmolality 296 (280-300) Lactic Acid (0.5-2.2) mmol/L Calcium 9.1 (8.6-10.3) mg/dL Phosphorus 4.4 (2.7-4.5) mg/dL Magnesium 1.9 (1.6-2.6) mg/dL Total Bilirubin 0.4 (0.3-1.0) mg/dL Direct Bilirubin 0.1 (0.0-0.2) mg/dL Indirect Bilirubin 0.3 (0.0-1.2) mg/dL AST 23 (13-39) Units/L ALT 8 (7-52) Units/L Alkaline Phosphatase 67 (34-104) Units/L Troponin I 4.06 H* (< 0.04) ng/mL B-Natriuretic Peptide 1262 H (Less than 100) pg/mL Serum Total Protein 7.2 (6.4-8.9) g/dL Albumin 3.5 (3.5-5.7) g/dL Globulin 3.7 H (2.4-3.5) g/dL Albumin/Globulin Ratio 0.9 L (1.1-2.2) Lipase 35 (11-82) Units/L Blood Type O POSITIVE Antibody Screen NEGATIVE 09/13/17 Range/Units 23:36 WBC (4.3-11.1) K/mcL RBC (4.19-5.50) M/mcL Hgb (12.9-16.9) g/dL Hct (37.5-50.1) % MCV (83.0-100.0) fL MCH (28.0-33.3) pg MCHC (31.6-35.5) g/dL RDW (11.5-14.5) % Plt Count (140-400) K/mcL MPV (9.4-12.4) fL Immature Gran % (0-4) % Seg Neutrophils % % Lymphocytes % % Monocytes % % Eosinophils % % Basophils % % Neutrophils # (1.6-8.9) K/mcL Lymphocytes # (0.6-4.6) K/mcL Monocytes # (0.0-1.3) K/mcL Eosinophils # (0.0-0.6) K/mcL Basophils # (0.0-0.2) K/mcL Immature Plt Fraction (1.1-6.1) % PT (9.4-12.1) Seconds INR APTT (26.0-36.0) Seconds VBG pH 7.51 H (7.32-7.42) pH Units VBG pCO2 29 L (41-51) mmHg VBG pO2 142 H (25-50) mmHg VBG HCO3 24 (21-27) mEq/L Sodium (136-145) mEq/L Potassium (3.5-5.1) mEq/L Chloride (98-107) mEq/L Carbon Dioxide (23-29) mEq/L BUN (6-20) mg/dL Creatinine (0.70-1.30) mg/dL Est GFR ( Amer) (> 60) Est GFR (Non-Af Amer) (> 60) BUN/Creatinine Ratio (6-26) Glucose (70-105) mg/dL Calculated Osmolality (280-300) Lactic Acid (0.5-2.2) mmol/L Calcium (8.6-10.3) mg/dL Phosphorus (2.7-4.5) mg/dL Magnesium (1.6-2.6) mg/dL Total Bilirubin (0.3-1.0) mg/dL Direct Bilirubin (0.0-0.2) mg/dL Indirect Bilirubin (0.0-1.2) mg/dL AST (13-39) Units/L ALT (7-52) Units/L Alkaline Phosphatase (34-104) Units/L Troponin I (< 0.04) ng/mL B-Natriuretic Peptide (Less than 100) pg/mL Serum Total Protein (6.4-8.9) g/dL Albumin (3.5-5.7) g/dL Globulin (2.4-3.5) g/dL Albumin/Globulin Ratio (1.1-2.2) Lipase (11-82) Units/L Blood Type Antibody Screen - Radiology Data Radiology results reviewed: Yes I reviewed the patient's radiology results. Chest X-Ray 09/13/17 22:54 IMPRESSION: No acute abnormality detected. D/ / Dieter Santana MD / Dieter Santana MD Interpreting Provider: Dieter Santana MD Abdomen/Pelvis CT 09/14/17 22:53 IMPRESSION: The previous noted large retroperitoneal hemorrhages nearly completely resolved with minimal residual medial to the left kidney. There is no evidence of recurrent hemorrhage. Unchanged bilateral adrenal myelolipomas. Cholelithiasis. Polycystic kidney disease. Many of the cysts are hyperdense. D/ / Jasmeet Hanks MD / Jasmeet Hanks MD Interpreting Provider: Jasmeet Hanks MD Head CT 09/14/17 22:53 IMPRESSION: No acute intracranial abnormality. D/ / Jasmeet Hanks MD / Jasmeet Hanks MD Interpreting Provider: Jasmeet Hanks MD - EKG Data EKG #1 EKG attestation: Yes I reviewed and interpreted this EKG. S.B.AToan. - S.B.A.R. Situation: Demographics, MOA Background: Presenting Complaint, Relevant PMH, Meds, & Allergies Assessment: Vital Signs, Course and respsone to treatment, Exam Concerns, Patient/Family Expectation, Pertinant Lab Results, Outstanding Labs Recommendation: Barrier(s) to disposition, Recommendation based on pending studies, treatments, or consults S.B.A.R. Report Given to: Josselin Ordonez CNP S.B.AVy Repor Time: 06:22
[2017-09-13 23:28] LABS: Hemoglobin 10.9 g/dL (12.9-16.9)
[2017-09-13] MEDS: 0.9 % Sodium Chloride 500 ML IVC ONE ×2 (23:28→23:53)
[2017-09-13 23:30] LABS: Basophils % 0.2 %; Eosinophils % 0.2 %; Immature Granulocytes % 0.7 % (0-4); Immature Platelets 5.9 % (1.1-6.1); Lymphocytes # 0.5 K/mcL (0.6-4.6); Lymphocytes % 10.6 %; Mean Corpuscular HGB Conc 34.1 g/dL (31.6-35.5); Mean Corpuscular Hemoglobin 31.6 pg (28.0-33.3); Mean Corpuscular Volume 92.8 fL (83.0-100.0); Mean Platelet Volume 12.5 fL (9.4-12.4); Monocytes # 0.5 K/mcL (0.0-1.3); Monocytes % 11.1 %; Neutrophils # 3.3 K/mcL (1.6-8.9); Red Blood Count 3.45 M/mcL (4.19-5.50); Red Cell Distribution Width 15.1 % (11.5-14.5); Segmented Neutrophils % 77.2 %
[2017-09-13 23:35] LABS: INR 2.9; Prothrombin Time 32.6 Seconds (9.4-12.1)
[2017-09-13 23:38] LABS: Activated Partial Thrombo Time 40.8 Seconds (26.0-36.0)
[2017-09-13 23:41] LABS: VBG HCO3 24 mEq/L (21-27); VBG PCO2 29 mmHg (41-51); VBG PH 7.51 pH Units (7.32-7.42); VBG PO2 142 mmHg (25-50)
[2017-09-13 23:49] LABS: Albumin 3.5 g/dL (3.5-5.7); Albumin/Globulin Ratio 0.9 (1.1-2.2); Bilirubin,Direct 0.1 mg/dL (0.0-0.2); Bilirubin,Indirect 0.3 mg/dL (0.0-1.2); Bilirubin,Total 0.4 mg/dL (0.3-1.0); Calcium 9.1 mg/dL (8.6-10.3); Globulin 3.7 g/dL (2.4-3.5); Magnesium 1.9 mg/dL (1.6-2.6); Phosphorous 4.4 mg/dL (2.7-4.5); Potassium 4.9 mEq/L (3.5-5.1); Total Protein 7.2 g/dL (6.4-8.9)
[2017-09-13 23:53] LABS: Platelet Count 95 K/mcL (140-400)
[2017-09-13 23:54] LABS: Troponin I 4.06 ng/mL (< 0.04)
--- NOTE | 2017-09-14 01:23 | Emergency Department Note ---
Disposition Clinical Impression: Elevated troponin Hypotension Qualifiers: Hypotension type: unspecified hypotension type Qualified Code(s): I95.9 - Hypotension, unspecified Disposition: Admitted As Inpatient General Adult [facility] - General Chief complaint: ED Weakness Stated complaint: weakness Time Seen by Provider: 09/13/17 22:49 Source: family - History of Present Illness Pain Scale: 0 - Related Data Home Medications Medication Instructions Recorded Confirmed Ferrous Sulfate 325 mg PO QAM 07/20/16 12/26/16 Sodium Bicarbonate 650 mg PO BID 07/20/16 12/26/16 Oxycodone HCl/Acetaminophen 1 tab PO BID PRN 10/07/16 12/26/16 [Percocet 5-325 mg Tablet] Allopurinol [Zyloprim 100 MG] 200 mg PO DAILY 12/26/16 12/26/16 Previous Rx's Medication Instructions Recorded Ergocalciferol (VITAMIN D2) 50,000 unit PO Sa@0900 #4 capsule 01/07/17 [Drisdol (50,000 Unit)] Furosemide [Lasix] 40 mg PO BIDDIURETIC #60 tablet 01/07/17 Saccharomyces Boulardii [Florastor] 250 mg PO BID #14 capsule 01/07/17 Vancomycin Oral Soln [Firvanq] 250 mg PO QID 2 Days udc 01/07/17 Warfarin [Coumadin] 5 mg PO 1800 #10 tablet 01/07/17 Colchicine [Colcrys] 0.6 mg PO DAILY #30 tablet 02/15/17 MethylPREDNISolone 4 mg PO DAILY #21 tab 02/15/17 [MethylPREDNISolone Dose Pack] Pregabalin [Lyrica] 150 mg PO DAILY #14 capsule 02/15/17 Allergies Allergy/AdvReac Type Severity Reaction Status Date / Time aspirin AdvReac See Verified 09/13/17 22:32 Comments Past Medical History - Past Medical History Medical history: Reports: CHF, coronary artery disease, renal disease, other Surgical history: Reports: heart valve replacement, other (Nephrectomy, Exploration with bowel resection (2 months ago-[place]), Aortic and mitral valve replacement) Psychiatric history: Reports: no psych history - Social History Smoking Status: Former smoker Smokeless Tobacco Status: Yes Alcohol use: Reports: none Drug use: Reports: none Course Vital Signs Temperature 98.7 F 09/13/17 22:26 Pulse Rate 102 09/13/17 22:26 Respiratory Rate 20 09/13/17 22:26 Blood Pressure 70/45 09/13/17 22:26 O2 Sat by Pulse Oximetry 96 09/13/17 22:26 Temperature 98.5 F 09/14/17 03:36 Pulse Rate 86 09/14/17 06:49 Respiratory Rate 18 09/14/17 06:49 Blood Pressure 87/55 09/14/17 06:49 O2 Sat by Pulse Oximetry 98 09/14/17 06:49 Oxygen Delivery Oxygen Delivery Nasal Cannula Medical Decision Making - Lab Data Result diagrams: 09/13/17 23:15 09/13/17 23:15 Lab Results 09/13/17 09/13/17 09/13/17 Range/Units 23:14 23:15 23:15 WBC 4.3 (4.3-11.1) K/mcL RBC 3.45 L (4.19-5.50) M/mcL Hgb 10.9 L (12.9-16.9) g/dL Hct 32.0 L (37.5-50.1) % MCV 92.8 (83.0-100.0) fL MCH 31.6 (28.0-33.3) pg MCHC 34.1 (31.6-35.5) g/dL RDW 15.1 H (11.5-14.5) % Plt Count 95 L (140-400) K/mcL MPV 12.5 H (9.4-12.4) fL Immature Gran % 0.7 (0-4) % Seg Neutrophils % 77.2 % Lymphocytes % 10.6 % Monocytes % 11.1 % Eosinophils % 0.2 % Basophils % 0.2 % Neutrophils # 3.3 (1.6-8.9) K/mcL Lymphocytes # 0.5 L (0.6-4.6) K/mcL Monocytes # 0.5 (0.0-1.3) K/mcL Eosinophils # 0.0 (0.0-0.6) K/mcL Basophils # 0.0 (0.0-0.2) K/mcL Immature Plt Fraction 5.9 (1.1-6.1) % PT 32.6 H (9.4-12.1) Seconds INR 2.9 APTT 40.8 H (26.0-36.0) Seconds VBG pH (7.32-7.42) pH Units VBG pCO2 (41-51) mmHg VBG pO2 (25-50) mmHg VBG HCO3 (21-27) mEq/L Sodium (136-145) mEq/L Potassium (3.5-5.1) mEq/L Chloride (98-107) mEq/L Carbon Dioxide (23-29) mEq/L BUN (6-20) mg/dL Creatinine (0.70-1.30) mg/dL Est GFR ( Amer) (> 60) Est GFR (Non-Af Amer) (> 60) BUN/Creatinine Ratio (6-26) Glucose (70-105) mg/dL Calculated Osmolality (280-300) Lactic Acid 0.9 (0.5-2.2) mmol/L Calcium (8.6-10.3) mg/dL Phosphorus (2.7-4.5) mg/dL Magnesium (1.6-2.6) mg/dL Total Bilirubin (0.3-1.0) mg/dL Direct Bilirubin (0.0-0.2) mg/dL Indirect Bilirubin (0.0-1.2) mg/dL AST (13-39) Units/L ALT (7-52) Units/L Alkaline Phosphatase (34-104) Units/L Troponin I (< 0.04) ng/mL B-Natriuretic Peptide (Less than 100) pg/mL Serum Total Protein (6.4-8.9) g/dL Albumin (3.5-5.7) g/dL Globulin (2.4-3.5) g/dL Albumin/Globulin Ratio (1.1-2.2) Lipase (11-82) Units/L Blood Type Antibody Screen 09/13/17 09/13/17 09/13/17 Range/Units 23:15 23:15 23:15 WBC (4.3-11.1) K/mcL RBC (4.19-5.50) M/mcL Hgb (12.9-16.9) g/dL Hct (37.5-50.1) % MCV (83.0-100.0) fL MCH (28.0-33.3) pg MCHC (31.6-35.5) g/dL RDW (11.5-14.5) % Plt Count (140-400) K/mcL MPV (9.4-12.4) fL Immature Gran % (0-4) % Seg Neutrophils % % Lymphocytes % % Monocytes % % Eosinophils % % Basophils % % Neutrophils # (1.6-8.9) K/mcL Lymphocytes # (0.6-4.6) K/mcL Monocytes # (0.0-1.3) K/mcL Eosinophils # (0.0-0.6) K/mcL Basophils # (0.0-0.2) K/mcL Immature Plt Fraction (1.1-6.1) % PT (9.4-12.1) Seconds INR APTT (26.0-36.0) Seconds VBG pH (7.32-7.42) pH Units VBG pCO2 (41-51) mmHg VBG pO2 (25-50) mmHg VBG HCO3 (21-27) mEq/L Sodium 133 L (136-145) mEq/L Potassium 4.9 (3.5-5.1) mEq/L Chloride 94 L (98-107) mEq/L Carbon Dioxide 24 (23-29) mEq/L BUN 68 H (6-20) mg/dL Creatinine 8.16 H (0.70-1.30) mg/dL Est GFR ( Amer) 8 L (> 60) Est GFR (Non-Af Amer) 7 L (> 60) BUN/Creatinine Ratio 8 (6-26) Glucose 108 H (70-105) mg/dL Calculated Osmolality 296 (280-300) Lactic Acid (0.5-2.2) mmol/L Calcium 9.1 (8.6-10.3) mg/dL Phosphorus 4.4 (2.7-4.5) mg/dL Magnesium 1.9 (1.6-2.6) mg/dL Total Bilirubin 0.4 (0.3-1.0) mg/dL Direct Bilirubin 0.1 (0.0-0.2) mg/dL Indirect Bilirubin 0.3 (0.0-1.2) mg/dL AST 23 (13-39) Units/L ALT 8 (7-52) Units/L Alkaline Phosphatase 67 (34-104) Units/L Troponin I 4.06 H* (< 0.04) ng/mL B-Natriuretic Peptide 1262 H (Less than 100) pg/mL Serum Total Protein 7.2 (6.4-8.9) g/dL Albumin 3.5 (3.5-5.7) g/dL Globulin 3.7 H (2.4-3.5) g/dL Albumin/Globulin Ratio 0.9 L (1.1-2.2) Lipase 35 (11-82) Units/L Blood Type O POSITIVE Antibody Screen NEGATIVE 09/13/17 Range/Units 23:36 WBC (4.3-11.1) K/mcL RBC (4.19-5.50) M/mcL Hgb (12.9-16.9) g/dL Hct (37.5-50.1) % MCV (83.0-100.0) fL MCH (28.0-33.3) pg MCHC (31.6-35.5) g/dL RDW (11.5-14.5) % Plt Count (140-400) K/mcL MPV (9.4-12.4) fL Immature Gran % (0-4) % Seg Neutrophils % % Lymphocytes % % Monocytes % % Eosinophils % % Basophils % % Neutrophils # (1.6-8.9) K/mcL Lymphocytes # (0.6-4.6) K/mcL Monocytes # (0.0-1.3) K/mcL Eosinophils # (0.0-0.6) K/mcL Basophils # (0.0-0.2) K/mcL Immature Plt Fraction (1.1-6.1) % PT (9.4-12.1) Seconds INR APTT (26.0-36.0) Seconds VBG pH 7.51 H (7.32-7.42) pH Units VBG pCO2 29 L (41-51) mmHg VBG pO2 142 H (25-50) mmHg VBG HCO3 24 (21-27) mEq/L Sodium (136-145) mEq/L Potassium (3.5-5.1) mEq/L Chloride (98-107) mEq/L Carbon Dioxide (23-29) mEq/L BUN (6-20) mg/dL Creatinine (0.70-1.30) mg/dL Est GFR ( Amer) (> 60) Est GFR (Non-Af Amer) (> 60) BUN/Creatinine Ratio (6-26) Glucose (70-105) mg/dL Calculated Osmolality (280-300) Lactic Acid (0.5-2.2) mmol/L Calcium (8.6-10.3) mg/dL Phosphorus (2.7-4.5) mg/dL Magnesium (1.6-2.6) mg/dL Total Bilirubin (0.3-1.0) mg/dL Direct Bilirubin (0.0-0.2) mg/dL Indirect Bilirubin (0.0-1.2) mg/dL AST (13-39) Units/L ALT (7-52) Units/L Alkaline Phosphatase (34-104) Units/L Troponin I (< 0.04) ng/mL B-Natriuretic Peptide (Less than 100) pg/mL Serum Total Protein (6.4-8.9) g/dL Albumin (3.5-5.7) g/dL Globulin (2.4-3.5) g/dL Albumin/Globulin Ratio (1.1-2.2) Lipase (11-82) Units/L Blood Type Antibody Screen Attestation Statement - Attestation Attestation: I examined this patient and my medical decision-making was reviewed with the Resident Physician. I agree with the documented findings, disposition and treatment plan as described except to the extent set forth below. Patient presents to the ED with a chief complaint of low blood pressure. Confusion. Fever. Patient has had a fever home. He is a Sunday dialysis patient. On exam he is awake and alert and is not in any distress. Noted to be hypertensive with a systolic blood pressure in the 70s. Abdomen soft. Lungs are clear. Plan. The patient's workup was back with elevated troponin of 4. He is reevaluated and still denies any chest pain. His EKG is unchanged from his baseline. Blood pressure responded nicely to IV fluid bolus. We will admit. Patient again hypotensive. We will try another fluid bolus and reevaluate. No infectious source found. No fever no white count here. Blood pressure improved. 90 systolic. Patient admitted to [facility]
[2017-09-14] MEDS ORDERED: 0.9 % Sodium Chloride 500 ML IVC ONE ×2 (02:27→06:26)
[2017-09-14] MEDS ORDERED: 0.9 % Sodium Chloride 500 ML ONE ×2 (03:45→06:34)
[2017-09-14] MEDS ORDERED: Aspirin 325 MG TABLET PO ONE ×2 (06:51→07:15)
--- NOTE | 2017-09-14 08:27 | Emergency Department Note ---
Disposition Clinical Impression: Elevated troponin, Generalized weakness Hypotension Qualifiers: Hypotension type: unspecified hypotension type Qualified Code(s): I95.9 - Hypotension, unspecified Disposition: Admitted As Inpatient Condition: Fair Time of Disposition: 09:18 General Adult HPI - General Chief complaint: ED Weakness Stated complaint: weakness Time Seen by Provider: 09/13/17 22:49 Source: family Mode of arrival: private vehicle Limitations: no limitations - History of Present Illness Pain Scale: 0 Associated symptoms: Reports: confusion, fever/chills, nausea/vomiting. Denies : chest pain, cough, diaphoresis, headaches, loss of appetite, malaise, rash, seizure, shortness of breath, syncope, weakness Treatments Prior to Arrival: none - Related Data Home Medications Medication Instructions Recorded Confirmed Ferrous Sulfate 325 mg PO QAM 07/20/16 12/26/16 Sodium Bicarbonate 650 mg PO BID 07/20/16 12/26/16 Oxycodone HCl/Acetaminophen 1 tab PO BID PRN 10/07/16 12/26/16 [Percocet 5-325 mg Tablet] Allopurinol [Zyloprim 100 MG] 200 mg PO DAILY 12/26/16 12/26/16 Previous Rx's Medication Instructions Recorded Ergocalciferol (VITAMIN D2) 50,000 unit PO Sa@0900 #4 capsule 01/07/17 [Drisdol (50,000 Unit)] Furosemide [Lasix] 40 mg PO BIDDIURETIC #60 tablet 01/07/17 Saccharomyces Boulardii [Florastor] 250 mg PO BID #14 capsule 01/07/17 Vancomycin Oral Soln [Firvanq] 250 mg PO QID 2 Days udc 01/07/17 Warfarin [Coumadin] 5 mg PO 1800 #10 tablet 01/07/17 Colchicine [Colcrys] 0.6 mg PO DAILY #30 tablet 02/15/17 MethylPREDNISolone 4 mg PO DAILY #21 tab 02/15/17 [MethylPREDNISolone Dose Pack] Pregabalin [Lyrica] 150 mg PO DAILY #14 capsule 02/15/17 Allergies Allergy/AdvReac Type Severity Reaction Status Date / Time No Known Allergies Allergy Verified 09/14/17 07:16 Past Medical History - Past Medical History Medical history: Reports: CHF, coronary artery disease, renal disease, other Surgical history: Reports: heart valve replacement, other (Nephrectomy, Exploration with bowel resection (2 months ago-[place]), Aortic and mitral valve replacement) Psychiatric history: Reports: no psych history - Social History Smoking Status: Former smoker Smokeless Tobacco Status: Yes Alcohol use: Reports: none Drug use: Reports: none Physical Exam - General Limitations: no limitations General appearance: alert, in no apparent distress Course Course Narrative: 0600: I have assumed care of this patient from MAGDALENA Martinez due to mid-level shift change. Please see Michelle's documentation for care performed prior to my arrival. Briefly, this is a 57-year-old male with multiple comorbidities including end-stage renal disease (Sunday dialysis), congestive heart failure, mechanical aortic valve replacement, polycystic kidney disease no presented with complaints of generalized weakness, intermittent confusion, and fever up to a MAXIMUM TEMPERATURE of 101.8 degrees Fahrenheit as well as family reported hallucinations. Began approximately 2 AM the day before yesterday. The patient has had frequent hospitalizations within the last 6 months for problems such as a ruptured fistula, as well as a hemorrhaging left kidney. His fistula was removed and a permacath was placed in the right chest approximately 2 months ago at [facility] for hemodialysis. The patient denied feeling ill, as well as denied any shortness of breath, chest pain, or abdominal pain. According to sign out from MAGDALENA Martinez, the decision had been made to await PICC line placement prior to transport to the stepdown unit, as the patient had went through 4 peripherally placed IV catheters, 2 of which were placed under ultrasound guidance. 0650: I spoke with Dr. Tovar, hospitalist who accepts accepted the patient for admission to [facility], as the patient was noted to have another decrease in blood pressure into the 70s over 50s range. Dr. Lang requested consultation with the marketing and public relations manager, as he thought that this patient may benefit from placement in the intensive care unit. Meanwhile, IV fluids were started with a 500 mL bolus. 0700: Blood pressure has improved to 93/57 shortly after initiation of IV fluid. I have paged the hospitalist back discussed this finding. 0720: I spoke with Dr. Eldre of the hospitalist service who states that since the patient has had frequent low blood pressure readings despite fluid volume replacement, that consultation with the marketing and public relations manager would be warranted. 0800: I spoke with Dr. Prather, marketing and public relations manager operations plant attendant. He states that he will accept the patient for admission to the intensive care unit. He does request the laboratory testing be repeated as well as an acquisition of an echocardiogram and cardiology consultation regarding the patient's significantly elevated troponin without complaints of chest pain. 0810: I have paged Dr. Ramirez, cardiology operations plant attendant. At this time, I am awaiting a return call from her. 0838: I spoke with Dr. Ramirez. Cardiology will consult in house. Vital Signs Temperature 98.7 F 09/13/17 22:26 Pulse Rate 102 09/13/17 22:26 Respiratory Rate 20 09/13/17 22:26 Blood Pressure 70/45 09/13/17 22:26 O2 Sat by Pulse Oximetry 96 09/13/17 22:26 Temperature 98.5 F 09/14/17 03:36 Pulse Rate 80 09/14/17 08:50 Respiratory Rate 18 09/14/17 08:50 Blood Pressure 91/60 09/14/17 08:50 O2 Sat by Pulse Oximetry 99 09/14/17 08:50 Oxygen Delivery Oxygen Delivery Nasal Cannula Medical Decision Making - Medical Records Medical records reviewed: Yes I reviewed the patient's medical records. - Lab Data Lab results reviewed: Yes I reviewed the patient's lab results. Lab results narrative: Lab Results 09/13/17 09/13/17 09/13/17 Range/Units 23:14 23:15 23:15 WBC 4.3 (4.3-11.1) K/mcL RBC 3.45 L (4.19-5.50) M/mcL Hgb 10.9 L (12.9-16.9) g/dL Hct 32.0 L (37.5-50.1) % MCV 92.8 (83.0-100.0) fL MCH 31.6 (28.0-33.3) pg MCHC 34.1 (31.6-35.5) g/dL RDW 15.1 H (11.5-14.5) % Plt Count 95 L (140-400) K/mcL MPV 12.5 H (9.4-12.4) fL Immature Gran % 0.7 (0-4) % Seg Neutrophils % 77.2 % Lymphocytes % 10.6 % Monocytes % 11.1 % Eosinophils % 0.2 % Basophils % 0.2 % Neutrophils # 3.3 (1.6-8.9) K/mcL Lymphocytes # 0.5 L (0.6-4.6) K/mcL Monocytes # 0.5 (0.0-1.3) K/mcL Eosinophils # 0.0 (0.0-0.6) K/mcL Basophils # 0.0 (0.0-0.2) K/mcL Immature Plt Fraction 5.9 (1.1-6.1) % PT 32.6 H (9.4-12.1) Seconds INR 2.9 APTT 40.8 H (26.0-36.0) Seconds VBG pH (7.32-7.42) pH Units VBG pCO2 (41-51) mmHg VBG pO2 (25-50) mmHg VBG HCO3 (21-27) mEq/L Sodium (136-145) mEq/L Potassium (3.5-5.1) mEq/L Chloride (98-107) mEq/L Carbon Dioxide (23-29) mEq/L BUN (6-20) mg/dL Creatinine (0.70-1.30) mg/dL Est GFR ( Amer) (> 60) Est GFR (Non-Af Amer) (> 60) BUN/Creatinine Ratio (6-26) Glucose (70-105) mg/dL Calculated Osmolality (280-300) Lactic Acid 0.9 (0.5-2.2) mmol/L Calcium (8.6-10.3) mg/dL Phosphorus (2.7-4.5) mg/dL Magnesium (1.6-2.6) mg/dL Total Bilirubin (0.3-1.0) mg/dL Direct Bilirubin (0.0-0.2) mg/dL Indirect Bilirubin (0.0-1.2) mg/dL AST (13-39) Units/L ALT (7-52) Units/L Alkaline Phosphatase (34-104) Units/L Troponin I (< 0.04) ng/mL B-Natriuretic Peptide (Less than 100) pg/mL Serum Total Protein (6.4-8.9) g/dL Albumin (3.5-5.7) g/dL Globulin (2.4-3.5) g/dL Albumin/Globulin Ratio (1.1-2.2) Lipase (11-82) Units/L Blood Type Antibody Screen 09/13/17 09/13/17 09/13/17 Range/Units 23:15 23:15 23:15 WBC (4.3-11.1) K/mcL RBC (4.19-5.50) M/mcL Hgb (12.9-16.9) g/dL Hct (37.5-50.1) % MCV (83.0-100.0) fL MCH (28.0-33.3) pg MCHC (31.6-35.5) g/dL RDW (11.5-14.5) % Plt Count (140-400) K/mcL MPV (9.4-12.4) fL Immature Gran % (0-4) % Seg Neutrophils % % Lymphocytes % % Monocytes % % Eosinophils % % Basophils % % Neutrophils # (1.6-8.9) K/mcL Lymphocytes # (0.6-4.6) K/mcL Monocytes # (0.0-1.3) K/mcL Eosinophils # (0.0-0.6) K/mcL Basophils # (0.0-0.2) K/mcL Immature Plt Fraction (1.1-6.1) % PT (9.4-12.1) Seconds INR APTT (26.0-36.0) Seconds VBG pH (7.32-7.42) pH Units VBG pCO2 (41-51) mmHg VBG pO2 (25-50) mmHg VBG HCO3 (21-27) mEq/L Sodium 133 L (136-145) mEq/L Potassium 4.9 (3.5-5.1) mEq/L Chloride 94 L (98-107) mEq/L Carbon Dioxide 24 (23-29) mEq/L BUN 68 H (6-20) mg/dL Creatinine 8.16 H (0.70-1.30) mg/dL Est GFR ( Amer) 8 L (> 60) Est GFR (Non-Af Amer) 7 L (> 60) BUN/Creatinine Ratio 8 (6-26) Glucose 108 H (70-105) mg/dL Calculated Osmolality 296 (280-300) Lactic Acid (0.5-2.2) mmol/L Calcium 9.1 (8.6-10.3) mg/dL Phosphorus 4.4 (2.7-4.5) mg/dL Magnesium 1.9 (1.6-2.6) mg/dL Total Bilirubin 0.4 (0.3-1.0) mg/dL Direct Bilirubin 0.1 (0.0-0.2) mg/dL Indirect Bilirubin 0.3 (0.0-1.2) mg/dL AST 23 (13-39) Units/L ALT 8 (7-52) Units/L Alkaline Phosphatase 67 (34-104) Units/L Troponin I 4.06 H* (< 0.04) ng/mL B-Natriuretic Peptide 1262 H (Less than 100) pg/mL Serum Total Protein 7.2 (6.4-8.9) g/dL Albumin 3.5 (3.5-5.7) g/dL Globulin 3.7 H (2.4-3.5) g/dL Albumin/Globulin Ratio 0.9 L (1.1-2.2) Lipase 35 (11-82) Units/L Blood Type O POSITIVE Antibody Screen NEGATIVE 09/13/17 09/14/17 09/14/17 Range/Units 23:36 03:11 08:41 WBC 4.3 (4.3-11.1) K/mcL RBC 3.13 L (4.19-5.50) M/mcL Hgb 9.8 L (12.9-16.9) g/dL Hct 29.7 L (37.5-50.1) % MCV 94.9 (83.0-100.0) fL MCH 31.3 (28.0-33.3) pg MCHC 33.0 (31.6-35.5) g/dL RDW 15.2 H (11.5-14.5) % Plt Count 87 L (140-400) K/mcL MPV 11.6 (9.4-12.4) fL Immature Gran % 0.9 (0-4) % Seg Neutrophils % 70.4 % Lymphocytes % 14.7 % Monocytes % 13.6 % Eosinophils % 0.2 % Basophils % 0.2 % Neutrophils # 3.0 (1.6-8.9) K/mcL Lymphocytes # 0.6 (0.6-4.6) K/mcL Monocytes # 0.6 (0.0-1.3) K/mcL Eosinophils # 0.0 (0.0-0.6) K/mcL Basophils # 0.0 (0.0-0.2) K/mcL Immature Plt Fraction 4.9 (1.1-6.1) % PT (9.4-12.1) Seconds INR APTT (26.0-36.0) Seconds VBG pH 7.51 H (7.32-7.42) pH Units VBG pCO2 29 L (41-51) mmHg VBG pO2 142 H (25-50) mmHg VBG HCO3 24 (21-27) mEq/L Sodium (136-145) mEq/L Potassium (3.5-5.1) mEq/L Chloride (98-107) mEq/L Carbon Dioxide (23-29) mEq/L BUN (6-20) mg/dL Creatinine (0.70-1.30) mg/dL Est GFR ( Amer) (> 60) Est GFR (Non-Af Amer) (> 60) BUN/Creatinine Ratio (6-26) Glucose (70-105) mg/dL Calculated Osmolality (280-300) Lactic Acid (0.5-2.2) mmol/L Calcium (8.6-10.3) mg/dL Phosphorus (2.7-4.5) mg/dL Magnesium (1.6-2.6) mg/dL Total Bilirubin (0.3-1.0) mg/dL Direct Bilirubin (0.0-0.2) mg/dL Indirect Bilirubin (0.0-1.2) mg/dL AST (13-39) Units/L ALT (7-52) Units/L Alkaline Phosphatase (34-104) Units/L Troponin I 3.91 H* (< 0.04) ng/mL B-Natriuretic Peptide (Less than 100) pg/mL Serum Total Protein (6.4-8.9) g/dL Albumin (3.5-5.7) g/dL Globulin (2.4-3.5) g/dL Albumin/Globulin Ratio (1.1-2.2) Lipase (11-82) Units/L Blood Type Antibody Screen 09/14/17 09/14/17 Range/Units 08:41 08:53 WBC (4.3-11.1) K/mcL RBC (4.19-5.50) M/mcL Hgb (12.9-16.9) g/dL Hct (37.5-50.1) % MCV (83.0-100.0) fL MCH (28.0-33.3) pg MCHC (31.6-35.5) g/dL RDW (11.5-14.5) % Plt Count (140-400) K/mcL MPV (9.4-12.4) fL Immature Gran % (0-4) % Seg Neutrophils % % Lymphocytes % % Monocytes % % Eosinophils % % Basophils % % Neutrophils # (1.6-8.9) K/mcL Lymphocytes # (0.6-4.6) K/mcL Monocytes # (0.0-1.3) K/mcL Eosinophils # (0.0-0.6) K/mcL Basophils # (0.0-0.2) K/mcL Immature Plt Fraction (1.1-6.1) % PT (9.4-12.1) Seconds INR APTT (26.0-36.0) Seconds VBG pH 7.41 (7.32-7.42) pH Units VBG pCO2 35 L (41-51) mmHg VBG pO2 153 H (25-50) mmHg VBG HCO3 23 (21-27) mEq/L Sodium (136-145) mEq/L Potassium (3.5-5.1) mEq/L Chloride (98-107) mEq/L Carbon Dioxide (23-29) mEq/L BUN (6-20) mg/dL Creatinine (0.70-1.30) mg/dL Est GFR ( Amer) (> 60) Est GFR (Non-Af Amer) (> 60) BUN/Creatinine Ratio (6-26) Glucose (70-105) mg/dL Calculated Osmolality (280-300) Lactic Acid 0.9 (0.5-2.2) mmol/L Calcium (8.6-10.3) mg/dL Phosphorus (2.7-4.5) mg/dL Magnesium (1.6-2.6) mg/dL Total Bilirubin (0.3-1.0) mg/dL Direct Bilirubin (0.0-0.2) mg/dL Indirect Bilirubin (0.0-1.2) mg/dL AST (13-39) Units/L ALT (7-52) Units/L Alkaline Phosphatase (34-104) Units/L Troponin I (< 0.04) ng/mL B-Natriuretic Peptide (Less than 100) pg/mL Serum Total Protein (6.4-8.9) g/dL Albumin (3.5-5.7) g/dL Globulin (2.4-3.5) g/dL Albumin/Globulin Ratio (1.1-2.2) Lipase (11-82) Units/L Blood Type Antibody Screen Result diagrams: 09/14/17 08:41 09/13/17 23:15 Lab Results 09/13/17 09/13/17 09/13/17 Range/Units 23:14 23:15 23:15 WBC 4.3 (4.3-11.1) K/mcL RBC 3.45 L (4.19-5.50) M/mcL Hgb 10.9 L (12.9-16.9) g/dL Hct 32.0 L (37.5-50.1) % MCV 92.8 (83.0-100.0) fL MCH 31.6 (28.0-33.3) pg MCHC 34.1 (31.6-35.5) g/dL RDW 15.1 H (11.5-14.5) % Plt Count 95 L (140-400) K/mcL MPV 12.5 H (9.4-12.4) fL Immature Gran % 0.7 (0-4) % Seg Neutrophils % 77.2 % Lymphocytes % 10.6 % Monocytes % 11.1 % Eosinophils % 0.2 % Basophils % 0.2 % Neutrophils # 3.3 (1.6-8.9) K/mcL Lymphocytes # 0.5 L (0.6-4.6) K/mcL Monocytes # 0.5 (0.0-1.3) K/mcL Eosinophils # 0.0 (0.0-0.6) K/mcL Basophils # 0.0 (0.0-0.2) K/mcL Immature Plt Fraction 5.9 (1.1-6.1) % PT 32.6 H (9.4-12.1) Seconds INR 2.9 APTT 40.8 H (26.0-36.0) Seconds VBG pH (7.32-7.42) pH Units VBG pCO2 (41-51) mmHg VBG pO2 (25-50) mmHg VBG HCO3 (21-27) mEq/L Sodium (136-145) mEq/L Potassium (3.5-5.1) mEq/L Chloride (98-107) mEq/L Carbon Dioxide (23-29) mEq/L BUN (6-20) mg/dL Creatinine (0.70-1.30) mg/dL Est GFR ( Amer) (> 60) Est GFR (Non-Af Amer) (> 60) BUN/Creatinine Ratio (6-26) Glucose (70-105) mg/dL Calculated Osmolality (280-300) Lactic Acid 0.9 (0.5-2.2) mmol/L Calcium (8.6-10.3) mg/dL Phosphorus (2.7-4.5) mg/dL Magnesium (1.6-2.6) mg/dL Total Bilirubin (0.3-1.0) mg/dL Direct Bilirubin (0.0-0.2) mg/dL Indirect Bilirubin (0.0-1.2) mg/dL AST (13-39) Units/L ALT (7-52) Units/L Alkaline Phosphatase (34-104) Units/L Troponin I (< 0.04) ng/mL B-Natriuretic Peptide (Less than 100) pg/mL Serum Total Protein (6.4-8.9) g/dL Albumin (3.5-5.7) g/dL Globulin (2.4-3.5) g/dL Albumin/Globulin Ratio (1.1-2.2) Lipase (11-82) Units/L Blood Type Antibody Screen 09/13/17 09/13/17 09/13/17 Range/Units 23:15 23:15 23:15 WBC (4.3-11.1) K/mcL RBC (4.19-5.50) M/mcL Hgb (12.9-16.9) g/dL Hct (37.5-50.1) % MCV (83.0-100.0) fL MCH (28.0-33.3) pg MCHC (31.6-35.5) g/dL RDW (11.5-14.5) % Plt Count (140-400) K/mcL MPV (9.4-12.4) fL Immature Gran % (0-4) % Seg Neutrophils % % Lymphocytes % % Monocytes % % Eosinophils % % Basophils % % Neutrophils # (1.6-8.9) K/mcL Lymphocytes # (0.6-4.6) K/mcL Monocytes # (0.0-1.3) K/mcL Eosinophils # (0.0-0.6) K/mcL Basophils # (0.0-0.2) K/mcL Immature Plt Fraction (1.1-6.1) % PT (9.4-12.1) Seconds INR APTT (26.0-36.0) Seconds VBG pH (7.32-7.42) pH Units VBG pCO2 (41-51) mmHg VBG pO2 (25-50) mmHg VBG HCO3 (21-27) mEq/L Sodium 133 L (136-145) mEq/L Potassium 4.9 (3.5-5.1) mEq/L Chloride 94 L (98-107) mEq/L Carbon Dioxide 24 (23-29) mEq/L BUN 68 H (6-20) mg/dL Creatinine 8.16 H (0.70-1.30) mg/dL Est GFR ( Amer) 8 L (> 60) Est GFR (Non-Af Amer) 7 L (> 60) BUN/Creatinine Ratio 8 (6-26) Glucose 108 H (70-105) mg/dL Calculated Osmolality 296 (280-300) Lactic Acid (0.5-2.2) mmol/L Calcium 9.1 (8.6-10.3) mg/dL Phosphorus 4.4 (2.7-4.5) mg/dL Magnesium 1.9 (1.6-2.6) mg/dL Total Bilirubin 0.4 (0.3-1.0) mg/dL Direct Bilirubin 0.1 (0.0-0.2) mg/dL Indirect Bilirubin 0.3 (0.0-1.2) mg/dL AST 23 (13-39) Units/L ALT 8 (7-52) Units/L Alkaline Phosphatase 67 (34-104) Units/L Troponin I 4.06 H* (< 0.04) ng/mL B-Natriuretic Peptide 1262 H (Less than 100) pg/mL Serum Total Protein 7.2 (6.4-8.9) g/dL Albumin 3.5 (3.5-5.7) g/dL Globulin 3.7 H (2.4-3.5) g/dL Albumin/Globulin Ratio 0.9 L (1.1-2.2) Lipase 35 (11-82) Units/L Blood Type O POSITIVE Antibody Screen NEGATIVE 09/13/17 Range/Units 23:36 WBC (4.3-11.1) K/mcL RBC (4.19-5.50) M/mcL Hgb (12.9-16.9) g/dL Hct (37.5-50.1) % MCV (83.0-100.0) fL MCH (28.0-33.3) pg MCHC (31.6-35.5) g/dL RDW (11.5-14.5) % Plt Count (140-400) K/mcL MPV (9.4-12.4) fL Immature Gran % (0-4) % Seg Neutrophils % % Lymphocytes % % Monocytes % % Eosinophils % % Basophils % % Neutrophils # (1.6-8.9) K/mcL Lymphocytes # (0.6-4.6) K/mcL Monocytes # (0.0-1.3) K/mcL Eosinophils # (0.0-0.6) K/mcL Basophils # (0.0-0.2) K/mcL Immature Plt Fraction (1.1-6.1) % PT (9.4-12.1) Seconds INR APTT (26.0-36.0) Seconds VBG pH 7.51 H (7.32-7.42) pH Units VBG pCO2 29 L (41-51) mmHg VBG pO2 142 H (25-50) mmHg VBG HCO3 24 (21-27) mEq/L Sodium (136-145) mEq/L Potassium (3.5-5.1) mEq/L Chloride (98-107) mEq/L Carbon Dioxide (23-29) mEq/L BUN (6-20) mg/dL Creatinine (0.70-1.30) mg/dL Est GFR ( Amer) (> 60) Est GFR (Non-Af Amer) (> 60) BUN/Creatinine Ratio (6-26) Glucose (70-105) mg/dL Calculated Osmolality (280-300) Lactic Acid (0.5-2.2) mmol/L Calcium (8.6-10.3) mg/dL Phosphorus (2.7-4.5) mg/dL Magnesium (1.6-2.6) mg/dL Total Bilirubin (0.3-1.0) mg/dL Direct Bilirubin (0.0-0.2) mg/dL Indirect Bilirubin (0.0-1.2) mg/dL AST (13-39) Units/L ALT (7-52) Units/L Alkaline Phosphatase (34-104) Units/L Troponin I (< 0.04) ng/mL B-Natriuretic Peptide (Less than 100) pg/mL Serum Total Protein (6.4-8.9) g/dL Albumin (3.5-5.7) g/dL Globulin (2.4-3.5) g/dL Albumin/Globulin Ratio (1.1-2.2) Lipase (11-82) Units/L Blood Type Antibody Screen - Radiology Data Radiology results reviewed: Yes I reviewed the patient's radiology results. Chest X-Ray 09/13/17 22:54 IMPRESSION: No acute abnormality detected. D/ / Dieter Santana MD / Dieter Santana MD Interpreting Provider: Dieter Santana MD Abdomen/Pelvis CT 09/14/17 22:53 IMPRESSION: The previous noted large retroperitoneal hemorrhages nearly completely resolved with minimal residual medial to the left kidney. There is no evidence of recurrent hemorrhage. Unchanged bilateral adrenal myelolipomas. Cholelithiasis. Polycystic kidney disease. Many of the cysts are hyperdense. D/ / Jasmeet Hanks MD / Jasmeet Hanks MD Interpreting Provider: Jasmeet Hanks MD Head CT 09/14/17 22:53 IMPRESSION: No acute intracranial abnormality. D/ / Jasmeet Hanks MD / Jasmeet Hanks MD Interpreting Provider: Jasmeet Hanks MD - EKG Data EKG #1 EKG attestation: Yes I reviewed and interpreted this EKG.
[2017-09-14] MEDS ORDERED: Piperacillin/Tazobactam 3.375 GM in 0.9 % Sodium Chloride Mini Bag 100 ML IVPB ONE (08:39)
[2017-09-14 08:55] LABS: VBG HCO3 23 mEq/L (21-27); VBG PCO2 35 mmHg (41-51); VBG PH 7.41 pH Units (7.32-7.42); VBG PO2 153 mmHg (25-50)
[2017-09-14 08:59] LABS: Basophils % 0.2 %; Eosinophils % 0.2 %
[2017-09-14 09:01] LABS: Hematocrit 29.7 % (37.5-50.1); Hemoglobin 9.8 g/dL (12.9-16.9); Immature Granulocytes % 0.9 % (0-4); Immature Platelets 4.9 % (1.1-6.1); Lymphocytes # 0.6 K/mcL (0.6-4.6); Lymphocytes % 14.7 %; Mean Corpuscular Hemoglobin 31.3 pg (28.0-33.3); Mean Corpuscular Volume 94.9 fL (83.0-100.0); Mean Platelet Volume 11.6 fL (9.4-12.4); Monocytes # 0.6 K/mcL (0.0-1.3); Monocytes % 13.6 %; Red Blood Count 3.13 M/mcL (4.19-5.50); Red Cell Distribution Width 15.2 % (11.5-14.5); Segmented Neutrophils % 70.4 %
[2017-09-14 09:03] LABS: Platelet Count 87 K/mcL (140-400)
[2017-09-14 09:13] LABS: INR 3.8; Prothrombin Time 42.7 Seconds (9.4-12.1)
[2017-09-14 09:15] LABS: Activated Partial Thrombo Time 42.3 Seconds (26.0-36.0)
[2017-09-14 09:16] LABS: Albumin 3.1 g/dL (3.5-5.7); Bilirubin,Total 0.4 mg/dL (0.3-1.0); Calcium 8.3 mg/dL (8.6-10.3); Globulin 3.1 g/dL (2.4-3.5); Potassium 4.9 mEq/L (3.5-5.1); Total Protein 6.2 g/dL (6.4-8.9)
[2017-09-14 09:19] LABS: Troponin I 3.53 ng/mL (< 0.04)
[2017-09-14 09:30] LABS: Thyroid Stimulating Hormone 1.053 mcIU/mL (0.340-5.600)
--- NOTE | 2017-09-14 10:49 | Pulmonology History & Physical ---
<Abrahan Gurrola W - Last Filed: 09/14/17 10:53> Date of Encounter: 09/14/17 History of Present Illness HPI: Mr. Driscoll is a 57 year old male Medications and Allergies Ferrous Sulfate 325 mg PO QAM 07/20/16 [History] Sodium Bicarbonate 650 mg PO BID 07/20/16 [History] Oxycodone HCl/Acetaminophen [Percocet 5-325 mg Tablet] 1 tab PO BID PRN [History] Allopurinol [Zyloprim 100 MG] 100 mg PO DAILY 12/26/16 [History] Renal Vitamin [Renal Caps Softgel] 1 mg PO DAILY 09/14/17 [History] Sevelamer HCl [Renagel] 800 mg PO TIDWM 09/14/17 [History] Warfarin [Coumadin] 8 mg PO 1800 09/14/17 [History] 3 Allergy/AdvReac Type Severity Reaction Status Date / Time No Known Allergies Allergy Verified 09/14/17 07:16 All Systems: The remainder of the systems were reviewed and are negative Physical Examination Vital Signs: Vital Signs, Last 4 Hours Pulse Resp BP Pulse Ox 09/14/17 10:12 80 99 09/14/17 08:50 80 18 91/60 99 09/14/17 08:38 84 18 83/31 99 09/14/17 07:17 83 16 93/57 98 Results - Laboratory Findings CBC and BMP: 09/14/17 08:41 09/14/17 08:41 PT/INR, D-dimer PT 42.7 Seconds (9.4-12.1) H 09/14/17 08:41 Abnormal lab findings: Abnormal lab results RBC 3.13 M/mcL (4.19-5.50) L 09/14/17 08:41 Hgb 9.8 g/dL (12.9-16.9) L 09/14/17 08:41 Hct 29.7 % (37.5-50.1) L 09/14/17 08:41 RDW 15.2 % (11.5-14.5) H 09/14/17 08:41 Plt Count 87 K/mcL (140-400) L 09/14/17 08:41 PT 42.7 Seconds (9.4-12.1) H 09/14/17 08:41 APTT 42.3 Seconds (26.0-36.0) H 09/14/17 08:41 VBG pCO2 35 mmHg (41-51) L 09/14/17 08:53 VBG pO2 153 mmHg (25-50) H 09/14/17 08:53 Sodium 134 mEq/L (136-145) L 09/14/17 08:41 Carbon Dioxide 20 mEq/L (23-29) L 09/14/17 08:41 BUN 70 mg/dL (6-20) H 09/14/17 08:41 Creatinine 8.50 mg/dL (0.70-1.30) H 09/14/17 08:41 Est GFR ( Amer) 8 (> 60) L 09/14/17 08:41 Est GFR (Non-Af Amer) 7 (> 60) L 09/14/17 08:41 Calcium 8.3 mg/dL (8.6-10.3) L 09/14/17 08:41 Troponin I 3.53 ng/mL (< 0.04) H* 09/14/17 08:41 B-Natriuretic Peptide 1049 pg/mL (Less than 100) H 09/14/17 08:41 Serum Total Protein 6.2 g/dL (6.4-8.9) L 09/14/17 08:41 Albumin 3.1 g/dL (3.5-5.7) L 09/14/17 08:41 Albumin/Globulin Ratio 1.0 (1.1-2.2) L 09/14/17 08:41 - Attending Attestation I examined this patient and my medical decision-making was reviewed with the Resident Physician. I agree with the documented findings, disposition and treatment plan as described except to the extent set forth below. We independently had [id number] contact with the patient Patient seen and examined at bedside Labs, radiology, chart personally reviewed. Management was reviewed during multidisciplinary critical care rounds. 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 Possible NSTEMI cardiology consulted history of mechanical mitral valve INR therapeutic on warfarin for this may need bridge with heparin based upon clinical course. Stat echocardiogram pending GI: Presented with nausea vomiting likely secondary to sepsis CT abdomen and pelvis without acute process Nutrition: Nothing by mouth for now Renal: ESRD with history of polycystic kidney disease CT abdomen stable nephrology consulted his anuric at baseline , Cont to Trend sCr and monitor Electrolytes. ID: Suspected sepsis given presentation of unclear etiology possibly indwelling catheter infection lazcano cultures of been obtained broad-spectrum antibiotics have been administered Heme/Onc: Continue anticoagulation for mechanical heart valve even high risk of thrombosis Endo: Glucose Monitored Integ/MSK: Skin Care per routine ICU Nursing Protocol to prevent ulcers. Lines: All lines examined without evidence of infection : Dispo: Monitor in ICU for hypotension CODE: Full family updated in the emergency department <Mau Davila Jeremiah - Last Filed: 09/14/17 14:38> Date of Encounter: 09/14/17 Time of Encounter: 10:46 Assessment and Plan (1) Sepsis Current visit: Yes Status: Suspected Patient is a 57-year-old male who presented to the hospital with a reported history of fevers, weakness, and hypotension raising concern for possible sepsis. He does not have evidence of septic shock at this time. He has been bolused with fluids in the ED and admitted to the ICU for close monitoring. Does not have a central line in place and is not dependent on vasopressors. White blood cell count is normal, no recorded fevers in the hospital, and lactic acid level is normal as well. -suspect sepsis given fevers, weakness, and hypotension -currently hemodynamically stable with BP readings of 103/57 and not tachycardic. -patient is alert, awake, and oriented x 3 -contineu to monitor hemodynamic status -Obtained EPIV access -bolus fluids if necessary, central line and vasopressors not indicated at this time. -empirically treat with vanco and zosyn. Pharmacy to dose renally Qualifiers: Qualified Code(s): A41.9 - Sepsis, unspecified organism (2) Elevated troponin Current visit: Yes Status: Acute Troponin on admission was elevated at 4.06, this has slowly trended down with the most recent troponin at 3.53. Cardiology is following Elevated troponins may be secondary to hypotension and hypoperfusion vs NSTEMI we will continue to monitor and follow cardiology recommendations (3) CKD (chronic kidney disease) Current visit: No Status: Acute Patient has ESRD secondary to polycystic kidney disease and receives dialysis Sunday and Sunday. Nephrology has been consulted but due to patient's hypotension they elected to withhold dialysis today. Will consider dialysis tomorrow. Patient's potassium is 4.9 today and creatinine is 8.50 Qualifiers: Chronic kidney disease stage: on chronic dialysis Qualified Code(s): N18.6 - End stage renal disease; Z99.2 - Dependence on renal dialysis (4) History of mitral valve replacement with mechanical valve Current visit: No Status: Chronic History of mitral valve replacement, patient is on Coumadin and his INR yesterday was 2.9. Repeat INR this afternoon was 3.8. He has a history of retroperitoneal hemorrhage in April 2017. CT today showed resolution of that bleed. No new bleeds noted today. Patient's hemoglobin is stable. (5) Anemia in chronic kidney disease Current visit: No Status: Chronic Patient has ESRD and is dialysis dependent. He has chronic anemia per his previous records. Hemoglobin today is 10.9 and 9.8. We will continue to trend patient's hemoglobin as he may become hemodynamically unstable secondary to hypotension and transfuse if he drops below 7. CT scan did not reveal any bleeds, patient is on Coumadin and will continue to monitor Qualifiers: Chronic kidney disease stage: stage 4 (severe) Qualified Code(s): N18.4 - Chronic kidney disease, stage 4 (severe); D63.1 - Anemia in chronic kidney disease; D63.1 - Anemia in chronic kidney disease (6) DVT prophylaxis Current visit: No Status: Acute On warfarin, pharmacy to follow History of Present Illness Chief complaint: Generalized weakness HPI: Mr. Driscoll is a 57 year old male with a history of polycystic kidney disease, ESRD on dialysis with permacath, mitral valve replacement on Coumadin, and recent retroperitoneal hemorrhage. Patient presented to the ED last night with complaints of nausea, vomiting, fevers, and generalized weakness. He is alert and awake and history was collected from the patient directly as well as family members in the room. Patient states that Sunday night he started feeling ill and had an elevated recorded temperature. The next night he developed chills and felt cold, they state that temperature reading at that time was 101. Patient also says that he had nausea and vomiting of clear fluid but he has only been dry heaving today. Upon arrival to the emergency department patient was found to be hypotensive with blood pressure readings as low as 70/45. He was mildly tachycardic at 102. He was not in respiratory distress and his white blood cell count was normal. Patient does state that his blood pressure is chronically low with systolic in the low 100s on average. He does not admit to any chest pain or shortness of breath at this time. He denies any recent bleeds and his INR overnight was 2.9 and 3.8 today. Patient recently had a fistula placed in the right arm that is currently maturing, he has a PermCath in place in the right IJ. CT scan in the ED did not reveal any bleeds. He reportedly received four 500ml bolus of fluids and his BP readings increased with systolic readings in the 90s. Patient has poor vascular access and due to possible need for central line and pressors he was admitted to the ICU for closer monitoring. Past Med Surg Social Fam HX - Past Medical History Medical history: CHF, coronary artery disease, renal disease, other Additional medical history: stage IV renal failure Psychiatric history: no psych history - Past Surgical History Surgical History: heart valve replacement, other Additional surgical history: aortic and mitral valve replacements - Social History Smoking Status: Former smoker Smokeless Tobacco Status: Yes Alcohol use: none Drug use: none - Family History Mother Living Status: Still Living Hx Family Cardiac Disorders: No Hx Family Respiratory Disorders: No Hx Family Cancer: Yes Hx Family GI Disorders: No Hx Family Endocrine Disorder: Yes (DM) Hx Family Neuromuscular Disorders: No Hx Family Neurologic Disorders: No Hx Family HEENT Disorders: No Hx Family Autoimmune Disorders: No Father Living Status: Hx Family Cardiac Disorders: Yes (Heart problem) Hx Family Respiratory Disorders: No Hx Family Cancer: Yes Hx Family GI Disorders: No Hx Family Endocrine Disorder: Yes Hx Family Neuromuscular Disorders: No Hx Family Neurologic Disorders: No Hx Family HEENT Disorders: No Hx Family Autoimmune Disorders: No All Systems: The remainder of the systems were reviewed and are negative - Constitutional Constitutional: chills, fever(s), weakness, no excessive sweating, no night sweats - Cardiovascular Cardiovascular: no chest pain, no dyspnea, no palpitations - Respiratory Respiratory: no dyspnea on exertion - Gastrointestinal Gastrointestinal: abdominal pain (Mild), nausea, vomiting - Genitourinary Genitourinary: other (ESRD) - Neurological Neurological: confusion - Psychiatric Psychiatric: other (Reported hallucinations) Physical Examination Vital Signs: Vital Signs, Last 4 Hours Pulse Resp BP Pulse Ox 09/14/17 10:12 80 99 09/14/17 08:50 80 18 91/60 99 09/14/17 08:38 84 18 83/31 99 09/14/17 07:17 83 16 93/57 98 09/14/17 06:49 86 18 87/55 98 General appearance: no acute distress, other (Awake and oriented) ENT: oropharynx moist Neck: supple Effort: normal Auscultation: bilateral: clear Cardiovascular: regular rate and rhythm, other (Slightly tachycardic at times. There is a audible click murmur from previous mitral valve replacement) Gastrointestinal: normoactive bowel sounds, soft, non-tender Integumentary: normal Extremities: no cyanosis, no edema normal mental status mood appropriate Results - Laboratory Findings CBC and BMP: 09/14/17 08:41 09/14/17 08:41 PT/INR, D-dimer PT 42.7 Seconds (9.4-12.1) H 09/14/17 08:41 Abnormal lab findings: Abnormal lab results RBC 3.13 M/mcL (4.19-5.50) L 09/14/17 08:41 Hgb 9.8 g/dL (12.9-16.9) L 09/14/17 08:41 Hct 29.7 % (37.5-50.1) L 09/14/17 08:41 RDW 15.2 % (11.5-14.5) H 09/14/17 08:41 Plt Count 87 K/mcL (140-400) L 09/14/17 08:41 PT 42.7 Seconds (9.4-12.1) H 09/14/17 08:41 APTT 42.3 Seconds (26.0-36.0) H 09/14/17 08:41 VBG pCO2 35 mmHg (41-51) L 09/14/17 08:53 VBG pO2 153 mmHg (25-50) H 09/14/17 08:53 Sodium 134 mEq/L (136-145) L 09/14/17 08:41 Carbon Dioxide 20 mEq/L (23-29) L 09/14/17 08:41 BUN 70 mg/dL (6-20) H 09/14/17 08:41 Creatinine 8.50 mg/dL (0.70-1.30) H 09/14/17 08:41 Est GFR ( Amer) 8 (> 60) L 09/14/17 08:41 Est GFR (Non-Af Amer) 7 (> 60) L 09/14/17 08:41 Calcium 8.3 mg/dL (8.6-10.3) L 09/14/17 08:41 Troponin I 3.53 ng/mL (< 0.04) H* 09/14/17 08:41 B-Natriuretic Peptide 1049 pg/mL (Less than 100) H 09/14/17 08:41 Serum Total Protein 6.2 g/dL (6.4-8.9) L 09/14/17 08:41 Albumin 3.1 g/dL (3.5-5.7) L 09/14/17 08:41 Albumin/Globulin Ratio 1.0 (1.1-2.2) L 09/14/17 08:41
[2017-09-14] MEDS: Albumin 25% 25gram/100mL 25 GM/100 ML IV.SOLN IVC SCH ×2 (11:53→13:42)
--- NOTE | 2017-09-14 12:50 | Cardiology Consult Note ---
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 INR 2.9 (goal 2.5-3.5). (2) Hx of aortic valve replacement Current Visit: No Status: Chronic Porcine, as above. (3) Elevated troponin Current Visit: Yes Status: Acute Marked troponin elevation. Limited echo reports normal LV systolic function - images were reviewed. Very complex patient with history of mechanical mitral valve necessitating anticoagulation. He's had complications of GIB and RP hemorrhage over the past year without complete resolution of RP bleed by recent CT A/P. If patient were to undergo LHC and require PCI, he may be at high risk for bleeding event. Given preservation of LV systolic function I would consider a conservative approach. Will discuss this with the Cardiology team, Pulmonary and patient and POA. Discussion w patient/family: The assessment and plan as outlined above was discussed with the patient and/or family members who expressed understanding and agreement. All questions were answered. Thank you for involving us in the care of your patient. Please call with any questions. History of Present Illness Consult date: 09/14/17 Requesting physician: Abrahan Gurrola Consult reason: Elevated Troponin Chief complaint: Weakness, fevers, chills, nausea, vomiting History of present illness: Mr. Driscoll is a 57 year old male presenting with altered mental status, low blood pressure, fever. Patient states that he had fistula revision about a week ago and has not felt well since that time. Over the last few days he's noticed fevers, chills and worsening fatigue which prompted hospitalization. Incidentally discovered was elevated troponin of 4.06. We've been asked in consult for an evaluation. At the bedside, the patient is alert, conversant and oriented to person, place and time. He denies recent chest pain or palpitations. Has history of mechanical mitral valve an bioprosthetic aortic valve placed independently in the remote past. He denies CAD, prior stenting or bypass. He follows with Dr. Gaitan in [place] for Cardiology. Should be noted that he had a GIB in December 2016 in setting of supratherapeutic INR and Cdiff colitis. A few months ago he was a [facility] with a RP hematoma - medical records not available for my review. CT Ab/P done today demonstrates near resolution. Hgb stable, Plt <100. Past Med Surg Social Fam HX - Past Medical History Attestation: Yes The following information was validated with the patient. Medical history: CHF, renal disease, valvular heart disease, other Additional medical history: stage IV renal failure Psychiatric history: no psych history - Past Surgical History Surgical History: heart valve replacement, other Additional surgical history: aortic and mitral valve replacements - Social History Smoking Status: Former smoker Smokeless Tobacco Status: Yes Alcohol use: none Drug use: none - Family History Mother Living Status: Still Living Hx Family Cardiac Disorders: No Hx Family Respiratory Disorders: No Hx Family Cancer: Yes Hx Family GI Disorders: No Hx Family Endocrine Disorder: Yes (DM) Hx Family Neuromuscular Disorders: No Hx Family Neurologic Disorders: No Hx Family HEENT Disorders: No Hx Family Autoimmune Disorders: No Father Living Status: Hx Family Cardiac Disorders: Yes (Heart problem) Hx Family Respiratory Disorders: No Hx Family Cancer: Yes Hx Family GI Disorders: No Hx Family Endocrine Disorder: Yes Hx Family Neuromuscular Disorders: No Hx Family Neurologic Disorders: No Hx Family HEENT Disorders: No Hx Family Autoimmune Disorders: No Medications and Allergies Ferrous Sulfate 325 mg PO QAM 07/20/16 [History] Sodium Bicarbonate 650 mg PO BID 07/20/16 [History] Oxycodone HCl/Acetaminophen [Percocet 5-325 mg Tablet] 1 tab PO BID PRN [History] Allopurinol [Zyloprim 100 MG] 100 mg PO DAILY 12/26/16 [History] Renal Vitamin [Renal Caps Softgel] 1 mg PO DAILY 09/14/17 [History] Sevelamer HCl [Renagel] 800 mg PO TIDWM 09/14/17 [History] Warfarin [Coumadin] 8 mg PO 1800 09/14/17 [History] 3 Allergy/AdvReac Type Severity Reaction Status Date / Time No Known Allergies Allergy Verified 09/14/17 07:16 All Systems Review: The remainder of the systems were reviewed and are negative - Cardiovascular Cardiovascular: as per HPI Physical Examination Vital Signs, Last 4 Hours Pulse Resp BP Pulse Ox 09/14/17 12:00 78 18 96/55 100 General: Conversant, No Apparent Distress HEENT: Mucus Membranes Moist Neck: No JVD Cardiac: Reg Rate and Rhythm, Normal S1 and S2, No Murmur Lungs: Other (shallow breath sounds, no rales wheeze or rhonchi) Neuro: Alert and responsive, No focal deficits noted Abdomen: Soft, Non-Tender, Other (bowel sounds present) Extremities: No Edema, Normal Pulses Results 09/14/17 08:41 09/14/17 08:41 Labs reviewed - Imaging and Cardiology Chest Xray: report reviewed Echo: report reviewed, image reviewed Other Results: CT AB/P report reviewed - EKG Interpretation EKG results cardiology: personally reviewed (Presenting ECG demonstrates probable sinus rhythm with first degree AVB and RBBB, LAFB) Consult Discharge Plan - Plan Referrals: Dieter Herrera DO [Primary Care Provider] -
[2017-09-14] MEDS ORDERED: Vancomycin 1 EACH in 0.9 % Sodium Chloride 250 ML IVPB SCH (15:00)
--- NOTE | 2017-09-14 15:53 | Nephrology Consult Note ---
<Zeb Franklin - Last Filed: 09/14/17 16:15> Date of Encounter: 09/14/17 Time of Encounter: 13:15 Assessment and Plan (1) ESRD on dialysis Current Visit: Yes Status: Acute [facility] [facility] MWF, last dialysis 09/12, [employer] Dr. Aguila, access via R permacath, maturing graft (not ready) left antecubital Patient is hypotensive, MAP is preserved in mid 70s, systolic in the 90s Recarding kidney perfusion; echo shows preserved EF, Cardiology and family currently following conservative approach with elevated but downtrending troponin P: Monitor and continue volume resuscitation No immediate need for INSPECTOR CASING, non-acidotic, K+ 4.9; no evidence of uremia, no signs of pericarditis or encephalopathy Cont renal dosed medications (2) Hypotension Current Visit: Yes Status: Acute Being fluid resuscitated by intensivists No need for pressors at this time Cardiology following, echo with LVEF 60%; C risky per Cardiology due in part to complications of hemorrhage risk, history of recent GI bleed and retroperitoneal bleed Qualifiers: Hypotension type: unspecified hypotension type Qualified Code(s): I95.9 - Hypotension, unspecified (3) Elevated troponin Current Visit: Yes Status: Acute 4.06->3.91->3.53; baseline <0.03 as of April 2017 Cardiology following, no anginal symptoms per patient, RBBB, no ST elevation or depression per ECG; t wave morphologies unchanged History of Present Illness - Reason for Consult end stage renal disease Requesting physician: Mau Davila - Chief Complaint ESRD on dialysis; hypotension - History of Present Illness Mr. Driscoll is a 57 y/o male with pmh significant for ESRD on dialysis MWF (R permacath, sees Dr. Aguila, last dialysis 09/12, dry weight per patient around 92kg), PCKD who presented to [facility] ED for generalized weakness. He was admitted to the ICU in the setting of hypotension (lowest 50 systolic) elevated troponin (4.06->3.91->3.53) baseline <0.03 as of April 2017. ECG showed no ST elevation/ depression, t wave morphology unchanged from previous. Patient is s/p 3L, current systolic in the mid 90s, Map in mid 70s, no current plan for vasopressors. He was admitted to the Nephrology has been consulted for dialysis management. Patient has denies chest discomfort, dyspnea at rest/exertion, radiating symptoms, he is anuric at baseline. Past Med Surg Social Fam HX - Past Medical History Medical history: CHF, coronary artery disease, renal disease, other Additional medical history: stage IV renal failure Psychiatric history: no psych history - Past Surgical History Surgical History: heart valve replacement, other Additional surgical history: aortic and mitral valve replacements - Social History Smoking Status: Former smoker Smokeless Tobacco Status: Yes Alcohol use: none Drug use: none - Family History Mother Living Status: Still Living Hx Family Cardiac Disorders: No Hx Family Respiratory Disorders: No Hx Family Cancer: Yes Hx Family GI Disorders: No Hx Family Endocrine Disorder: Yes (DM) Hx Family Neuromuscular Disorders: No Hx Family Neurologic Disorders: No Hx Family HEENT Disorders: No Hx Family Autoimmune Disorders: No Father Living Status: Hx Family Cardiac Disorders: Yes (Heart problem) Hx Family Respiratory Disorders: No Hx Family Cancer: Yes Hx Family GI Disorders: No Hx Family Endocrine Disorder: Yes Hx Family Neuromuscular Disorders: No Hx Family Neurologic Disorders: No Hx Family HEENT Disorders: No Hx Family Autoimmune Disorders: No Medications and Allergies Ferrous Sulfate 325 mg PO QAM 07/20/16 [History] Sodium Bicarbonate 650 mg PO BID 07/20/16 [History] Oxycodone HCl/Acetaminophen [Percocet 5-325 mg Tablet] 1 tab PO BID PRN [History] Allopurinol [Zyloprim 100 MG] 100 mg PO DAILY 12/26/16 [History] Renal Vitamin [Renal Caps Softgel] 1 mg PO DAILY 09/14/17 [History] Sevelamer HCl [Renagel] 800 mg PO TIDWM 09/14/17 [History] Warfarin [Coumadin] 8 mg PO 1800 09/14/17 [History] 3 Allergy/AdvReac Type Severity Reaction Status Date / Time No Known Allergies Allergy Verified 09/14/17 07:16 Review of Systems All Systems: reviewed and no additional remarkable complaints except as stated Exam - Vital Signs Vital signs: Initial Vital Signs Temp Pulse Resp BP Pulse Ox 98.7 F 102 20 70/45 96 09/13/17 22:26 09/13/17 22:26 09/13/17 22:26 09/13/17 22:26 09/13/17 22:26 Vital Signs - Last 8 Hours Pulse Resp BP Pulse Ox 09/14/17 13:00 75 18 103/57 100 09/14/17 12:00 78 18 96/55 100 Intake and Output 09/13/17 09/14/17 09/14/17 23:59 07:59 15:59 Intake Total 100 / 100 Balance 100 / 100 Intake: IV Fluids 100 / 100 Flexbumin 25 gm In 100 ml @ 60 100 / 100 mls/hr IVC .Q1H40M LARISSA Rx#: [id number] - General Appearance General appearance: well-developed, well-nourished, appears started age, obese EENT: mucous membranes dry Neck: no JVD Additional Comments: diminished breath sounds bilaterally, no rhonchi Additional Comments: clicks s/p valve replacement; S1 and S2 without S3 or S4, no heave - Dialysis Access Additional Comments: R permacath Gastrointestinal: no guarding Integumentary: warm and dry Neurologic: no focal deficit Musculoskeletal: no deformities Psychiatric: mood/affect appropriate, cooperative Results - Lab Results 09/14/17 08:41 09/14/17 08:41 Most recent lab results Calcium 8.3 mg/dL (8.6-10.3) L 09/14/17 08:41 Phosphorus 4.4 mg/dL (2.7-4.5) 09/13/17 23:15 Magnesium 1.9 mg/dL (1.6-2.6) 09/13/17 23:15 Consult Discharge Plan - Plan Referrals: Dieter Herrera DO [Primary Care Provider] - <Koki Villarreal - Last Filed: 09/16/17 12:02> Date of Encounter: 09/14/17 Assessment and Plan (1) ESRD on dialysis Current Visit: Yes Status: Acute (2) Elevated troponin Current Visit: Yes Status: Acute (3) Hypotension Current Visit: Yes Status: Acute Qualifiers: Hypotension type: unspecified hypotension type Qualified Code(s): I95.9 - Hypotension, unspecified (4) Acute blood loss anemia Current Visit: No Status: Acute (5) Sepsis Current Visit: Yes Status: Suspected Qualifiers: Qualified Code(s): A41.02 - Sepsis due to Methicillin resistant Staphylococcus aureus Exam - Vital Signs Vital signs: Initial Vital Signs Temp Pulse Resp BP Pulse Ox 98.7 F 102 20 70/45 96 09/13/17 22:26 09/13/17 22:26 09/13/17 22:26 09/13/17 22:26 09/13/17 22:26 Vital Signs - Last 8 Hours Temp Pulse Resp BP Pulse Ox 09/16/17 11:23 98.5 F 75 17 75/48 98 09/16/17 07:22 99.0 F 70 17 104/61 100 Intake and Output 09/15/17 09/16/17 09/16/17 23:59 07:59 15:59 Intake Total 240 / 240 Balance 240 / 240 Intake: Oral 240 / 240 Other: Weight 97.3 kg Results - Lab Results 09/16/17 06:27 09/16/17 06:27 Most recent lab results Calcium 8.0 mg/dL (8.6-10.3) L 09/16/17 06:27 Phosphorus 4.4 mg/dL (2.7-4.5) 09/13/17 23:15 Magnesium 1.9 mg/dL (1.6-2.6) 09/13/17 23:15 - Attending Attestation I examined this patient and my medical decision-making was reviewed with the Resident Physician. I agree with the documented findings, disposition and treatment plan as described except to the extent set forth below. Pt seen and examined in brief, 57 y o male with PMH of MVR on anticoag, GIB, PCKD with resultant ESRD on HD with Dr aguila in [place] via [facility] ( new AVG just created recently) admitted with generalized weakness and found hypotensive with fevers. He was also noted with elevated troponin with cardiology following. renal consulted to resume his rountine HD but unfortunately given his unstable hemodynamics, will not perform today. There is not urgency at this point given stable lytes and no visible signs of volume overload or uremia. will reassess need in the am. Continue gentle volume repletion. Blood cultures sent.
--- NOTE | 2017-09-14 16:41 | Electrocardiograph Report ---
[address] [address] Test Date: 2017-09-13 Pat Name: Man Driscoll Department: 104 Room: [facility] Gender: M Counselor Supervisor: JOSE DANIEL : 1960 Requested By: Angelica Rosales Order Number: [id number] Reading MD: Rohit Corona Measurements Intervals [place] Rate: 101 P: CA: 0 QRS: -89 QRSD: 136 T: 40 QT: 367 QTc: 425 Interpretive Statements UNCERTAIN RHYTHM RIGHT BUNDLE BRANCH BLOCK LEFT ANTERIOR FASCICULAR BLOCK POOR R WAVE PROGRESSION Electronically Signed On 09-14-2017 16:40:04 EDT by Rohit Corona
--- NOTE | 2017-09-14 16:59 | Event Note ---
Date of Encounter: 09/14/17 Time of Encounter: 16:00 - Cardiology Event Note Stopped by patient's room and ICU waiting room to update POA. Family not available. Will discuss with them tomorrow. For now, I recommend starting low dose aspirin, moderate dose statin and coumadin which is to be managed by pharmacy.
[2017-09-14] MEDS ORDERED: Warfarin perPT PO PRN (18:00)
[2017-09-14] MEDS: Piperacillin/Tazobactam 3.375 GM in 0.9 % Sodium Chloride Mini Bag 100 ML IVPB SCH (20:14)
[2017-09-15 04:43] LABS: Basophils % 0.4 %; Eosinophils % 1.4 %; Hematocrit 25.6 % (37.5-50.1); Hemoglobin 8.4 g/dL (12.9-16.9); Immature Granulocytes % 0.4 % (0-4); Immature Platelets 5.9 % (1.1-6.1); Lymphocytes # 0.4 K/mcL (0.6-4.6); Mean Corpuscular HGB Conc 32.8 g/dL (31.6-35.5); Mean Corpuscular Hemoglobin 30.9 pg (28.0-33.3); Mean Corpuscular Volume 94.1 fL (83.0-100.0); Mean Platelet Volume 12.3 fL (9.4-12.4); Monocytes # 0.3 K/mcL (0.0-1.3); Monocytes % 11.6 %; Red Blood Count 2.72 M/mcL (4.19-5.50); Segmented Neutrophils % 73.2 %
[2017-09-15 04:44] LABS: Chol/HDL Ratio 5.2 (0-4.9)
[2017-09-15 04:45] LABS: Calcium 8.3 mg/dL (8.6-10.3); Potassium 4.8 mEq/L (3.5-5.1)
[2017-09-15 04:47] LABS: Acinetobacter baumannii by PCR Not Detected (Not Detect); Candida albicans by PCR Not Detected (Not Detect); Candida glabrata by PCR Not Detected (Not Detect); Candida krusei by PCR Not Detected (Not Detect); Candida parapsilosis by PCR Not Detected (Not Detect); Candida tropicalis by PCR Not Detected (Not Detect); Enterococcus by PCR Not Detected (Not Detect); Escherichia coli by PCR Not Detected (Not Detect); Klebsiella oxytoca by PCR Not Detected (Not Detect); Klebsiella pneumoniae by PCR Not Detected (Not Detect); Pseudomonas aeruginosa by PCR Not Detected (Not Detect); Serratia marcescens by PCR Not Detected (Not Detect); Staphylococcus aureus by PCR Not Detected (Not Detect); Streptococcus agalactiae(B)PCR Not Detected (Not Detect); Streptococcus by PCR Not Detected (Not Detect); Streptococcus pneumoniae PCR Not Detected (Not Detect); Streptococcus pyogenes (A) PCR Not Detected (Not Detect); mecA Methicillin-Resist Gene DETECTED (Not Detect)
[2017-09-15 04:53] LABS: Neutrophils # 2.1 K/mcL (1.6-8.9); Platelet Count 70 K/mcL (140-400)
--- NOTE | 2017-09-15 07:42 | Pulmonology Progress Note ---
<GalileoAbrahan W - Last Filed: 09/15/17 10:18> Date of Encounter: 09/15/17 Objective PUL Vital signs: Last Vital Signs Temp 99.1 F 09/15/17 08:00 Pulse 82 09/15/17 09:00 Resp 20 09/15/17 09:00 BP 114/65 09/15/17 09:00 Pulse Ox 99 09/15/17 09:00 Results - Laboratory Findings CBC and BMP: 09/15/17 04:10 09/15/17 04:10 PT/INR, D-dimer PT 39.4 Seconds (9.4-12.1) H 09/15/17 08:00 Abnormal lab findings: Abnormal lab results WBC 2.8 K/mcL (4.3-11.1) L 09/15/17 04:10 RBC 2.72 M/mcL (4.19-5.50) L 09/15/17 04:10 Hgb 8.4 g/dL (12.9-16.9) L 09/15/17 04:10 Hct 25.6 % (37.5-50.1) L 09/15/17 04:10 RDW 15.0 % (11.5-14.5) H 09/15/17 04:10 Plt Count 70 K/mcL (140-400) L 09/15/17 04:10 Lymphocytes # 0.4 K/mcL (0.6-4.6) L 09/15/17 04:10 PT 39.4 Seconds (9.4-12.1) H 09/15/17 08:00 APTT 42.3 Seconds (26.0-36.0) H 09/14/17 08:41 VBG pCO2 35 mmHg (41-51) L 09/14/17 08:53 VBG pO2 153 mmHg (25-50) H 09/14/17 08:53 Carbon Dioxide 21 mEq/L (23-29) L 09/15/17 04:10 BUN 92 mg/dL (6-20) H 09/15/17 04:10 Creatinine 10.00 mg/dL (0.70-1.30) H 09/15/17 04:10 Est GFR ( Amer) 7 (> 60) L 09/15/17 04:10 Est GFR (Non-Af Amer) 5 (> 60) L 09/15/17 04:10 Calculated Osmolality 310 (280-300) H 09/15/17 04:10 Calcium 8.3 mg/dL (8.6-10.3) L 09/15/17 04:10 Troponin I 3.53 ng/mL (< 0.04) H* 09/14/17 08:41 B-Natriuretic Peptide 1049 pg/mL (Less than 100) H 09/14/17 08:41 Serum Total Protein 6.2 g/dL (6.4-8.9) L 09/14/17 08:41 Albumin 3.1 g/dL (3.5-5.7) L 09/14/17 08:41 Albumin/Globulin Ratio 1.0 (1.1-2.2) L 09/14/17 08:41 HDL Cholesterol 13 mg/dL (40-59) L 09/15/17 04:10 Cholesterol/HDL Ratio 5.2 (0-4.9) H 09/15/17 04:10 Staphylococcus sp PCR DETECTED (Not Detect) A 09/13/17 23:26 mecA-Methicil Res Gene DETECTED (Not Detect) A 09/13/17 23:26 - Clinical Findings Intake & Output: Intake & Output 09/14/17 09/15/17 09/15/17 23:59 07:59 15:59 Intake Total 100 / 100 Output Total 0 / 0 0 / 0 Balance 0 / 0 100 / 100 Weight 97.4 kg Consult Discharge Plan - Plan Referrals: Dieter Herrera DO [Primary Care Provider] - - Attending Attestation I examined this patient and my medical decision-making was reviewed with the Resident Physician. I agree with the documented findings, disposition and treatment plan as described except to the extent set forth below. We independently had [id number] contact with the patient Patient seen and examined at bedside Labs, radiology, chart personally reviewed. Management was reviewed during multidisciplinary critical care rounds. 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 Possible NSTEMI seen by cardiology and echocardiogram without acute changes medical management for now continue anticoagulation for mitral mechanical valve Nutrition: Advance diet as tolerated Renal: UOP Monitored, Cont to Trend sCr and monitor Electrolytes. ID: Cultures positive for presumed MRSA Heme/Onc: H&H stable INR therapeutic cont Warfarin Endo: Glucose Monitored Integ/MSK: Skin Care per routine ICU Nursing Protocol to prevent ulcers. Lines: All lines examined without evidence of infection : Dispo: Stable for transfer to [facility] for ongoing care. CODE: Full <Mau Davila - Last Filed: 09/15/17 15:52> Date of Encounter: 09/15/17 Time of Encounter: 07:42 Assessment and Plan (1) Sepsis Current Visit: Yes Status: Suspected Patient is a 57-year-old male who presented to the hospital with a reported history of fevers, weakness, and hypotension raising concern for possible sepsis. He does not have evidence of septic shock at this time. He had been bolused with fluids in the ED and admitted to the ICU for close monitoring. Does not have a central line in place and is not dependent on vasopressors. White blood cell count is normal, no recorded fevers in the hospital, and lactic acid level is normal as well. -suspect sepsis MRSA bacteremia -Source unknown at this time, may be secondary to permcath. currently on appropriate antibiotics, awaiting sensitivites. -It is possible that his infection is from his permanent dialysis catheter, no signs of infection at the site. -recommend consulting ID to discuss antibiotic regimen and replacement of the dialysis catheter. -currently hemodynamically stable -patient is alert, awake, and oriented x 3 -continue to monitor hemodynamic status -Obtained EPIV access -bolus fluids if necessary, central line and vasopressors not indicated at this time. -Treat with vanco and zosyn. Pharmacy to dose renally Qualifiers: Qualified Code(s): A41.02 - Sepsis due to Methicillin resistant Staphylococcus aureus (2) Elevated troponin Current Visit: Yes Status: Acute Troponin on admission was elevated at 4.06, this has slowly trended down with the most recent troponin at 3.53. Cardiology is following we will continue to monitor and follow cardiology recommendations (3) CKD (chronic kidney disease) Current Visit: No Status: Acute Patient has ESRD secondary to polycystic kidney disease and receives dialysis Sunday and Sunday. Nephrology has been consulted Plan for dialysis today Qualifiers: Chronic kidney disease stage: on chronic dialysis Qualified Code(s): N18.6 - End stage renal disease; Z99.2 - Dependence on renal dialysis (4) History of mitral valve replacement with mechanical valve Current Visit: No Status: Chronic History of mitral valve replacement, patient is on Coumadin (5) Anemia in chronic kidney disease Current Visit: No Status: Chronic Patient has ESRD and is dialysis dependent. He has chronic anemia per his previous records. CT scan did not reveal any bleeds, patient is on Coumadin and will continue to monitor Qualifiers: Chronic kidney disease stage: stage 4 (severe) Qualified Code(s): N18.4 - Chronic kidney disease, stage 4 (severe); D63.1 - Anemia in chronic kidney disease; D63.1 - Anemia in chronic kidney disease (6) DVT prophylaxis Current Visit: No Status: Acute On warfarin, pharmacy to follow Subjective Principal diagnosis: MRSA bacteremia Interval history: Patient was seen and examined this morning at bedside with the attending present. He is resting comfortably and is blood pressures readings have increased, currently at 110/66. He did not require vasopressors. He is not tachycardic, no recorded fevers overnight, patient states that he feels well and does not have any chills or subjective fevers. Of note his creatinine has increased to 10.0, patient is expected to have dialysis today. Blood cultures from yesterday grew gram-positive cocci and respiratory serology was positive for MRSA. Patient is currently receiving vancomycin. Patient hemodynamically stable and will be transferred to a medical floor with MRSA precautions. Objective PUL Vital signs: Last Vital Signs Temp 98.9 F 09/15/17 03:20 Pulse 84 09/15/17 06:05 Resp 20 09/15/17 06:05 BP 112/63 09/15/17 06:05 Pulse Ox 96 09/15/17 06:05 General appearance: no acute distress Neck: other (Scar from previous temporary catheter right IJ) Auscultation: bilateral: clear Cardiovascular: regular rate and rhythm Gastrointestinal: normoactive bowel sounds, soft, non-tender Integumentary: normal Extremities: no edema mood appropriate Results - Laboratory Findings CBC and BMP: 09/15/17 04:10 09/15/17 04:10 PT/INR, D-dimer PT 42.7 Seconds (9.4-12.1) H 09/14/17 08:41 Abnormal lab findings: Abnormal lab results WBC 2.8 K/mcL (4.3-11.1) L 09/15/17 04:10 RBC 2.72 M/mcL (4.19-5.50) L 09/15/17 04:10 Hgb 8.4 g/dL (12.9-16.9) L 09/15/17 04:10 Hct 25.6 % (37.5-50.1) L 09/15/17 04:10 RDW 15.0 % (11.5-14.5) H 09/15/17 04:10 Plt Count 70 K/mcL (140-400) L 09/15/17 04:10 Lymphocytes # 0.4 K/mcL (0.6-4.6) L 09/15/17 04:10 PT 42.7 Seconds (9.4-12.1) H 09/14/17 08:41 APTT 42.3 Seconds (26.0-36.0) H 09/14/17 08:41 VBG pCO2 35 mmHg (41-51) L 09/14/17 08:53 VBG pO2 153 mmHg (25-50) H 09/14/17 08:53 Carbon Dioxide 21 mEq/L (23-29) L 09/15/17 04:10 BUN 92 mg/dL (6-20) H 09/15/17 04:10 Creatinine 10.00 mg/dL (0.70-1.30) H 09/15/17 04:10 Est GFR ( Amer) 7 (> 60) L 09/15/17 04:10 Est GFR (Non-Af Amer) 5 (> 60) L 09/15/17 04:10 Calculated Osmolality 310 (280-300) H 09/15/17 04:10 Calcium 8.3 mg/dL (8.6-10.3) L 09/15/17 04:10 Troponin I 3.53 ng/mL (< 0.04) H* 09/14/17 08:41 B-Natriuretic Peptide 1049 pg/mL (Less than 100) H 09/14/17 08:41 Serum Total Protein 6.2 g/dL (6.4-8.9) L 09/14/17 08:41 Albumin 3.1 g/dL (3.5-5.7) L 09/14/17 08:41 Albumin/Globulin Ratio 1.0 (1.1-2.2) L 09/14/17 08:41 HDL Cholesterol 13 mg/dL (40-59) L 09/15/17 04:10 Cholesterol/HDL Ratio 5.2 (0-4.9) H 09/15/17 04:10 Staphylococcus sp PCR DETECTED (Not Detect) A 09/13/17 23:26 mecA-Methicil Res Gene DETECTED (Not Detect) A 09/13/17 23:26 - Clinical Findings Intake & Output: Intake & Output 09/14/17 09/14/17 09/15/17 15:59 23:59 07:59 Intake Total 100 / 100 100 / 100 Output Total 0 / 0 0 / 0 Balance 100 / 100 0 / 0 100 / 100 Weight 97.4 kg
[2017-09-15] MEDS: Piperacillin/Tazobactam 3.375 GM in 0.9 % Sodium Chloride Mini Bag 100 ML IVPB SCH (08:12)
[2017-09-15 08:25] LABS: INR 3.5; Prothrombin Time 39.4 Seconds (9.4-12.1)
[2017-09-15] MEDS ORDERED: 0.9 % Sodium Chloride 250 ML IVC PRN ×2 (08:42→11:43)
[2017-09-15] MEDS ORDERED: 0.9 % Sodium Chloride 1,000 ML PRIME SCH ×2 (08:45→11:43)
[2017-09-15] MEDS ORDERED: Aspirin 81 MG TAB.CHEW PO SCH (09:00)
[2017-09-15 09:12] LABS: Hepatitis B Surface Antigen Nonreactive (Nonreactive)
--- NOTE | 2017-09-15 10:22 | Cardiology Progress Note ---
Date of Encounter: 09/15/17 Time of Encounter: 09:00 Assessment and Plan (1) History of mitral valve replacement with mechanical valve Current Visit: No Status: Chronic History of mechanical mitral valve replacement and biologic aortic valve replacement due to RHD. INR 2.9 (goal 2.5-3.5). Pharmacy to dose coumadin when appropriate. (2) Hx of aortic valve replacement Current Visit: No Status: Chronic Porcine, as above. (3) Elevated troponin Current Visit: Yes Status: Acute Presented with marked troponin elevation. Limited echo reports normal LV systolic function - images were reviewed. Very complex patient with history of mechanical mitral valve necessitating anticoagulation. He's had complications of GIB and RP hemorrhage over the past year without complete resolution of RP bleed by recent CT A/P. If patient were to undergo LHC and require PCI, he may be at high risk for bleeding event. Given preservation of LV systolic function I would consider a conservative approach. This was discussed with the patient. He is in agreement. Recommend low dose aspirin with watch on Hgb. LDL is low , presuming he was on statin therapy in the past? Recommend reconcile medications and consider adding low dose statin. Discussion w patient/family: The assessment and plan as outlined above was discussed with the patient and/or family members who expressed understanding and agreement. All questions were answered. Thank you for involving us in the care of your patient. Please call with any questions. Will sign off. Please call with questions. Subjective Principal diagnosis: Elevated troponin Interval history: Patient sitting up in bed this morning talking on the phone. States he feels much better. Denies chest pain or palpitations. Objective Vital Signs, Last 4 Hours Temp Pulse Resp BP Pulse Ox 09/15/17 07:42 99.1 F 09/15/17 07:00 81 18 110/62 99 09/15/17 06:05 84 20 112/63 96 General: Conversant, No Apparent Distress HEENT: Mucus Membranes Moist Neck: No JVD Cardiac: Reg Rate and Rhythm, Normal S1 and S2, No Murmur Lungs: Normal Breath Sounds Neuro: Alert and responsive, No focal deficits noted Abdomen: Soft, Non-Tender, Other (bowel sounds present) Extremities: No Edema Results 09/15/17 04:10 09/15/17 04:10 Lab Results 09/15/17 09/15/17 09/15/17 04:10 04:10 08:00 WBC 2.8 L Hgb 8.4 L Hct 25.6 L Plt Count 70 L INR 3.5 Sodium 136 Potassium 4.8 Chloride 98 Carbon Dioxide 21 L BUN 92 H Creatinine 10.00 H Glucose 98 Calcium 8.3 L - Imaging and Cardiology Echo: report reviewed, image reviewed - EKG Interpretation EKG results cardiology: other (24 hour telemetry - average HR 80's, no concerning dysrhythmia) Consult Discharge Plan - Plan Referrals: Dieter Herrera DO [Primary Care Provider] -
[2017-09-15] MEDS ORDERED: 0.9 % Sodium Chloride 2,000 ML ONE (11:14)
[2017-09-15] MEDS ORDERED: Warfarin perPT PO PRN (11:43)
[2017-09-15] MEDS ORDERED: Vancomycin 1 EACH in 0.9 % Sodium Chloride 250 ML IVPB SCH (11:43)
--- NOTE | 2017-09-15 12:44 | Nephrology Progress Note ---
Date of Encounter: 09/15/17 Time of Encounter: 12:00 - Assessment and Plan (1) ESRD on dialysis Current Visit: Yes Status: Acute Will dialyze today for clearance only with no UF Lytes stable (2) Elevated troponin Current Visit: Yes Status: Acute Per cardiology (3) Hypotension Current Visit: Yes Status: Acute Resolving after fluid resuscitation Qualifiers: Hypotension type: unspecified hypotension type Qualified Code(s): I95.9 - Hypotension, unspecified (4) Acute blood loss anemia Current Visit: No Status: Acute Hgb dropping at 8.4, will defer management to primary team Subjective Interval history: Pt seen and examined, interim noted. BP readings stable in the 100s to 110s systolic Objective - Vital Signs Vital signs: Vital Signs Temp Pulse Resp BP Pulse Ox 09/15/17 11:45 98.6 F 09/15/17 10:00 77 18 106/56 97 09/15/17 09:00 82 20 114/65 99 09/15/17 08:35 79 99 09/15/17 08:00 99.1 F 79 18 121/65 99 09/15/17 07:42 99.1 F 09/15/17 07:00 81 18 110/62 99 09/15/17 06:05 84 20 112/63 96 09/15/17 05:05 85 22 109/64 94 09/15/17 04:00 84 20 114/62 96 09/15/17 03:35 84 26 118/76 96 09/15/17 03:20 98.9 F 09/15/17 02:05 87 24 112/65 96 09/15/17 01:00 87 24 117/54 97 09/15/17 00:05 88 24 116/72 98 09/14/17 23:30 85 22 108/61 97 09/14/17 23:02 99.2 F 09/14/17 22:30 87 26 111/68 97 09/14/17 21:00 80 24 121/77 98 09/14/17 20:00 77 24 116/75 100 09/14/17 19:45 100.2 F H 09/14/17 19:00 80 22 118/53 100 09/14/17 18:30 83 20 112/69 100 09/14/17 17:00 72 18 87/54 100 07/27/18 16:00 99.0 F 74 18 100/62 95 09/14/17 15:00 74 18 92/60 100 09/14/17 14:00 75 18 94/51 100 09/14/17 13:00 75 18 103/57 100 Intake and Output 09/14/17 09/15/17 09/15/17 23:59 07:59 15:59 Intake Total 100 / 100 360 / 360 Output Total 0 / 0 0 / 0 0 / 0 Balance 0 / 0 100 / 100 360 / 360 Intake: IV Fluids 100 / 100 Zosyn 3.375 GM In 0.9 % Sodium 100 / 100 Chloride (Mini-Bag +) 100 ML @ 25 mls/hr IVPB Q12H LARISSA Rx#: [id number] Oral 360 / 360 Output: Urine 0 / 0 0 / 0 0 / 0 Other: Meal Lunch Breakfast Percent of Meal Consumed 35% 50% Stool Size Small Small Moderate Stool Consistency liquid loose liquid Stool Color Brown Brown Brown Yellow # Voids 0 # Bowel Movements 1 1 Weight 97.4 kg - General Appearance General appearance: Present: chronically ill EENT: Present: ATNC, mucous membranes moist Neck: Present: no JVD, supple Respiratory: Present: clear Cardiology: Present: no edema, normal S1, normal S2 Dialysis Vascular Access: Venous Catheter (permcath with new AVG in place) Gastrointestinal: Present: no tenderness, no guarding Integumentary: Present: warm and dry Neurologic: Present: no focal deficit Musculoskeletal: Present: no deformities Psychiatric: Present: mood/affect appropriate, cooperative - Lab 09/16/17 06:27 09/16/17 06:27 Most recent lab results Calcium 8.3 mg/dL (8.6-10.3) L 09/15/17 04:10 Phosphorus 4.4 mg/dL (2.7-4.5) 09/13/17 23:15 Magnesium 1.9 mg/dL (1.6-2.6) 09/13/17 23:15 - VTE Documentation of Mechanical Device: Graduated compression elastic hosiery Consult Discharge Plan - Plan Referrals: Dieter Herrera DO [Primary Care Provider] -
[2017-09-15 15:13] LABS: Adenovirus Not Detected (Not Detect); Bordetella Pertussis Not Detected (Not Detect); Chlamydophila pneumoniae Not Detected (Not Detect); Coronavirus 229E Not Detected (Not Detect); Coronavirus HKU1 Not Detected (Not Detect); Coronavirus NL63 Not Detected (Not Detect); Coronavirus OC43 Not Detected (Not Detect); Human Metapneumovirus Not Detected (Not Detect); Human Rhinovirus/Enterovirus Not Detected (Not Detect); Influenza A Subtype 2009 H1 Not Detected (Not Detect); Influenza A Untypeable Not Detected (Not Detect); Influenza B Not Detected (Not Detect); Mycoplasma pneumoniae Not Detected (Not Detect); Parainfluenza Virus 1 Not Detected (Not Detect); Parainfluenza Virus 2 Not Detected (Not Detect); Parainfluenza Virus 3 Not Detected (Not Detect); Parainfluenza Virus 4 Not Detected (Not Detect); Respiratory Syncytial Virus Not Detected (Not Detect)
[2017-09-15] MEDS ORDERED: *HR* Warfarin 4 MG TABLET PO ONE ×2 (18:00)
[2017-09-15] MEDS ORDERED: Piperacillin/Tazobactam 3.375 GM in 0.9 % Sodium Chloride Mini Bag 100 ML IVPB SCH (21:00)
[2017-09-16] MEDS ORDERED: Acetaminophen 325 MG TABLET PO PRN ×2 (00:41)
[2017-09-16 06:39] LABS: Eosinophils % 1.8 %; Hemoglobin 7.8 g/dL (12.9-16.9)
[2017-09-16 06:40] LABS: Hematocrit 23.7 % (37.5-50.1); Immature Granulocytes % 0.5 % (0-4); Immature Platelets 5.8 % (1.1-6.1); Lymphocytes # 0.4 K/mcL (0.6-4.6); Lymphocytes % 17.7 %; Mean Corpuscular HGB Conc 32.9 g/dL (31.6-35.5); Mean Corpuscular Hemoglobin 31.5 pg (28.0-33.3); Mean Corpuscular Volume 95.6 fL (83.0-100.0); Mean Platelet Volume 11.2 fL (9.4-12.4); Monocytes # 0.3 K/mcL (0.0-1.3); Monocytes % 14.1 %; Neutrophils # 1.5 K/mcL (1.6-8.9); Red Blood Count 2.48 M/mcL (4.19-5.50); Segmented Neutrophils % 65.9 %
[2017-09-16 06:42] LABS: Platelet Count 61 K/mcL (140-400)
[2017-09-16 06:45] LABS: INR 2.6; Prothrombin Time 29.1 Seconds (9.4-12.1)
[2017-09-16 07:00] LABS: BUN/Creatinine Ratio 8 (6-26); Blood Urea Nitrogen 44 mg/dL (6-20); Carbon Dioxide 28 mEq/L (23-29); Chloride 99 mEq/L (98-107); Glucose 101 mg/dL (70-105); Osmolality,Calculated 293 (280-300); Sodium 136 mEq/L (136-145); Vancomycin,Random 11 mcg/mL; eGFR For Non-African Americans 10 (> 60)
[2017-09-16] MEDS: Aspirin 81 MG TAB.CHEW PO SCH (10:52)
[2017-09-16] MEDS ORDERED: 0.9 % Sodium Chloride 250 ML IVC ONE (11:42)
--- NOTE | 2017-09-16 11:50 | Nephrology Progress Note ---
Date of Encounter: 09/16/17 Time of Encounter: 12:00 - Assessment and Plan (1) ESRD on dialysis Current Visit: Yes Status: Acute s/p HD yesterday for clearance only with no UF Will plan rountine HD tomorrow only if hemodynamically stable. can bolus NS 250cc x 2 today Lytes stable (2) Elevated troponin Current Visit: Yes Status: Acute Per cardiology (3) Hypotension Current Visit: Yes Status: Acute NS boluses today. Might also be sepsis related, continue abx per primary team Qualifiers: Hypotension type: unspecified hypotension type Qualified Code(s): I95.9 - Hypotension, unspecified (4) Acute blood loss anemia Current Visit: No Status: Acute Hgb dropping again to 7.8, will defer management to primary team willc heck iron studies and stool gauaic if not already done and happy to transfuse with HD tomorrow if needed (5) Sepsis Current Visit: Yes Status: Suspected abx per primary team Qualifiers: Qualified Code(s): A41.02 - Sepsis due to Methicillin resistant Staphylococcus aureus Subjective Principal diagnosis: MRSA bacteremia Interval history: Pt seen and examined, s/p HD yesterday with no UF which was well tolerated. Nurse reports hypotension this am down to 70s systolic but asymptomatic. Objective - Vital Signs Vital signs: Vital Signs Temp Pulse Resp BP Pulse Ox 09/16/17 11:23 98.5 F 75 17 75/48 98 09/16/17 07:22 99.0 F 70 17 104/61 100 09/16/17 03:35 100.6 F H 90 17 98/61 97 09/15/17 23:25 101.5 F H 85 17 93/54 99 09/15/17 20:22 100.0 F H 76 17 101/46 93 09/15/17 16:28 99.5 F 80 16 99/59 100 09/15/17 15:55 98.6 F 20 124/54 09/15/17 15:40 119/56 09/15/17 15:25 128/54 09/15/17 15:10 113/51 09/15/17 14:55 117/62 09/15/17 14:40 120/49 09/15/17 14:25 118/56 09/15/17 14:10 102/57 09/15/17 13:55 114/52 09/15/17 13:40 109/56 09/15/17 13:25 122/52 09/15/17 13:10 110/56 09/15/17 12:55 113/50 09/15/17 12:40 98.1 F 18 117/65 Intake and Output 09/15/17 09/16/17 09/16/17 23:59 07:59 15:59 Intake Total 240 / 240 Balance 240 / 240 Intake: Oral 240 / 240 Other: Weight 97.3 kg - General Appearance General appearance: Present: chronically ill EENT: Present: ATNC, mucous membranes moist Neck: Present: no JVD, supple Cardiology: Present: no edema, normal S1, normal S2 Dialysis Vascular Access: Venous Catheter (permcath with new AVG in place) Gastrointestinal: Present: no tenderness, no guarding Integumentary: Present: warm and dry Neurologic: Present: no focal deficit Musculoskeletal: Present: no deformities Psychiatric: Present: mood/affect appropriate - Lab 09/16/17 06:27 09/16/17 06:27 Most recent lab results Calcium 8.0 mg/dL (8.6-10.3) L 09/16/17 06:27 Phosphorus 4.4 mg/dL (2.7-4.5) 09/13/17 23:15 Magnesium 1.9 mg/dL (1.6-2.6) 09/13/17 23:15 - VTE Documentation of Mechanical Device: Graduated compression elastic hosiery Consult Discharge Plan - Plan Referrals: Dieter Herrera DO [Primary Care Provider] -
[2017-09-16 12:15] LABS: % Iron Saturation 19 % (20-55); Iron 25 mcg/dL (65-175); Transferrin 92 mg/dL (203-362)
[2017-09-16] MEDS ORDERED: *HR* OxyCODONE/APAP 5/325 TABLET PO PRN ×2 (12:30→14:22)
[2017-09-16 12:34] LABS: Ferritin > 1500 ng/mL (20-250)
--- NOTE | 2017-09-16 14:18 | Internal Med Progress Note ---
Date of Encounter: 09/16/17 Time of Encounter: 08:25 - Assessment and plan (1) Sepsis Current Visit: Yes Status: Suspected Assessment and plan: With staph species bacteremia. mecA gene present. Infectious disease consulted. Will repeat blood cultures. If patient continues to have positive blood cultures, will need DARYL. Other possible sources include permacath infection. We will follow infectious disease recommendations once we see the patient. Continue vancomycin. Qualifiers: Sepsis type: sepsis due to unspecified organism Qualified Code(s): A41.9 - Sepsis, unspecified organism (2) Anemia in chronic kidney disease Current Visit: Yes Status: Chronic Assessment and plan: Hemoglobin 7.8 today. We will check stool for occult blood. GI consultation morning. Unable to hold and coagulation due to presence of mechanical mitral valve. Qualifiers: Chronic kidney disease stage: on chronic dialysis Qualified Code(s): N18.6 - End stage renal disease; D63.1 - Anemia in chronic kidney disease; Z99.2 - Dependence on renal dialysis (3) Elevated troponin Current Visit: Yes Status: Acute Assessment and plan: Trended down. Cardiology consult appreciated. Recommend conservative management given his recent retroperitoneal bleed and prior history of GI bleed. On aspirin., Statin (4) ESRD on dialysis Current Visit: Yes Status: Acute Assessment and plan: Continue dialysis per nephrology recommendations. (5) H/O mechanical aortic valve replacement Current Visit: Yes Status: Chronic Assessment and plan: On Coumadin. INR today is 2.6. INR goal 2.5-3.5. (6) Hx of aortic valve replacement Current Visit: Yes Status: Chronic - Time Spent With Patient Total time spent is greater than 50% in coordination of care (as documented) at patient's floor/unit and/or counseling patient: - Subjective Interval history: Patient is awake and alert. Doing well overall. Denies any new complaints at this time. No chest pain or palpitations. No cough or shortness of breath. He did have fever with MAXIMUM TEMPERATURE of 101.5 overnight. - Constitutional Vitals: Temp Pulse Resp BP Pulse Ox 98.5 F 75 17 100/64 98 09/16/17 11:23 09/16/17 11:23 09/16/17 11:23 09/16/17 12:29 09/16/17 11:23 General appearance: Present: cooperative, A&O X 3, answers questions appropriately - Neck Neck exam general surgery: Present: supple, trachea midline. Absent: lymphadenopathy - Respiratory Respiratory exam: Present: CTAB. Absent: accessory muscle use, rales, rhonchi, wheezes - Cardiovascular Cardiovascular exam: Present: RRR, +S1, +S2. Absent: diastolic murmur, gallop, rubs, systolic murmur - GI/Abdominal GI/Abdominal exam: Present: normal bowel sounds, soft, no peritoneal signs. Absent: distended, tenderness - Extremities Exam Extremities exam: Present: warm, radial pulses palpable and symmetrical. Absent : calf tenderness, cyanotic, pedal edema - Neurological Exam Neurological exam: Present: alert, oriented X3, no focal deficits. Absent: facial droop, speech deficit Internal Medicine: Result - Labs CBC & Chem 7: 09/16/17 06:27 09/16/17 06:27 Labs: Short CBC 09/16/17 Range/Units 06:27 WBC 2.2 L (4.3-11.1) K/mcL Hgb 7.8 L (12.9-16.9) g/dL Hct 23.7 L (37.5-50.1) % Plt Count 61 L (140-400) K/mcL Neutrophils # 1.5 L (1.6-8.9) K/mcL BMP 09/16/17 06:27 Sodium 136 Potassium 4.0 Chloride 99 Carbon Dioxide 28 BUN 44 H Creatinine 5.84 H Glucose 101 Calcium 8.0 L - ABG Interpretation ABG results: PT/INR, D-dimer PT 29.1 Seconds (9.4-12.1) H 09/16/17 06:27 - VTE Documentation of Mechanical Device: Graduated compression elastic hosiery Consult Discharge Plan - Plan Referrals: Dieter Herrera DO [Primary Care Provider] -
[2017-09-16] MEDS ORDERED: Isovue-370 500 ML INFUS..BTL IV ONE (17:07)
--- NOTE | 2017-09-16 17:09 | Event Note ---
Date of Encounter: 09/16/17 Time of Encounter: 17:08 Patient complaining of pain and swelling in his left hand over his palm. Noticed 3 days back but worse today. On examination, patient has a tender swelling over the mid palm. Concern for abscess. We will get CT of the left hand to evaluate. If positive for abscess, we will consult orthopedics.
[2017-09-16] MEDS ORDERED: *HR* Warfarin 4 MG TABLET PO ONE (18:00)
[2017-09-17 01:52] LABS: Hepatitis B Surface Antibody 2.93 mIU/mL
[2017-09-17 06:23] LABS: Immature Granulocytes % 0.4 % (0-4)
[2017-09-17 06:24] LABS: Basophils % 0.4 %; Eosinophils # 0.1 K/mcL (0.0-0.6); Eosinophils % 2.6 %; Hemoglobin 7.8 g/dL (12.9-16.9); Immature Platelets 5.4 % (1.1-6.1); Lymphocytes # 0.4 K/mcL (0.6-4.6); Lymphocytes % 14.7 %; Mean Corpuscular HGB Conc 32.5 g/dL (31.6-35.5); Mean Corpuscular Hemoglobin 31.1 pg (28.0-33.3); Mean Corpuscular Volume 95.6 fL (83.0-100.0); Mean Platelet Volume 11.1 fL (9.4-12.4); Monocytes % 9.1 %; Red Blood Count 2.51 M/mcL (4.19-5.50); Segmented Neutrophils % 72.8 %
[2017-09-17 06:26] LABS: Monocytes # 0.3 K/mcL (0.0-1.3); Platelet Count 69 K/mcL (140-400)
[2017-09-17] MEDS ORDERED: 0.9 % Sodium Chloride 2,000 ML ONE (06:28)
[2017-09-17 06:29] LABS: INR 2.6; Prothrombin Time 29.2 Seconds (9.4-12.1)
[2017-09-17 06:42] LABS: Calcium 8.1 mg/dL (8.6-10.3); Potassium 4.4 mEq/L (3.5-5.1)
[2017-09-17] MEDS ORDERED: *HR* Heparin 10,000 UNIT/10 ML VIAL IV PRN (07:20)
[2017-09-17] MEDS ORDERED: 0.9 % Sodium Chloride 250 ML IVC PRN (07:20)
[2017-09-17] MEDS ORDERED: Acetaminophen 325 MG TABLET PO PRN (07:46)
[2017-09-17] MEDS ORDERED: Renal Vitamin 1 CAP CAPSULE PO SCH (09:00)
[2017-09-17] MEDS: Aspirin 81 MG TAB.CHEW PO SCH (09:11)
[2017-09-17] MEDS ORDERED: 0.9 % Sodium Chloride 500 ML IVC ONE (09:40)
[2017-09-17] MEDS ORDERED: Vancomycin 1 EACH in 0.9 % Sodium Chloride 250 ML IVPB PRN (10:45)
--- NOTE | 2017-09-17 10:52 | Nephrology Progress Note ---
Date of Encounter: 09/17/17 Time of Encounter: 10:55 - Assessment and Plan (1) ESRD on dialysis Current Visit: Yes Status: Acute Unable to tolerate HD at this due to hypotension. Blood culture ordered from [facility]. Current regimen is MWF at [place] with Dr. Reyna. Will plan for HD tomorrow if his BP can tolerate. Would recommend transfer to another facility for continuity of care with this complex patient with PMH: of recent retroperitoneal bleed and elevated troponin. He has been at [facility] and [place] in the past. (2) Elevated troponin Current Visit: Yes Status: Acute Per cardiology. (3) Hypotension Current Visit: Yes Status: Acute Per primary. Qualifiers: Hypotension type: unspecified hypotension type Qualified Code(s): I95.9 - Hypotension, unspecified Subjective Principal diagnosis: MRSA bacteremia Interval history: Pt seen and examined. Denies CP/SOB, nausea/vomiting. Objective - Vital Signs Vital signs: Vital Signs Temp Pulse Resp BP Pulse Ox 09/17/17 10:30 99.7 F H 71 20 82/50 97 09/17/17 07:39 98.7 F 73 17 84/48 100 09/17/17 03:35 99.9 F H 82 17 96/53 99 09/16/17 23:16 100.0 F H 76 18 95/56 100 09/16/17 18:47 99.1 F 79 17 89/55 98 09/16/17 15:22 97.9 F 84 18 105/68 100 09/16/17 12:29 100/64 09/16/17 11:23 98.5 F 75 17 75/48 98 Intake and Output 09/16/17 09/17/17 09/17/17 23:59 07:59 15:59 Intake Total 250 / 250 Balance 250 / 250 Intake: IV Fluids 250 / 250 0.9 % Sodium Chloride 500 ML @ 250 / 250 937.5 mls/hr IVC .Q32M ONE Rx#: [id number] Other: Weight 96.9 kg - General Appearance General appearance: Present: well-developed, well-nourished EENT: Present: ATNC, hearing intact, vision intact Neck: Present: supple Respiratory: Present: clear Cardiology: Present: no edema, normal S1, normal S2 Dialysis Vascular Access: Venous Catheter ([facility], DRSG C/D/I.) Gastrointestinal: Present: normoactive bowel sounds, no tenderness, no guarding Integumentary: Present: no rash, warm and dry Neurologic: Present: alert and oriented x3 Psychiatric: Present: mood/affect appropriate, cooperative - Lab 09/17/17 06:09 09/17/17 06:09 Most recent lab results Calcium 8.1 mg/dL (8.6-10.3) L 09/17/17 06:09 Phosphorus 4.4 mg/dL (2.7-4.5) 09/13/17 23:15 Magnesium 1.9 mg/dL (1.6-2.6) 09/13/17 23:15 - VTE Documentation of Mechanical Device: Graduated compression elastic hosiery Consult Discharge Plan - Plan Referrals: Dieter Herrera DO [Primary Care Provider] -
--- NOTE | 2017-09-17 15:37 | Infectious Disease Consult ---
Date of Encounter: 09/17/17 Time of Encounter: 15:31 Assessment and Plan (1) Sepsis Status: Suspected Assessment and plan: The patient had two SIRS criteria plus hypotension. Likely secondary to bacteremia. White blood cell count remains low at 2.7. He had a fever with a MAXIMUM TEMPERATURE of 100.6 in the last 24 hours. The pressure continues to be intermittently low with a systolic in the 80s. Blood cultures drawn sets are positive for staph epi. Repeat peripheral blood cultures drawn 09/16/17 are pending 2 sets. Additional blood culture drawn from patient's permacath drawn 09/17/17 is pending 1 set. Qualifiers: Sepsis type: sepsis due to unspecified organism Qualified Code(s): A41.9 - Sepsis, unspecified organism (2) Bacteremia Status: Acute Assessment and plan: Causative organism: Staph epi. Source: Unclear. The patient has multiple potential sources, but none that are obvious. He does have cellulitis to the left palmar aspect. He is also had a recent AV graft placed. He does have a right upper chest permacath, but clinically does not appear infected. Blood cultures drawn sets are positive for staph epi. Repeat peripheral blood cultures drawn 09/16/17 are pending 2 sets. Additional blood culture drawn from patient's permacath drawn 09/17/17 is pending 1 set. At this point, I do not think we need to remove the patient's permacath. There is a possibility that the patient will be transferred to a tertiary care facility per nephrology's recommendations, therefore, we will allow the transferring facility staff decide what they want to do with his line. Continue vancomycin IV. Pharmacy to dose. Goal trough approximately 15. Duration of treatment depends on the clinical picture. Monitor renal function and for drug toxicity and dose adjust antibiotics. (3) Cellulitis Status: Acute Assessment and plan: Location: Left hand. Causative organism: Unclear. Could be staph epi based on blood culture results. Etiology unclear. Patient denies known trauma. CT scan of the left hand showed findings consistent with cellulitis, but no abscess. Recommend ortho to evaluate. Continue Vancomycin as above. Qualifiers: Site of cellulitis: unspecified site Qualified Code(s): L03.90 - Cellulitis , unspecified (4) Anemia in chronic kidney disease Status: Chronic Assessment and plan: Hgb down to 7.8. Further workup and management per the primary and nephrology teams. Qualifiers: Chronic kidney disease stage: on chronic dialysis Qualified Code(s): N18.6 - End stage renal disease; D63.1 - Anemia in chronic kidney disease; Z99.2 - Dependence on renal dialysis (5) Elevated troponin Status: Acute Assessment and plan: Trops 4.06/3.91/3.53. Cardiology consulted. Recommend medical management. (6) ESRD on dialysis Status: Acute Assessment and plan: Secondary to polycystic kidney disease. Nephrology consulted and following. (7) S/P arteriovenous (AV) graft placement Status: Acute Assessment and plan: Status post AV graft placement about a week ago per the patient's report at [facility]. Clinically, does not appear infected. (8) History of mitral valve replacement with mechanical valve Status: Chronic (9) Hx of aortic valve replacement Status: Chronic Infectious Disease HPI - Data of Consult Patient: new to practice Consult date: 09/17/17 Requesting Physician: Jose Santoro MD Primary Care Provider: Dieter Herrera - Consult Narrative Reason for consult: Bacteremia History of present illness: Mr. Driscoll is a 57 year old male with past medical history of polycystic kidney disease, end-stage renal disease on hemodialysis, gout, CHF, recent history of retroperitoneal bleed, remote history of mechanical mitral valve replacement and biologic aortic valve replacement secondary to RHD, and RUE AV graft placement 1 week ago at [facility]. The patient was admitted to the hospital 09/13/17 for weakness and fever. We are consulted 09/17/2017 for further recommendations for bacteremia. Briefly, the patient is 57-year-old male with past medical history as stated above. The patient is somewhat of a poor historian regarding the events leading up to his hospitalization, therefore, most of the information is obtained from the medical record. The patient states that he remembers going to bed the day before coming to the hospital and he had a fever. He denies any other known symptoms. Upon arrival to the ER, the patient was tachycardic and hypotensive. He also reported a fever of 101 home. His white blood cell count was normal. Kidney function was reflective of his end-stage renal disease. Lactic acid was negative. Troponin was +4.06 blood cultures were obtained, both from peripheral sticks, 2 sets. While in the ER, the patient is noted to be high to hypotensive. He did respond well to IV fluids and did not require vasopressors. He had a chest x-ray, CT of the head, and CT of the abdomen and pelvis that were essentially negative for acute findings. He had a transthoracic echocardiogram that showed an EF of 55-60%. Due to his hypotension, he was admitted to the ICU for further evaluation and treatment. Since admission, the patient's blood cultures have come back +2 out of 2 sets for staph epi. His white blood cell count has dropped to 2.7 with 14% monocytes. He has continued to have some intermittent fevers with MAXIMUM TEMPERATURE of 100.6 in the last 24 hours. He arrested for infectious panel that was negative. Repeat blood cultures obtained peripherally on 09/16/17 are pending 2 sets. He did have one set drawn from his permacath today. Yesterday , the patient began to complain of some left hand pain. He had a CT scan that showed findings consistent with cellulitis, but no abscess. The patient has had some issues with anemia. Fecal occult blood test was positive. GI has been consulted. Cardiology was consulted to assist given his markedly elevated troponins, but due to his history of retroperitoneal bleed, they have recommended medical management. Nephrology has been consulted to assist with his dialysis. Currently, the patient is on IV vancomycin. We have been asked to evaluate and make further recommendations. During my exam today, the patient states that overall he feels okay. He denies any fevers or chills or rigors. Denies chest pain, shortness of breath, or cough. Denies nausea, vomiting, diarrhea, or constipation. Denies abdominal pain. He denies pain in his joints. He does report some pain in the left hand. He does tell me that he had his AV graft replaced about a week ago at [facility], but he has not had any issues with the surgical site. He denies oral thrush or new skin lesions. He denies back pain. He denies any congestion, earache, or sore throat. He states he has been on dialysis for the past 6 or 7 months. He states he has had his permacath since he was started on dialysis. He states they use his fistula couple of times, but the fistula ruptured and they went back to using his permacath until he gets graft placed and matured. The patient lives at home with family. She does not work outside the home. He denies any tobacco, alcohol, or illicit drug use. He does have a dog, but denies any contact with it. He denies any travel outside the [facility]. CC: Jose Santoro MD Past Med Surg Social Fam HX - Past Medical History Attestation: Yes The following information was validated with the patient. Source: patient, old records reviewed, nursing notes reviewed Medical history: CHF, coronary artery disease, renal disease, other Additional medical history: stage IV renal failure Psychiatric history: no psych history - Past Surgical History Surgical History: heart valve replacement, other Additional surgical history: aortic and mitral valve replacements - Social History Smoking Status: Former smoker Smokeless Tobacco Status: Yes Alcohol use: none Drug use: none Occupational status: unemployed Current living situation: Home, With Family Activity Level: Uses cane/walker Recent Out of Country Travel Within the Last 8 Weeks: No Exposure or Possible Exposure to Illness During Travel: No - Family History Mother Living Status: Still Living Hx Family Cardiac Disorders: No Hx Family Respiratory Disorders: No Hx Family Cancer: Yes Hx Family GI Disorders: No Hx Family Endocrine Disorder: Yes (DM) Hx Family Neuromuscular Disorders: No Hx Family Neurologic Disorders: No Hx Family HEENT Disorders: No Hx Family Autoimmune Disorders: No Father Living Status: Hx Family Cardiac Disorders: Yes (Heart problem) Hx Family Respiratory Disorders: No Hx Family Cancer: Yes Hx Family GI Disorders: No Hx Family Endocrine Disorder: Yes Hx Family Neuromuscular Disorders: No Hx Family Neurologic Disorders: No Hx Family HEENT Disorders: No Hx Family Autoimmune Disorders: No Infectious Disease-CN:Meds Ferrous Sulfate 325 mg PO QAM 07/20/16 [History] Sodium Bicarbonate 650 mg PO BID 07/20/16 [History] Oxycodone HCl/Acetaminophen [Percocet 5-325 mg Tablet] 1 tab PO BID PRN [History] Allopurinol [Zyloprim 100 MG] 100 mg PO DAILY 12/26/16 [History] Renal Vitamin [Renal Caps Softgel] 1 mg PO DAILY 09/14/17 [History] Sevelamer HCl [Renagel] 800 mg PO TIDWM 09/14/17 [History] Warfarin [Coumadin] 8 mg PO 1800 09/14/17 [History] 3 Allergy/AdvReac Type Severity Reaction Status Date / Time No Known Allergies Allergy Verified 09/14/17 07:16 All systems: reviewed and no additional remarkable complaints except as stated Exam - Constitutional Vitals: Temp Pulse Resp BP Pulse Ox 99.7 F H 71 20 82/50 97 09/17/17 10:30 09/17/17 10:30 09/17/17 10:30 09/17/17 10:30 09/17/17 10:30 General appearance: cooperative, no acute distress, obese - Head Head exam: Present: atraumatic, normal inspection, normocephalic - Eye Eye exam: Present: EOMI, normal appearance, PERRL Pupils: Present: normal accommodation - ENT ENT exam: Present: mucous membranes moist - Neck Neck exam: Present: normal inspection - Respiratory Respiratory exam: Present: CTAB. Absent: rales, respiratory distress, rhonchi, wheezes - Cardiovascular Cardiovascular exam: Present: clicks, RRR, +S1, +S2, systolic murmur - GI/Abdominal GI/Abdominal exam: Present: normal bowel sounds, soft. Absent: distended, tenderness - Extremities Exam Extremities exam: Present: tenderness (Palmar aspect left hand). Absent: joint swelling, pedal edema Additional comments: AV graft site noted to the upper portion of the right upper extremity with sutures intact and wound edges well approximated. No erythema, warmth, drainage , or tenderness noted. - Back Exam Back exam: Present: normal inspection. Absent: paraspinal tenderness, vertebral tenderness - Neurological Exam Neurological exam: Present: alert, oriented X3, no focal deficits - Psychiatric Psychiatric exam: Present: normal affect, normal mood - Skin Skin exam: Present: dry, intact, normal color, warm - Additional findings Additional findings: Permacath noted to the right upper chest with transparent dressing clean, dry, and intact. No erythema, warmth, drainage, or tenderness noted at the insertion site. Infectious Disease CN: Results - Labs CBC & Chem 7: 09/17/17 06:09 09/17/17 06:09 Cultures: Cultures 09/17/17 11:25 Blood Culture - Preliminary Central Venous Catheter Culture is incubating and being continuously monitored for growth. Final report to follow. 09/16/17 08:26 Blood Culture - Preliminary Peripheral Venipuncture Culture is incubating and being continuously monitored for growth. Final report to follow. 09/16/17 08:21 Blood Culture - Preliminary Peripheral Venipuncture Culture is incubating and being continuously monitored for growth. Final report to follow. Serology: Serology 09/16/17 09/15/17 09/15/17 Range/Units 21:13 08:30 08:00 Stool Occult Blood Positive A (Negative) Chlamy pneumoniae PCR Not Detected (Not Detect) Adenovirus (PCR) Not Detected (Not Detect) B. pertussis DNA (PCR) Not Detected (Not Detect) B.parapertussis DNA PCR Not Detected (Not Detect) Coronavirus OC43 (PCR) Not Detected (Not Detect) Coronavirus HKU1 (PCR) Not Detected (Not Detect) Coronavirus 229E (PCR) Not Detected (Not Detect) Coronavirus NL63 (PCR) Not Detected (Not Detect) Hep Bs Antigen Nonreactive (Nonreactive) Hep Bs Antibody 2.93 mIU/mL Human Metapneumovir PCR Not Detected (Not Detect) Influenza A (H1) PCR Not Detected (Not Detect) Influ A (H1N1/09) PCR Not Detected (Not Detect) Influenza A (H3) PCR Not Detected (Not Detect) Influenza A Untype (PCR) Not Detected (Not Detect) Influenza Type B (PCR) Not Detected (Not Detect) M.pneumoniae DNA (PCR) Not Detected (Not Detect) Parainfluenza 1 (PCR) Not Detected (Not Detect) Parainfluenza 2 (PCR) Not Detected (Not Detect) Parainfluenza 3 (PCR) Not Detected (Not Detect) Parainfluenza 4 (PCR) Not Detected (Not Detect) RSV (PCR) Not Detected (Not Detect) Entero/Rhino (PCR) Not Detected (Not Detect) - VTE Documentation of Mechanical Device: Graduated compression elastic hosiery Consult Discharge Plan - Plan Referrals: Dieter Herrera DO [Primary Care Provider] - - Attending Attestation I examined this patient and my medical decision-making was reviewed with the Resident Physician. I agree with the documented findings, disposition and treatment plan as described except to the extent set forth below. This is an addendum to original report dictated by Jenn Willis CNP. Please refer to Angie note for full detail. Patient is a 57-year-old gentleman who has extensive past medical history mentioned below including end-stage renal disease on hemodialysis, history of aortic valve replacement, polycystic kidney disease. Patient presented to [facility] with weakness and fever. Workup revealed the patient had positive bacteremia with coag negative staph 2 out of 2 sets. We were asked to evaluate the patient and make further recommendations. Assessment and plan: Left hand cellulitis. CT scan was negative for abscess or osteomyelitis Staph epi bacteremia 2 out of 2 sets source is not clear could be the cellulitis or the recent AV graft placement or the right upper chest permacath. Patient currently on appropriate antibiotics. Concern for endocarditis is always there specially with a prosthetic valve. Patient will probably need a DARYL. Repeat blood cultures make sure the Bactrim results. If the permacath is the source of infection will likely have to remove. Continue vancomycin in the meantime. Monitor labs and for drug toxicity. Patient likely being transferred to [facility].
[2017-09-17 15:46] VITALS: BP 89/51
--- NOTE | 2017-09-17 15:51 | Discharge Summary ---
Orders not resulted at time of discharge: Pending orders 09/16/17 08:26 Culture,Blood [BC] Routine 09/17/17 11:25 Culture,Blood [BC] Routine 09/18/17 04:00 Basic Metabolic Panel AM 0400 CBC no Diff [Complete Blood Count w/o Diff] [HEME] AM 0400 PT/INR [Prothrombin Time INR] [COAG] AM 0400 09/19/17 04:00 Basic Metabolic Panel AM 0400 CBC no Diff [Complete Blood Count w/o Diff] [HEME] AM 0400 PT/INR [Prothrombin Time INR] [COAG] AM 0400 09/20/17 04:00 Basic Metabolic Panel AM 0400 CBC no Diff [Complete Blood Count w/o Diff] [HEME] AM 0400 PT/INR [Prothrombin Time INR] [COAG] AM 0400 09/21/17 04:00 Basic Metabolic Panel AM 0400 CBC no Diff [Complete Blood Count w/o Diff] [HEME] AM 0400 PT/INR [Prothrombin Time INR] [COAG] AM 0400 09/22/17 04:00 Basic Metabolic Panel AM 0400 CBC no Diff [Complete Blood Count w/o Diff] [HEME] AM 0400 PT/INR [Prothrombin Time INR] [COAG] AM 0400 09/23/17 04:00 Basic Metabolic Panel AM 0400 CBC no Diff [Complete Blood Count w/o Diff] [HEME] AM 0400 09/24/17 04:00 Basic Metabolic Panel AM 0400 CBC no Diff [Complete Blood Count w/o Diff] [HEME] AM 0400 09/25/17 04:00 Basic Metabolic Panel AM 0400 Date of Encounter: 09/17/17 Time of Encounter: 15:54 - Discharge Diagnosis (1) Sepsis Priority: Primary Status: Suspected Qualifiers: Qualified Code(s): A41.9 - Sepsis, unspecified organism (2) Elevated troponin Priority: Primary Status: Acute (3) H/O mechanical aortic valve replacement Priority: Secondary Status: Chronic (4) Hx of aortic valve replacement Priority: Secondary Status: Chronic (5) Anemia in chronic kidney disease Priority: Secondary Status: Chronic Qualifiers: Qualified Code(s): N18.6 - End stage renal disease; D63.1 - Anemia in chronic kidney disease; Z99.2 - Dependence on renal dialysis (6) ESRD on dialysis Priority: Secondary Status: Acute Hospital course: Mr. Driscoll is a 57 year old male with a history of polycystic kidney disease, ESRD on dialysis with permacath, mitral valve replacement on Coumadin, and recent retroperitoneal hemorrhage. Patient presented to the ED with complaints of nausea, vomiting, fevers, and generalized weakness. Pt did c/o fever with temp 101. Upon arrival to the emergency department patient was found to be hypotensive with blood pressure readings as low as 70/45. He was mildly tachycardic at 102. His white blood cell count was normal. He did not admit to any chest pain or shortness of breath. He denies any recent bleeds and his INR overnight was 2.9. Patient recently had a fistula placed in the right arm that is currently maturing, he has a PermCath in place in the right IJ. CT scan in the ED did not reveal any bleeds. He was admitted to the ICU for closer monitoring, his BP improved with IV hydration only. He did have NSTEMI with Trop @ 4.06. pt was seen by cardiology and recommend medical management since he is high risk for GI bleed / retroperitoneal bleed and unable to start DAP therapy if he ever get PCI after C. Pt was seen by Nephro who did an HD on Sunday. Pt's blood cx grew Staph epidermidis on 09/14 and he was placed on Vancomycin abx. His bacteremia could due to his perm cath, recent AV fistula graft repair and Hand cellulities. He does have Left hand cellulites with no abscess. Pt was transferred to [facility] y/d. Today he was seen by nephro and his BP still running low and still have low grade temp, at this point Nephro recommend to transfer to [facility] for further higher level of care since he does have multiple comorbidities. I did talk to [facility] transfer center, who accepted the pt for further higher level of care. - Time Spent with Patient Total time spent providing and/or coordinating discharge services: Greater than 30 minutes (spent 35 minutes on d/c summary) - Discharge Medications Home Medications: Ferrous Sulfate 325 mg PO QAM 07/20/16 [History] Sodium Bicarbonate 650 mg PO BID 07/20/16 [History] Oxycodone HCl/Acetaminophen [Percocet 5-325 mg Tablet] 1 tab PO BID PRN [History] Allopurinol [Zyloprim 100 MG] 100 mg PO DAILY 12/26/16 [History] Renal Vitamin [Renal Caps Softgel] 1 mg PO DAILY 09/14/17 [History] Sevelamer HCl [Renagel] 800 mg PO TIDWM 09/14/17 [History] Warfarin [Coumadin] 8 mg PO 1800 09/14/17 [History] Allergies/Adverse Reactions: 3 Allergy/AdvReac Type Severity Reaction Status Date / Time No Known Allergies Allergy Verified 09/14/17 07:16 Date of admission: 09/14/17 11:05 Primary care physician: Dieter Herrera Consults: 09/15/17 08:45 Consult to Dialysis [CONS] ONCE 09/15/17 15:45 Consult to Dialysis [CONS] ONCE 09/16/17 07:53 Consult to Infectious Diseases [CONS] Routine Consulting Provider: Infectious Disease Kathy Reason for Consult: Staph bacteremia/ Mech heart valve Time Notified: 07:53 Call Completed: No 09/17/17 07:30 Consult to Dialysis [CONS] ONCE - Constitutional Vitals: Temp Pulse Resp BP Pulse Ox 99.7 F H 71 20 82/50 97 09/17/17 10:30 09/17/17 10:30 09/17/17 10:30 09/17/17 10:30 09/17/17 10:30 General appearance: Present: cooperative, mild distress, A&O X 3, answers questions appropriately - Head Head exam: Present: atraumatic, normal inspection - Neck Neck exam general surgery: Present: supple - Respiratory Respiratory exam: Present: decreased breath sounds. Absent: rales, respiratory distress, rhonchi, wheezes - Cardiovascular Cardiovascular exam: Present: RRR, +S1, +S2, systolic murmur. Absent: tachycardia - GI/Abdominal GI/Abdominal exam: Present: normal bowel sounds, soft. Absent: rebound, rigid, tenderness - Extremities Exam Extremities exam: Present: pedal edema. Absent: calf tenderness, tenderness - Back Exam Back exam: Absent: CVA tenderness (L), CVA tenderness (R) - Neurological Exam Neurological exam: Present: alert, oriented X3 - Patient Status Disposition: Transfer Other Condition: Fair - Discharge Instructions Follow Up With: Dieter Herrera DO [Primary Care Provider] - - VTE Documentation of Mechanical Device: Graduated compression elastic hosiery
--- NOTE | 2017-09-17 17:09 | Internal Med Progress Note ---
Hospitalist Progress Note - Encounter Date of Encounter: 09/17/17 Time of Encounter: 17:07 - Subjective Interval History: Pt was seen and examined at bed side. She did have Left arm AV fistula fistulagram done..which seems to be working well No events overnight She denied any CP / SOB - Exam Vitals: Temp Pulse Resp BP Pulse Ox 99.0 F 76 18 89/51 100 09/17/17 15:45 09/17/17 15:45 09/17/17 15:45 09/17/17 15:45 09/17/17 15:45 Exam: Gen: A, A< O x 3 Chest: Diminished BS b/l, no crackles, Nor ales, No wheezing Heart: S1S2+ RRR No murmurs Abd: Soft, NT, Distended Ext: Open wound over Left thigh, Rt thigh, Rt leg medially. Skin : Multiple wound all over the lower abdomen Psych : Depressed - Assessment and Plan (1) Sepsis Current Visit: Yes Status: Suspected Assessment and Plan: Source of due to multiple abdomen and lower ext wounds wound cx growing - G-ve rods Repeat blood cx - no growth ID is on board cont broad spec abx Zosyn and Vancomycin (2) Elevated troponin Current Visit: Yes Status: Acute (3) H/O mechanical aortic valve replacement Current Visit: Yes Status: Chronic (4) Hx of aortic valve replacement Current Visit: Yes Status: Chronic (5) Anemia in chronic kidney disease Current Visit: Yes Status: Chronic (6) ESRD on dialysis Current Visit: Yes Status: Acute - Time Spent with Patient Total time spent is greater than 50% in coordination of care (as documented) at patient's floor/unit and/or counseling patient: Internal Medicine: Result - Labs CBC & Chem 7: 09/17/17 06:09 09/17/17 06:09 Labs: Short CBC 09/17/17 Range/Units 06:09 WBC 2.7 L (4.3-11.1) K/mcL Hgb 7.8 L (12.9-16.9) g/dL Hct 24.0 L (37.5-50.1) % Plt Count 69 L (140-400) K/mcL Neutrophils # 2.0 (1.6-8.9) K/mcL BMP 09/17/17 06:09 Sodium 130 L Potassium 4.4 Chloride 103 Carbon Dioxide 24 BUN 66 H Creatinine 7.49 H Glucose 96 Calcium 8.1 L - ABG Interpretation ABG results: PT/INR, D-dimer PT 29.2 Seconds (9.4-12.1) H 09/17/17 06:09 - Impressions Impressions Hand CT 09/16/17 17:07 IMPRESSION: 1. Mild subcutaneous fat stranding in the palmar aspect of the hand compatible with cellulitis. No drainable fluid collection. 2. No acute osseous abnormality. D/ / Rohit Copeland MD / Rohit Copeland MD Interpreting Provider: Rohit Copeland MD - VTE Documentation of Mechanical Device: Graduated compression elastic hosiery Consult Discharge Plan - Plan Referrals: Dieter Herrera DO [Primary Care Provider] - (1) Sepsis Qualifiers: Sepsis type: sepsis due to unspecified organism Qualified Code(s): A41.9 - Sepsis, unspecified organism (5) Anemia in chronic kidney disease Qualifiers: Chronic kidney disease stage: on chronic dialysis Qualified Code(s): N18.6 - End stage renal disease; D63.1 - Anemia in chronic kidney disease; Z99.2 - Dependence on renal dialysis
[2017-09-17] MEDS ORDERED: *HR* Warfarin 4 MG TABLET PO ONE (18:00)
[2017-09-17] MEDS ORDERED: Aminoglycoside Consult 1 EACH MC ONE (18:25)
[2017-09-18 02:48] LABS: Acinetobacter baumannii by PCR Not Detected (Not Detect); Candida albicans by PCR Not Detected (Not Detect); Candida glabrata by PCR Not Detected (Not Detect); Candida krusei by PCR Not Detected (Not Detect); Candida parapsilosis by PCR Not Detected (Not Detect); Candida tropicalis by PCR Not Detected (Not Detect); Enterococcus by PCR Not Detected (Not Detect); Escherichia coli by PCR Not Detected (Not Detect); Klebsiella oxytoca by PCR Not Detected (Not Detect); Klebsiella pneumoniae by PCR Not Detected (Not Detect); Pseudomonas aeruginosa by PCR Not Detected (Not Detect); Serratia marcescens by PCR Not Detected (Not Detect); Staphylococcus aureus by PCR Not Detected (Not Detect); Streptococcus agalactiae(B)PCR Not Detected (Not Detect); Streptococcus by PCR Not Detected (Not Detect); Streptococcus pneumoniae PCR Not Detected (Not Detect); Streptococcus pyogenes (A) PCR Not Detected (Not Detect); mecA Methicillin-Resist Gene DETECTED (Not Detect)
== END 2017-09-17 18:26 | disposition other institution (70) | DRG 720 ==
LOC: 2NNU 22:25 → EMEROO 22:25 → ICNU 09-14 08:25 → SUATTDRO 09-14 11:05 → 2ANU 09-15 12:20
PROVIDERS: ADMIT Family Medicine; ATTEND Internal Medicine

== ENCOUNTER 2018-05-24 11:31 | Observation (INO) ==
[2018-05-24] MEDS ORDERED: Ipratropium/Albuterol Neb 3 ML IH ONE (12:04)
--- NOTE | 2018-05-24 12:13 | Emergency Department Note ---
Disposition Clinical Impression: Pleural effusion, HCAP (healthcare-associated pneumonia) Anemia Qualifiers: Anemia type: iron deficiency Iron deficiency anemia type: unspecified iron deficiency Qualified Code(s): D50.9 - Iron deficiency anemia, unspecified Disposition: Admitted As Inpatient Condition: Good Referrals: NONE,PCP [Primary Care Provider] - Forms: ED Satisfaction Letter General Adult HPI - General Chief complaint: ED Upper Respiratory Infection Stated complaint: Productive cough Time Seen by Provider: 05/24/18 11:40 Source: patient, EMS Mode of arrival: EMS Limitations: no limitations Nursing Notes Reviewed: Yes Vital Signs Reviewed: Yes - History of Present Illness HPI Narrative: 57 year old male with end-stage renal disease presents for productive cough and shortness breath since yesterday. Family member stated pt coughed some yellowish mucus last night and associate with shortness of breath. Home health nurse came this morning and found crackers in both lungs. Patient is suggested to come to ED. No chest pain. No chills and fever. Patient is on hemodialysis Sunday and Sunday. [facility] [place] [facility] ago. Onset (ago): day(s) (1) Location: chest Pain Scale: 0 - Related Data Home Medications Medication Instructions Recorded Confirmed Allopurinol [Zyloprim 100 MG] 100 mg PO DAILY 12/26/16 05/16/18 Amiodarone [Cordarone] 200 mg PO DAILY 05/01/18 05/16/18 Atorvastatin [Lipitor] 40 mg PO HS 05/01/18 05/16/18 Doxycycline 100 mg PO BID 05/01/18 05/16/18 Famotidine [Pepcid] 20 mg PO DAILY 05/01/18 05/16/18 Midodrine HCl 10 mg PO TID 05/01/18 05/16/18 Megestrol Acetate [Megace] 40 mg PO DAILY 05/15/18 05/16/18 Previous Rx's Medication Instructions Recorded Warfarin [Coumadin] 3 mg PO AD #30 tablet 05/17/18 Allergies Allergy/AdvReac Type Severity Reaction Status Date / Time No Known Allergies Allergy Verified 05/16/18 10:40 Constitutional: Denies: fever, chills Eyes: Denies: eye pain ENT ED: Denies: ear pain Cardiovascular: Denies: chest pain Respiratory: Reports: cough, dyspnea Gastrointestinal: Denies: abdominal pain Genitourinary: Denies: urgency Musculoskeletal: Denies: back pain Integumentary: Denies: rash Neurological: Denies: headache Psychiatric: Denies: anxiety Endocrine: Denies: fatigue Hematological/Lymphatic: Denies: easy bleeding Allergic/Immunologic: Denies: facial swelling Past Medical History - Past Medical History Medical history: Reports: CHF, coronary artery disease, CVA, dialysis, renal disease, valvular heart disease, other Surgical history: Reports: heart valve replacement, other Psychiatric history: Reports: no psych history - Social History Smoking Status: Former smoker Smokeless Tobacco Status: Yes Alcohol use: Reports: none Drug use: Reports: none Physical Exam - General Limitations: altered mental status, physical limitation General appearance: alert - Head Head exam: atraumatic - Eye Eye exam: Present: normal appearance. Absent: scleral icterus - ENT ENT exam: normal exam - Neck Neck exam: Present: normal inspection - Chest Chest inspection: Present: normal inspection - Expanded Respiratory Exam Location: rales: Lower, Left, Right - Cardiovascular Cardiovascular exam: Present: regular rate - Abdominal Exam Abdominal exam: Present: soft - Extremities Exam Extremities exam: Present: normal inspection, full ROM. Absent: tenderness - Back Exam Back exam: Present: normal inspection, full ROM. Absent: tenderness - Neurological Exam Neurological exam: Present: alert, oriented X3 - Psychiatric Psychiatric exam: Present: normal affect - Skin Skin exam: Present: warm, intact Course Vital Signs Temperature 98.4 F 05/24/18 11:36 Pulse Rate 88 05/24/18 11:36 Respiratory Rate 20 05/24/18 11:36 Blood Pressure 100/66 05/24/18 11:36 O2 Sat by Pulse Oximetry 100 05/24/18 11:36 Temperature 98.4 F 05/24/18 11:36 Pulse Rate 87 05/24/18 15:39 Respiratory Rate 16 05/24/18 15:39 Blood Pressure 96/56 05/24/18 15:39 O2 Sat by Pulse Oximetry 100 05/24/18 15:39 Oxygen Delivery Oxygen Delivery Room Air Medical Decision Making - MDM Narrative Medical decision making narrative: 57 year old male with history of [id number] disease, anemia, tracheotomy dependency presents with productive cough, shortness of breath since last night. Pt coughed yellowish mucus last night. Pt was discharged from [facility] in [place] one month ago. No chest pain. Physical exam: pt's face is pale, tracheotomy on mid of neck, crackers on bilateral lower lungs. Pt's chest xray indicated right lower pleural effusion. Labs: hemoglobin 6.7 (baseline from 7.5 to 8.0). Impression: Anemia, pleural effusion. Based on pt's recently discharged from health facility, will treat him as pneumonia. Pt need blood transfusion. Pt will be admitted to hospital for observation. antibiotics started in ER. Spoke with carbide grinder Dr. Burnett. He will see the patient in floor. Arrange dialysis from ER. Jeremiah Mchugh has seen the patient and agrees the above plan. - Lab Data Lab results reviewed: Yes I reviewed the patient's lab results. Result diagrams: 05/24/18 12:51 05/24/18 12:57 Lab Results 05/24/18 05/24/18 05/24/18 Range/Units 12:51 12:51 12:51 WBC 4.3 (4.3-11.1) K/mcL RBC 2.45 L (4.19-5.50) M/mcL Hgb 6.7 L (12.9-16.9) g/dL Hct 21.6 L (37.5-50.1) % MCV 88.2 (83.0-100.0) fL MCH 27.3 L (28.0-33.3) pg MCHC 31.0 L (31.6-35.5) g/dL RDW 18.4 H (11.5-14.5) % Plt Count 89 L (140-400) K/mcL MPV TNP Immature Gran % 0.5 (0-4) % Seg Neutrophils % 76.8 % Lymphocytes % 12.6 % Monocytes % 9.6 % Eosinophils % 0.5 % Basophils % 0.0 % Neutrophils # 3.3 (1.6-8.9) K/mcL Lymphocytes # 0.5 L (0.6-4.6) K/mcL Monocytes # 0.4 (0.0-1.3) K/mcL Eosinophils # 0.0 (0.0-0.6) K/mcL Basophils # 0.0 (0.0-0.2) K/mcL Platelet Estimate Decreased L (Normal) Immature Plt Fraction 5.2 (1.1-6.1) % PT 25.1 H (9.4-12.1) Seconds INR 2.2 Sodium (136-145) mEq/L Potassium (3.5-5.1) mEq/L Chloride (98-107) mEq/L Carbon Dioxide (23-29) mEq/L BUN (6-20) mg/dL Creatinine (0.70-1.30) mg/dL Est GFR ( Amer) (> 60) Est GFR (Non-Af Amer) (> 60) BUN/Creatinine Ratio (6-26) Glucose (70-105) mg/dL Calculated Osmolality (280-300) Calcium (8.6-10.3) mg/dL Iron (65-175) mcg/dL % Saturation (20-55) % Transferrin (203-362) mg/dL Ferritin (20-250) ng/mL Total Bilirubin (0.3-1.0) mg/dL AST (13-39) Units/L ALT (7-52) Units/L Alkaline Phosphatase (34-104) Units/L Troponin I (< 0.04) ng/mL Serum Total Protein (6.4-8.9) g/dL Albumin (3.5-5.7) g/dL Globulin (2.4-3.5) g/dL Albumin/Globulin Ratio (1.1-2.2) Vitamin B12 367 (250-1100) pg/mL Folate 15.1 (3.0-16.0) ng/mL 05/24/18 Range/Units 12:57 WBC (4.3-11.1) K/mcL RBC (4.19-5.50) M/mcL Hgb (12.9-16.9) g/dL Hct (37.5-50.1) % MCV (83.0-100.0) fL MCH (28.0-33.3) pg MCHC (31.6-35.5) g/dL RDW (11.5-14.5) % Plt Count (140-400) K/mcL MPV Immature Gran % (0-4) % Seg Neutrophils % % Lymphocytes % % Monocytes % % Eosinophils % % Basophils % % Neutrophils # (1.6-8.9) K/mcL Lymphocytes # (0.6-4.6) K/mcL Monocytes # (0.0-1.3) K/mcL Eosinophils # (0.0-0.6) K/mcL Basophils # (0.0-0.2) K/mcL Platelet Estimate (Normal) Immature Plt Fraction (1.1-6.1) % PT (9.4-12.1) Seconds INR Sodium 141 (136-145) mEq/L Potassium 3.6 (3.5-5.1) mEq/L Chloride 102 (98-107) mEq/L Carbon Dioxide 23 (23-29) mEq/L BUN 62 H (6-20) mg/dL Creatinine 4.78 H (0.70-1.30) mg/dL Est GFR ( Amer) 15 L (> 60) Est GFR (Non-Af Amer) 13 L (> 60) BUN/Creatinine Ratio 13 (6-26) Glucose 98 (70-105) mg/dL Calculated Osmolality 310 H (280-300) Calcium 7.9 L (8.6-10.3) mg/dL Iron 22 L (65-175) mcg/dL % Saturation 12 L (20-55) % Transferrin 133 L (203-362) mg/dL Ferritin > 1500 H (20-250) ng/mL Total Bilirubin 0.8 (0.3-1.0) mg/dL AST 13 (13-39) Units/L ALT 10 (7-52) Units/L Alkaline Phosphatase 101 (34-104) Units/L Troponin I 0.03 (< 0.04) ng/mL Serum Total Protein 5.5 L (6.4-8.9) g/dL Albumin 2.8 L (3.5-5.7) g/dL Globulin 2.7 (2.4-3.5) g/dL Albumin/Globulin Ratio 1.0 L (1.1-2.2) Vitamin B12 (250-1100) pg/mL Folate (3.0-16.0) ng/mL - Radiology Data Radiology results reviewed: Yes I reviewed the patient's radiology results. COMPARISON: 05/21/2018 HISTORY: ORDERING SYSTEM PROVIDED HISTORY: productive cough FINDINGS: Tracheostomy tube in place. There is a right IJ dialysis catheter. There has been mitral valve replacement. There is cardiomegaly. The upper lobe vessels are larger than the lower lobe vessels. There blunting of the right costophrenic angle. The lungs are clear XR/XR chest 2V IMPRESSION: 1. No evidence of pneumonia 2. Cardiomegaly with pulmonary venous hypertension and small right pleural effusion D/ / Farrukh Cannon MD / Farrukh Cannon MD Interpreting Provider: Farrukh Cannon MD
[2018-05-24 13:18] LABS: Eosinophils % 0.5 %; Hematocrit 21.6 % (37.5-50.1); Lymphocytes % 12.6 %
[2018-05-24 13:20] LABS: Hemoglobin 6.7 g/dL (12.9-16.9); Immature Granulocytes % 0.5 % (0-4); Immature Platelets 5.2 % (1.1-6.1); Lymphocytes # 0.5 K/mcL (0.6-4.6); Mean Corpuscular Hemoglobin 27.3 pg (28.0-33.3); Mean Corpuscular Volume 88.2 fL (83.0-100.0); Monocytes # 0.4 K/mcL (0.0-1.3); Monocytes % 9.6 %; Neutrophils # 3.3 K/mcL (1.6-8.9); Red Blood Count 2.45 M/mcL (4.19-5.50); Red Cell Distribution Width 18.4 % (11.5-14.5); Segmented Neutrophils % 76.8 %
[2018-05-24 13:23] LABS: Platelet Count 89 K/mcL (140-400); Platelet Estimate Decreased (Normal)
[2018-05-24] MEDS ORDERED: Piperacillin/Tazobactam 3.375 GM in 0.9 % Sodium Chloride Mini Bag 100 ML IVPB ONE (13:34)
[2018-05-24] MEDS ORDERED: Levofloxacin 750 MG/150 ML 750 MG/150 ML BAG IVPB ONE (13:34)
[2018-05-24 13:35] LABS: INR 2.2; Prothrombin Time 25.1 Seconds (9.4-12.1)
--- NOTE | 2018-05-24 13:39 | Emergency Department Note ---
Disposition Clinical Impression: Pleural effusion, HCAP (healthcare-associated pneumonia) Anemia Qualifiers: Anemia type: unspecified type Qualified Code(s): D64.9 - Anemia, unspecified Disposition: Admitted As Inpatient Condition: Good Referrals: NONE,PCP [Primary Care Provider] - Forms: ED Satisfaction Letter General Adult HPI - General Chief complaint: ED Upper Respiratory Infection Stated complaint: Productive cough Time Seen by Provider: 05/24/18 11:40 Source: patient, EMS Mode of arrival: EMS Limitations: altered mental status, physical limitation - History of Present Illness Location: chest Pain Scale: 0 - Related Data Home Medications Medication Instructions Recorded Confirmed Allopurinol [Zyloprim 100 MG] 100 mg PO DAILY 12/26/16 05/16/18 Amiodarone [Cordarone] 200 mg PO DAILY 05/01/18 05/16/18 Atorvastatin [Lipitor] 40 mg PO HS 05/01/18 05/16/18 Doxycycline 100 mg PO BID 05/01/18 05/16/18 Famotidine [Pepcid] 20 mg PO DAILY 05/01/18 05/16/18 Midodrine HCl 10 mg PO TID 05/01/18 05/16/18 Megestrol Acetate [Megace] 40 mg PO DAILY 05/15/18 05/16/18 Previous Rx's Medication Instructions Recorded Warfarin [Coumadin] 3 mg PO AD #30 tablet 05/17/18 Allergies Allergy/AdvReac Type Severity Reaction Status Date / Time No Known Allergies Allergy Verified 05/16/18 10:40 Past Medical History - Past Medical History Medical history: Reports: CHF, coronary artery disease, CVA, dialysis, renal disease, valvular heart disease, other Surgical history: Reports: heart valve replacement, other Psychiatric history: Reports: no psych history - Social History Smoking Status: Former smoker Smokeless Tobacco Status: Yes Alcohol use: Reports: none Drug use: Reports: none Physical Exam - General Limitations: altered mental status, physical limitation General appearance: alert Course Vital Signs Temperature 98.4 F 05/24/18 11:36 Pulse Rate 88 05/24/18 11:36 Respiratory Rate 20 05/24/18 11:36 Blood Pressure 100/66 05/24/18 11:36 O2 Sat by Pulse Oximetry 100 05/24/18 11:36 Temperature 98.4 F 05/24/18 11:36 Pulse Rate 88 05/24/18 11:36 Respiratory Rate 20 05/24/18 12:39 Blood Pressure 100/66 05/24/18 11:36 O2 Sat by Pulse Oximetry 100 05/24/18 12:39 Oxygen Delivery Oxygen Delivery Room Air Medical Decision Making - Lab Data Result diagrams: 05/24/18 12:51 Lab Results 05/24/18 Range/Units 12:51 WBC 4.3 (4.3-11.1) K/mcL RBC 2.45 L (4.19-5.50) M/mcL Hgb 6.7 L (12.9-16.9) g/dL Hct 21.6 L (37.5-50.1) % MCV 88.2 (83.0-100.0) fL MCH 27.3 L (28.0-33.3) pg MCHC 31.0 L (31.6-35.5) g/dL RDW 18.4 H (11.5-14.5) % Plt Count 89 L (140-400) K/mcL MPV TNP Immature Gran % 0.5 (0-4) % Seg Neutrophils % 76.8 % Lymphocytes % 12.6 % Monocytes % 9.6 % Eosinophils % 0.5 % Basophils % 0.0 % Neutrophils # 3.3 (1.6-8.9) K/mcL Lymphocytes # 0.5 L (0.6-4.6) K/mcL Monocytes # 0.4 (0.0-1.3) K/mcL Eosinophils # 0.0 (0.0-0.6) K/mcL Basophils # 0.0 (0.0-0.2) K/mcL Platelet Estimate Decreased L (Normal) Immature Plt Fraction 5.2 (1.1-6.1) % Attestation Statement - Attestation Attestation: I examined this patient and my medical decision-making was reviewed with the Resident Physician. I agree with the documented findings, disposition and treatment plan as described except to the extent set forth below. 57 year old male presnts ot the Ed with complaints of productive cough and ia a trach patient and dialysis and missed dialysis today because of incressed dyspnea and cough. Armando appears to be anemic to 6.7 and will require transfusion. Armando appears to have increased pleural effusion and possible pnuemonia. Because of his recent stay last month to a selective [facility]-way we will cover with HCAP therapy.
[2018-05-24 15:24] LABS: Alanine Aminotransferase 10 Units/L (7-52); Albumin 2.8 g/dL (3.5-5.7); Alkaline Phosphatase 101 Units/L (34-104); Aspartate Amino Transferase 13 Units/L (13-39); BUN/Creatinine Ratio 13 (6-26); Bilirubin,Total 0.8 mg/dL (0.3-1.0); Blood Urea Nitrogen 62 mg/dL (6-20); Calcium 7.9 mg/dL (8.6-10.3); Carbon Dioxide 23 mEq/L (23-29); Chloride 102 mEq/L (98-107); Globulin 2.7 g/dL (2.4-3.5); Glucose 98 mg/dL (70-105); Osmolality,Calculated 310 (280-300); Potassium 3.6 mEq/L (3.5-5.1); Sodium 141 mEq/L (136-145); Total Protein 5.5 g/dL (6.4-8.9); Troponin I 0.03 ng/mL (< 0.04); eGFR For Non-African Americans 13 (> 60)
--- NOTE | 2018-05-24 15:32 | Nephrology Consult Note ---
Date of Encounter: 05/24/18 Time of Encounter: 14:50 Assessment and Plan (1) ESRD on dialysis Current Visit: Yes Status: Acute ESRD on [facility] dialysis in [facility] Missed dialysis today - will plan on HD treatment to get him back on schedule Renal diet, daily weights, I/O's, and avoid nephrotoxins as able Continue midrodine (2) Anemia in chronic kidney disease Current Visit: Yes Status: Chronic Hgb 6.7 today - 1 U pRBCs ordered in ED Of note he recently was hospitalized for hemoptysis, but he denies further hemoptysis Recent iron normal, low saturation and transferritin, B12 normal, and folate elevated Continue to monitor at this point - Transfusion parameters per primary team Qualifiers: Chronic kidney disease stage: on chronic dialysis Qualified Code(s): N18.6 - End stage renal disease; D63.1 - Anemia in chronic kidney disease; Z99.2 - Dependence on renal dialysis (3) Dyspnea Current Visit: Yes Status: Acute per primary - currently being treated for pneumonia Qualifiers: Dyspnea type: unspecified Qualified Code(s): R06.00 - Dyspnea, unspecified History of Present Illness - Reason for Consult Consult date: 05/24/18 end stage renal disease Requesting physician: Daren Hernandez - Chief Complaint Cough, dyspnea - History of Present Illness Mr. Driscoll is a 57 yo WM with PMH of ESRD on dialysis at [facility] and followed by Dr Kaufman, CHF, CVA, trach, non-functioning peg tube and CAD. He is admitted for dyspnea and pneumonia. CXR shows right pleural effusion. He was short of breath this morning with productive cough. His HH nurse recommended he come to the ED for evaluation. Of note he was just recently discharged from the hospital on 05/17/18. Nephrology has been consulted to manage his HD while hospitalized. 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 - Social History Smoking Status: Former smoker Smokeless Tobacco Status: Yes Alcohol use: none Drug use: none - Family History Mother Living Status: Still Living Hx Family Cardiac Disorders: No Hx Family Respiratory Disorders: No Hx Family Cancer: Yes Hx Family GI Disorders: No Hx Family Endocrine Disorder: Yes (DM) Hx Family Neuromuscular Disorders: No Hx Family Neurologic Disorders: No Hx Family HEENT Disorders: No Hx Family Autoimmune Disorders: No Father Living Status: Hx Family Cardiac Disorders: Yes (Heart problem) Hx Family Respiratory Disorders: No Hx Family Cancer: Yes Hx Family GI Disorders: No Hx Family Endocrine Disorder: Yes Hx Family Neuromuscular Disorders: No Hx Family Neurologic Disorders: No Hx Family HEENT Disorders: No Hx Family Autoimmune Disorders: No Medications and Allergies Allopurinol [Zyloprim 100 MG] 100 mg PO DAILY 12/26/16 [History] Amiodarone [Cordarone] 200 mg PO DAILY 05/01/18 [History] Atorvastatin [Lipitor] 40 mg PO HS 05/01/18 [History] Doxycycline 100 mg PO BID 05/01/18 [History] Famotidine [Pepcid] 20 mg PO DAILY 05/01/18 [History] Midodrine HCl 10 mg PO TID 05/01/18 [History] Megestrol Acetate [Megace] 40 mg PO DAILY 05/15/18 [History] Warfarin [Coumadin] 3 mg PO AD #30 tablet 05/17/18 [Rx] Allergy/AdvReac Type Severity Reaction Status Date / Time No Known Allergies Allergy Verified 05/16/18 10:40 Review of Systems All Systems: reviewed and no additional remarkable complaints except as stated Exam - Vital Signs Vital signs: Initial Vital Signs Temp Pulse Resp BP Pulse Ox 98.4 F 88 20 100/66 100 05/24/18 11:36 05/24/18 11:36 05/24/18 11:36 05/24/18 11:36 05/24/18 11:36 Vital Signs - Last 8 Hours Temp Pulse Resp BP Pulse Ox 05/24/18 12:39 20 100 05/24/18 11:36 98.4 F 88 20 100/66 100 Intake and Output 05/23/18 05/24/18 05/24/18 23:59 07:59 15:59 Other: Weight 73.028 kg Patient Weight 05/24/18 23:59 Weight 73.028 kg - General Appearance General appearance: chronically ill, frail EENT: ATNC, mucous membranes moist Neck: supple Respiratory: course breath sounds (in bases) Cardiology: diastolic murmur, edema (trace), regular rate, regular rhythm - Dialysis Access Dialysis Vascular Access: Venous Catheter (right tunneled - no surrounding erythema, but dressing is dirty on the outside) Gastrointestinal: normoactive bowel sounds, no tenderness Integumentary: no rash, warm and dry Neurologic: no focal deficit, alert and oriented x3 Musculoskeletal: no cyanosis, no clubbing Psychiatric: mood/affect appropriate, cooperative Results - Lab Results 05/24/18 12:51 05/24/18 12:57 Most recent lab results Calcium 7.9 mg/dL (8.6-10.3) L 05/24/18 12:57 Consult Discharge Plan - Plan Referrals: NONE,PCP [Primary Care Provider] -
[2018-05-24] MEDS ORDERED: 0.9 % Sodium Chloride 250 ML IVC PRN (15:38)
[2018-05-24] MEDS ORDERED: *HR* Heparin 10,000 UNIT/10 ML VIAL IV PRN (15:38)
[2018-05-24] MEDS ORDERED: 0.9 % Sodium Chloride 1,000 ML PRIME SCH (15:45)
[2018-05-24 15:58] LABS: % Iron Saturation 12 % (20-55); Iron 22 mcg/dL (65-175); Transferrin 133 mg/dL (203-362)
[2018-05-24 16:23] LABS: Folate 15.1 ng/mL (3.0-16.0)
[2018-05-24 16:27] LABS: Ferritin > 1500 ng/mL (20-250)
[2018-05-24] MEDS ORDERED: Naloxone 0.4 MG/ML INJ IVP PRN (16:36)
[2018-05-24] MEDS ORDERED: Ondansetron 4 MG/2 ML VIAL IVP PRN (16:36)
--- NOTE | 2018-05-24 16:45 | Internal Med History&Physical ---
Date of Encounter: 05/24/18 Time of Encounter: 16:00 Internal Medicine - H&P: HPI Chief complaint: SOB Admitted From: Home History of present illness: Mr. Driscoll is a 57 year old male with history of polycystic kidney disease/ESRD on hemodialysis, s/p mitral/aortic valve replacement, CVA, tracheostomy, CHF, who presented to the ED with 1 day history of SOB. Denies any worsening cough, fever/chills, or increased secretion through tracheostomy tube. No sick contacts. He missed his dialysis session today and was advised to come to the ED by his home health nurse. Of note, patient was recently admitted for hemoptysis last week which was thought to be related to minor bleeding around tracheostomy site per pulm. Denies any further episodes of hemoptysis, melena, hematochezia, or bright red blood per rectum. In the ED, he was afebrile and hemodynamically stable. Labwork showed hemoglobin of 6.7 (Baseline 7-8), no leukocytosis, INR 2.2, and normal troponin. Chest x-ray do not show any evidence of pneumonia but demonstrated cardiomegaly with pulmonary venous hypertension and small right pleural effusion. Nephrology was contacted for inpatient dialysis and patient was admitted for further management. 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 - Social History Smoking Status: Former smoker Smokeless Tobacco Status: Yes Alcohol use: none Drug use: none - Family History Mother Living Status: Still Living Hx Family Cardiac Disorders: No Hx Family Respiratory Disorders: No Hx Family Cancer: Yes Hx Family GI Disorders: No Hx Family Endocrine Disorder: Yes (DM) Hx Family Neuromuscular Disorders: No Hx Family Neurologic Disorders: No Hx Family HEENT Disorders: No Hx Family Autoimmune Disorders: No Father Living Status: Hx Family Cardiac Disorders: Yes (Heart problem) Hx Family Respiratory Disorders: No Hx Family Cancer: Yes Hx Family GI Disorders: No Hx Family Endocrine Disorder: Yes Hx Family Neuromuscular Disorders: No Hx Family Neurologic Disorders: No Hx Family HEENT Disorders: No Hx Family Autoimmune Disorders: No Internal Medicine - H&P: Meds Allopurinol [Zyloprim 100 MG] 100 mg PO DAILY 12/26/16 [History] Amiodarone [Cordarone] 200 mg PO DAILY 05/01/18 [History] Atorvastatin [Lipitor] 40 mg PO HS 05/01/18 [History] Doxycycline 100 mg PO BID 05/01/18 [History] Famotidine [Pepcid] 20 mg PO DAILY 05/01/18 [History] Midodrine HCl 10 mg PO TID 05/01/18 [History] Megestrol Acetate [Megace] 40 mg PO DAILY 05/15/18 [History] Warfarin [Coumadin] 3 mg PO AD #30 tablet 05/17/18 [Rx] Allergy/AdvReac Type Severity Reaction Status Date / Time No Known Allergies Allergy Verified 05/16/18 10:40 All Systems PM: A 10-system review of systems was performed and is negative for pertinent findings except as documented above in the HPI. - Constitutional Vitals: Temp Pulse Resp BP Pulse Ox 98.4 F 87 16 96/56 100 05/24/18 11:36 05/24/18 15:39 05/24/18 15:39 05/24/18 15:39 05/24/18 15:39 Exam: General: Alert and oriented, not in acute distress. HEENT:EOMI, pupils equal, round and reactive. Cardiovascular:Normal S1 & S2, No JVD. Pulse regular. Lungs: Bibasilar crackles Abdomen:Soft, non-tender, no rigidity. non-functioning PEG tube noted in epigastric/LUQ region Extremities:No deformity or swelling Neurological:Normal cognition and motor skills. Non-focal Skin:Normal color, no rash, no lesions. Pulses:Carotid and radial pulses normal +2. Rest of the physical exam is non contributory Internal Med - H&P Results - Labs CBC & Chem 7: 05/24/18 12:51 05/24/18 12:57 Labs: Short CBC 05/24/18 Range/Units 12:51 WBC 4.3 (4.3-11.1) K/mcL Hgb 6.7 L (12.9-16.9) g/dL Hct 21.6 L (37.5-50.1) % Plt Count 89 L (140-400) K/mcL Neutrophils # 3.3 (1.6-8.9) K/mcL BMP 05/24/18 12:57 Sodium 141 Potassium 3.6 Chloride 102 Carbon Dioxide 23 BUN 62 H Creatinine 4.78 H Glucose 98 Calcium 7.9 L Cardiac Enzymes 05/24/18 Range/Units 12:57 Troponin I 0.03 (< 0.04) ng/mL Liver Function 05/24/18 Range/Units 12:57 Total Bilirubin 0.8 (0.3-1.0) mg/dL AST 13 (13-39) Units/L ALT 10 (7-52) Units/L Alkaline Phosphatase 101 (34-104) Units/L Albumin 2.8 L (3.5-5.7) g/dL - Impressions ITS Impressions Chest X-Ray 05/24/18 11:48 IMPRESSION: 1. No evidence of pneumonia 2. Cardiomegaly with pulmonary venous hypertension and small right pleural effusion D/ / Farrukh Cannon MD / Farrukh Cannon MD Interpreting Provider: Farrukh Cannon MD - Assessment and Plan (1) ESRD on dialysis Current Visit: Yes Status: Chronic Assessment and plan: Presented with shortness of breath, which could be a combination of fluid overload from missed dialysis as well as progressively worsening anemia. Unlikel y to represent PNA as pt is not septic, no fever/leukocytosis, or has obvious infiltrate on CXR Nephrology input appreciated, for inpatient dialysis today monitor off abx (2) Anemia Current Visit: Yes Status: Chronic Assessment and plan: his symptom could be attributed to symptomatic anemia, Hb 6.7 on presentation workup shows iron deficiency anemia and anemia of chronic kidney disease IV Iron while inpatient trend H&H overnight FOBT, will consult GI/Surgery if positive. No prior scope noted on chart review Qualifiers: Anemia type: iron deficiency Qualified Code(s): D50.8 - Other iron deficiency anemias (3) Tracheostomy dependence Current Visit: No Status: Chronic Assessment and plan: will need outpatient ENT eval for removal of tracheostomy tube (4) H/O mechanical aortic valve replacement Current Visit: No Status: Chronic Assessment and plan: INR 2.2, will not aggressively bridge with heparin due to anemia goal INR 2.5-3.5 (5) History of mitral valve replacement with mechanical valve Current Visit: No Status: Chronic Assessment and plan: as above (6) Abdominal mass Current Visit: No Status: Chronic Assessment and plan: Was noted last time incidentally on his CT chest Is likely due to partial visualization of the adrenal myelolipoma/polycystic kidney disease which had been stable on serial CT abdo/pelvis Qualifiers: Abdominal location: unspecified location Qualified Code(s): R19.00 - Intra- abdominal and pelvic swelling, mass and lump, unspecified site - Time Spent With Patient Total time spent is greater than 50% in coordination of care (as documented) at patient's floor/unit and/or counseling patient: 25 - 35 minutes
[2018-05-24] MEDS ORDERED: Ipratropium/Albuterol Neb 3 ML IH PRN (16:55)
[2018-05-24 21:14] LABS: Hematocrit 21.9 % (37.5-50.1); Hemoglobin 6.8 g/dL (12.9-16.9); Mean Corpuscular HGB Conc 31.1 g/dL (31.6-35.5); Mean Corpuscular Hemoglobin 26.9 pg (28.0-33.3); Mean Corpuscular Volume 86.6 fL (83.0-100.0); Red Blood Count 2.53 M/mcL (4.19-5.50)
[2018-05-24 21:15] LABS: Immature Platelets 8.4 % (1.1-6.1); Red Cell Distribution Width 18.8 % (11.5-14.5)
[2018-05-24 21:19] LABS: Platelet Count 108 K/mcL (140-400)
[2018-05-24 23:10] LABS: Hematocrit 23.2 % (37.5-50.1); Hemoglobin 7.3 g/dL (12.9-16.9)
[2018-05-25 05:18] LABS: Hematocrit 21.6 % (37.5-50.1); Hemoglobin 6.8 g/dL (12.9-16.9); Mean Corpuscular HGB Conc 31.5 g/dL (31.6-35.5); Mean Corpuscular Hemoglobin 27.2 pg (28.0-33.3); Mean Corpuscular Volume 86.4 fL (83.0-100.0); Platelet Count 138 K/mcL (140-400)
[2018-05-25 05:30] LABS: Calcium 8.2 mg/dL (8.6-10.3); Magnesium 1.3 mg/dL (1.6-2.6); Potassium 3.6 mEq/L (3.5-5.1)
[2018-05-25 08:40] LABS: INR 2.3; Prothrombin Time 25.8 Seconds (9.4-12.1)
[2018-05-25] MEDS: Magnesium Oxide 400 MG TABLET PO SCH ×2 (08:45→21:03)
[2018-05-25] MEDS ORDERED: 0.9 % Sodium Chloride 250 ML IVC PRN (09:28)
[2018-05-25 10:20] LABS: Adenovirus Not Detected (Not Detect); Bordetella Pertussis Not Detected (Not Detect); Chlamydophila pneumoniae Not Detected (Not Detect); Coronavirus 229E Not Detected (Not Detect); Coronavirus HKU1 Not Detected (Not Detect); Coronavirus NL63 Not Detected (Not Detect); Coronavirus OC43 Not Detected (Not Detect); Human Metapneumovirus Not Detected (Not Detect); Human Rhinovirus/Enterovirus Not Detected (Not Detect); Influenza A Subtype 2009 H1 Not Detected (Not Detect); Influenza A Untypeable Not Detected (Not Detect); Influenza B Not Detected (Not Detect); Mycoplasma pneumoniae Not Detected (Not Detect); Parainfluenza Virus 1 Not Detected (Not Detect); Parainfluenza Virus 2 Not Detected (Not Detect); Parainfluenza Virus 3 Not Detected (Not Detect); Parainfluenza Virus 4 Not Detected (Not Detect); Respiratory Syncytial Virus Not Detected (Not Detect)
[2018-05-25] MEDS ORDERED: *HR* Metoprolol 5 MG/5 ML VIAL IVP PRN (11:51)
[2018-05-25] MEDS ORDERED: levoFLOXacin 750 MG TABLET PO ONE (11:51)
[2018-05-25] MEDS: *HR* Amiodarone 200 MG TABLET PO SCH (12:14)
--- NOTE | 2018-05-25 12:19 | Internal Med Progress Note ---
Hospitalist Progress Note - Encounter Date of Encounter: 05/25/18 Time of Encounter: 09:00 - Subjective Interval History: Patient states that he continues to feel unwell, mainly due to his breathing status. No significant change after HD overnight. Had BM this morning which was not melanotic nor contained mora blood. Developed tachycardia this morning but denies any chest pain or palpitation. No fever/chills overnight. - Exam Vitals: Temp Pulse Resp BP Pulse Ox 97.5 F L 134 20 91/63 96 05/25/18 11:35 05/25/18 11:35 05/25/18 11:35 05/25/18 11:35 05/25/18 07:46 Exam: General: Alert and oriented, not in acute distress. Cardiovascular:Normal S1 & S2, No JVD. Pulse regular but tachycardic Lungs: More prominent rhonchi R>L Abdomen:Soft, non-tender, no rigidity. non-functioning PEG tube noted in epigastric/LUQ region Extremities:No deformity or swelling Neurological:Normal cognition and motor skills. Non-focal - Assessment and Plan (1) HCAP (healthcare-associated pneumonia) Current Visit: Yes Status: Acute Assessment and Plan: Was initially concerned mostly for fluid overload in the setting of missed HD but pt reports unchanged symptoms after HD overnight XR from 05/21 and 05/24 personally reviewed: Although 05/24 CXR is reported as no PNA, there is slightly more prominent haziness in R lung field and has rhonchi worse on the side on physical exam today respiratory viral panel -ve given the lack of IV access for now, will start zyvox/levaquin strep/legionella ag, sputum culture if able to expectorate follow up on blood cultures (2) Atrial fibrillation with rapid ventricular response Current Visit: Yes Status: Acute Assessment and Plan: Patient's daughter reports that during his stay at [facility], he developed afib with RVR and was started on amiodarone developed tachycardia this morning, suspect infection driven +/- acute blood loss anemia (less likely given his Hb trend) will verify with EKG restart amiodarone, use PRN lopressor for persistent HR > 110 would consider amiodarone gtt if he remains tachycardic despite the above measure (3) Anemia Current Visit: Yes Status: Chronic Assessment and Plan: his symptom could be consistent with symptomatic anemia, Hb 6.7 on presentation workup shows iron deficiency anemia and anemia of chronic kidney disease unfortunately, pt did not receive pRBC during HD session yesterday Hb 6.7 - 6.8 - 7.3- 6.8, not consistent with acute arterial bleeding discussed with nephrology, would transfuse 2U pRBC with HD today continue Iron supplement FOBT +ve, discussed with acute care surgery who would see the pt in consultation PPI BID, clear for now (4) ESRD on dialysis Current Visit: Yes Status: Chronic Assessment and Plan: HD per nephrology (5) Tracheostomy dependence Current Visit: No Status: Chronic Assessment and Plan: will need outpatient ENT eval for removal of tracheostomy tube (6) H/O mechanical aortic valve replacement Current Visit: No Status: Chronic Assessment and Plan: INR 2.3 today. Currently being worked up for anemia and will not further anticoagulate nor reverse (7) History of mitral valve replacement with mechanical valve Current Visit: No Status: Chronic Assessment and Plan: as above (8) Abdominal mass Current Visit: No Status: Chronic Assessment and Plan: Was noted last time incidentally on his CT chest Is likely due to partial visualization of the adrenal myelolipoma/polycystic kidney disease which had been stable on serial CT abdo/pelvis DVT Prophylaxis: EPCD - Time Spent with Patient Total time spent is greater than 50% in coordination of care (as documented) at patient's floor/unit and/or counseling patient: Greater than 35 minutes Plan of Care Discussed with: patient (Discussed with patient's daughter, nephrology, and surgery in great detail) Internal Medicine: Result - Labs CBC & Chem 7: 05/25/18 05:06 05/25/18 05:06 Labs: Short CBC 05/24/18 05/24/18 05/24/18 Range/Units 12:51 21:05 22:46 WBC 4.3 4.1 L (4.3-11.1) K/mcL Hgb 6.7 L 6.8 L 7.3 L (12.9-16.9) g/dL Hct 21.6 L 21.9 L 23.2 L (37.5-50.1) % Plt Count 89 L 108 L (140-400) K/mcL Neutrophils # 3.3 (1.6-8.9) K/mcL 05/25/18 Range/Units 05:06 WBC 4.7 (4.3-11.1) K/mcL Hgb 6.8 L (12.9-16.9) g/dL Hct 21.6 L (37.5-50.1) % Plt Count 138 L (140-400) K/mcL Neutrophils # (1.6-8.9) K/mcL BMP 05/24/18 05/25/18 12:57 05:06 Sodium 141 139 Potassium 3.6 3.6 Chloride 102 101 Carbon Dioxide 23 26 BUN 62 H 32 H Creatinine 4.78 H 2.95 H Glucose 98 88 Calcium 7.9 L 8.2 L Cardiac Enzymes 05/24/18 Range/Units 12:57 Troponin I 0.03 (< 0.04) ng/mL Liver Function 05/24/18 Range/Units 12:57 Total Bilirubin 0.8 (0.3-1.0) mg/dL AST 13 (13-39) Units/L ALT 10 (7-52) Units/L Alkaline Phosphatase 101 (34-104) Units/L Albumin 2.8 L (3.5-5.7) g/dL - ABG Interpretation ABG results: PT/INR, D-dimer PT 25.8 Seconds (9.4-12.1) H 05/25/18 08:15 Consult Discharge Plan - Plan Referrals: NONE,PCP [Primary Care Provider] - (3) Anemia Qualifiers: Anemia type: iron deficiency Qualified Code(s): D50.8 - Other iron deficiency anemias (8) Abdominal mass Qualifiers: Abdominal location: unspecified location Qualified Code(s): R19.00 - Intra-abdominal and pelvic swelling, mass and lump, unspecified site
--- NOTE | 2018-05-25 12:32 | Nephrology Progress Note ---
Date of Encounter: 05/25/18 Time of Encounter: 12:31 - Assessment and Plan (1) ESRD on dialysis Current Visit: Yes Status: Chronic ESRD MWF. Renal dose medications. Patient had UF today for blood transfusion. Renal diet. (2) Atrial fibrillation with rapid ventricular response Current Visit: Yes Status: Acute Per primary team. (3) Anemia Current Visit: Yes Status: Chronic Transfuse as needed. Qualifiers: Anemia type: iron deficiency Qualified Code(s): D50.8 - Other iron deficiency anemias Subjective Principal diagnosis: ESRD Interval history: Patient seen. He feels better. His breathing is improved. Objective - Vital Signs Vital signs: Vital Signs Temp Pulse Resp BP Pulse Ox 05/25/18 11:35 97.5 F L 134 20 91/63 05/25/18 11:02 97.5 F L 128 20 98/58 05/25/18 10:47 97.6 F 132 20 97/61 05/25/18 10:32 98.2 F 131 20 103/61 05/25/18 07:46 98.7 F 125 20 100/65 96 05/25/18 00:12 99.5 F 91 25 104/66 98 05/24/18 20:18 99.4 F 88 25 109/70 99 05/24/18 19:30 98.7 F 20 104/58 05/24/18 19:15 103/57 05/24/18 19:00 104/67 05/24/18 18:45 86/47 05/24/18 18:30 93/43 05/24/18 18:15 99/51 05/24/18 18:00 93/50 05/24/18 17:45 91/60 05/24/18 17:30 96/53 05/24/18 17:15 91/45 05/24/18 17:00 91/50 05/24/18 16:45 92/35 05/24/18 16:30 97/45 05/24/18 16:15 98.5 F 20 93/47 05/24/18 15:39 87 16 96/56 100 05/24/18 12:39 20 100 Intake and Output 05/24/18 05/25/18 05/25/18 23:59 07:59 15:59 Intake Total 600 / 600 0 / 0 820 / 820 Output Total 1325 / 1325 Balance -725 / -725 0 / 0 820 / 820 Intake: Oral 120 / 120 Blood Product 700 / 700 Rbcs Leuko Poor As-1 Unit 350 / 350 [id number] Rbcs Leuko Poor As-1 Unit 350 / 350 [id number] Intake, Rinseback and Flushes 600 / 600 Free Water Intake Amount 0 / 0 0 / 0 Output: Total Dialysis (HD) Output 1325 / 1325 Other: Meal Breakfast Percent of Meal Consumed 35% Weight 75.2 kg Hemodialysis Net Fluid Removed 725 (mL) - General Appearance General appearance: Present: well-developed, well-nourished, chronically ill, frail EENT: Present: ATNC Integumentary: Present: warm and dry Neurologic: Present: alert and oriented x3 Musculoskeletal: Present: no cyanosis Psychiatric: Present: mood/affect appropriate - Lab 05/25/18 05:06 05/25/18 05:06 Most recent lab results Calcium 8.2 mg/dL (8.6-10.3) L 05/25/18 05:06 Magnesium 1.3 mg/dL (1.6-2.6) L 05/25/18 05:06 Consult Discharge Plan - Plan Referrals: NONE,PCP [Primary Care Provider] -
[2018-05-25] MEDS: Linezolid 600 MG TABLET PO SCH ×2 (12:57→21:04)
[2018-05-25] MEDS: Pantoprazole 40 MG VIAL IVP SCH ×2 (15:59→18:34)
[2018-05-25] MEDS: Sodium Ferric Gluconat/Sucrose 125 MG in 0.9 % Sodium Chloride 100 ML IVPB SCH (15:59)
[2018-05-25] MEDS ORDERED: Ondansetron ODT 4 MG TAB.RAPDIS SL ONE (19:48)
--- NOTE | 2018-05-25 19:52 | AcuteCare Surgery Consult Note ---
Date of Encounter: 05/25/18 Time of Encounter: 19:00 Assessment and Plan (1) Acute on chronic anemia Status: Acute Pt needs EGD/Colonoscopy. However, he is respectfully not willing to undergo prep for colonscopy at this time. Recommend outpt f/u for scopes. (2) H/O mechanical aortic valve replacement Status: Chronic (3) Hx of aortic valve replacement Status: Chronic (4) Tracheostomy dependence Status: Chronic History of Present Illness Consult date: 05/25/18 Reason for consult: other (GI bleeding with +FOBT and iron deficiency anemia) Requesting physician: Otoniel Elder History of present illness: This 57 y/o male ot is admitted to [facility] for multiple medical problems including anemia and +FOBT. Pt has a recent hx of stroke and a remote hx of mechanical heart valve. He is on assisted anticoagulation. He feels weak and is not up for upper or lower endoscopy today. Denies melena, BRBPR, hematochezia. He denies hemoptysis or hematemesis. 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 - Social History Smoking Status: Former smoker Smokeless Tobacco Status: Yes Alcohol use: none Drug use: none - Family History Mother Living Status: Still Living Hx Family Cardiac Disorders: No Hx Family Respiratory Disorders: No Hx Family Cancer: Yes Hx Family GI Disorders: No Hx Family Endocrine Disorder: Yes (DM) Hx Family Neuromuscular Disorders: No Hx Family Neurologic Disorders: No Hx Family HEENT Disorders: No Hx Family Autoimmune Disorders: No Father Living Status: Hx Family Cardiac Disorders: Yes (Heart problem) Hx Family Respiratory Disorders: No Hx Family Cancer: Yes Hx Family GI Disorders: No Hx Family Endocrine Disorder: Yes Hx Family Neuromuscular Disorders: No Hx Family Neurologic Disorders: No Hx Family HEENT Disorders: No Hx Family Autoimmune Disorders: No Medications and Allergies Allopurinol [Zyloprim 100 MG] 100 mg PO DAILY 12/26/16 [History] Amiodarone [Cordarone] 200 mg PO DAILY 05/01/18 [History] Atorvastatin [Lipitor] 40 mg PO HS 05/01/18 [History] Doxycycline 100 mg PO BID 05/01/18 [History] Famotidine [Pepcid] 20 mg PO DAILY 05/01/18 [History] Midodrine HCl 10 mg PO TID 05/01/18 [History] Megestrol Acetate [Megace] 40 mg PO DAILY 05/15/18 [History] Pantoprazole [Protonix] 40 mg IVP Q12HR vial 05/26/18 [Rx] Warfarin [Coumadin] 3 mg PO 1800 05/26/18 [History] Allergy/AdvReac Type Severity Reaction Status Date / Time No Known Allergies Allergy Verified 05/26/18 14:14 Review of Systems All systems PM: The remainder of the systems were reviewed and are negative - Constitutional as per HPI, daytime sleepiness, fatigue, weakness, no anorexia, no chills, no e xcessive sweating, no fever(s), no night sweats - EENT Nose, mouth and throat: dry mouth, no dizziness, no nasal congestion, no nasal discharge, no sinus pain, no sinus pressure, no sore throat - Cardiovascular no chest pain, no diaphoresis, no dyspnea, no edema - Respiratory no cough, no dyspnea, no wheezing - Gastrointestinal no abdominal pain, no bloating, no constipation, no diarrhea, no hematemesis, no hematochezia, no melena, no vomiting - Genitourinary no difficulty urinating, no dysuria, no urinary frequency - Musculoskeletal abnormal gait, atrophy, back pain, limited range of motion, muscle weakness, numbness, stiffness - Integumentary dry skin, no pruritus, no rash, no jaundice - Neurological abnormal gait, abnormal movements, no confusion - Psychiatric anxiety, depression - Endocrine fatigue - Hematologic/Lymphatic no easy bleeding, no easy bruising General Surgery Exam Initial Vital Signs Temp Pulse Resp BP Pulse Ox 98.4 F 88 20 100/66 100 05/24/18 11:36 05/24/18 11:36 05/24/18 11:36 05/24/18 11:36 05/24/18 11:36 - General physical appearance no distress, no pain - Eyes PERRL, normal ocular movement. negative: icteric - ENT no congestion, dry mucosa. negative: nasal discharge - Neck no masses, no lymphadectomy, no venous distension - Respiratory normal respiratory effort, clear to auscultation - Cardiovascular Cardiovascular exam: Present: RRR, murmurs - Abdomen Abdomen general surgery: Present: bowel sounds present, soft, non tender. Absent: distended - Genitourinary Present: normal penis with no external lesions - Integumentary Integumentary general surgery: Present: warm and dry - Neurologic Present: CN 2-12 grossly intact. Absent: normal coordination - Musculoskeletal Absent: normal gait, normal posture - Psychiatric Psychiatric general surgery: Present: A&Ox3, appropriate Exam Initial Vital Signs Temp Pulse Resp BP Pulse Ox 98.4 F 88 20 100/66 100 05/24/18 11:36 05/24/18 11:36 05/24/18 11:36 05/24/18 11:36 05/24/18 11:36 Results - Labs 05/26/18 14:34 05/26/18 14:34 Abnormal lab results RBC 2.50 M/mcL (4.19-5.50) L 05/25/18 05:06 Hgb 6.8 g/dL (12.9-16.9) L 05/25/18 05:06 Hct 21.6 % (37.5-50.1) L 05/25/18 05:06 MCH 27.2 pg (28.0-33.3) L 05/25/18 05:06 MCHC 31.5 g/dL (31.6-35.5) L 05/25/18 05:06 RDW 19.0 % (11.5-14.5) H 05/25/18 05:06 Plt Count 138 K/mcL (140-400) L 05/25/18 05:06 Lymphocytes # 0.5 K/mcL (0.6-4.6) L 05/24/18 12:51 Platelet Estimate Decreased (Normal) L 05/24/18 12:51 Immature Plt Fraction 8.4 % (1.1-6.1) H 05/24/18 21:05 PT 25.8 Seconds (9.4-12.1) H 05/25/18 08:15 BUN 32 mg/dL (6-20) H 05/25/18 05:06 Creatinine 2.95 mg/dL (0.70-1.30) H 05/25/18 05:06 Est GFR ( Amer) 27 (> 60) L 05/25/18 05:06 Est GFR (Non-Af Amer) 22 (> 60) L 05/25/18 05:06 Calcium 8.2 mg/dL (8.6-10.3) L 05/25/18 05:06 Magnesium 1.3 mg/dL (1.6-2.6) L 05/25/18 05:06 Iron 22 mcg/dL (65-175) L 05/24/18 12:57 % Saturation 12 % (20-55) L 05/24/18 12:57 Transferrin 133 mg/dL (203-362) L 05/24/18 12:57 Ferritin > 1500 ng/mL (20-250) H 05/24/18 12:57 Serum Total Protein 5.5 g/dL (6.4-8.9) L 05/24/18 12:57 Albumin 2.8 g/dL (3.5-5.7) L 05/24/18 12:57 Albumin/Globulin Ratio 1.0 (1.1-2.2) L 05/24/18 12:57 Stool Occult Blood Positive (Negative) A 05/25/18 09:27 Diabetes panel 05/25/18 Range/Units 05:06 Sodium 139 (136-145) mEq/L Potassium 3.6 (3.5-5.1) mEq/L Chloride 101 (98-107) mEq/L Carbon Dioxide 26 (23-29) mEq/L BUN 32 H (6-20) mg/dL Creatinine 2.95 H (0.70-1.30) mg/dL Glucose 88 (70-105) mg/dL Calcium 8.2 L (8.6-10.3) mg/dL Calcium panel 05/25/18 Range/Units 05:06 Calcium 8.2 L (8.6-10.3) mg/dL Pituitary panel 05/25/18 Range/Units 05:06 Sodium 139 (136-145) mEq/L Potassium 3.6 (3.5-5.1) mEq/L Chloride 101 (98-107) mEq/L Carbon Dioxide 26 (23-29) mEq/L BUN 32 H (6-20) mg/dL Creatinine 2.95 H (0.70-1.30) mg/dL Glucose 88 (70-105) mg/dL Calcium 8.2 L (8.6-10.3) mg/dL Adrenal panel 05/25/18 Range/Units 05:06 Sodium 139 (136-145) mEq/L Potassium 3.6 (3.5-5.1) mEq/L Chloride 101 (98-107) mEq/L Carbon Dioxide 26 (23-29) mEq/L BUN 32 H (6-20) mg/dL Creatinine 2.95 H (0.70-1.30) mg/dL Glucose 88 (70-105) mg/dL Calcium 8.2 L (8.6-10.3) mg/dL All other labs normal. Consult Discharge Plan - Plan Instructions: Atrial Fibrillation (DC), Anemia (GEN), Pneumonia (DC) Referrals: NONE,PCP [Primary Care Provider] -
[2018-05-25] MEDS ORDERED: Acetaminophen 325 MG TABLET PO PRN (21:24)
--- NOTE | 2018-05-25 21:26 | Electrocardiograph Report ---
[facility] [employer] Test Date: 2018-05-24 Pat Name: Man Driscoll Department: [id number] Room: 2A71 Gender: M Cbx Operator: : 1960 Requested By: Ginger Avina Order Number: [id number] Reading MD: Lion Quezada Measurements Intervals [place] Rate: 87 P: 86 OR: 163 QRS: -80 QRSD: 143 T: 74 QT: 445 QTc: 536 Interpretive Statements Sinus rhythm Ventricular premature complex Right bundle branch block Inferior infarct, old Electronically Signed On 05-25-2018 21:24:29 EDT by Lion Quezada
[2018-05-26] MEDS: Pantoprazole 40 MG VIAL IVP SCH (06:17)
[2018-05-26] MEDS: *HR* Amiodarone 200 MG TABLET PO SCH (09:19)
[2018-05-26] MEDS: Sodium Ferric Gluconat/Sucrose 125 MG in 0.9 % Sodium Chloride 100 ML IVPB SCH (09:19)
[2018-05-26] MEDS: Magnesium Oxide 400 MG TABLET PO SCH (09:19)
[2018-05-26] MEDS: Linezolid 600 MG TABLET PO SCH (09:19)
[2018-05-26 10:15] LABS: Acinetobacter baumannii by PCR Not Detected (Not Detect); Candida albicans by PCR Not Detected (Not Detect); Candida glabrata by PCR Not Detected (Not Detect); Candida krusei by PCR Not Detected (Not Detect); Candida parapsilosis by PCR Not Detected (Not Detect); Candida tropicalis by PCR Not Detected (Not Detect); Enterobacter cloacae Cmplx PCR Not Detected (Not Detect); Enterobacteriaceae by PCR Not Detected (Not Detect); Enterococcus by PCR Not Detected (Not Detect); Escherichia coli by PCR Not Detected (Not Detect); Klebsiella oxytoca by PCR Not Detected (Not Detect); Klebsiella pneumoniae by PCR Not Detected (Not Detect); Proteus by PCR Not Detected (Not Detect); Pseudomonas aeruginosa by PCR Not Detected (Not Detect); Serratia marcescens by PCR Not Detected (Not Detect); Staphylococcus aureus by PCR Not Detected (Not Detect); Staphylococcus by PCR DETECTED (Not Detect); Streptococcus agalactiae(B)PCR Not Detected (Not Detect); Streptococcus by PCR Not Detected (Not Detect); Streptococcus pneumoniae PCR Not Detected (Not Detect); Streptococcus pyogenes (A) PCR Not Detected (Not Detect); blaKPC Carbapenem-Resist Gene Not Detected (Not Detect); vanA/B Vancomycin-Resist Genes Not Detected (Not Detect)
--- NOTE | 2018-05-26 10:53 | Discharge Summary ---
- NOTES TO OUTPATIENT PROVIDER Notes to Outpatient Provider: Transfer to [facility] for probable endocarditis and GPC bacteremia Orders not resulted at time of discharge: Pending orders 05/24/18 16:44 Culture,Blood [BC] Stat 05/25/18 11:45 EKG [ECG 12 lead ECG] [ECG] Stat 05/25/18 12:22 Legionella Antigen [RM] Routine S. Pneumoniae Antigen [RM] Routine 05/25/18 16:30 Culture,Sputum with Gram Stain [RM] Routine 05/26/18 04:00 Basic Metabolic Panel AM 0400 CBC no Diff [Complete Blood Count w/o Diff] [HEME] AM 0400 Prothrombin Time INR [COAG] AM 0400 05/26/18 07:22 EV echocardiogram Routine 05/27/18 04:00 Basic Metabolic Panel AM 0400 CBC no Diff [Complete Blood Count w/o Diff] [HEME] AM 0400 05/28/18 04:00 Basic Metabolic Panel AM 0400 CBC no Diff [Complete Blood Count w/o Diff] [HEME] AM 0400 05/29/18 04:00 Basic Metabolic Panel AM 0400 CBC no Diff [Complete Blood Count w/o Diff] [HEME] AM 0400 05/30/18 04:00 Basic Metabolic Panel AM 0400 CBC no Diff [Complete Blood Count w/o Diff] [HEME] AM 0400 05/31/18 04:00 Basic Metabolic Panel AM 0400 CBC no Diff [Complete Blood Count w/o Diff] [HEME] AM 0400 06/01/18 04:00 Basic Metabolic Panel AM 0400 CBC no Diff [Complete Blood Count w/o Diff] [HEME] AM 0400 06/02/18 04:00 Basic Metabolic Panel AM 0400 CBC no Diff [Complete Blood Count w/o Diff] [HEME] AM 0400 06/03/18 04:00 Basic Metabolic Panel AM 0400 CBC no Diff [Complete Blood Count w/o Diff] [HEME] AM 0400 06/04/18 04:00 Basic Metabolic Panel AM 0400 CBC no Diff [Complete Blood Count w/o Diff] [HEME] AM 0400 Date of Encounter: 05/26/18 Time of Encounter: 09:30 - Discharge Diagnosis (1) HCAP (healthcare-associated pneumonia) Priority: Secondary Status: Acute (2) Atrial fibrillation with rapid ventricular response Priority: Secondary Status: Acute (3) Anemia Priority: Secondary Status: Chronic Qualifiers: Anemia type: iron deficiency Qualified Code(s): D50.8 - Other iron deficiency anemias (4) ESRD on dialysis Priority: Secondary Status: Chronic (5) Tracheostomy dependence Priority: Secondary Status: Chronic (6) H/O mechanical aortic valve replacement Priority: Secondary Status: Chronic (7) History of mitral valve replacement with mechanical valve Priority: Secondary Status: Chronic (8) Abdominal mass Priority: Secondary Status: Chronic Qualifiers: Abdominal location: unspecified location Qualified Code(s): R19.00 - Intra- abdominal and pelvic swelling, mass and lump, unspecified site (9) Endocarditis Priority: Secondary Status: Suspected Qualifiers: Endocarditis type: unspecified Chronicity: unspecified Qualified Code(s): I38 - Endocarditis, valve unspecified (10) Bacteremia Priority: Primary Status: Acute Hospital course: Mr. Driscoll is a 57 year old male with history of polycystic kidney disease/ESRD on hemodialysis through tunneled catheter, s/p mitral and aortic valve replacement, ?endocarditis on suppresive abx, CVA, tracheostomy dependence, was admitted to [facility] on 05/24 due to generalized weakness, anemia, and mild fluid overload. Received transfusion and underwent HD while inpatient without significant improvement in his symptoms. BLood culture obtained on presentation was reported on 05/26 to be positive for GPC in all 4 bottles. Pt's daughter also informed us that he was placed on PO Doxycycline when he was discharged from [facility] for suppressive therapy for endocarditis. He was initially given Zyvox due to lack of IV access but also received IV Vanc on 05/26. Transthoracic echocardiogram is pending at the time of the draft of d/c summary. He will be transferred to [facility] for further care as his valve replacement took place in [facility] in the past. Discharge discussed with: patient, family, nurse, lending consultant - Time Spent with Patient Total time spent providing and/or coordinating discharge services:45 mins - Discharge Medications Prescriptions: New Pantoprazole [Protonix] 40 mg IVP Q12HR vial Continue Allopurinol [Zyloprim 100 MG] 100 mg PO DAILY Amiodarone [Cordarone] 200 mg PO DAILY Atorvastatin [Lipitor] 40 mg PO HS Doxycycline 100 mg PO BID Famotidine [Pepcid] 20 mg PO DAILY Midodrine HCl 10 mg PO TID Megestrol Acetate [Megace] 40 mg PO DAILY Warfarin [Coumadin] 3 mg PO AD #30 tablet Renal Vitamin [Renal Caps Softgel] 1 mg PO DAILY Home Medications: Allopurinol [Zyloprim 100 MG] 100 mg PO DAILY 12/26/16 [History] Amiodarone [Cordarone] 200 mg PO DAILY 05/01/18 [History] Atorvastatin [Lipitor] 40 mg PO HS 05/01/18 [History] Doxycycline 100 mg PO BID 05/01/18 [History] Famotidine [Pepcid] 20 mg PO DAILY 05/01/18 [History] Midodrine HCl 10 mg PO TID 05/01/18 [History] Megestrol Acetate [Megace] 40 mg PO DAILY 05/15/18 [History] Warfarin [Coumadin] 3 mg PO AD #30 tablet 05/17/18 [Rx] Renal Vitamin [Renal Caps Softgel] 1 mg PO DAILY 05/25/18 [History] Pantoprazole [Protonix] 40 mg IVP Q12HR vial 05/26/18 [Rx] Allergies/Adverse Reactions: Allergy/AdvReac Type Severity Reaction Status Date / Time No Known Allergies Allergy Verified 05/16/18 10:40 Date of admission: 05/24/18 19:30 Primary care physician: PCP NONE Consults: 05/24/18 13:45 Consult to Nephrology [CONS] Stat Consulting Provider: Kidney Kathy/CARLOZ/CHERYL/ANTHONY Reason for Consult: end stage renal failure patient with anemia (hemoglobin 6.7), Call Completed: Yes 05/24/18 15:45 Consult to Dialysis [CONS] ONCE 05/25/18 09:30 Consult to Dialysis [CONS] ONCE 05/25/18 11:49 Consult to Surgery [CONS] Routine Consulting Provider: Acute Care Surgery Reason for Consult: GIB, MARCELINO Call Completed: Yes - Constitutional Vitals: Temp Pulse Resp BP Pulse Ox 98 F 72 20 117/67 93 05/26/18 07:18 05/26/18 07:18 05/26/18 07:18 05/26/18 07:18 05/26/18 07:18 Exam: General: Alert and oriented, not in acute distress. Chest: R TDC site appears clean without surrounding cellulitic changes Cardiovascular:Normal S1 & S2, No JVD. Pulse regular and HR normalized Lungs: Improving aeration in bilateral lung osman Abdomen:Soft, non-tender, no rigidity. non-functioning PEG tube noted in epigastric/LUQ region Extremities:No deformity or swelling Neurological:Normal cognition and motor skills. Non-focal - Patient Status Disposition: Transfer Critical Access Hosp Condition: Serious - Discharge Instructions Instructions: Pneumonia (DC), Atrial Fibrillation (DC), Anemia (GEN) Follow Up With: NONE,PCP [Primary Care Provider] -
--- NOTE | 2018-05-26 10:55 | Nephrology Progress Note ---
Date of Encounter: 05/26/18 Time of Encounter: 10:55 - Assessment and Plan (1) ESRD on dialysis Status: Chronic ESRD MWF. Renal dose medications. Renal diet. Plan for dialysis on Sunday. (2) Atrial fibrillation with rapid ventricular response Status: Acute Per primary team. (3) Anemia Status: Chronic Qualifiers: Anemia type: iron deficiency Qualified Code(s): D50.8 - Other iron deficiency anemias Subjective Principal diagnosis: ESRD Interval history: Patient seen. He feels better. His breathing is improved. Objective - Vital Signs Vital signs: Vital Signs Temp Pulse Resp BP Pulse Ox 05/26/18 07:18 98 F 72 20 117/67 93 05/26/18 04:52 98.0 F 69 16 108/70 95 05/26/18 00:13 99.5 F 77 18 110/71 94 05/25/18 19:57 100.0 F H 87 17 104/70 97 05/25/18 16:28 97.6 F 96 20 110/71 96 05/25/18 12:44 97.4 F L 20 101/68 05/25/18 12:20 82/56 05/25/18 12:15 90/60 05/25/18 12:05 97.6 F 138 20 90/61 05/25/18 12:00 92/58 05/25/18 11:50 97.4 F L 124 18 99/57 05/25/18 11:45 114/94 05/25/18 11:35 97.5 F L 134 20 91/63 05/25/18 11:30 93/56 05/25/18 11:15 90/61 05/25/18 11:02 97.5 F L 128 20 98/58 05/25/18 11:00 98/67 Intake and Output 05/25/18 05/26/18 05/26/18 23:59 07:59 15:59 Intake Total 0 / 0 0 / 0 Balance 0 / 0 0 / 0 Intake: Free Water Intake Amount 0 / 0 0 / 0 Other: Weight 75.2 kg Patient Weight 05/26/18 23:59 Weight 75.2 kg - General Appearance General appearance: Present: well-developed, well-nourished EENT: Present: ATNC Neck: Present: supple Neurologic: Present: alert and oriented x3 Psychiatric: Present: mood/affect appropriate - Lab 05/26/18 14:34 05/26/18 14:34 Most recent lab results Calcium 8.2 mg/dL (8.6-10.3) L 05/25/18 05:06 Magnesium 1.3 mg/dL (1.6-2.6) L 05/25/18 05:06 Consult Discharge Plan - Plan Instructions: Atrial Fibrillation (DC), Anemia (GEN), Pneumonia (DC) Referrals: NONE,PCP [Primary Care Provider] -
[2018-05-26 11:53] VITALS: BP 108/60
[2018-05-26 14:50] LABS: Hematocrit 27.1 % (37.5-50.1); Hemoglobin 9.1 g/dL (12.9-16.9); Immature Platelets 5.4 % (1.1-6.1); Mean Corpuscular HGB Conc 33.6 g/dL (31.6-35.5); Mean Corpuscular Volume 83.4 fL (83.0-100.0); Platelet Count 148 K/mcL (140-400); Red Blood Count 3.25 M/mcL (4.19-5.50); Red Cell Distribution Width 18.2 % (11.5-14.5)
[2018-05-26 14:55] LABS: INR 2.9; Prothrombin Time 32.2 Seconds (9.4-12.1)
[2018-05-26 15:07] LABS: Calcium 8.5 mg/dL (8.6-10.3)
--- NOTE | 2018-05-27 10:44 | Electrocardiograph Report ---
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
== END 2018-05-26 16:04 | disposition critical access hospital (66) ==
LOC: 2ANU 11:31 → EMEROOARM 11:31 → SUATTDRO 19:30 → 2ANU 20:30
PROVIDERS: ADMIT Internal Medicine Nephrology; ATTEND Internal Medicine